=== PATIENT | female | born 1935 | race Caucasian/White ===

== ENCOUNTER 2016-08-15 09:14 | Emergency (ER) | payer MEDICARE ==
[2016-08-15 09:54] VITALS: BP 135/70
--- NOTE | 2016-08-15 11:34 | UC ---
Neck Pain HPI - HPI Summary HPI Summary: compalint of neck toby n that started last night went to turn of her TV and turned her head and pain started pain is constant aching pain that radites into left shoulder her shoulder turning her head to the left is painful couldn't sleep last night d/t pain chronic neck pain- stiffness on a regular basis - see chiropractor denies trauma no recent trauma took some tramadol with some relief denies fever ,headache, - History of Current Complaint Chief Complaint: UCGeneralIllness Stated Complaint: NECK/SHOULDER PAIN Hx Obtained From: Patient Character: Aching Aggravating Factors: Movement Alleviating Factors: Heat Associated Signs & Symptoms: Positive: Negative - Allergies/Home Medications Allergies/Adverse Reactions: Allergies Allergy/AdvReac Type Severity Reaction Status Date / Time Morphine Allergy Intermediate See Comment Verified 07/10/14 15:18 Amoxicillin [From Augmentin] Allergy Unknown Unknown Verified 07/10/14 15:18 Reaction Details Captopril Allergy Unknown Unknown Verified 07/10/14 15:18 Reaction Details Clavulanic Acid Allergy Unknown Unknown Verified 07/10/14 15:18 [From Augmentin] Reaction Details Digoxin and Related Allergy Unknown Hives Verified 11/23/15 13:48 Diltiazem [Cardizem] Allergy Unknown Unknown Verified 07/10/14 15:18 Reaction Details Hydrochlorothiazide Allergy Unknown Unknown Verified 07/10/14 15:18 [From Benicar HCT] Reaction Details Lisinopril Allergy Unknown Unknown Verified 07/10/14 15:18 Reaction Details Nifedipine [From Procardia] Allergy Unknown Unknown Verified 07/10/14 15:18 Reaction Details Olmesartan [From Benicar HCT] Allergy Unknown Unknown Verified 07/10/14 15:18 Reaction Details Paroxetine [From Paxil] Allergy Unknown Unknown Verified 07/10/14 15:18 Reaction Details Adhesive Tape [Plastic Tape] Allergy Rash Verified 07/10/14 15:18 Codeine AdvReac Intermediate GI Upset Verified 07/10/14 15:18 Amlodipine [From Norvasc] AdvReac Unknown Unknown Verified 07/10/14 15:18 Reaction Details Digoxin AdvReac Unknown Headache Verified 07/10/14 15:18 Sertraline [From Zoloft] AdvReac Unknown Unknown Verified 07/10/14 15:18 Reaction Details PMH/Surg Hx/FS Hx/Imm Hx Previously Healthy: Yes Endocrine History Of: Denies: Diabetes, Thyroid Disease Cardiovascular History Of: Reports: Cardiac Disorders - AFIB, Hypertension, Congestive Heart Failure, Atrial Fibrillation Denies: Pacemaker/ICD Respiratory History Of: Denies: COPD, Asthma GI/ History Of: Denies: Ulcer, Renal Disease - Surgical History Surgical History: Yes Surgery Procedure, Year, and Place: Partial hysterectomy 1972, left kneecap repair, right shoulder rotator cuff, left thumb, right hip replacement 2010, window put in heart 2008 ( NOTHING METAL IN CHEST).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 - Family History Known Family History: Positive: Cardiac Disease, Hypertension Negative: Diabetes - Social History Occupation: Retired Lives: With Family Alcohol Use: None Substance Use Type: None Smoking Status (MU): Never Smoked Tobacco - Immunization History Most Recent Influenza Vaccination: 05/2015 Most Recent Tetanus Shot: 9 yrs ago Most Recent Pneumonia Vaccination: 2011 Review Of Systems Constitutional: Positive: Negative Skin: Positive: Negative Eyes: Positive: Negative ENT: Positive: Negative Respiratory: Positive: Negative Cardiovascular: Positive: Negative Gastrointestinal: Positive: Negative Genitourinary: Positive: Negative Musculoskeletal: Positive: Other: - neck pain Neurological: Positive: Negative Psychological: Positive: Negative All Other Systems Reviewed And Are Negative: Yes Physical Exam Triage Information Reviewed: Yes Appearance: No Pain Distress, Well-Nourished Vital Signs: Initial Vital Signs Temp 97.8 F 08/15/16 09:49 Pulse 67 08/15/16 09:49 Resp 20 08/15/16 09:49 BP 135/70 08/15/16 09:49 Pulse Ox 97 08/15/16 09:49 Vital Signs Reviewed: Yes Eyes: Positive: Conjunctiva Clear ENT: Positive: Pharynx normal, TMs normal. Negative: Nasal congestion Neck: Positive: Other: - no cspine tenderness can move head in all directions- painful to turn head towards the left Respiratory: Positive: Lungs clear, Normal breath sounds, No respiratory distress Cardiovascular: Positive: RRR, No Murmur, Pulses Normal Abdomen Description: Positive: Nontender, Soft Bowel Sounds: Positive: Present Musculoskeletal: Positive: No Edema, Other: - tenderness throughout left trapezuis Neurological: Positive: Alert Psychological Exam: Normal Skin Exam: Normal Neck Pain Course/Dx - Course Course Of Treatment: exam completed. no trauma-. muscular in nature will give tramadol and PT for further treatment - Differential Dx/Diagnosis Differential Dx/HQI/PQRI: Sprain, Strain Provider Diagnoses: neck sprain-trapezius left side Discharge - Discharge Plan Condition: Stable Disposition: HOME Prescriptions: traMADol TAB* [Ultram*] 50 mg PO Q6HR PRN #20 tab MDD 4 PRN Reason: Pain - Mild To Moderate Patient Education Materials: Cervical Strain (ED) Referrals: Glory Vigil MD [Primary Care Provider] - Additional Instructions: . Take tramadol for pain. Please call physical therapist for further evaluation and treatment of your neck pain. Increase fluids and rest. Please review your discharge instructions. If your symptoms do not improve please call your primary care provider or return to urgent care.
== END 2016-08-15 12:10 | disposition home or self-care (01) ==
LOC: UCEAST 09:14
DX: S13.9XXA Sprain of joints and ligaments of unspecified parts of neck, initial encounter (principal); X50.0XXA Overexertion from strenuous movement or load, initial encounter; Y93.89 Activity, other specified; Y92.009 Unspecified place in unspecified non-institutional (private) residence as the place of occurrence of the external cause; Z88.6 Allergy status to analgesic agent; Z88.1 Allergy status to other antibiotic agents; Z88.0 Allergy status to penicillin; Z88.8 Allergy status to other drugs, medicaments and biological substances
CPT/HCPCS: 99212; G0463

== ENCOUNTER 2016-08-25 09:32 | Emergency (ER) | payer MEDICARE ==
[2016-08-25 10:06] VITALS: BP 146/53
[2016-08-25] MEDS ORDERED: Acetaminophen TAB* 325 MG PO ONE (11:01)
--- NOTE | 2016-08-25 11:08 | UC ---
Upper Extremity HPI - HPI Summary HPI Summary: 80 year old female s/p fall 08/23/16, patient slipped on ice, when she fell she attempted to grab the stair banister behind her with her left arm and fell onto her lateral right hand. Has pain in R hand and L shoulder. 6/10 constant ache pain at rest, aggravated with movement and palpation, 8/10 pain. - History of Current Complaint Chief Complaint: UCUpperExtremity Stated Complaint: FELL HAND INJURY Time Seen by Provider: 08/25/16 10:36 Hx Obtained From: Patient ?: Yes Onset/Duration: Sudden Onset Severity Initially: Severe Severity Currently: Moderate Pain Intensity: 6 Pain Scale Used: 0-10 Numeric Location Of Pain: Is Diffuse - Right wrist/hand, Is Discrete @ - Left humerus head Character: Dull, Aching Aggravating Factor(s): Movement, Lifting, Flexion, Extension Alleviating Factor(s): Elevation, Ice, Rest Associated Signs And Symptoms: Positive: Swelling, Redness, Bruising - L upper arm, Weakness - R snuff blender Related History: Dominant Hand Right - Risk Factors Non-Orthopedic Risk Factor: Negative Septic Arthritis Risk Factor: Pre-existing Joint Disease Compartment Syndrome Risk Factors: Pain - Allergies/Home Medications Allergies/Adverse Reactions: Allergies Allergy/AdvReac Type Severity Reaction Status Date / Time Morphine Allergy Intermediate See Comment Verified 07/10/14 15:18 Amoxicillin [From Augmentin] Allergy Unknown Unknown Verified 07/10/14 15:18 Reaction Details Captopril Allergy Unknown Unknown Verified 07/10/14 15:18 Reaction Details Clavulanic Acid Allergy Unknown Unknown Verified 07/10/14 15:18 [From Augmentin] Reaction Details Digoxin and Related Allergy Unknown Hives Verified 11/23/15 13:48 Diltiazem [Cardizem] Allergy Unknown Unknown Verified 07/10/14 15:18 Reaction Details Hydrochlorothiazide Allergy Unknown Unknown Verified 07/10/14 15:18 [From Benicar HCT] Reaction Details Lisinopril Allergy Unknown Unknown Verified 07/10/14 15:18 Reaction Details Nifedipine [From Procardia] Allergy Unknown Unknown Verified 07/10/14 15:18 Reaction Details Olmesartan [From Benicar HCT] Allergy Unknown Unknown Verified 07/10/14 15:18 Reaction Details Paroxetine [From Paxil] Allergy Unknown Unknown Verified 07/10/14 15:18 Reaction Details Adhesive Tape [Plastic Tape] Allergy Rash Verified 07/10/14 15:18 Codeine AdvReac Intermediate GI Upset Verified 07/10/14 15:18 Amlodipine [From Norvasc] AdvReac Unknown Unknown Verified 07/10/14 15:18 Reaction Details Digoxin AdvReac Unknown Headache Verified 07/10/14 15:18 Sertraline [From Zoloft] AdvReac Unknown Unknown Verified 07/10/14 15:18 Reaction Details PMH/Surg Hx/FS Hx/Imm Hx Previously Healthy: Yes Endocrine History Of: Denies: Diabetes, Thyroid Disease Cardiovascular History Of: Reports: Cardiac Disorders - AFIB, Hypertension, Congestive Heart Failure, Atrial Fibrillation Denies: Pacemaker/ICD Respiratory History Of: Denies: COPD, Asthma GI/ History Of: Denies: Ulcer, Renal Disease Neurological History Of: Denies: TIA, CVA, Dementia, Seizures, Migraine Psychological History Of: Denies: Anxiety, Depression, Bipolar Disorder, Schizophrenia, Post Traumatic Stress Disorder - Surgical History Surgical History: Yes Surgery Procedure, Year, and Place: Partial hysterectomy 1972, left kneecap repair, right shoulder rotator cuff, left thumb, right hip replacement 2010, window put in heart 2008 ( NOTHING METAL IN CHEST).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 - Family History Known Family History: Positive: Cardiac Disease - Mother and father, Hypertension - Mother and father Negative: Diabetes - Social History Occupation: Retired Alcohol Use: None Substance Use Type: None Smoking Status (MU): Never Smoked Tobacco Have You Smoked in the Last Year: No - Immunization History Most Recent Influenza Vaccination: 05/2015 Most Recent Tetanus Shot: 9 yrs ago Most Recent Pneumonia Vaccination: 2011 Review of Systems Constitutional: Negative Skin: Negative Eyes: Negative - Pt denies blurred vision, change in vision or increased discharge from the eye. ENT: Negative Respiratory: Negative Cardiovascular: Negative Gastrointestinal: Negative Genitourinary: Negative Motor: Decreased ROM - Right wrist, Weakness - Left bicep/shoulder Musculoskeletal: Decreased ROM - Right hand/wrist; left shoudler Neurological: Negative Psychological: Negative All Other Systems Reviewed And Are Negative: Yes Physical Exam Triage Information Reviewed: Yes Appearance: Well-Appearing, No Pain Distress, Well-Nourished Vital Signs: Initial Vital Signs Temp 97.5 F 08/25/16 09:59 Pulse 77 08/25/16 09:59 Resp 18 08/25/16 09:59 BP 146/53 08/25/16 09:59 Pulse Ox 97 08/25/16 09:59 Vital Signs Reviewed: Yes Eye Exam: Normal Eyes: Positive: Conjunctiva Clear ENT: Positive: Hearing grossly normal, Other: - Hematoma right orbital area. Negative: Nasal congestion, Nasal drainage Dental Exam: Normal Dental: Positive: Percussion Tenderness @ Neck exam: Normal Neck: Positive: Supple, Nontender, No Lymphadenopathy Respiratory Exam: Normal Respiratory: Positive: Chest non-tender, Lungs clear, Normal breath sounds Cardiovascular Exam: Normal Cardiovascular: Positive: RRR, No Murmur, Pulses Normal Abdominal Exam: Normal Abdomen Description: Positive: Nontender Bowel Sounds: Positive: Present Musculoskeletal: Positive: Strength Limited @ - Left bicep, R snuff blender, ROM Limited @ - Right hand Neurological Exam: Normal Psychological Exam: Normal Psychological: Positive: Normal Response To Family Skin: Positive: Other - bruising around R eye and L upper arm Procedures - Splinting Location: R 5th metacarpal fx Hand-Made Type: orthoglass Splint: ulnar Pre-Proc Neuro Vasc Exam: normal Post-Proc Neuro Vasc Exam: normal Upper Extremity Course/Dx - Differential Dx/Diagnosis Provider Diagnoses: Facial contusion. R 5th metacarpal fracture closed, angulated. L proximal biceps tendon injury Discharge - Discharge Plan Condition: Stable Disposition: HOME Patient Education Materials: Hematoma (ED), Boxer Fracture (ED) Referrals: Glory Vigil MD [Primary Care Provider] - If Needed ( Call your doctor or return for examination if pain becomes severe, or if numbness or severe discoloration occurs.) Lynn Villasenor MD [Medical Doctor] - 7 Days Additional Instructions: Call your doctor or return for examination if pain becomes severe, or if numbness or severe discoloration occurs. Keep splint on all the time until you are seen by an orthopedist next week.
--- NOTE | 2016-08-25 11:41 | RAD ---
HISTORY: Pain and bruising of right hand after fall COMPARISONS: None VIEWS: 4, Frontal, lateral, and oblique views of the right hand FINDINGS: BONE DENSITY: There is diffuse osteopenia. BONES: There is an angulated fracture of the distal fifth metacarpal. 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 There is osteoarthritis of interphalangeal joints ALIGNMENT: There is no dislocation. SOFT TISSUES: Unremarkable. OTHER FINDINGS: None. IMPRESSION: 1. ANGULATED FRACTURE OF THE DISTAL FIFTH METACARPAL. 2. OSTEOPENIA. 3. OSTEOARTHRITIS.
--- NOTE | 2016-08-25 11:45 | RAD ---
INDICATION: Pain and bruising after fall COMPARISON: None TECHNIQUE: Routine frontal and Y views were obtained. FINDINGS: There is osteopenia. There is moderate osteophytosis about the glenohumeral and AC joints. There are mild irregularities about the greater tuberosity which are likely degenerative. There is no convincing evidence of acute fracture.. IMPRESSION: MODERATE OSTEOARTHRITIC CHANGES. NO DEFINITIVE FRACTURE. SUGGEST FOLLOW-UP INDICATED
== END 2016-08-25 12:51 | disposition home or self-care (01) ==
LOC: UCEAST 09:32
DX: S62.316A Displaced fracture of base of fifth metacarpal bone, right hand, initial encounter for closed fracture (principal); S46.202A Unspecified injury of muscle, fascia and tendon of other parts of biceps, left arm, initial encounter; S05.11XA Contusion of eyeball and orbital tissues, right eye, initial encounter; W00.0XXA Fall on same level due to ice and snow, initial encounter; Y93.9 Activity, unspecified; Y92.9 Unspecified place or not applicable; M85.841 Other specified disorders of bone density and structure, right hand; M19.041 Primary osteoarthritis, right hand; Z88.6 Allergy status to analgesic agent; Z88.1 Allergy status to other antibiotic agents; Z88.0 Allergy status to penicillin; Z88.8 Allergy status to other drugs, medicaments and biological substances
CPT/HCPCS: 99213; A9270-GY; G0463

== ENCOUNTER → 2016-12-17 13:47 | Emergency (ER) | payer MEDICARE ==
[~2016-12-17 13:47] MED LIST: Meclizine TAB* 12.5 MG PO ONE; NS 0.9% 1000 ML* 1,000 ML IV SCH
[2016-12-17 14:35] LABS: Hematocrit 38 % (35-47); Hemoglobin 12.4 g/dl (12.0-16.0); Mean Corpuscular HGB Conc 33 g/dl (31-36); Mean Corpuscular Hemoglobin 27 pg (27-31); Mean Corpuscular Volume 83 fL (80-97); Mean Platelet Volume 8 um3 (7.4-10.4); Red Blood Count 4.56 10^6/ul (4.0-5.4); Red Cell Distribution Width 16 % (10.5-15); White Blood Count 7.5 10^3/ul (3.5-10.8)
[2016-12-17 14:51] LABS: Albumin 4.2 g/dL (3.2-5.2); BUN/Creatinine Ratio 21.6 (8-20); C Reactive Protein 4.16 mg/L (< 5.00); Calcium 9.3 mg/dL (8.6-10.3); EGFR African American 79.3 (>60); EGFR Non-African American 61.7 (>60); Globulin 3.4 g/dL (2-4); Magnesium 2.3 mg/dL (1.9-2.7); Potassium 3.8 mmol/L (3.5-5.0); Total Bilirubin 0.6 mg/dL (0.2-1.0); Total Protein 7.6 g/dL (6.4-8.9)
[2016-12-17 14:54] LABS: Troponin I 0.01 ng/mL (<0.04)
[2016-12-17 15:22] LABS: TSH (Thyroid Stimulating Horm) 4.21 mcIU/mL (0.34-5.60)
--- NOTE | 2016-12-17 16:24 | RAD ---
INDICATION: Syncope COMPARISON: Chest x-ray dated June 29, 2014 TECHNIQUE: Single AP portable view of the chest was obtained. FINDINGS: Image quality is compromised due to the relative inferiority of a portable chest x-ray. Similar to the previous chest x-ray there is mild cardiomegaly and calcification overlying the arch of the aorta. The lungs are grossly clear. There is no evidence of a large pleural effusion. Visualized bones are normal for the patient's age. Surgical tacks are seen overlying the right humeral head. IMPRESSION: No radiographic evidence for acute cardiopulmonary abnormality on this portable chest x-ray.
--- NOTE | 2016-12-17 16:32 | RAD ---
INDICATION: Headache and dizziness in a woman taking Coumadin. COMPARISON: Comparison CT of the brain dated July 09, 2015 TECHNIQUE: Contiguous axial sections of the brain were obtained from the skull base to the vertex without contrast. FINDINGS: The ventricles, cisterns and sulci are within normal limits. There is mild periventricular and subcortical white matter hypoattenuation consistent with chronic microvascular disease. There is a more focal area of hypoattenuation at the white matter tracts of the right frontal lobe adjacent to the caudate head nucleus (image 11 of 28) that is similar to the July 09, 2015 CT of the brain. Otherwise the oliver-white matter differentiation is adequately maintained and there is no sulcal effacement. No significant focal abnormality or mass effect is present. There is no evidence for intracranial hemorrhage. No significant focal osseous abnormality is present. 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 The visualized portion of the paranasal sinuses and mastoid air cells appear clear. IMPRESSION: Again seen is evidence of chronic microvascular disease similar in appearance to the July 09, 2015 CT of the brain without evidence of acute intracranial abnormality.
--- NOTE | 2016-12-17 16:34 | RAD ---
INDICATION: Right hip pain after a fall COMPARISON: Multiple previous hip radiographs, most recently dated November 23, 2015 TECHNIQUE: 3 views of the right hip were obtained. FINDINGS: The right hip prosthesis is anatomically aligned in the AP and lateral projections. There is no evidence of periprosthetic loosening or fracture. Degenerative changes of the left hip include joint space narrowing, sclerotic change of the acetabular roof and marginal osteophyte formation. IMPRESSION: Anatomic alignment of the right hip prosthesis without radiographic evidence of periprostatic fracture or loosening. If the patient's symptoms persist follow-up imaging is recommended.
--- NOTE | 2016-12-17 17:09 | ED ---
Nando Caputo Billy, scribed for Polo Allan MD on 12/17/16 at 1408 . Complex/Multi-Sys Presentation - HPI Summary HPI Summary: Patient is an 81 year-old female coming to [facility] for evaluation of numerous complaints this morning. She went to sleep at approximately 2200 yesterday but woke up at 0230 with a throbbing headache in the occipital and frontal regions of her head, severity 7/10, as well as her chronic tinnitus. She walked over to the bathroom at approximately 0245 and had some dizziness on the way there. She states that she felt unsteady on her feet. She sat down on the toilet, felt very dizzy, then woke up on the floor. She is unsure if she had a period of LOC , but she has about a minute-long period of memory lapse and does not remember how she got onto the floor. Patient complains of palpitations since. She was able to get up and walk back to her bedroom. She woke up again at approximately 0700 with continued dizziness and headache, although her headache has improved by this time in the ED. Patient also complains of weakness in the left arm lasting 10 minutes at about 0730. She also states that there is weakness in the right leg that has been ongoing for the last 4 weeks, worse this morning. Denies any speech difficulties or changes in vision. She has had numerous falls recently, including one 3 months ago, when she fell onto her right-side. She visited her PCP last week, who states that her INR had been abnormal. She has been diaphoretic all morning but denies any chest pain or shortness of breath. She has IBS with chronic diarrhea but denies any blood in the stool. Denies any urinary symptoms. Patient has been recording her blood pressure this morning and noticed that she has been hypertensive. List of patient's self-measured blood pressure and time taken this mornin: 177/108 1145: 178/104 1210: 183/104 - History Of Current Complaint Chief Complaint: EDSyncope Time Seen by Provider: 12/17/16 13:51 Hx Obtained From: Patient Onset/Duration: Gradual Onset, Lasting Hours Timing: Constant Severity Currently: Moderate Severity Initially: Moderate Location: Pain At: - occipital headache Character: Typical Headache Aggravating Factor(s): dizziness worse with positional change Alleviating Factor(s): rest Associated Signs And Symptoms: Positive: Weakness, Headache, Palpitations, Diarrhea, Diaphoresis, Other - hypertension, headache, syncope. Negative: Nausea, Vomiting, Abdominal Pain, Dysuria - Allergies/Home Medications Allergies/Adverse Reactions: Allergies Allergy/AdvReac Type Severity Reaction Status Date / Time Morphine Allergy Intermediate See Comment Verified 12/17/16 13:53 Amoxicillin [From Augmentin] Allergy Unknown Unknown Verified 12/17/16 13:53 Reaction Details Captopril Allergy Unknown Unknown Verified 12/17/16 13:53 Reaction Details Clavulanic Acid Allergy Unknown Unknown Verified 12/17/16 13:53 [From Augmentin] Reaction Details Digoxin and Related Allergy Unknown Hives Verified 12/17/16 13:53 Diltiazem [Cardizem] Allergy Unknown Unknown Verified 12/17/16 13:53 Reaction Details Hydrochlorothiazide Allergy Unknown Unknown Verified 12/17/16 13:53 [From Benicar HCT] Reaction Details Lisinopril Allergy Unknown Unknown Verified 12/17/16 13:53 Reaction Details Nifedipine [From Procardia] Allergy Unknown Unknown Verified 12/17/16 13:53 Reaction Details Olmesartan [From Benicar HCT] Allergy Unknown Unknown Verified 12/17/16 13:53 Reaction Details Paroxetine [From Paxil] Allergy Unknown Unknown Verified 12/17/16 13:53 Reaction Details Adhesive Tape [Plastic Tape] Allergy Rash Verified 12/17/16 13:53 Codeine AdvReac Intermediate GI Upset Verified 12/17/16 13:53 Amlodipine [From Norvasc] AdvReac Unknown Unknown Verified 12/17/16 13:53 Reaction Details Digoxin AdvReac Unknown Headache Verified 12/17/16 13:53 Sertraline [From Zoloft] AdvReac Unknown Unknown Verified 12/17/16 13:53 Reaction Details PMH/Surg Hx/FS Hx/Imm Hx Endocrine/Hematology History: Denies: Hx Diabetes, Hx Thyroid Disease Cardiovascular History: Reports: Hx Congestive Heart Failure, Hx Hypertension Denies: Hx Pacemaker/ICD Respiratory History: Denies: Hx Asthma, Hx Chronic Obstructive Pulmonary Disease (COPD) GI History: Reports: Hx Irritable Bowel Denies: Hx Ulcer History: Denies: Hx Renal Disease Musculoskeletal History: Reports: Hx Orthopedic Injury - right hip fx 03/05/14 Sensory History: Reports: Hx Contacts or Glasses Denies: Hx Hearing Aid Opthamlomology History: Reports: Hx Contacts or Glasses Neurological History: Denies: Hx Dementia, Hx Migraine, Hx Seizures, Hx Transient Ischemic Attacks (TIA) Psychiatric History: Denies: Hx Anxiety, Hx Depression, Hx Panic Disorder, Hx Schizophrenia, Hx Bipolar Disorder - Surgical History Surgery Procedure, Year, and Place: Partial hysterectomy 1972, left kneecap repair, right shoulder rotator cuff, left thumb, right hip replacement 2010, window put in heart 2008 ( NOTHING METAL IN CHEST).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 - Immunization History Date of Tetanus Vaccine: unknown Date of Influenza Vaccine: 2014 Infectious Disease History: No Infectious Disease History: Denies: Hx Hepatitis, Hx Human Immunodeficiency Virus (HIV), History Other Infectious Disease, Traveled Outside the [place] in Last 30 Days - Family History Known Family History: Positive: Cardiac Disease - Mother and father, Hypertension - Mother and father Negative: Diabetes - Social History Alcohol Use: None Substance Use Type: Reports: None Smoking Status (MU): Never Smoked Tobacco Have You Smoked in the Last Year: No Review of Systems Positive: Skin Diaphoresis Negative: Blurred Vision, Diplopia Cardiovascular: Other - hypertension Positive: Palpitations. Negative: Chest Pain Negative: Shortness Of Breath Positive: Diarrhea. Negative: Abdominal Pain, Vomiting, Nausea Negative: dysuria, hematuria Positive: Headache, Weakness, Syncope. Negative: Slurred Speech All Other Systems Reviewed And Are Negative: Yes Physical Exam Triage Information Reviewed: Yes Vital Signs On Initial Exam: Initial Vitals Temp Pulse Resp BP Pulse Ox 97.8 F 70 18 180/102 93 12/17/16 13:53 12/17/16 13:53 12/17/16 13:53 12/17/16 13:53 12/17/16 13:53 Vital Signs Reviewed: Yes Appearance: Positive: Well-Appearing, No Pain Distress Skin: Positive: Warm, Skin Color Reflects Adequate Perfusion, Dry Head/Face: Positive: Normal Head/Face Inspection Eyes: Positive: EOMI, LELE ENT: Positive: Normal ENT inspection Neck: Positive: Supple, Nontender Respiratory/Lung Sounds: Positive: Clear to Auscultation, Breath Sounds Present Cardiovascular: Positive: IRR Abdomen Description: Positive: Nontender, Soft Bowel Sounds: Positive: Present Musculoskeletal: Positive: Normal, Strength/ROM Intact Neurological: Positive: Normal, Sensory/Motor Intact, Alert, Oriented to Person Place, Time, Other - See NIHSS for further details (score = 0). Psychiatric: Positive: Affect/Mood Appropriate Diagnostics - Vital Signs Vital Signs Temp Pulse Resp BP Pulse Ox 12/17/16 13:57 97.8 F 86 18 180/102 94 12/17/16 13:53 97.8 F 70 18 180/102 93 - Laboratory Lab Results: Lab Results 12/17/16 12/17/16 12/17/16 Range/Units 14:25 14:25 14:25 WBC 7.5 (3.5-10.8) 10^3/ul RBC 4.56 (4.0-5.4) 10^6/ul Hgb 12.4 (12.0-16.0) g/dl Hct 38 (35-47) % MCV 83 (80-97) fL MCH 27 (27-31) pg MCHC 33 (31-36) g/dl RDW 16 H (10.5-15) % Plt Count 147 L (150-450) 10^3/ul MPV 8 (7.4-10.4) um3 Neut % (Auto) 50.1 (38-83) % Lymph % (Auto) 37.8 (25-47) % [place] % (Auto) 8.8 (1-9) % Eos % (Auto) 2.6 (0-6) % Baso % (Auto) 0.7 (0-2) % Absolute Neuts (auto) 3.8 (1.5-7.7) 10^3/ul Absolute Lymphs (auto) 2.8 (1.0-4.8) 10^3/ul Absolute Monos (auto) 0.7 (0-0.8) 10^3/ul Absolute Eos (auto) 0.2 (0-0.6) 10^3/ul Absolute Basos (auto) 0.1 (0-0.2) 10^3/ul Absolute Nucleated RBC 0 10^3/ul Nucleated RBC % 0 INR (Anticoag Therapy) 2.12 H (0.89-1.11) APTT 41.2 H (26.0-36.3) seconds Sodium 138 (133-145) mmol/L Potassium 3.8 (3.5-5.0) mmol/L Chloride 106 (101-111) mmol/L Carbon Dioxide 27 (22-32) mmol/L Anion Gap 5 (2-11) mmol/L BUN 19 (6-24) mg/dL Creatinine 0.88 (0.51-0.95) mg/dL Est GFR ( Amer) 79.3 (>60) Est GFR (Non-Af Amer) 61.7 (>60) BUN/Creatinine Ratio 21.6 H (8-20) Glucose 93 (70-100) mg/dL Lactic Acid (0.5-2.0) mmol/L Calcium 9.3 (8.6-10.3) mg/dL Magnesium 2.3 (1.9-2.7) mg/dL Total Bilirubin 0.60 (0.2-1.0) mg/dL AST 21 (13-39) U/L ALT 13 (7-52) U/L Alkaline Phosphatase 110 H (34-104) U/L Total Creatine Kinase 44 (10-223) U/L CK-MB (CK-2) 3.1 (0.6-6.3) ng/mL Troponin I 0.01 (<0.04) ng/mL C-Reactive Protein 4.16 (< 5.00) mg/L Total Protein 7.6 (6.4-8.9) g/dL Albumin 4.2 (3.2-5.2) g/dL Globulin 3.4 (2-4) g/dL Albumin/Globulin Ratio 1.2 (1-3) Lipase 46 (11.0-82.0) U/L TSH 4.21 (0.34-5.60) mcIU/mL 12/17/16 Range/Units 14:25 WBC (3.5-10.8) 10^3/ul RBC (4.0-5.4) 10^6/ul Hgb (12.0-16.0) g/dl Hct (35-47) % MCV (80-97) fL MCH (27-31) pg MCHC (31-36) g/dl RDW (10.5-15) % Plt Count (150-450) 10^3/ul MPV (7.4-10.4) um3 Neut % (Auto) (38-83) % Lymph % (Auto) (25-47) % [place] % (Auto) (1-9) % Eos % (Auto) (0-6) % Baso % (Auto) (0-2) % Absolute Neuts (auto) (1.5-7.7) 10^3/ul Absolute Lymphs (auto) (1.0-4.8) 10^3/ul Absolute Monos (auto) (0-0.8) 10^3/ul Absolute Eos (auto) (0-0.6) 10^3/ul Absolute Basos (auto) (0-0.2) 10^3/ul Absolute Nucleated RBC 10^3/ul Nucleated RBC % INR (Anticoag Therapy) (0.89-1.11) APTT (26.0-36.3) seconds Sodium (133-145) mmol/L Potassium (3.5-5.0) mmol/L Chloride (101-111) mmol/L Carbon Dioxide (22-32) mmol/L Anion Gap (2-11) mmol/L BUN (6-24) mg/dL Creatinine (0.51-0.95) mg/dL Est GFR ( Amer) (>60) Est GFR (Non-Af Amer) (>60) BUN/Creatinine Ratio (8-20) Glucose (70-100) mg/dL Lactic Acid 0.8 (0.5-2.0) mmol/L Calcium (8.6-10.3) mg/dL Magnesium (1.9-2.7) mg/dL Total Bilirubin (0.2-1.0) mg/dL AST (13-39) U/L ALT (7-52) U/L Alkaline Phosphatase (34-104) U/L Total Creatine Kinase (10-223) U/L CK-MB (CK-2) (0.6-6.3) ng/mL Troponin I (<0.04) ng/mL C-Reactive Protein (< 5.00) mg/L Total Protein (6.4-8.9) g/dL Albumin (3.2-5.2) g/dL Globulin (2-4) g/dL Albumin/Globulin Ratio (1-3) Lipase (11.0-82.0) U/L TSH (0.34-5.60) mcIU/mL Result Diagrams: 12/17/16 14:25 12/17/16 14:25 Lab Statement: Any lab studies that have been ordered have been reviewed, and results considered in the medical decision making process. - Radiology Hip/pelvis XR Xray Interpretation: No Acute Changes Radiology Interpretation Completed By: Radiologist CXR Xray Interpretation: No Acute Changes Radiology Interpretation Completed By: Radiologist - CT Brain CT Interpretation: No Acute Changes CT Interpretation Completed By: Radiologist - EKG 1414 EKG Interpretation: afib 68 bpm, LVH EKG Comparison: No Significant Change - Compared to 06/29/14 National Institutes Of Health - NIH Scale Level of Consciousness: Alert/Keenly Responsive Ask Patient the Month and His/Her Age: Both Correct Ask Pt to Open/Close Eyes and Cardiac Rehabilitation Specialist/Release Non-Paretic Hand: Both Correctly Best Gaze (Only Horizontal Eye Movement): Normal Visual Field Testing: No Visual Loss Facial Paresis-Pt to Smile & Close Eyes or Grimace Symmetry: Normal/Symmetrical Motor Function - Right Arm: No Drift-Holds 10 Seconds Motor Function - Left Arm: No Drift-Holds 10 Seconds Motor Function - Right Leg: No Drift-Holds 10 Seconds Motor Function - Left Leg: No Drift-Holds 10 Seconds Limb Ataxia-Must be out of Proportion to Weakness Present: Absent Sensory (Use Pinprick to Test Arms/Legs/Trunk/Face): Normal Best Language (Describe Picture, Name Items): No Aphasia Dysarthria (Read Several Words): Normal Extinction and Inattention: No Abnormality Total Score: 0 Re-Evaluation - Re-Evaluation First Eval Re-Evaluation Time: 16:43 Comment: Labs and imaging reviewed. Complex Multi-Symp Course/Dx Course Of Treatment: NO CRITICAL CARE TIME Assessment/Plan: DIZZINESS IMPROVED IN ED. PATIENT HAD MECLIZINE 25MG PO IN ED. RT LEG NUMBNESS APPEARS TO BE A CHRONIC INTERMITTENT CONDITION. SHE HAS AN APPOINTMENT WITH VASCULAR FOR THE RT LEG ON12/21/16. THE LEFT ARM HAS A CHRONIC LEFT SHOULDER INJURY WITH INTERMITTENT WEAKNESS. I DISCUSSED ADMISSION WITH PATIENT/DAUGHTER FOR SYNCOPE AND POSSIBLE TIA. SHE DECLINED ADMISSION, WISHES TO GO HOME. DISCHARGE HOME STABLE WITH RX FOR MECLIZINE. - Diagnoses Provider Diagnoses: Vertigo, Syncope, Arm weakness Discharge - Discharge Plan Condition: Stable Disposition: HOME Prescriptions: Meclizine HCl [Meclizine 25] 25 mg PO Q6HR PRN #15 tab PRN Reason: Dizziness Patient Education Materials: Vertigo (ED), Syncope (ED), Weakness (ED) Referrals: Glory Vigil MD [Primary Care Provider] - Additional Instructions: FOLLOW UP WITH YOUR DOCTOR. CALL DR VIGIL TOMORROW. RETURN TO THE EMERGENCY DEPARTMENT FOR ANY WORSENING OF YOUR CONDITION; WEAKNESS , NUMBNESS, YOU FEEL LIKE PASSING OUT, YOU FEEL ILL, DIFFICULTY WITH SPEECH OR VISION, CHEST PAIN, SHORTNESS OF BREATH OR QUESTIONS OR CONCERNS. The documentation as recorded by the Nando arora Billy accurately reflects the service I personally performed and the decisions made by me, Polo Allan MD.
[2016-12-17 17:26] VITALS: BP 183/66
== END | disposition home or self-care (01) ==
LOC: ED 13:47
DX: R42 Dizziness and giddiness (principal); R55 Syncope and collapse; R53.1 Weakness; R51 Headache; R00.2 Palpitations; R19.7 Diarrhea, unspecified
CPT/HCPCS: 36415; 70450; 71010; 80053; 82550; 82553; 83605; 83690; 83735; 84443; 84484; 85025; 85610; 85730; 86140; 93005; 99283; A9270-GY

== ENCOUNTER 2016-12-19 10:57 | Observation (INO) | payer MEDICARE ==
[2016-12-19] MEDS: NS 0.9% 1000 ML* 1,000 ML IV SCH ×2 (15:14→18:02)
[2016-12-19 15:25] LABS: Hematocrit 40 % (35-47); Hemoglobin 12.9 g/dl (12.0-16.0); Mean Corpuscular HGB Conc 33 g/dl (31-36); Mean Corpuscular Hemoglobin 27 pg (27-31); Mean Corpuscular Volume 83 fL (80-97); Mean Platelet Volume 9 um3 (7.4-10.4); Red Blood Count 4.76 10^6/ul (4.0-5.4); Red Cell Distribution Width 17 % (10.5-15); White Blood Count 8.9 10^3/ul (3.5-10.8)
--- NOTE | 2016-12-19 15:27 | RAD ---
HISTORY: Dizziness, fall COMPARISONS: December 17, 2016 VIEWS:1: Single frontal portable view of the chest at 3:15 PM FINDINGS: LINES AND TUBES: None. CARDIOMEDIASTINAL SILHOUETTE: The cardiac silhouette is enlarged. The cardiomediastinal silhouette is otherwise normal for portable technique. PLEURA: The costophrenic angles are sharp. No pleural abnormalities are noted. LUNG PARENCHYMA: The lungs are clear. ABDOMEN: The upper abdomen is clear. There is no subphrenic gas. BONES AND SOFT TISSUES: There is postsurgical change to the right shoulder IMPRESSION: CARDIOMEGALY
[2016-12-19 15:38] LABS: Albumin 4.2 g/dL (3.2-5.2); BUN/Creatinine Ratio 22.4 (8-20); C Reactive Protein 5.12 mg/L (< 5.00); Calcium 9.7 mg/dL (8.6-10.3); EGFR African American 82.6 (>60); EGFR Non-African American 64.2 (>60); Globulin 3.6 g/dL (2-4); Magnesium 2.2 mg/dL (1.9-2.7); Potassium 3.9 mmol/L (3.5-5.0); Total Bilirubin 0.9 mg/dL (0.2-1.0); Total Protein 7.8 g/dL (6.4-8.9)
[2016-12-19 15:39] LABS: Troponin I 0.02 ng/mL (<0.04)
[2016-12-19 16:04] LABS: TSH (Thyroid Stimulating Horm) 1.98 mcIU/mL (0.34-5.60)
--- NOTE | 2016-12-19 17:00 | RAD ---
Indication: Dizziness. Fall. Comparison: December 17, 2016 CT. Technique: [employer] [place] 1.5 Evangelina [id number] with GEM suite. MRI brain without contrast. Report: Diffusion series is negative for acute or subacute ischemia. Susceptibility series is negative for stigmata of hemosiderin deposition to indicate previous hemorrhage. Unremarkable cerebral sulci, ventricles, and basal cisterns. Extensive increased T2 signal in the bilateral periventricular and subcortical white matter regions of the cerebral hemispheres without mass effect most consistent with chronic small vessel ischemic disease. 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 Negative for intra or extra-axial fluid collection. Unremarkable internal auditory canals. Preserved major intracranial flow-voids. No suspicious lesion of the calvarium or skull base. Clear paranasal sinuses and mastoid air spaces. Negative for scalp hematoma. IMPRESSION: 1. No acute intracranial process evident. 2. Stigmata of probable chronic small vessel ischemic disease and chronic approximate 0.4 x 0.9 cm lacunar infarct at the RIGHT caudate head.
[2016-12-19 17:03] LABS: Urine Bacteria Absent (Absent); Urine Bilirubin Negative (Negative); Urine Glucose Negative (Negative); Urine Nitrite Negative (Negative)
[2016-12-19] MEDS ORDERED: Acetaminophen TAB* 325 MG PO PRN (17:03)
[2016-12-19] MEDS ORDERED: Ondansetron INJ* 2 MG/ML VIAL IV PRN (17:03)
[2016-12-19] MEDS ORDERED: traMADol TAB* 50 MG PO PRN (17:07)
[2016-12-19] MEDS ORDERED: Warfarin TAB(*) 2.5 MG PO SCH (18:00)
--- NOTE | 2016-12-19 18:55 | ED ---
Michael Caputo Auryana, scribed for Polo Allan MD on 12/19/16 at 1546 . Dizziness - HPI Summary HPI Summary: 81 year old presents with dizziness starting this morning after eating breakfast. The patient states that she was washing her face in the bathroom when she became dizzy and fell. She states that she doesn't not think that she had any LOC but "couldn't swear by it"- patient does remember getting up after the fall. She reports that she also has a dull ache in her upper neck/lower head just before her dizziness episodes- spontaneous resolution of pain after. She states that she hit her left arm on the toilet handle but denies any head trauma. She denies any vomiting. Her symptoms are aggravated by head movement and improved by rest. Reports Meclezine improved symptoms with first dose but has not helped since -last dose 04:00/05:00 today. She has had similar episodes in the past with dizziness and falls - last seen here at [facility] on Sunday (12/17/16) - Rx Meclezine and advised to follow up- called office and no availability until January. She has had 2 episodes of dizziness since her visit today - both managed with rest. PMHx is significant for R hip replacement (titanium), HTN, and hyperlipidemia. Patient is on Coumadin. She lives with family however - her and children - however all were at work at the time of the fall. - History Of Current Complaint Chief Complaint: EDDizziness Stated Complaint: FALL/SYNCOPE Time Seen by Provider: 12/19/16 14:42 Hx Obtained From: Patient Onset/Duration: Still Present, Resolved - with rest Timing: Intermittent Episode Lasting Severity Initially: Mild Severity Currently: None Character: Dizzy Aggravating Factor(s): Other - movement Alleviating Factor(s): Rest Associated Signs And Symptoms: Positive: Other: - FALL Related History: Similar Episode/Dx as - see HPI - Risk Factors Cardiac Risk Factors: Hypertension, Elevated Lipids CVA Risk Factor: Hypertension, Atrial Fibrillation, Hyperlipidemia - Allergies/Home Medications Allergies/Adverse Reactions: Allergies Allergy/AdvReac Type Severity Reaction Status Date / Time Morphine Allergy Intermediate See Comment Verified 12/17/16 13:53 Amoxicillin [From Augmentin] Allergy Unknown Unknown Verified 12/17/16 13:53 Reaction Details Captopril Allergy Unknown Unknown Verified 12/17/16 13:53 Reaction Details Clavulanic Acid Allergy Unknown Unknown Verified 12/17/16 13:53 [From Augmentin] Reaction Details Digoxin and Related Allergy Unknown Hives Verified 12/17/16 13:53 Diltiazem [Cardizem] Allergy Unknown Unknown Verified 12/17/16 13:53 Reaction Details Hydrochlorothiazide Allergy Unknown Unknown Verified 12/17/16 13:53 [From Benicar HCT] Reaction Details Lisinopril Allergy Unknown Unknown Verified 12/17/16 13:53 Reaction Details Nifedipine [From Procardia] Allergy Unknown Unknown Verified 12/17/16 13:53 Reaction Details Olmesartan [From Benicar HCT] Allergy Unknown Unknown Verified 12/17/16 13:53 Reaction Details Paroxetine [From Paxil] Allergy Unknown Unknown Verified 12/17/16 13:53 Reaction Details Adhesive Tape [Plastic Tape] Allergy Rash Verified 12/17/16 13:53 Codeine AdvReac Intermediate GI Upset Verified 12/17/16 13:53 Amlodipine [From Norvasc] AdvReac Unknown Unknown Verified 12/17/16 13:53 Reaction Details Digoxin AdvReac Unknown Headache Verified 12/17/16 13:53 Sertraline [From Zoloft] AdvReac Unknown Unknown Verified 12/17/16 13:53 Reaction Details Home Medications: Home Medications Acetaminophen [Acetaminophen Extra Stren] 500 mg PO Q6HR PRN 12/19/16 [History Confirmed 12/19/16] Cyclobenzaprine TAB* [Flexeril 10 MG TAB*] 10 mg PO BEDTIME PRN 12/19/16 [ History Confirmed 12/19/16] Warfarin TAB(*) [Coumadin TAB(*)] 2.5 mg PO SUMOTUTHSA 12/19/16 [History Confirmed 12/19/16] Warfarin TAB(*) [Coumadin TAB(*)] 5 mg PO WEFR 12/19/16 [History Confirmed 12/19] traMADol TAB* [Ultram*] 50 mg PO Q6HR PRN MDD 4 12/19/16 [History Confirmed 04/29] PMH/Surg Hx/FS Hx/Imm Hx Endocrine/Hematology History: Denies: Hx Diabetes, Hx Thyroid Disease Cardiovascular History: Reports: Hx Congestive Heart Failure, Hx Hypertension Denies: Hx Pacemaker/ICD Respiratory History: Denies: Hx Asthma, Hx Chronic Obstructive Pulmonary Disease (COPD) GI History: Reports: Hx Irritable Bowel Denies: Hx Ulcer History: Denies: Hx Renal Disease Musculoskeletal History: Reports: Hx Orthopedic Injury - right hip fx 03/05/14 Sensory History: Reports: Hx Contacts or Glasses Denies: Hx Hearing Aid Opthamlomology History: Reports: Hx Contacts or Glasses Neurological History: Denies: Hx Dementia, Hx Migraine, Hx Seizures, Hx Transient Ischemic Attacks (TIA) Psychiatric History: Denies: Hx Anxiety, Hx Depression, Hx Panic Disorder, Hx Schizophrenia, Hx Bipolar Disorder - Surgical History Surgery Procedure, Year, and Place: Partial hysterectomy 1972, left kneecap repair, right shoulder rotator cuff, left thumb, right hip replacement 2010, window put in heart 2008 ( NOTHING METAL IN CHEST).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 - Immunization History Date of Tetanus Vaccine: unknown Date of Influenza Vaccine: 2014 Infectious Disease History: No Infectious Disease History: Denies: Hx Hepatitis, Hx Human Immunodeficiency Virus (HIV), History Other Infectious Disease, Traveled Outside the [place] in Last 30 Days - Family History Known Family History: Positive: Cardiac Disease - Mother and father, Hypertension - Mother and father Negative: Diabetes - Social History Occupation: Retired Lives: With Family Alcohol Use: None Substance Use Type: Reports: None Smoking Status (MU): Never Smoked Tobacco Have You Smoked in the Last Year: No Review of Systems Positive: Other - dizziness Eyes: Negative ENT: Negative Cardiovascular: Negative Respiratory: Negative Gastrointestinal: Negative Genitourinary: Negative Musculoskeletal: Negative Skin: Negative Positive: Headache - dull ache in the lower head/upper neck Psychological: Normal All Other Systems Reviewed And Are Negative: Yes Physical Exam Triage Information Reviewed: Yes Vital Signs On Initial Exam: Initial Vitals Temp Pulse Resp BP Pulse Ox 98.1 F 87 18 187/87 96 12/19/16 10:59 12/19/16 10:59 12/19/16 10:59 12/19/16 10:59 12/19/16 10:59 Vital Signs Reviewed: Yes Appearance: Positive: Well-Appearing, No Pain Distress Skin: Positive: Warm, Skin Color Reflects Adequate Perfusion, Dry Head/Face: Positive: Normal Head/Face Inspection Eyes: Positive: EOMI, LELE ENT: Positive: Normal ENT inspection Neck: Positive: Supple, Nontender Respiratory/Lung Sounds: Positive: Clear to Auscultation, Breath Sounds Present Cardiovascular: Positive: RRR Abdomen Description: Positive: Nontender, Soft Bowel Sounds: Positive: Present Musculoskeletal: Positive: Normal, Strength/ROM Intact Neurological: Positive: Normal, Sensory/Motor Intact, Alert, Oriented to Person Place, Time Psychiatric: Positive: Affect/Mood Appropriate - Ras Coma Scale Coma Scale Total: 15 Diagnostics - Vital Signs Vital Signs Temp Pulse Resp BP Pulse Ox 12/19/16 13:32 97.2 F 72 16 160/70 98 12/19/16 12:30 97.6 F 75 18 172/80 98 12/19/16 10:59 98.1 F 87 18 187/87 96 - Laboratory Lab Results: Lab Results 12/19/16 12/19/16 12/19/16 Range/Units 13:29 15:10 15:10 WBC 8.9 (3.5-10.8) 10^3/ul RBC 4.76 (4.0-5.4) 10^6/ul Hgb 12.9 (12.0-16.0) g/dl Hct 40 (35-47) % MCV 83 (80-97) fL MCH 27 (27-31) pg MCHC 33 (31-36) g/dl RDW 17 H (10.5-15) % Plt Count 151 (150-450) 10^3/ul MPV 9 (7.4-10.4) um3 Neut % (Auto) 59.3 (38-83) % Lymph % (Auto) 29.2 (25-47) % [place] % (Auto) 8.1 (1-9) % Eos % (Auto) 2.6 (0-6) % Baso % (Auto) 0.8 (0-2) % Absolute Neuts (auto) 5.3 (1.5-7.7) 10^3/ul Absolute Lymphs (auto) 2.6 (1.0-4.8) 10^3/ul Absolute Monos (auto) 0.7 (0-0.8) 10^3/ul Absolute Eos (auto) 0.2 (0-0.6) 10^3/ul Absolute Basos (auto) 0.1 (0-0.2) 10^3/ul Absolute Nucleated RBC 0.01 10^3/ul Nucleated RBC % 0.1 INR (Anticoag Therapy) 1.79 H (0.89-1.11) APTT 36.2 (26.0-36.3) seconds Sodium (133-145) mmol/L Potassium (3.5-5.0) mmol/L Chloride (101-111) mmol/L Carbon Dioxide (22-32) mmol/L Anion Gap (2-11) mmol/L BUN (6-24) mg/dL Creatinine (0.51-0.95) mg/dL Est GFR ( Amer) (>60) Est GFR (Non-Af Amer) (>60) BUN/Creatinine Ratio (8-20) Glucose (70-100) mg/dL Lactic Acid (0.5-2.0) mmol/L Calcium (8.6-10.3) mg/dL Magnesium (1.9-2.7) mg/dL Total Bilirubin (0.2-1.0) mg/dL AST (13-39) U/L ALT (7-52) U/L Alkaline Phosphatase (34-104) U/L Troponin I (<0.04) ng/mL C-Reactive Protein (< 5.00) mg/L Total Protein (6.4-8.9) g/dL Albumin (3.2-5.2) g/dL Globulin (2-4) g/dL Albumin/Globulin Ratio (1-3) Lipase (11.0-82.0) U/L TSH (0.34-5.60) mcIU/mL Urine Color Yellow Urine Appearance Clear Urine pH 6.0 (5-9) Ur Specific [place] 1.015 (1.010-1.030) Urine Protein Negative (Negative) Urine Ketones Negative (Negative) Urine Blood Negative (Negative) Urine Nitrate Negative (Negative) Urine Bilirubin Negative (Negative) Urine Urobilinogen Negative (Negative) Ur Leukocyte Esterase Trace H (Negative) Urine WBC (Auto) 1+(6-10/hpf) H (Absent) Urine RBC (Auto) Absent (Absent) Urine Bacteria Absent (Absent) Urine Glucose Negative (Negative) 12/19/16 12/19/16 Range/Units 15:10 15:10 WBC (3.5-10.8) 10^3/ul RBC (4.0-5.4) 10^6/ul Hgb (12.0-16.0) g/dl Hct (35-47) % MCV (80-97) fL MCH (27-31) pg MCHC (31-36) g/dl RDW (10.5-15) % Plt Count (150-450) 10^3/ul MPV (7.4-10.4) um3 Neut % (Auto) (38-83) % Lymph % (Auto) (25-47) % [place] % (Auto) (1-9) % Eos % (Auto) (0-6) % Baso % (Auto) (0-2) % Absolute Neuts (auto) (1.5-7.7) 10^3/ul Absolute Lymphs (auto) (1.0-4.8) 10^3/ul Absolute Monos (auto) (0-0.8) 10^3/ul Absolute Eos (auto) (0-0.6) 10^3/ul Absolute Basos (auto) (0-0.2) 10^3/ul Absolute Nucleated RBC 10^3/ul Nucleated RBC % INR (Anticoag Therapy) (0.89-1.11) APTT (26.0-36.3) seconds Sodium 139 (133-145) mmol/L Potassium 3.9 (3.5-5.0) mmol/L Chloride 106 (101-111) mmol/L Carbon Dioxide 29 (22-32) mmol/L Anion Gap 4 (2-11) mmol/L BUN 19 (6-24) mg/dL Creatinine 0.85 (0.51-0.95) mg/dL Est GFR ( Amer) 82.6 (>60) Est GFR (Non-Af Amer) 64.2 (>60) BUN/Creatinine Ratio 22.4 H (8-20) Glucose 94 (70-100) mg/dL Lactic Acid 0.7 (0.5-2.0) mmol/L Calcium 9.7 (8.6-10.3) mg/dL Magnesium 2.2 (1.9-2.7) mg/dL Total Bilirubin 0.90 (0.2-1.0) mg/dL AST 20 (13-39) U/L ALT 14 (7-52) U/L Alkaline Phosphatase 107 H (34-104) U/L Troponin I 0.02 (<0.04) ng/mL C-Reactive Protein 5.12 H (< 5.00) mg/L Total Protein 7.8 (6.4-8.9) g/dL Albumin 4.2 (3.2-5.2) g/dL Globulin 3.6 (2-4) g/dL Albumin/Globulin Ratio 1.2 (1-3) Lipase 41 (11.0-82.0) U/L TSH 1.98 (0.34-5.60) mcIU/mL Urine Color Urine Appearance Urine pH (5-9) Ur Specific [place] (1.010-1.030) Urine Protein (Negative) Urine Ketones (Negative) Urine Blood (Negative) Urine Nitrate (Negative) Urine Bilirubin (Negative) Urine Urobilinogen (Negative) Ur Leukocyte Esterase (Negative) Urine WBC (Auto) (Absent) Urine RBC (Auto) (Absent) Urine Bacteria (Absent) Urine Glucose (Negative) Result Diagrams: 12/19/16 15:10 12/19/16 15:10 Lab Statement: Any lab studies that have been ordered have been reviewed, and results considered in the medical decision making process. - Radiology CXR Xray Interpretation: Positive (See Comments) - CARDIOMEGALY Radiology Interpretation Completed By: Radiologist - EKG 13:05 EKG Interpretation: A-FIB @ 75 bpm, LVH, similar to old EKG EKG Comparison: No Significant Change Dizzy Course/Dx - Course Course Of Treatment: NO CRITICAL CARE TIME Assessment/Plan: DISCUSSED WITH DR KAMARA. ADMIT HOSPITALIST STABLE. - Diagnoses Provider Diagnoses: Dizziness - Provider Notifications Discussed Care Of Patient with: DR. Kamara at 15:40 - recommends admission to R /O CVA. Dr. Evangelista at 15:46 - agrees to admit Time Discussed With Above Provider: 15:46 - agrees to admit Instructed by Provider To: Admit As Observation Discharge - Discharge Plan Condition: Stable Disposition: ADMITTED TO [facility] documentation as recorded by the Michael arora Auryana accurately reflects the service I personally performed and the decisions made by me, Polo Allan MD.
[2016-12-19] MEDS: hydrALAZINE IV* 20 MG/ML VIAL IV SLOW PU PRN (20:22)
[2016-12-19] MEDS: cloNIDine TAB* 0.1 MG PO SCH (21:50)
[2016-12-19] MEDS: Meclizine TAB* 12.5 MG PO SCH (21:50)
[2016-12-19] MEDS ORDERED: Heparin VIAL(*) 5000 UNITS/ML VIAL (FIVE THOUSAND) SUBCUT SCH (22:00)
--- NOTE | 2016-12-19 23:36 | HP ---
HISTORY AND PHYSICAL: DATE OF ADMISSION: 12/19/16 PRIMARY CARE PROVIDER: Dr. Vigil. ATTENDING PHYSICIAN WHILE IN THE HOSPITAL: Dr. Elizabet Evangelista *(report dictated by Luis Alberto Mcclendon NP). CHIEF COMPLAINT: Dizziness. HISTORY OF PRESENT ILLNESS: Ms. Fuentes is an 81-year-old female patient who has a history of AFib; diverticulitis; hypertension; CAD; BERNABE, not on BiPAP or CPAP for this; IBS; pericarditis; cholelithiasis; and hyperlipidemia. She comes in today stating that since Sunday, she has had 2 to 3 episodes where she has had dizziness described as a lightheadedness starting out with a pain in the back of her head, becoming lightheaded. It does get worse when she changes position. She had no associated symptoms such as feeling nauseous with this and denied feeling any sensation of the room spinning. She said the episodes last maybe a minute to 2 minutes and she has had 3 of them. She had one on Sunday though that was quite severe. She started feeling dizzy having the similar symptoms of having a pain in the back of her head and becoming dizzy and the next thing she knew she was on the ground. She got up, went to the ER, and was discharged home. She denies having any changes in her medications. She does say that her blood pressure at home has been running in the 180s. She says that she has not had any chest pressure. She did state that with today's episode of dizziness, she did have palpitations, but no chest pain, no chest pressure, no ringing in the ears. She denied having any recent fevers or chills. No cough or sore throat. She had one episode of diarrhea on Sunday, but none since. She denies any abdominal pain and denies having any alleviating factors. She does state that meclizine helps sometimes. She was evaluated in the ER today and there was concern because of the recurrent symptoms of dizziness. We were asked to evaluate for admission. PAST MEDICAL HISTORY: Significant for: 1. AFib. 2. Diverticulitis. 3. Hypertension. 4. Coronary artery disease. 5. BERNABE. 6. IBS. 7. Pericarditis. 8. Cholelithiasis. 9. Hyperlipidemia. PAST SURGICAL HISTORY: 1. She has had a right hip hemiarthroplasty with revision. 2. She has a pericardial window. 3. Cardiac catheterization. 4. Hysterectomy. 5. Tendon repair. 6. Knee arthroscopy. HOME MEDICATIONS: Include: 1. Tylenol 650 mg every 4 hours as needed. 2. Atenolol 125 mg p.o. daily. 3. Catapres 0.1 mg p.o. b.i.d. 4. Lasix 20 mg daily. 5. Lisinopril 20 mg daily. 6. Meclizine 25 mg every 6 hours as needed. 7. Multivitamin half a tablet daily. 8. Potassium chloride 10 mEq p.o. daily. 9. Coumadin 5 mg on Sunday and Sunday, 2.5 mg Sunday, Sunday, Sunday, , and Sunday. 10. Tylenol Extra Strength 500 mg every 6 hours as needed. 11. Tramadol 50 mg every 6 hours as needed. 12. Flexeril 10 mg at bedtime as needed. ALLERGIES TO MEDICATIONS: Include MORPHINE, AUGMENTIN, CAPTOPRIL, DIGOXIN, CARDIZEM, BENICAR, LISINOPRIL, HYDROCHLOROTHIAZIDE, NIFEDIPINE, PAXIL, ADHESIVE TAPE, CODEINE, NORVASC, DIGOXIN, and ZOLOFT. FAMILY HISTORY: Both her parents had heart disease and heart attack. SOCIAL HISTORY: She does not smoke, does not drink. Surrogate decision maker is her daughter. REVIEW OF SYSTEMS: There is no documented fever. She denied having any significant weight change. There was no double vision. There is no ear discharge. She denies having any rhinorrhea. There is no sore throat. No thyroid enlargement. She denies having any chest pain. There is no orthopnea. No nocturnal dyspnea. There is no abdominal pain. No nausea. No vomiting. No dysuria. No frequency. There was one episode of loss of consciousness. There was dizziness. No seizure. Review of 14 systems completed, all others negative. PHYSICAL EXAMINATION GENERAL: At this time, Ms. Fuentes is an 81-year-old female patient. She is sitting in the hospital bed. She does not appear to be in any acute distress. VITAL SIGNS: Blood pressure 168/87, pulse 73, respirations 18, O2 sat 99%, and temperature 97.2. HEENT: Head is atraumatic and normocephalic. Eyes: EOMs are intact. Sclerae anicteric and not pale. Throat: Oral mucosa appears to be moist. No oropharyngeal erythema. NECK: Supple. LUNGS: Clear to auscultation bilaterally. No wheezes, rales, or rhonchi. HEART: Sounds S1, S2. Irregularly irregular rate and rhythm. No murmurs, rubs , or gallops. ABDOMEN: Soft, it was flat, it was nontender. EXTREMITIES: Pulses were 2+ throughout. She is able to move all 4 extremities with 5/5 strength. NEUROLOGIC: The patient is awake, she is alert. [id number] intact bilaterally. [id number] intact bilaterally. Digital Content Manager were equal. Tongue was midline. No facial drooping. Speech was clear. She had no gross focal deficits. SKIN: Intact. LABORATORY DATA AND DIAGNOSTIC STUDIES: Today revealed WBC 8.9, RBC of 4.76, hemoglobin 12.9, hematocrit of 40, platelet count of 151. His INR was 1.79. PTT of 36.2. Sodium 139, potassium 3.9, chloride 106, bicarb 26, BUN 19, creatinine of 0.85, glucose 94, lactic 0.7, calcium 9.7, magnesium 2.3. Total bili 0.9, AST 20, ALT 14, alk phos 107. Troponin 0.02. Albumin of 4.2. TSH was normal. Urine showed trace leukocyte esterase, 1+ wbc. She had a chest x-ray obtained today, which revealed cardiomegaly. She had a brain MRI obtained today, which revealed no acute intracranial process evident, stigmata of probable chronic small vessel ischemic disease, and chronic approximately 0.4 x 0.9 cm lacunar infarct to the right caudate head. She did have an EKG obtained today as well, which revealed atrial fibrillation with a rate of 75. She did have ST depressions in V4, 5, and 6 along with II and aVF. She has had this similar appearance with her EKG previously. No acute changes were noted. Old medical records were reviewed. ASSESSMENT AND PLAN: Ms. Fuentes is an 81-year-old female patient coming in to the ER today with complaints of dizziness. In addition to this, also having an episode where she had syncope on Sunday. She will be admitted under observation status for: 1. Dizziness with syncope: At this point, I do not think this was a posterior circulation stroke. Her MRI is negative. It could be certainly vertigo or possibly orthostasis. So, my plan is to go ahead and check an echo, check orthostatic blood pressures, place her on telemetry, cycle her troponins, and in addition to this, we will get the echocardiogram and we will continue to follow and monitor her and I have also started standing meclizine. 2. Atrial fibrillation: She is rate controlled. Continue meds as prescribed. INR is slightly low. We will repeat it tomorrow. She is going to get some Coumadin tonight and we will follow the INR for now. 3. Hypertension: Continue meds as prescribed. 4. Coronary artery disease: She is on a beta-bakari. We will continue that. She currently is not on a statin. She is going to discuss this with her primary. 5. Obstructive sleep apnea: Follow with her primary. Continue with her current medical regimen. 6. Irritable bowel syndrome: Continue with her meds as prescribed. 7. History of pericarditis: Not an active issue. 8. Cholelithiasis: Not an active issue. 9. Hyperlipidemia: Follow with her primary. Continue lifestyle modifications. 10. DVT prophylaxis. INR is 1.79. I am going to put her on SCDs. We will repeat the INR tomorrow. I do not think she needs subcu heparin at this point because she is taking Coumadin. 11. Code status: Full code. 12. Fluids, electrolytes, and nutrition: She can have a regular diet. TIME SPENT: Time spent on the admission was 60 minutes; greater than half the time was spent [id number] with the patient obtaining my history and physical, other half the time spent going over the plan of care with the patient and implementing plan of care. I did discuss the plan of care with my attending, Dr. Evangelista; she is in agreement. LUIS ALBERTO MCCLENDON NP CC: Dr. Vigil* [id number]/[facility] #: [id number] KAREN
[2016-12-20] MEDS: NS 0.9% 1000 ML* 1,000 ML IV SCH (01:14)
[2016-12-20] MEDS: Meclizine TAB* 12.5 MG PO SCH ×2 (05:15→14:26)
[2016-12-20 06:28] LABS: Hematocrit 38 % (35-47); Hemoglobin 12.4 g/dl (12.0-16.0); Mean Corpuscular HGB Conc 33 g/dl (31-36); Mean Corpuscular Hemoglobin 27 pg (27-31); Mean Corpuscular Volume 84 fL (80-97); Mean Platelet Volume 9 um3 (7.4-10.4); Red Blood Count 4.54 10^6/ul (4.0-5.4); Red Cell Distribution Width 17 % (10.5-15); White Blood Count 7.7 10^3/ul (3.5-10.8)
[2016-12-20 06:45] LABS: BUN/Creatinine Ratio 20.5 (8-20); Calcium 9.2 mg/dL (8.6-10.3); EGFR African American 91.2 (>60); EGFR Non-African American 70.9 (>60); Potassium 3.4 mmol/L (3.5-5.0)
[2016-12-20] MEDS: cloNIDine TAB* 0.1 MG PO SCH (07:38)
[2016-12-20] MEDS: hydrALAZINE IV* 20 MG/ML VIAL IV SLOW PU PRN (07:38)
[2016-12-20] MEDS ORDERED: Atenolol TAB* 50 MG PO SCH (09:00)
[2016-12-20] MEDS ORDERED: Furosemide TAB* 20 MG PO SCH (09:00)
[2016-12-20] MEDS ORDERED: Lisinopril TAB* 10 MG PO SCH (09:00)
--- NOTE | 2016-12-20 10:38 | ECHO ---
Patient: DIXON ROBLES [facility] Rec#: [id number] : 1935 Date: 12/20/2016 Age: 81y Height: 154.94 cm / 61.0 in Weight: 65.32 kg / 144.0 lbs Sex: F BSA: 1.64 Room#: 452 Admit Date#: 12/19/2016 Type: Inpatient Referring: Luis Alberto Santo NP Reading: Hien Pratt MD Therapeutic Recreation Leader: Tiffany Mao RDCS,RDMS Therapeutic Recreation Leader: Sara Church CC: Glory Vigil MD Transthoracic Echocardiogram Indication: A-fib BP: 152/63 HR: 74 Rhythm: A-Fib Indications Atrial Fibrillation Findings History: A-fib, HTN, CAD, BERNABE, pericarditis with pericardial window, HLD. Technical Comments: The study quality is good. Completed at 0930. Left Ventricle: The left ventricular chamber size is normal. There is no left ventricular hypertrophy. Global left ventricular wall motion and contractility are within normal limits. Left ventricular systolic function is at the lower limits of normal. The estimated ejection fraction is 50-55%. The assessment of diastolic function is non-diagnostic. Left Atrium: The left atrium is moderately dilated. Right Ventricle: Moderator Band present. The right ventricular cavity size is normal. The right ventricular global systolic function is mildly to moderately reduced. Right Atrium: The right atrium is moderately dilated. Aortic Valve: The aortic valve is trileaflet. The aortic valve leaflets are mildly thickened. There is mild aortic regurgitation. There is no evidence of aortic stenosis. Mitral Valve: The mitral valve leaflets are mildly thickened. There is moderate mitral regurgitation. The mitral regurgitant jet is posteriorly directed. There is no evidence of mitral stenosis. Tricuspid Valve: The tricuspid valve leaflets are normal. There is moderate tricuspid regurgitation. There is evidence of moderate to severe pulmonary hypertension. There is no tricuspid stenosis. Pulmonic Valve: The pulmonic valve appears normal. There is mild pulmonic regurgitation. There is no pulmonic stenosis. Pericardium: There is no significant pericardial effusion. Aorta: There is no dilatation of the ascending aorta. There is no dilatation of the aortic arch. There is no dilation of the aortic root. Pulmonary Artery: The main pulmonary artery is not well visualized. Venous: The inferior vena cava appears normal in size. There is an approximate 50% respiratory change in the inferior vena cava dimension. Conclusions Global left ventricular wall motion and contractility are within normal limits. The estimated ejection fraction is 50-55%. The right ventricular global systolic function is mildly to moderately reduced. Aortic valve sclerosis with mild aortic regurgitation. There is moderate mitral regurgitation, posteriorly directed jet. There is moderate tricuspid regurgitation. There is evidence of moderate to severe pulmonary hypertension: 63 mmHg. Compared with prior echo of 03/11/14, RV hypokinesis is new, PA pressure not significantly changed, valvular function is stable. Measurements Name Value Normal Range RVIDd (AP) 2D 2.4 cm (0.9 - 2.6) RVDdMajor (2D) 3 cm (2.2 - 4.4) RAd ISD 4CH 5.5 cm (3.4 - 4.9) RA (A4C)W 4.8 cm (2.9 - 4.6) IVSd (2D) 1 cm (0.6 - 1) LVPWd (2D) 0.93 cm (0.6 - 1) LVIDd (2D) 5.2 cm (3.6 - 5.4) LVIDs (2D) 3.6 cm - LV FS (2D) 31 % (25 - 45) Aortic Annulus 2 cm (1.4 - 2.6) Ao root diameter (2D) 3.5 cm (2.1 - 3.5) Ascending Ao 3.1 cm (2.1 - 3.4) Aortic arch 2.8 cm (1.8 - 3.4) LA dimension (AP) 2D 4 cm (2.3 - 3.8) LAd ISD 4CH 6.4 cm (2.9 - 5.3) LA ISD 4CH W 5 cm (2.5 - 4.5) Name Value Normal Range LA ESV SP 4CH (A/L) 78 ml - LA ESV SP 2CH (A/L) 56 ml - LA ESV BP (A/L) 69 ml - LA ESV BP (A/L) index 42 ml/m2 - LA ESV SP 4CH (MOD) 73 ml - LA ESV SP 2CH (MOD) 53 ml - Name Value Normal Range MV E-wave Vmax 1.1 m/sec - MV deceleration time 120.3 msec - LV septal e' Vmax 0.05 m/sec - LV lateral e' Vmax 0.06 m/sec - LV E:e' septal ratio 22 ratio - LV E:e' lateral ratio 18.33 ratio - Name Value Normal Range AV Vmax 0.89 m/sec - AV VTI 21.9 cm - AV peak gradient 3.15 mmHg - AV mean gradient 2.16 mmHg - LVOT Vmax 0.72 m/sec - LVOT VTI 16.71 cm - LVOT peak gradient 2.1 mmHg - LVOT mean gradient 1.2 mmHg - AR PHT 519.8 msec - AR peak gradient 65.46 mmHg - CAROL Vmax 0.31 m/sec - Name Value Normal Range MR Vmax 5.7 m/sec - MR VTI 185.1 cm - Name Value Normal Range TR Vmax 3.7 m/sec - TR peak gradient 55 mmHg - RAP 8 mmHg - RVSP 63 mmHg - IVC diameter 2 cm - Name Value Normal Range PV Vmax 0.61 m/sec - PV peak gradient 1.51 mmHg - MO end-diastolic Vmax 1.33 m/sec -
[2016-12-20] MEDS ORDERED: Potassium Chlor TAB* 20 MEQ TAB.ER PO ONE (13:05)
--- NOTE | 2016-12-20 15:27 | PN ---
Subjective Date of Service: 12/20/16 Interval History: Patient seen and examined at bedside. Denies fever, chills, shortness of breath , chest discomfort, N/V/D. Pt states that she continues to have intermittent dizziness when she is up. She has not been up and ambulating further than the bathroom. Tele: Afib, rate 70-80's. Pt noted to have multiple pauses around 1.8 seconds and 3 pauses around 2.1 seconds. Family History: Unchanged from Admission Social History: Unchanged from Admission Past Medical History: Unchanged from Admission Objective Active Medications: Acetaminophen (Tylenol Tab*) 650 mg PO Q4H PRN Reason: FEVER/PAIN Atenolol (Tenormin Tab*) 125 mg PO DAILY NETO Clonidine HCl (Catapres Tab*) 0.1 mg PO BID NETO Furosemide (Lasix Tab*) 20 mg PO DAILY NETO Hydralazine HCl (Apresoline Iv*) 5 mg IV SLOW PU Q6H PRN Reason: BLOOD PRESSURE Sodium Chloride (Ns 0.9% 1000 Ml*) 1,000 mls @ 150 mls/hr IV PER RATE NETO Lisinopril (Prinivil Tab*) 20 mg PO DAILY NETO Meclizine HCl (Antivert Tab*) 12.5 mg PO Q8HR NETO Ondansetron HCl (Zofran Inj*) 4 mg IV Q6H PRN Reason: NAUSEA Potassium Chloride (Klor Con Er Tab*) 10 meq PO 1700 NETO Tramadol HCl (Ultram*) 50 mg PO Q6HR PRN Reason: PAIN Warfarin Sodium (Coumadin Tab(*)) 5 mg PO WEFR [facility] Reason: Protocol Warfarin Sodium (Coumadin Tab(*)) 2.5 mg PO SUMOTUTHSA [facility] Reason: Protocol Vital Signs 12/19/16 12/19/16 12/19/16 16:00 17:27 17:31 Temperature 97.9 F 97.9 F Pulse Rate 68 89 74 Respiratory 18 16 16 Rate Blood Pressure 186/86 183/67 183/67 (mmHg) O2 Sat by Pulse 96 96 95 Oximetry 12/19/16 12/19/16 12/19/16 19:45 23:32 23:35 Temperature 98.1 F 98.3 F Pulse Rate 72 61 75 Respiratory 18 20 20 Rate Blood Pressure 181/75 146/63 160/71 (mmHg) O2 Sat by Pulse 96 96 96 Oximetry 12/19/16 12/20/16 12/20/16 23:37 03:48 05:08 Temperature 97.6 F Pulse Rate 73 72 Respiratory 20 20 16 Rate Blood Pressure 172/58 152/63 (mmHg) O2 Sat by Pulse 96 Oximetry 12/20/16 12/20/16 12/20/16 07:08 07:30 08:00 Temperature 98.4 F Pulse Rate 64 Respiratory 18 20 18 Rate Blood Pressure 182/72 (mmHg) O2 Sat by Pulse 94 94 Oximetry 12/20/16 12/20/16 11:11 11:51 Temperature 98.4 F 97.5 F Pulse Rate 70 Respiratory 16 Rate Blood Pressure 136/58 (mmHg) O2 Sat by Pulse 95 Oximetry Oxygen Devices in Use Now: None Appearance: NAD, laying in bed Eyes: No Scleral Icterus, PERRLA Ears/Nose/Mouth/Throat: Mucous Membranes Moist Respiratory: Symmetrical Chest Expansion and Respiratory Effort, Clear to Auscultation Cardiovascular: NL Sounds; No Murmurs; No JVD, - - Heart Rate irregular Extremities: No Edema Skin: No Rash or Ulcers Neurological: Alert and Oriented x 3, NL Muscle Strength and Tone Lines/Tubes/Other Access: Clean, Dry and Intact Peripheral IV - site benign Nutrition: Taking PO's Result Diagrams: 12/20/16 05:46 12/20/16 05:46 Additional Lab and Data: Assess/Plan/Problems-Billing Assessment: Ms. Fuentes is an 81 yo with PMH significant for afib, HTN, CAD, and BERNABE who presented tot he emergency room with complaints of dizziness. She was also seen in the emergency room for syncope on Sunday12/17/16. - Patient Problems (1) Dizziness Code(s): R42 - DIZZINESS AND GIDDINESS SNOMED Code(s): 021673224 Comment: - Intermittent - Reports some improvement in dizziness since starting meclizine - Continue meclizine - Will recheck orthostatic vital signs - Suspect Vertigo (2) Afib Code(s): I48.91 - UNSPECIFIED ATRIAL FIBRILLATION SNOMED Code(s): 56836563 Comment: - Rate controlled - Continue warfarin and Atenolol (3) Coronary artery disease Code(s): I25.10 - ATHSCL HEART DISEASE OF [place] CORONARY ARTERY W/O ANG PCTRS SNOMED Code(s): 24212931 Comment: - Continue beta-bakari (4) HLD (hyperlipidemia) Code(s): E78.5 - HYPERLIPIDEMIA, UNSPECIFIED SNOMED Code(s): 47669721 Comment: - Continue life style modifications (5) Hypertension Code(s): I10 - ESSENTIAL (PRIMARY) HYPERTENSION SNOMED Code(s): 09872037 Comment: - Continue Atenolol and Lisinopril (6) BERNABE (obstructive sleep apnea) Code(s): G47.33 - OBSTRUCTIVE SLEEP APNEA (ADULT) (PEDIATRIC) SNOMED Code(s): 46466236 Comment: (7) DVT prophylaxis Code(s): COK5150 - SNOMED Code(s): 986509810 Comment: - Warfarin (8) DNR (do not resuscitate) Status and Disposition: OBV. Possible discharge to home later today or in the morning.
[2016-12-20] MEDS ORDERED: Potassium Chlor TAB* 20 MEQ TAB.ER PO SCH (17:00)
[2016-12-20] MEDS ORDERED: Warfarin TAB(*) 5 MG PO SCH (17:07)
[2016-12-20 18:12] VITALS: BP 133/58
--- NOTE | 2016-12-21 02:00 | DS ---
DISCHARGE SUMMARY: DATE OF ADMISSION: 12/19/16 DATE OF DISCHARGE: 12/20/16 ATTENDING PHYSICIAN: Jaun Monet MD* (dictated by Elise Leonard NP) PRIMARY CARE PROVIDER: Glory Vigil MD PRIMARY DIAGNOSIS: Vertigo. SECONDARY DIAGNOSES: 1. Atrial fibrillation. 2. Hypertension. 3. Coronary artery disease. 4. Obstructive sleep apnea. 5. Irritable bowel syndrome. 6. History of pericarditis. 7. History of cholelithiasis. 8. Hyperlipidemia. STUDIES WHILE IN THE HOSPITAL: 1. Chest x-ray on 12/19/16. Radiologist's impression: Cardiomegaly. 2. Brain MRI on 12/19/16. Radiologist's impression: No acute intracranial process evident, stigmata of probable chronic small vessel ischemia disease and chronic approximately 0.4 x 0.9 cm lacunar infarct at the right caudate head. 3. Transthoracic echocardiogram from 12/20/16. Wireworker Supervisor's conclusion: Global left ventricular wall motion and contractility are within normal limits. The estimated ejection fraction is 50% to 55%. The right ventricular global systolic function is mildly to moderately reduced. Aortic valve sclerosis with mild aortic regurgitation. There is moderate mitral regurgitation, posteriorly directed jet. There is moderate tricuspid regurgitation. There is evidence of moderate to severe pulmonary hypertension. Compared with prior echo of 03/11/14 , RV hypokinesis is new, PA pressure is not significantly changed, valvular function is stable. DISCHARGE MEDICATIONS: New home medication: Meclizine 25 mg oral every 8 hours. Continued home medications: 1. Multivitamin 1 tablet oral daily. 2. Potassium chloride 10 mEq oral daily. 3. Atenolol 125 mg oral daily. 4. Lisinopril 20 mg oral daily. 5. Furosemide 20 mg oral daily. 6. Clonidine 0.1 mg oral twice daily. 7. Acetaminophen 500 mg oral every 6 hours as needed for fever, pain. 8. Flexeril 10 mg oral daily at bedtime as needed for muscle spasms. 9. Tramadol 50 mg oral every 6 hours as needed for pain. 10. Warfarin 5 mg oral daily on Sunday, Sunday, and Sunday. 11. Warfarin 2.5 mg oral daily on Sunday, Sunday, , and Sunday. HISTORY OF PRESENT ILLNESS/HOSPITAL COURSE: Ms. Fuentes is an 81-year-old female with past medical history significant for atrial fibrillation, diverticulitis, hypertension, CAD, obstructive sleep apnea, not on BiPAP or CPAP , IBS, pericarditis, cholelithiasis, and hyperlipidemia who presents to the emergency room with complaints of dizziness. The patient reports having dizziness starting on Sunday and having 2 to 3 episodes, which she describes as lightheadedness with pain in the back of her head. The patient reported this became worse with position changes. She had no other associated symptoms such as nausea. The patient did present to the emergency room on Sunday at which time she was diagnosed with vertigo, encouraged to have an admission to rule out a TIA and declined going home. The patient reports that her blood pressures have been running in the 180 systolic at home. She denied any chest pressure. The patient denied any recent cold symptoms. The patient continued to have some dizziness and decided to present to emergency room again for further evaluation. While in the emergency room, the patient had an MRI showing no acute findings. Hospitalists were asked to evaluate her for admission for dizziness with a syncopal episode a few days prior. While in the hospital, the patient monitored on telemetry. She was seen to be in controlled AFib. It is to note she had multiple pauses of approximately 1.8 and 3 pauses up to 2.1 to 2.4 seconds. This was discussed with her real estate investment analyst who felt the patient should remain on her home dose of atenolol at this time and that she could be seen in followup as an outpatient. The patient was able to ambulate in the hallways without dizziness. She had orthostatic vital signs and was not found to be orthostatic. The patient's blood pressure was improved during her stay down to the 130s systolic. The patient was continued on meclizine q.8 hours standing. Ms. Fuentes is stable for discharge to home today. Vital signs are as follows: Temperature 98.6, heart rate 66, respiratory rate 16, O2 sat 95% on room air, blood pressure 133/58. It is to note that the patient has been having trouble with her right leg pain, but has no focal weakness in that left leg. DISCHARGE PLAN: Ms. Fuentes will be discharged to home. Activity as tolerated. She should be on a heart healthy diet. For the patient's atrial fibrillation, she should be continued on her home dose of atenolol and warfarin. Her INR was subtherapeutic at 1.65. She has been adjusted to 5 mg oral on Sunday, Sunday , and Sunday and 2.5 mg on Sunday, Sunday, , and Sunday. The patient should continue to have her INRs monitored as an outpatient. The patient should be seen in followup by her primary care provider. She has an appointment with Chasity Bernal tomorrow, 12/21/16 at 2:20 p.m. The patient should also call Dr. Hien Pratt for a followup in the next 1 to 2 weeks. Again, for the patient's vertigo, she should be continued on meclizine 25 mg oral every 8 hours. The patient has been instructed to return to the emergency room for any shortness of breath, chest discomfort, or signs of a stroke. This is a summarized report of a complex medical history and hospital stay. For further details, please see the entire medical record. TIME SPENT: Time for this discharge was 50 minutes, 25 minutes were spent face- to- face with the patient discussing discharge plans and instructions. CONDITION ON DISCHARGE: Stable. ELISE UGARTE NP CC: Hien Pratt MD; Glory Vigil MD* [id number]/[facility] #: [id number] MTDD
== END 2016-12-20 18:20 | disposition home or self-care (01) ==
LOC: ED 10:57 → MEDTELE 15:50
PROVIDERS: ADMIT Internal Medicine; ATTEND Internal Medicine
DX: R42 Dizziness and giddiness (principal); R55 Syncope and collapse; I48.91 Unspecified atrial fibrillation; Z79.01 Long term (current) use of anticoagulants; I51.7 Cardiomegaly; I25.10 Atherosclerotic heart disease of native coronary artery without angina pectoris; I10 Essential (primary) hypertension; G47.33 Obstructive sleep apnea (adult) (pediatric); K58.9 Irritable bowel syndrome, unspecified; E78.5 Hyperlipidemia, unspecified; Z88.8 Allergy status to other drugs, medicaments and biological substances; Z88.1 Allergy status to other antibiotic agents; Z88.5 Allergy status to narcotic agent; Z79.899 Other long term (current) drug therapy
CPT/HCPCS: 36415; 70551; 71010; 80048; 80053; 81003; 81015; 83605; 83690; 83735; 84443; 84484; 85025; 85610; 85730; 86140; 87086; 93005; 93306; 94760; 96361; 96374; 96376; 99284; A9270-GY; G0378; J0360

== ENCOUNTER 2017-03-22 10:14 | Emergency (ER) | payer MEDICARE ==
[2017-03-22 10:25] VITALS: BP 173/74
[2017-03-22] MEDS ORDERED: Fluorescein Sodium TOPICAL* 1 MG TEST OPHTHALMIC ONE (10:38)
[2017-03-22] MEDS ORDERED: Tetracaine 0.5% OPTH.SOL 4 ML* 1 DROP BTL RIGHT EYE ONE (10:39)
--- NOTE | 2017-03-22 11:49 | UC ---
Laura Caputo Alfonso, scribed for Samantha Tyson MD on 03/22/17 at 1033 . Eye Complaint HPI - HPI Summary HPI Summary: This patient is an 81 year old female presenting to [facility] with a chief complaint of right eye irritation since yesterday afternoon. She reports "a little bit of mascara and make up might have got in my eye." The CC is described as a foreign body sensation. The patient rates the burning pain 4/10 in severity. Symptoms aggravated and alleviated by nothing. Patient reports right eye redness and right eye watering. Patient denies visual disturbance. She is s/p a fall approximately 10 days ago with right sided shoulder and knee fractures. PMHx includes CAD and HTN. Patients medications reviewed this visit. High blood pressure noted. Allergies noted. Of note, pt fell 2 weeks ago and is wearing a sling on her right arm and states she has fractures in her shoulder, also states a fracture in her right knee but is able to weight bear with a cane. Has seen her PCP and orthopedist, Dr. Trujillo. Denies a recent fall. - History of Current Complaint Chief Complaint: UCEye Stated Complaint: EYE COMPLAINT Hx Obtained From: Patient Onset/Duration: Sudden Onset, Lasting Days - Yesterday afternoon, Still Present Timing: Constant Severity Initially: Moderate Severity Currently: Moderate Pain Intensity: 4 Pain Scale Used: 0-10 Numeric Location of Injury: Conjunctiva Character: Foreign Body Sensation Aggravating Factor(s): Nothing Alleviating Factor(s): Nothing Associated Signs And Symptoms: Negative: Drainage (Clear), Drainage (Purulent), Vision Impairment Right - Allergies/Home Medications Allergies/Adverse Reactions: Allergies Allergy/AdvReac Type Severity Reaction Status Date / Time Morphine Allergy Intermediate See Comment Verified 03/22/17 10:18 Amoxicillin [From Augmentin] Allergy Unknown Unknown Verified 03/22/17 10:18 Reaction Details Captopril Allergy Unknown Unknown Verified 03/22/17 10:18 Reaction Details Clavulanic Acid Allergy Unknown Unknown Verified 03/22/17 10:18 [From Augmentin] Reaction Details Digoxin and Related Allergy Unknown Hives Verified 03/22/17 10:18 Diltiazem [Cardizem] Allergy Unknown Unknown Verified 03/22/17 10:18 Reaction Details Hydrochlorothiazide Allergy Unknown Unknown Verified 03/22/17 10:18 [From Benicar HCT] Reaction Details Lisinopril Allergy Unknown Unknown Verified 03/22/17 10:18 Reaction Details Nifedipine [From Procardia] Allergy Unknown Unknown Verified 03/22/17 10:18 Reaction Details Olmesartan [From Benicar HCT] Allergy Unknown Unknown Verified 03/22/17 10:18 Reaction Details Paroxetine [From Paxil] Allergy Unknown Unknown Verified 03/22/17 10:18 Reaction Details Adhesive Tape [Plastic Tape] Allergy Rash Verified 03/22/17 10:18 Codeine AdvReac Intermediate GI Upset Verified 03/22/17 10:18 Amlodipine [From Norvasc] AdvReac Unknown Unknown Verified 03/22/17 10:18 Reaction Details Digoxin AdvReac Unknown Headache Verified 03/22/17 10:18 Sertraline [From Zoloft] AdvReac Unknown Unknown Verified 03/22/17 10:18 Reaction Details PMH/Surg Hx/FS Hx/Imm Hx Previously Healthy: No Cardiovascular History: Cardiac Disease, Hypertension, Atrial Fibrillation - Surgical History Surgical History: Yes Surgery Procedure, Year, and Place: Partial hysterectomy 1972, left kneecap repair, right shoulder rotator cuff, left thumb, right hip replacement 2010, window put in heart 2008 ( NOTHING METAL IN CHEST).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 - Family History Known Family History: Positive: Cardiac Disease - Mother and father, Hypertension - Mother and father Negative: Diabetes - Social History Occupation: Retired Lives: Alone - states he children will visit today at 5pm, and pt got a ride here today, cannot drive for several weeks Alcohol Use: None Substance Use Type: None Smoking Status (MU): Never Smoked Tobacco Have You Smoked in the Last Year: No - Immunization History Most Recent Influenza Vaccination: 05/2016 Most Recent Tetanus Shot: 9 yrs ago Most Recent Pneumonia Vaccination: 2011 Review of Systems Constitutional: Negative Eyes: Eye Redness, Other - Positive right eye irritation, right eye redness and right eye watering; negative visual disturbance. ENT: Negative Respiratory: Negative Cardiovascular: Negative Musculoskeletal: Other: - Positive s/p fall a fall approximately 10 days ago with right sided shoulder and knee fractures. Neurological: Negative Psychological: Negative All Other Systems Reviewed And Are Negative: Yes Physical Exam Triage Information Reviewed: Yes Appearance: Well-Appearing, Well-Nourished, Pain Distress Vital Signs: Initial Vital Signs Temp 97.8 F 08/10/17 10:20 Pulse 66 03/22/17 10:20 Resp 16 03/22/17 10:20 BP 173/74 03/22/17 10:20 Pulse Ox 99 03/22/17 10:20 Vital Signs Reviewed: Yes Eyes: Positive: Conjunctiva Inflamed, Other: - Conjunctiva erythema. No foreign body appreciated with naked eye. After Fluorescein stain: Superficial abrasion at 3 Oclock position. No foreign body noted. ENT: Positive: Normal ENT inspection. Negative: Muffled/hoarse voice Neck: Positive: Supple Respiratory: Positive: Normal breath sounds, No respiratory distress, No accessory muscle use, Respiratory distress Cardiovascular: Positive: RRR, No Murmur, Pulses Normal, Brisk Capillary Refill Musculoskeletal: Positive: Strength Limited @ - right arm, ROM Limited @ - right arm, Other: - In a right arm sling. Pt ambulates and is able to get on the exam table with assistance Neurological: Positive: Alert, Muscle Tone Normal Psychological Exam: Normal Skin Exam: Normal Skin: Positive: Other - old yellow ecchymosis right lateral canthus. Eye Complaint Course/Dx - Course Course Of Treatment: This patient is an 81 year old female presenting to [facility] with a chief complaint of right eye irritation since yesterday afternoon. She reports "a little bit of mascara and make up might have got in my eye." The CC is described as a foreign body sensation. The patient rates the burning pain 4/ 10 in severity. Symptoms aggravated and alleviated by nothing. Patient reports right eye redness and right eye watering. Patient denies visual disturbance. She is s/p a fall approximately 10 days ago with right sided shoulder and knee fractures. PMHx includes CAD and HTN. Patients medications reviewed this visit. High blood pressure noted. Allergies noted. Conjunctiva erythema. No foreign body appreciated with naked eye. PROCEDURE: After Fluorescein stain with tetracaine 2 drops: Superficial abrasion at 3 Oclock position. No foreign body noted. Patient will be discharged with Erythromycin 0.5% opth ointment prescription and follow up from Dr. Vigil (PCP) and Dr. Landis (sales and service technician) . Pt is agreeable with this plan. - Differential Dx/Diagnosis Differential Diagnosis/HQI/PQRI: Corneal Abrasion, Foreign Body, Periorbital Cellulitis, Orbital Cellulitis Provider Diagnoses: ACUTE RIGHT CORNEAL ABRASION Discharge - Discharge Plan Condition: Stable Disposition: HOME Prescriptions: Erythromycin OPTH OINT* [Erythromycin 0.5% OPTH OINT*] 1 applic RIGHT EYE QID # 1 ophth.oint Patient Education Materials: Corneal Abrasion (ED) Referrals: Gerry Castro MD [Medical Doctor] - 1 Day Glory Vigil MD [Primary Care Provider] - 3 Days Additional Instructions: FOLLOW UP WITH DR. VIGIL FOR YOUR HIGH BLOOD PRESSURE NOTED TODAY AT 173/74. FOLLOW UP WITH DR. CASTRO (SMOKE JUMPER) FOR WORSENING PAIN, REDNESS, OR DISCHARGE FROM THE EYE. The documentation as recorded by the Laura arora Alfonso accurately reflects the service I personally performed and the decisions made by , Samantha Tyson MD.
== END 2017-03-22 11:12 | disposition home or self-care (01) ==
LOC: UCEAST 10:14
DX: S05.01XA Injury of conjunctiva and corneal abrasion without foreign body, right eye, initial encounter (principal); X58.XXXA Exposure to other specified factors, initial encounter; I25.10 Atherosclerotic heart disease of native coronary artery without angina pectoris; I10 Essential (primary) hypertension; Z91.81 History of falling; Z88.5 Allergy status to narcotic agent; Z88.3 Allergy status to other anti-infective agents; I48.91 Unspecified atrial fibrillation; Z96.641 Presence of right artificial hip joint
CPT/HCPCS: 99212; A9270-GY; G0463

== ENCOUNTER 2017-05-30 12:14 | Emergency (ER) | payer MEDICARE ==
[2017-05-30 12:58] VITALS: BP 137/62
--- NOTE | 2017-05-30 14:05 | RAD ---
Indication: Fall, right knee pain. 4 views of the right knee demonstrates no fracture. Osteopenia is noted. Calcification along the quadriceps tendon is noted. No joint effusion is noted. IMPRESSION: Osteopenia without definite evidence of fracture or joint effusion.
--- NOTE | 2017-05-30 14:05 | RAD ---
Indication: Right rib pain. 3 views of the right ribs are reviewed. There is no fracture. Diffuse osteopenia is noted. No pneumothorax is noted. IMPRESSION: No fracture of the right ribs is noted.
--- NOTE | 2017-05-30 15:37 | UC ---
Knee Pain HPI - HPI Summary HPI Summary: Patient presents to the s/p fall 2 days ago with increasing pain in the right ribs and right knee. She denies hitting her head, but states she " scraped the temporal area of the right side" from her glasses during the fall. Thorough physical exam was performed, focusing on knee special tests. Pain on palpation over lateral aspect and superior aspect of knee with mild amount of effusion. Bruising noted. Due to patient pain around injury, physical exam was limited. Valgus and varus force without pain. No posterior sag sign, - posterior drawer test, - anterior drawer test. Quadriceps active test negative. Mcmurrys test not performed d/t patients instability. No laxity in the joint noted. No temperature change or pallor noted bilaterally. No lesion or disruption of skin is seen. Pulses intact bilaterally. Previous injury to the knee - Dr. Trujillo is ortho. Rib pain discretely located to the inferior portion of the ribs without ecchymosis. - History of Current Complaint Chief Complaint: UCLowerExtremity Stated Complaint: FELL RIB AND KNEE INJURY Time Seen by Provider: 05/30/17 13:07 Hx Obtained From: Patient ?: No Onset/Duration: Sudden Onset Severity Initially: Moderate Severity Currently: Moderate Pain Intensity: 2 Pain Scale Used: 0-10 Numeric Character: Aching Alleviating Factor(s): Rest Associated Signs And Symptoms: Positive: Bruising Able to Bear Weight: No - Risk Factors Septic Arthritis Risk Factor: Extremes of Age Gout Risk Factor: Negative - Allergies/Home Medications Allergies/Adverse Reactions: Allergies Allergy/AdvReac Type Severity Reaction Status Date / Time Morphine Allergy Intermediate See Comment Verified 03/22/17 10:18 Amoxicillin [From Augmentin] Allergy Unknown Unknown Verified 03/22/17 10:18 Reaction Details Captopril Allergy Unknown Unknown Verified 03/22/17 10:18 Reaction Details Clavulanic Acid Allergy Unknown Unknown Verified 03/22/17 10:18 [From Augmentin] Reaction Details Digoxin and Related Allergy Unknown Hives Verified 03/22/17 10:18 Diltiazem [Cardizem] Allergy Unknown Unknown Verified 03/22/17 10:18 Reaction Details Hydrochlorothiazide Allergy Unknown Unknown Verified 03/22/17 10:18 [From Benicar HCT] Reaction Details Lisinopril Allergy Unknown Unknown Verified 03/22/17 10:18 Reaction Details Nifedipine [From Procardia] Allergy Unknown Unknown Verified 03/22/17 10:18 Reaction Details Olmesartan [From Benicar HCT] Allergy Unknown Unknown Verified 03/22/17 10:18 Reaction Details Paroxetine [From Paxil] Allergy Unknown Unknown Verified 03/22/17 10:18 Reaction Details Adhesive Tape [Plastic Tape] Allergy Rash Verified 03/22/17 10:18 Codeine AdvReac Intermediate GI Upset Verified 03/22/17 10:18 Amlodipine [From Norvasc] AdvReac Unknown Unknown Verified 03/22/17 10:18 Reaction Details Digoxin AdvReac Unknown Headache Verified 03/22/17 10:18 Sertraline [From Zoloft] AdvReac Unknown Unknown Verified 03/22/17 10:18 Reaction Details PMH/Surg Hx/FS Hx/Imm Hx Previously Healthy: Yes - Surgical History Surgical History: Yes Surgery Procedure, Year, and Place: Partial hysterectomy 1972, left kneecap repair, right shoulder rotator cuff, left thumb, right hip replacement 2010, window put in heart 2008 ( NOTHING METAL IN CHEST).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 - Family History Known Family History: Positive: Cardiac Disease - Mother and father, Hypertension - Mother and father Negative: Diabetes - Social History Occupation: Retired Lives: Alone Alcohol Use: None Substance Use Type: None Smoking Status (MU): Never Smoked Tobacco Have You Smoked in the Last Year: No - Immunization History Most Recent Influenza Vaccination: 05/2016 Most Recent Tetanus Shot: 9 yrs ago Most Recent Pneumonia Vaccination: 2011 Review of Systems Constitutional: Negative Skin: Negative Respiratory: Negative Cardiovascular: Negative Motor: Decreased ROM Neurovascular: Negative Musculoskeletal: Arthralgia - right knee pain, right inferior rib pain Neurological: Negative Psychological: Negative Is Patient Immunocompromised?: No All Other Systems Reviewed And Are Negative: Yes Physical Exam Triage Information Reviewed: Yes Appearance: Well-Appearing, Well-Nourished Vital Signs: Initial Vital Signs Temp 97.8 F 05/30/17 12:53 Pulse 58 05/30/17 12:53 Resp 18 05/30/17 12:53 BP 137/62 05/30/17 12:53 Pulse Ox 96 05/30/17 12:53 Vital Signs Reviewed: Yes Eye Exam: Normal Neck exam: Normal Neck: Positive: Supple, No Lymphadenopathy Respiratory Exam: Normal Respiratory: Positive: Chest non-tender, Lungs clear Cardiovascular Exam: Normal Cardiovascular: Positive: RRR Musculoskeletal: Positive: ROM Limited @ - flexion and extension of the right knee. no prepatellar bursitis is likely/noted d/t no pain over the bursa sac. Neurological: Positive: Alert Psychological: Positive: Normal Response To Family, Age Appropriate Behavior Skin Exam: Normal Knee Pain Course/Dx - Course Course Of Treatment: Patient is evaluated for knee pain and rib pain s/p fall. Patient sent to imaging. Xray negative for fracture or other acute findings. Soft tissue swelling noted over the medial side of the knee. Patient given orthopedic follow up in 5-7 days. Encouraged Tylenol 325mg three times daily with meals for pain. She also has tramadol at home. Return precautions given. Educated patient regarding knee injuries and healing time and the possibility of further evaluation and imaging as orthopedist sees fit. - Differential Dx/Diagnosis Provider Diagnoses: Rib contusion; Knee contusion Discharge - Discharge Plan Condition: Stable Disposition: HOME Patient Education Materials: Knee Pain (ED), Rib Contusion (ED) Referrals: Hima Trujillo MD [Medical Doctor] - Glory Vigil MD [Primary Care Provider] - Additional Instructions: Please follow up with Dr. Trujillo as discussed Rest the knee Elevate Ice Continue with your tramadol as needed for pain Tylenol on opposite schedule of the tramadol Please use your walker as you may be more weak right now - to prevent falls
== END 2017-05-30 14:42 | disposition home or self-care (01) ==
LOC: UCEAST 12:14
DX: S20.219A Contusion of unspecified front wall of thorax, initial encounter (principal); S80.01XA Contusion of right knee, initial encounter; W19.XXXA Unspecified fall, initial encounter; Z88.1 Allergy status to other antibiotic agents; Z88.5 Allergy status to narcotic agent; Z88.8 Allergy status to other drugs, medicaments and biological substances
CPT/HCPCS: 99212; G0463

== ENCOUNTER 2018-10-04 14:08 | Emergency (ER) | payer MEDICARE ==
--- OUTSIDE RECORDS SUMMARY | 2018-10-04 14:14 | XMS REPORT | Continuity of Care Document ---
:1935 External Reference #:[id number] Author Name Lashawn Quintero Care Team Providers Name Role Phone Amilcar Mendoza D.O. Primary Care Physician Unavailable Payers Date Identification Numbers Payment Provider Subscriber Policy Number: [id number] Medicare Samantha J Gina PayID: [id number] [address] [place] [address] Effective: 2012 Policy Number: [facility] Samantha Goodmanley [id number] PayID: [id number] [address] [place] [address] Effective: 2008 Policy Number: [id number] [facility] Samantha Fuentes Expires: 2012 PayID: [id number] [address] [place] [address] Advance Directives Description No Information Available Problems Date Description Provider Status Onset: 09/09/2013 Atrial fibrillation Hien Pratt M.D. Active Onset: 09/09/2013 Coronary arteriosclerosis Hien Pratt M.D. Active Onset: 12/08/2013 Benign essential hypertension Hien Pratt M.D. Active Onset: 12/08/2013 Mitral and aortic incompetence Hien Pratt M.D. Active Onset: 12/08/2013 Difficulty breathing Hien Pratt M.D. Active Onset: 09/04/2014 Tricuspid valve disorder, Hien Pratt M.D. Active non-rheumatic Onset: 05/14/2015 Chronic atrial fibrillation Hien Pratt M.D. Active Onset: 05/14/2015 Hyperlipidemia Hien Pratt M.D. Active Onset: 01/09/2017 Carotid artery occlusion Hien Pratt M.D. Active Onset: 02/09/2017 Drug-induced bradycardia Hien Pratt M.D. Active Onset: 02/09/2017 Mitral valve disorder Hien Pratt M.D. Active Onset: 11/22/2017 Obstructive sleep apnea syndrome Cecile Beaulieu DNP, RN, Active [employer] Onset: 11/22/2017 Hypoxemia Cecile Beaulieu DNP, RN, Active [employer] Onset: 02/27/2018 Polyneuropathy Wisam Ryan M.D. Active Onset: 02/27/2018 Abnormal gait Wisam Ryan M.D. Active Onset: 02/27/2018 Chronic fatigue syndrome Wisam Ryan M.D. 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 Active Onset: 09/27/2018 Atherosclerotic heart disease of Hien Pratt M.D. Active [place] coronary artery with unspecified angina pectoris Family History Date Family Member(s) Observation Comments General Heart Disease General Hypertension General Cancer Father Heart Disease Mother Hypertension Siblings 3 2 sisters and 1 brother. Brother from cancer, 1 sister passed from heart failure and the other from ruptured aorta. First Brother Cancer First Sister Heart Disease Second Sister Heart Disease Social History Type Date Description Comments Sex Unknown Marital Status Lives With Assisted living Occupation Retired Tobacco Use Start: Unknown Never Smoked Pt denies smoking Cigarettes pipe, cigar, e-cigarettes, or using chewing tobacco. ETOH Use Denies alcohol use Tobacco Use Start: Unknown Patient has never smoked Recreational Drug Use Never Used Drugs Tobacco Use Start: Unknown Secondhand smoke Indoors, at her home, exposure neighbors smoke illegally. Has contacted the housing department Smoking Status Reviewed: 09/27/18 Secondhand smoke Indoors, at her home, exposure neighbors smoke illegally. Has contacted the housing department Exercise Type/Frequency Exercises regularly walking Allergies, Adverse Reactions, Alerts Date Description Reaction Status Severity Comments 09/08/2013 Toprol XL headache, GI, Active diarrhea 09/08/2013 Plastic On Cpap Machine contact dermatist Active 09/08/2013 Inderal headache Active 09/08/2013 Shellfish-derived Products Active 09/08/2013 Atenolol increase doses she Active experiences the following sx, headache, nightmares, indigestion 09/08/2013 Captopril headaches Active 09/08/2013 Benicar bad dreams, upset Active stomach 09/08/2013 Cardizem CD nausea Active 09/08/2013 Augmentin vomiting Active 09/08/2013 Lopid nausea, diarrhea Active 09/08/2013 Norvasc LE edema Active 09/08/2013 Ambien Headache, nightmares Active 09/09/2013 Sertraline Active 09/09/2013 Digoxin headache Active 09/09/2013 Amitriptyline headaches Active 09/09/2013 Hydrochlorothiazide GI Active 09/09/2013 Procardia headaches Active 09/09/2013 Pacerone GI Active 09/09/2013 Paxil GI Active 09/09/2013 Percocet STANDARDS ANALYST reaction Active 09/09/2013 Tekturna GI Active 09/09/2013 Adhesive Tape Active 05/15/2014 Morphine Active Confusion 04/11/2018 Doxycycline Hyclate nasuia , dirriha , Active Moderate black stool Medications Medication Date Status Form Strength Qnty SIG Indications Ordering Provider Irbesartan 09/27/ Active Tablets 150mg 90tab si tab I10 Hien 2019 s by mouth Santa, every day Cris Rosuvastatin 07/26/ Active Tablets 5mg 30tab 1 tab by I65.23 Hien Calcium 2016 s mouth qhs Cris Pratt Clonidine HCL 07/16/ Active Tablets 0.1mg 1 by mouth Crepet, 2017 Twice MD Glory daily Tylenol / Active Tablets 500mg 1-2 Unknown 0000 tablets every 4-6 hours as needed pain( on hold till after surgery) Lorazepam / Active Tablets 0.5mg 1 tablet Unknown 0000 po daily as needed ( taking 1 tablet as needed to help sleep ) Furosemide / Active Tablets 20mg 90tab 1 by mouth Hien 0000 s every day Cris Pratt Citalopram / Active Tablets 10mg 1 tablet Kelly Hydrobromide 0000 po daily Amilcar Pierce D.O. Warfarin Sodium / Active Tablets 2.5mg 30tab take 2.5 Unknown 0000 s mg po d or as directed Aspirin Adult Low 07/22/ Hx Tablets DR 81mg 100ta 1 by mouth Bre Dose 2017 - bs every day Andria, ONCOLOGY ACCOUNT SPECIALIST 2017 Spironolactone 12/27/ Hx Tablets 25mg 90tab 1/2 by Bre 2018 - s mouth Thuman, 07/10/ every day ONCOLOGY ACCOUNT SPECIALIST 2017 Azithromycin 12/05/ Hx Tablets 250mg take two Armond 2018 - tablets po Konrad, 02/18/ once on 2018 the first day then 1 daily therafter Eliquis 09/27/ Hx Tablets 5mg 180ta 1 by mouth I48.2 Hien 2017 - bs twice a [place], 05/17/ day (on M.D. 2017 hold for epistaxis 04/06/18) Potassium 08/22/ Hx Tablets ER 10Meq 90tab 1 tab bid Hien Chloride Keeley ER 2017 - s Santa, 09/28/ M.D. 2017 Potassium 08/22/ Hx Tablets ER 1/2 tablet Hernandez, Chloride ER 2018 - po daily SABA Velarde 2017 Furosemide 04/05/ Hx Tablets 40mg 30tab 1/2 tab po Crepet, 2016 - s qd MD Glory 2017 Flexeril 08/01/ Hx Tablets 5mg 60tab 1 tablet Nicho 2011 - s three Young, 12/02/ times a M.D. 2013 day as needed for muscle pain Atenolol / Hx Tablets 50mg 235ta 2 tabs Hien - bs every [place], 05/17/ morning, M.D. 08/14 every evening Clonidine HCL / Hx Tablets 0.1mg 30tab 1 po qam Unknown 0000 - s (reduced 09/13/ 08/30/172017 addition of chlorthali done) Lisinopril / Hx Tablets 20mg 90tab take 08/14 I10 Unknown 0000 - s tablet 09/27/ oral daily 2019 Potassium // Hx Tablet 10Meq 1/2 tab Crepet, Chloride 0000 - po qd MD Glory 2017 Tramadol / Hx Tablets 50mg 100ta prn Unknown 0000 - bs 2013 Warfarin Sodium / Hx Tablets 5mg 60tab 1 tablet I48.2 Crepet, 0000 - s Mon,Wed,Fr MD Glory and then 2017 Tumaira,Yazan ,Paul,Sun as directed Multivitamins 00/00/ Hx Capsules 30cap 1 capsule Unknown 0000 - s gino;y 2017 Tramadol HCL 00/00/ Hx 1 tab Unknown 0000 - every 4-6 03/ hour as 2013 needed for pain. Tramadol HCL 00/00/ Hx Tablets 50mg 50tab four times Unknown 0000 - s a day as needed 2014 Tramadol HCL 00/00/ Hx Tablets 50mg 1-2 Unknown 0000 - tablets 01/08/ every 6 2016 hours as needed Meclizine HCL 00/00/ Hx Tablets 25mg Take One Unknown 0000 - Tablet By Mouth 2016 Every 6 Hours as Needed For Dizziness Tramadol HCL 00/00/ Hx Tablets 50mg Take One Unknown 0000 - Tablet By 04/26/ Mouth 2016 Every 4 To 6 Hours Maximum Daily Dose 3 Tab Tramadol HCL 00/00/ Hx Tablets 50mg 1-2 Unknown 0000 - tablets 07/25/ every 6 2016 hours as needed Melatonin 00/00/ Hx Capsules 3mg 1/2 tablet Unknown 0000 - at night 2017 Chlorthalidone 00/00/ Hx Tablets 25mg 1/2 tab Unknown 0000 - daily-pt 12/06/ not taking 2017 Meclizine HCL 00/00/ Hx Tablets 25mg 1 tablet Unknown 0000 - every 8 02/26/ hours as 2018 needed for vertigo Cyclobenzaprine 00/00/ Hx Tablets 10mg one by Unknown HCL 0000 - mouth at 05/19/ bedtime 2018 as needed spasm Potassium OTC 00/00/ Hx Tablets 99mg 1 tablet Unknown 0000 - po twice 09/28/ gino Am/PM 2018 ( started taking for 1 week Potassium 00/00/ Hx Tablets ER 20Meq 1 by mouth Unknown Chloride 0000 - twice a 12/12/ day 2018 Potassium OTC 00/00/ Hx Tablets 99mg 1 tablet Unknown 0000 - po twice 09/25/ gino Am/PM 2018 ( started taking for 1 week Potassium 00/00/ Hx Tablets ER 10Meq 1/2 tablet Unknown Chloride Keeley ER 0000 - by mouth 12/27/ twice a 2018 day Eliquis 00/00/ Hx Tablets 2.5mg 1 tablet I48.2 Unknown 0000 - by mouth 06/10/ twice a 2017 day. blood thinner. Amiodarone HCL / Hx Tablets 200mg 1 by mouth Unknown 0000 - Every Day 2017 Atenolol / Hx Tablets 50mg 1 by mouth Unknown 0000 - every day 2017 Medications Administered in Office Medication Date Status Form Strength Qnty SIG Indications Ordering Provider Inj, Administered Injection Trung Rajan Regadenoson, 018 Calix, 0.1 MG M.D., FACC, FASNC Technetium TC Administered Injection Trung Rajan 99M 018 Calix, Tetrofosmin, M.D., FACC, Per Unit Dose FASNC Up To 40 Millicuries Inj, Administered Injection Trung Rajan Regadenoson, 015 Calix, 0.1 MG M.D., FACC, FASNC Inj, Administered Injection Hien Regadenoson, 015 Santa, 0.1 MG M.D. Technetium TC Administered Injection Trung Rajan 99M 015 Calix, Tetrofosmin, M.D., FACC, Per Unit Dose FASNC Up To 40 Millicuries Technetium TC Administered Injection Hien 99M 015 Santa, Tetrofosmin, M.D. Per Unit Dose Up To 40 Millicuries Technetium TC Administered Injection Hien 99M 014 [place], Tetrofosmin, M.D. Per Unit Dose Up To 40 Millicuries Inj, Administered Injection Prachi Hernandez, Regadenoson, 014 PA 0.1 MG Technetium TC Administered Injection Prachi Hernandez, 99M 014 PA Tetrofosmin, Per Unit Dose Up To 40 Millicuries Depomedrol Administered Injection Nicho 80MG Ann-Marie Soler M.D. Immunizations Description No Information Available Vital Signs Date Vital Result Comment 09/27/2018 1:59pm Height 61 inches 5'1" Weight 149.00 lb w/o shoes Heart Rate 60 /min BP Systolic 198 mmHg Rue reg cuff BP Diastolic 76 mmHg Rue reg cuff BP Systolic Sitting 210 mmHg Lue reg cuff BP Diastolic Sitting 78 mmHg Lue reg cuff BP Systolic Standing 200 mmHg Rue reg cuff BP Diastolic Standing 82 mmHg Rue reg cuff Respiratory Rate 16 /min BMI (Body Mass Index) 28.2 kg/m2 Ejection Fraction 60% 05/09/18 echo 07/29/2018 1:32pm Height 61 inches 5'1" Heart Rate 60 /min BP Systolic Sitting 144 mmHg BP Diastolic Sitting 56 mmHg BP Systolic Standing 142 mmHg BP Diastolic Standing 66 mmHg 06/10/2018 3:10pm Height 61 inches 5'1" Weight 147.50 lb Heart Rate 80 /min BP Systolic 108 mmHg Lue Reg Cuff Sitting BP Diastolic 58 mmHg Lue Reg Cuff Sitting BP Systolic Standing 110 mmHg Lue Reg Cuff BP Diastolic Standing 60 mmHg Lue Reg Cuff Respiratory Rate 16 /min BMI (Body Mass Index) 27.9 kg/m2 Ejection Fraction 60% ECHO. 05/09/18 05/20/2018 2:30pm Height 61 inches 5'1" Weight 149.00 lb Heart Rate 76 /min BP Systolic Sitting 110 mmHg right arm lg cuff BP Diastolic Sitting 60 mmHg right arm lg cuff BP Systolic Standing 108 mmHg right arm lg cuff BP Diastolic Standing 50 mmHg right arm lg cuff BMI (Body Mass Index) 28.2 kg/m2 04/11/2018 7:51am Height 61 inches 5'1" Weight 150.00 lb with shoes Heart Rate 80 /min irregular BP Systolic Sitting 132 mmHg lue lg cuff BP Diastolic Sitting 62 mmHg lue lg cuff BP Systolic Standing 142 mmHg BP Diastolic Standing 64 mmHg Respiratory Rate 16 /min BMI (Body Mass Index) 28.3 kg/m2 Ejection Fraction 55-60% 12/25/2017 echo 02/28/2018 10:23am Height 61 inches 5'1" Weight 146.00 lb w/ shoes Heart Rate 74 /min BP Systolic Sitting 132 mmHg lue lg cuff BP Diastolic Sitting 50 mmHg lue lg cuff BP Systolic Standing 132 mmHg lue lg cuff BP Diastolic Standing 58 mmHg lue lg cuff Respiratory Rate 18 /min BMI (Body Mass Index) 27.6 kg/m2 Ejection Fraction 55-60% echo 12/25/17 02/27/2018 8:24am Height 61 inches 5'1" Weight 148.12 lb Heart Rate 70 /min BP Systolic Sitting 124 mmHg BP Diastolic Sitting 64 mmHg Respiratory Rate 20 /min O2 % BldC Oximetry 98 % BMI (Body Mass Index) 28.0 kg/m2 02/22/2018 11:01am Height 61 inches 5'1" Weight 144.25 lb Heart Rate 68 /min BP Systolic Sitting 118 mmHg Lue reg cuff BP Diastolic Sitting 56 mmHg Lue reg cuff Respiratory Rate 16 /min O2 % BldC Oximetry 98 % On Ra BMI (Body Mass Index) 27.3 kg/m2 12/06/2017 10:39am Height 61 inches 5'1" Weight 145.00 lb Heart Rate 76 /min irreg BP Systolic Sitting 120 mmHg Lue reg cuff BP Diastolic Sitting 60 mmHg Lue reg cuff BP Systolic Standing 124 mmHg Lue reg cuff BP Diastolic Standing 68 mmHg Lue reg cuff Respiratory Rate 16 /min BMI (Body Mass Index) 27.4 kg/m2 Ejection Fraction 50-55% 12/20/2016 11/22/2017 12:56pm Height 61 inches 5'1" Weight 141.38 lb Heart Rate 76 /min BP Systolic Sitting 134 mmHg Lue reg cuff BP Diastolic Sitting 70 mmHg Lue reg cuff Respiratory Rate 14 /min O2 % BldC Oximetry 97 % On Ra BMI (Body Mass Index) 26.7 kg/m2 09/27/2017 1:52pm Height 61 inches 5'1" Weight 161.00 lb Heart Rate 72 /min irreg BP Systolic Sitting 136 mmHg Rue reg cuff BP Diastolic Sitting 76 mmHg Rue reg cuff BP Systolic Standing 136 mmHg Rue reg cuff BP Diastolic Standing 78 mmHg Rue reg cuff Respiratory Rate 17 /min BMI (Body Mass Index) 30.4 kg/m2 Ejection Fraction 50-55% date 12/20/16 ECHO 09/14/2017 10:47am Height 61 inches 5'1" Weight 136.00 lb Heart Rate 64 /min BP Systolic Sitting 130 mmHg BP Diastolic Sitting 72 mmHg Respiratory Rate 14 /min O2 % BldC Oximetry 96 % BMI (Body Mass Index) 25.7 kg/m2 Neck Circumference in inches 14.5 08/22/2017 11:10am Height 61 inches 5'1" Weight 142.00 lb with out shoes Heart Rate 76 /min reg with ectopy BP Systolic Sitting 148 mmHg Lue reg cuff BP Diastolic Sitting 72 mmHg Lue reg cuff BP Systolic Standing 150 mmHg Lue reg cuff BP Diastolic Standing 60 mmHg Lue reg cuff Respiratory Rate 16 /min BMI (Body Mass Index) 26.8 kg/m2 Ejection Fraction 50-55% date 12/20/16 ECHO 07/26/2017 10:04am Height 61 inches 5'1" Weight 142.00 lb without shoes Heart Rate 74 /min BP Systolic Sitting 110 mmHg Lue reg cuff BP Diastolic Sitting 80 mmHg Lue reg cuff BP Systolic Standing 128 mmHg Lue reg cuff BP Diastolic Standing 70 mmHg Lue reg cuff Respiratory Rate 16 /min BMI (Body Mass Index) 26.8 kg/m2 Ejection Fraction 50-55% date 12/20/16 ECHO 07/12/2017 1:12pm Height 61 inches 5'1" Weight 142.00 lb Heart Rate 76 /min BP Systolic Sitting 124 mmHg Lue reg cuff BP Diastolic Sitting 74 mmHg Lue reg cuff BP Systolic Standing 118 mmHg Lue BP Diastolic Standing 70 mmHg Lue Respiratory Rate 16 /min BMI (Body Mass Index) 26.8 kg/m2 Ejection Fraction 50-55% 12/20/16 06/26/2017 11:33am Height 61 inches 5'1" Weight 148.00 lb per pt Heart Rate 86 /min irreg BP Systolic Sitting 126 mmHg Lue, reg cuff BP Diastolic Sitting 72 mmHg Lue, reg cuff Respiratory Rate 16 /min BMI (Body Mass Index) 28.0 kg/m2 06/11/2017 1:03pm Height 61 inches 5'1" Weight 148.00 lb BP Systolic 124 mmHg BP Diastolic 68 mmHg Respiratory Rate 18 /min Pain Level 0 BMI (Body Mass Index) 28.0 kg/m2 05/01/2017 9:05am Height 61 inches 5'1" Weight 148.00 lb Heart Rate 74 /min BP Systolic 122 mmHg BP Diastolic 68 mmHg Respiratory Rate 16 /min Pain Level 1 BMI (Body Mass Index) 28.0 kg/m2 04/03/2017 10:33am Height 61 inches 5'1" Weight 144.00 lb Heart Rate 72 /min Respiratory Rate 14 /min Pain Level 7 BMI (Body Mass Index) 27.2 kg/m2 03/13/2017 9:58am Height 61 inches 5'1" Weight 144.00 lb BP Systolic 142 mmHg BP Diastolic 82 mmHg Respiratory Rate 15 /min Pain Level 9 BMI (Body Mass Index) 27.2 kg/m2 02/09/2017 8:28am Height 61 inches 5'1" Weight 144.00 lb w/ shoes Heart Rate 76 /min irreg BP Systolic Sitting 110 mmHg Rue, reg cuff BP Diastolic Sitting 80 mmHg Rue, reg cuff BP Systolic Standing 114 mmHg Rue BP Diastolic Standing 76 mmHg Rue Respiratory Rate 16 /min BMI (Body Mass Index) 27.2 kg/m2 Ejection Fraction 50-55% as of 12/20/16 echo 01/09/2017 2:59pm Height 61 inches 5'1" Weight 145.00 lb with shoes Heart Rate 73 /min BP Systolic Sitting 120 mmHg Lue reg cuff BP Diastolic Sitting 56 mmHg Lue reg cuff BP Systolic Standing 146 mmHg Lue reg cuff BP Diastolic Standing 70 mmHg Lue reg cuff Respiratory Rate 17 /min BMI (Body Mass Index) 27.4 kg/m2 10/09/2016 11:54am Height 61 inches 5'1" Weight 144.00 lb BP Systolic 142 mmHg BP Diastolic 78 mmHg Respiratory Rate 17 /min Pain Level 0 BMI (Body Mass Index) 27.2 kg/m2 09/18/2016 2:54pm Height 61 inches 5'1" Weight 144.00 lb Heart Rate 75 /min BP Systolic 176 mmHg BP Diastolic 86 mmHg Respiratory Rate 18 /min Pain Level 0 BMI (Body Mass Index) 27.2 kg/m2 08/29/2016 2:50pm Height 61 inches 5'1" Weight 144.00 lb Pain Level 3 BMI (Body Mass Index) 27.2 kg/m2 05/14/2015 9:13am Height 61 inches 5'1" Weight 142.50 lb w/ sneakers Heart Rate 70 /min irreg BP Systolic Sitting 150 mmHg Rue, reg cuff BP Diastolic Sitting 88 mmHg Rue, reg cuff BP Systolic Standing 146 mmHg Rue BP Diastolic Standing 80 mmHg Rue Respiratory Rate 18 /min BMI (Body Mass Index) 26.9 kg/m2 Ejection Fraction 60-65% as of 07/24/14 echo 12/22/2014 12:57pm Height 61 inches 5'1" Weight 148.00 lb Pain Level 4 BMI (Body Mass Index) 28.0 kg/m2 12/04/2014 10:59am Height 61 inches 5'1" Weight 141.00 lb with shoes Heart Rate 64 /min irregular BP Systolic Sitting 126 mmHg left arm reg cuff BP Diastolic Sitting 64 mmHg left arm reg cuff BP Systolic Standing 128 mmHg left arm reg cuff BP Diastolic Standing 68 mmHg left arm reg cuff Respiratory Rate 18 /min BMI (Body Mass Index) 26.6 kg/m2 Ejection Fraction 60-65% 07/24/14 11/30/2014 12:02pm Height 61 inches 5'1" Weight 149.00 lb Body Temperature 97.5 F Pain Level 5 BMI (Body Mass Index) 28.2 kg/m2 10/29/2014 1:58pm Height 61 inches 5'1" Heart Rate 80 /min BP Systolic 162 mmHg BP Diastolic 86 mmHg 2014 8:54am Height 61 inches 5'1" Weight 149.00 lb Heart Rate 68 /min BP Systolic 170 mmHg BP Diastolic 100 mmHg BMI (Body Mass Index) 28.2 kg/m2 09/04/2014 3:06pm Height 61 inches 5'1" Weight 148.00 lb with shoes Heart Rate 74 /min BP Systolic Sitting 122 mmHg Ra reg cuff BP Diastolic Sitting 80 mmHg Ra reg cuff BP Systolic Standing 124 mmHg Ra reg cuff BP Diastolic Standing 80 mmHg Ra reg cuff Respiratory Rate 17 /min BMI (Body Mass Index) 28.0 kg/m2 05/15/2014 11:03am Height 61 inches 5'1" Weight 144.50 lb Heart Rate 76 /min BP Systolic Sitting 148 mmHg L arm with reg cuff BP Diastolic Sitting 70 mmHg L arm with reg cuff BP Systolic Standing 130 mmHg BP Diastolic Standing 70 mmHg Respiratory Rate 18 /min BMI (Body Mass Index) 27.3 kg/m2 03/30/2014 1:16pm Height 61 inches 5'1" Weight 149.00 lb without shoes Heart Rate 84 /min BP Systolic Sitting 132 mmHg L arm without , reg cu BP Diastolic Sitting 70 mmHg L arm without , reg cu BP Systolic Standing 128 mmHg BP Diastolic Standing 70 mmHg Respiratory Rate 18 /min BMI (Body Mass Index) 28.2 kg/m2 12/08/2013 11:49am Height 61 inches 5'1" Weight 151.00 lb with shoes Heart Rate 70 /min BP Systolic Sitting 130 mmHg LA reg cuff BP Diastolic Sitting 80 mmHg LA reg cuff BP Systolic Standing 130 mmHg LA reg cuff BP Diastolic Standing 76 mmHg LA reg cuff Respiratory Rate 17 /min BMI (Body Mass Index) 28.5 kg/m2 09/09/2013 9:55am Height 62 inches 5'2" Weight 145.00 lb Heart Rate 76 /min BP Systolic Sitting 168 mmHg Ra reg cuff BP Diastolic Sitting 94 mmHg Ra reg cuff BP Systolic Standing 164 mmHg Ra BP Diastolic Standing 90 mmHg Ra Respiratory Rate 18 /min BMI (Body Mass Index) 26.5 kg/m2 01/10/2011 9:26am Height 61 inches 5'1" Weight 149.00 lb Heart Rate 84 /min BP Systolic 150 mmHg BP Diastolic 86 mmHg BMI (Body Mass Index) 28.2 kg/m2 Results Test Date Facility Test Result H/L Range Note Basic Metabolic 07/08/2018 [facility] Sodium 140 mmol/L N 135- 145 Panel [address] [place] [address] [phone] Potassium 4.6 mmol/L N 3.5-5.0 Chloride 109 mmol/L N 101-111 Co2 Carbon Dioxide 24 mmol/L N 22-32 Anion Gap 7 mmol/L N 2-11 Glucose 95 mg/dL N 70-100 Blood Urea Nitrogen 31 mg/dL High 6-24 Creatinine 1.66 mg/dL High 0.51-0.95 BUN/Creatinine Ratio 18.7 N 8-20 Calcium 9.6 mg/dL N 8.6-10.3 Egfr Non- 29.6 >60 Egfr 35.8 >60 1 Basic Metabolic Panel 05/22/2018 [facility] Sodium 139 mmol/L N 135-145 [address] [place] [address] [phone] Chloride 109 mmol/L N 101-111 Co2 Carbon Dioxide 24 mmol/L N 22-32 Glucose 109 mg/dL High 70-100 Blood Urea Nitrogen 36 mg/dL High 6-24 Creatinine 1.57 mg/dL High 0.51-0.95 BUN/Creatinine Ratio 22.9 High 8-20 Calcium 9.5 mg/dL N 8.6-10.3 Egfr Non- 31.5 >60 Egfr 38.2 >60 2 Potassium 5.1 mmol/L High 3.5-5.0 Anion Gap 6 mmol/L N 2-11 Laboratory test 05/22/2018 [facility] Magnesium 2.1 mg/dL N 1.9-2.7 [place] [address] [phone] TSH (Thyroid Stim Horm) 4.46 mcIU/mL N 0.34-5.60 Free T4 (Free Thyroxine) 0.99 ng/dL N 0.61-1.12 T3 Free 2.80 pg/mL N 2.5-3.9 Basic Metabolic Panel 04/19/2018 [facility] Sodium 141 mmol/L N 135-145 [place] [address] [phone] Potassium 4.0 mmol/L N 3.5-5.0 Chloride 109 mmol/L N 101-111 Co2 Carbon Dioxide 25 mmol/L N 22-32 Anion Gap 7 mmol/L N 2-11 Glucose 93 mg/dL N 70-100 Blood Urea Nitrogen 28 mg/dL High 6-24 Creatinine 1.33 mg/dL High 0.51-0.95 BUN/Creatinine Ratio 21.1 High 8-20 Calcium 9.8 mg/dL N 8.6-10.3 Egfr Non- 38.2 >60 Egfr 46.2 >60 3 Neutrophil Cytoplasmic 02/27/2018 [facility] C-Anca [place] [address] [phone] P-Anca Negative Negative 4 Laboratory test 02/27/2018 [facility] Nuclear AB <1:80 (Negative ) 5 finding [facility] ([facility]j[place]) [place] [address] Igg [phone] Complement C3 131 mg/dL 75 - 175 6 Complement C4 23 mg/dL 14 - 40 7 Erythrocyte Sed Rate 28 mm/Hr N 0-40 Protein 02/27/2018 [facility] Total 7.6 g/dL 6.3 - Electrophoresis [facility] Protein(Pep) 7.[address] [place] [address] [phone] Albumin 3.8 g/dL 3.4-4.7 Alpha-1 Globulin 0.3 g/dL 0.1-0.3 Alpha-2 Globulin 0.8 g/dL 0.6-1.0 Beta Globulin 0.9 g/dL 0.7-1.2 Gamma Globulin 1.9 g/dL Abnormal 0.6-1.6 Albumin/Globulin Ratio 0.98 Impression See Comment 8 Immunofixation See Comment 9 Vitamin B12 And 02/27/2018 [facility] Vitamin B12 300 pg/mL N 180-914 10 Folate Serum [facility] [place] [address] [phone] Folic Acid (Folate) > 20.00 ng/mL >3.99 Laboratory test 02/27/2018 [facility] Free T4 (Free 0.79 ng/dL N 0.61-1.[address] Thyroxine) [place] [address] [phone] TSH (Thyroid Stim Horm) 3.84 mcIU/mL N 0.34-5.60 Comp Metabolic 08/08/2017 [facility] Blood Urea 17 mg/dL N 6- [address] [place] [address] [phone] Total Protein 7.2 g/dL N 6.4-8.9 Albumin 4.2 g/dL N 3.2-5.2 Globulin 3.0 g/dL N 2-4 Albumin/Globulin Ratio 1.4 N 1-3 Total Bilirubin 0.90 mg/dL N 0.2-1.0 Sodium 138 mmol/L N 133-145 Potassium 3.4 mmol/L Low 3.5-5.0 Chloride 104 mmol/L N 101-111 Co2 Carbon Dioxide 27 mmol/L N 22-32 Anion Gap 7 mmol/L N 2-11 Glucose 83 mg/dL N 70-100 Creatinine 0.86 mg/dL N 0.51-0.95 BUN/Creatinine Ratio 19.8 N 8-20 Calcium 8.9 mg/dL N 8.6-10.3 Alkaline Phosphatase 111 U/L High 34-104 Alt 15 U/L N 7-52 Ast 22 U/L N 13-39 Egfr Non- 63.3 >60 Egfr 81.4 >60 11 Lipid Panel - 08/08/2017 [facility] Creatine Kinase(CK) 35 U/L N 10-223 [address] [place] [address] [phone] Lipid Profile 08/08/2017 [facility] Triglycerides 158 mg/dL 13 (Trig/Chol/HDL [address] ) [place] [address] [phone] Cholesterol 140 mg/dL 14 HDL Cholesterol 28.2 mg/dL 15 LDL Cholesterol 80 mg/dL 16 Istat BUN/Crea/Egfr/V 07/27/2017 [facility] Poc Bun 18 mg/dL N 9-[address] [place] [address] [phone] Poc Crea [facility] 1.0 mg/dL High 0.6-0.9 GFR Non- Ect 53.2 >60 GFR [facility] 68.4 >60 17 1 Because ethnic data is not always readily available, this report includes an eGFR for both -Americans and non- Americans. The National Kidney Disease Education Program (NKDEP) does not endorse the use of the MDRD equation for patients that are not between the ages of 18 and 70, are , have extremes of body size, muscle mass, or nutritional status, or are non- or non-. According to the National Kidney Foundation, irrespective of diagnosis, the stage of the disease is based on the level of kidney function: Stage Description GFR(mL/min/1.73 m(2)) 1 Kidney damage with normal or decreased GFR 90 2 Kidney damage with mild decrease in GFR 60-89 3 Moderate decrease in GFR 30-59 4 Severe decrease in GFR 15-29 5 Kidney failure <15 (or dialysis) 2 Because ethnic data is not always readily available, this report includes an eGFR for both -Americans and non- Americans. The National Kidney Disease Education Program (NKDEP) does not endorse the use of the MDRD equation for patients that are not between the ages of 18 and 70, are , have extremes of body size, muscle mass, or nutritional status, or are non- or non-. According to the National Kidney Foundation, irrespective of diagnosis, the stage of the disease is based on the level of kidney function: Stage Description GFR(mL/min/1.73 m(2)) 1 Kidney damage with normal or decreased GFR 90 2 Kidney damage with mild decrease in GFR 60-89 3 Moderate decrease in GFR 30-59 4 Severe decrease in GFR 15-29 5 Kidney failure <15 (or dialysis) 3 Because ethnic data is not always readily available, this report includes an eGFR for both -Americans and non- Americans. The National Kidney Disease Education Program (NKDEP) does not endorse the use of the MDRD equation for patients that are not between the ages of 18 and 70, are , have extremes of body size, muscle mass, or nutritional status, or are non- or non-. According to the National Kidney Foundation, irrespective of diagnosis, the stage of the disease is based on the level of kidney function: Stage Description GFR(mL/min/1.73 m(2)) 1 Kidney damage with normal or decreased GFR 90 2 Kidney damage with mild decrease in GFR 60-89 3 Moderate decrease in GFR 30-59 4 Severe decrease in GFR 15-29 5 Kidney failure <15 (or dialysis) 4 Negative for cANCA and pANCA patterns by immunofluorescence. ADDITIONAL INFORMATION This test was developed and its performance characteristics determined by [facility] in a manner consistent with CLIA requirements. This test has not been cleared or approved by the U.S. Food and Drug Administration. Test Performed by: [place] [address] 5 <1:80 (Negative) REFERENCE VALUE <1:80 (Negative) Test Performed by: [place] [address] 6 Test Performed by: [place] [address] 7 Test Performed by: [place] [address] 8 Small abnormality in gamma fraction. Polyclonal hypergammaglobulinemia See Immunofixation. Test Performed by: [place] [address] 9 Small monoclonal IgG lambda within the gamma fraction. Suggest repeat testing in 6-12 months if clinically indicated. Test Performed by: [place] [address] 10 Normal Range 180 to 914 Indeterminate Range 145 to 180 Deficient Range <145 11 Because ethnic data is not always readily available, this report includes an eGFR for both -Americans and non- Americans. The National Kidney Disease Education Program (NKDEP) does not endorse the use of the MDRD equation for patients that are not between the ages of 18 and 70, are , have extremes of body size, muscle mass, or nutritional status, or are non- or non-. According to the National Kidney Foundation, irrespective of diagnosis, the stage of the disease is based on the level of kidney function: Stage Description GFR(mL/min/1.73 m(2)) 1 Kidney damage with normal or decreased GFR 90 2 Kidney damage with mild decrease in GFR 60-89 3 Moderate decrease in GFR 30-59 4 Severe decrease in GFR 15-29 5 Kidney failure <15 (or dialysis) 12 FASTING Fasting in 1 month with starting Crestor 13 Desirable: <150 Borderline High: 150-199 High: 200-499 Very High: >500 14 Desirable: <200 Borderline High: 200-239 High: >239 15 Low: <40 Desirable: 40-60 High: >60 16 Desirable: <100 Near Optimal: 100-129 Borderline High: 130-159 High: 160-189 Very High: >189 17 Because ethnic data is not always readily available, this report includes an eGFR for both -Americans and non- Americans. The National Kidney Disease Education Program (NKDEP) does not endorse the use of the MDRD equation for patients that are not between the ages of 18 and 70, are , have extremes of body size, muscle mass, or nutritional status, or are non- or non-. According to the National Kidney Foundation, irrespective of diagnosis, the stage of the disease is based on the level of kidney function: Stage Description GFR(mL/min/1.73 m(2)) 1 Kidney damage with normal or decreased GFR 90 2 Kidney damage with mild decrease in GFR 60-89 3 Moderate decrease in GFR 30-59 4 Severe decrease in GFR 15-29 5 Kidney failure <15 (or dialysis) Procedures Date Code Description Status 09/27/2018 79810 Pace Maker Eval W/Iterative Adjment Dual Lead Completed 09/27/2018 70350 EKG Tracing & Interpretation Completed 07/16/2018 38274 Stress Test Completed 07/16/2018 65376 Myocardial Perfusion Imaging Tomographic (Spect) Multiple Completed Studies 06/10/2018 56878 EKG Tracing & Interpretation Completed 06/10/2018 37439 Pace Maker Eval W/Iterative Adjment Dual Lead Completed 06/10/2018 72781 Pace Maker Eval W/Iterative Adjment Dual Lead Completed 05/20/2018 22294 EKG Tracing & Interpretation Completed 04/16/2018 83190 Echocardiogram, Limited Study Completed 04/16/2018 07897 Echocardiogram, Limited Study Completed 04/11/2018 40810 EKG Tracing & Interpretation Completed 03/01/2018 83512 Sleep Study Unattended,HRT Rate,Oxygen Sat,Resp Completed Effort/Airflow 12/25/2017 58127 ECHO Transthoracic, Real-Time 2D With Doppler And Color Completed Flow 12/25/2017 26722 ECHO Transthoracic, Real-Time 2D With Doppler And Color Completed Flow 12/16/2017 00084 Holter Monitor Review (24 hr)dr review & interp only Completed 12/13/2017 39718 ECG Monitor/Recording W/Visual Superimposition Scanning Completed 09/27/2017 03951 EKG Tracing & Interpretation Completed 09/15/2017 99503 Sleep Study Unattended,HRT Rate,Oxygen Sat,Resp Completed Effort/Airflow 07/22/2017 20165 Holter Monitor Review (24 hr)dr review & interp only Completed 07/17/2017 75436 Carotid Doppler,Bilateral Completed 07/17/2017 15268 Carotid Doppler,Bilateral Completed 07/17/2017 93399 ECG Monitor/Recording W/Visual Superimposition Scanning Completed 07/17/2017 84994 ECG Monitor/Recording W/Visual Superimposition Scanning Completed 03/13/2017 94019 Closed trtmt prox humeral fx Completed 01/09/2017 74272 EKG Tracing & Interpretation Completed 12/20/2016 24164 ECHO Transthorasic Realtime 2D W Doppler & Color Flow Hosp Completed 09/18/2016 36173 Short Arm Splint Application Completed 08/29/2016 05384 Closed TX Metacarpal FX Single W/O Manipulation, Ea Bone Completed 05/18/2015 03260 Carotid Doppler,Bilateral Completed 05/14/2015 17998 EKG Tracing & Interpretation Completed 09/01/2014 58851 Stress Test Completed 09/01/2014 12089 Myocardial Perfusion Imaging Tomographic (Spect) Multiple Completed Studies 09/01/2014 87808 Myocardial Perfusion Imaging Tomographic (Spect) Multiple Completed Studies 07/24/2014 68064 ECHO Transthoracic, Real-Time 2D With Doppler And Color Completed Flow 06/30/2014 69720 EKG, Interpretation Only Completed 03/30/2014 77310 EKG Tracing & Interpretation Completed 03/11/2014 33468 ECHO Transthorasic Realtime 2D W Doppler & Color Flow Hosp Completed 03/11/2014 57532 EKG, Interpretation Only Completed 12/03/2013 78706 Stress Test Completed 12/03/2013 64527 Myocardial Perfusion Imaging Tomographic (Spect) Multiple Completed Studies 11/26/2013 52809 ECHO Transthoracic, Real-Time 2D With Doppler And Color Completed Flow 09/09/2013 23323 EKG Tracing & Interpretation Completed 07/03/2013 46913 Inject/Drain Joint/Bursa Major W/O US Completed 05/02/2013 14554 Xray Knee 3 Views Completed 08/01/2012 48808 Rad Exam; Hip Unilat Completed 08/01/2012 20989 Rad Exam; Pelvis Completed 09/25/2011 09797 Rad Exam; Hip Unilat Completed 09/25/2011 77553 Rad Exam; Elbow, Limited Completed 09/25/2011 12947 Rad Shoulder Comp, Min. 2 Views Completed 09/25/2011 47799 Rad Exam; Pelvis Completed 12/21/2010 56091 Open TX Of Femoral FX,Promimal End,Neck Internal Fixation Completed 12/21/2010 40822 Open TX Of Femoral FX,Promimal End,Neck Internal Fixation Completed 04/06/2006 74584 EKG, Interpretation Only Completed 04/06/2006 51066 EKG, Interpretation Only Completed 05/20/2003 78181 EKG, Interpretation Only Completed Encounters Type Date Location Provider Dx Diagnosis Office Visit 07/29/2018 [facility] Nurse Visit IC I15.9 Secondary 1:30p Of Director Of Distance Learning hypertension, unspecified Office Visit 05/20/2018 [facility] Bre Ayers, I48.0 Paroxysmal atrial 2:30p Of [facility] ONCOLOGY ACCOUNT SPECIALIST fibrillation Z95.0 Presence of cardiac pacemaker 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, stage 2 (mild) I87.2 Venous insufficiency (chronic) (peripheral) I49.5 Sick sinus syndrome I25.10 Athscl heart disease of [place] coronary artery w/o ang pctrs Office Visit 04/11/2018 [place] Hien Pratt, Z01.810 Encounter for 8:00a Cardiology Of Cris preprocedural 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 [place]. fibrillation Z91.81 History of falling I34.0 Nonrheumatic mitral (valve) insufficiency I36.1 Nonrheumatic tricuspid (valve) insufficiency I15.9 Secondary hypertension, unspecified R06.02 Shortness of breath Office 02/27/2018 Jose Cruz/Katia Joel G62.9 Polyneuropathy, Visit 8:30a Neurologic Serv Of Cris Ryan unspecified [facility] R26.81 Unsteadiness on feet R53.82 Chronic fatigue, unspecified I73.9 Peripheral vascular disease, unspecified Office Visit 02/22/2018 [facility] And Cecile G47.33 Obstructive sleep 10:45a Sleep Services Of MALIKA Beaulieu RN, apnea (adult) [facility] WELDING FOREMAN-BC (pediatric) R09.02 Hypoxemia Office Visit 12/06/2017 11:00a [facility] Yee Mason I48.2 Chronic atrial Of [facility] Hero, N.P. 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 M.D. 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 G47.33 Obstructive sleep apnea (adult) (pediatric) Office Visit 07/26/2017 10:30a [facility] Prachi Hernandez, I65.23 Occlusion and Of [facility] [place] stenosis of bilateral carotid arteries I48.2 Chronic atrial fibrillation Z91.81 History of falling R09.02 Hypoxemia Office Visit 07/12/2017 1:30p [facility] Hien Pratt, I48.2 Chronic atrial Of [facility] M.D. fibrillation I25.10 Athscl heart disease of [place] coronary artery w/o ang pctrs I34.0 Nonrheumatic mitral (valve) insufficiency I36.1 Nonrheumatic tricuspid (valve) insufficiency G47.9 Sleep disorder, unspecified I10 Essential (primary) hypertension Z91.81 History of falling I65.23 Occlusion and stenosis of bilateral carotid arteries Office Visit 06/26/2017 11:15a [facility] S80.01xD Contusion of Services Of MD Cassandra right knee, C.M.A. subsequent encounter S70.11xD Contusion of right thigh, subsequent encounter S80.11xD Contusion of right lower leg, subsequent encounter Office Visit 06/11/2017 1:00p [facility] S80.01xA Contusion of Services Of MD Cassandra right knee, C.M.A. initial encounter S70.11xA Contusion of right thigh, initial encounter Office Visit 03/13/2017 9:30a [facility] S42.201A Unsp fracture Services Of MD Cassandra of upper end C.M.A. of right humerus, init S42.214A Unsp nondisp fx of surgical neck of right humerus, init S80.01xA Contusion of right knee, initial encounter Office Visit 02/09/2017 8:40a [facility] Hien Pratt, Z91.81 History of Of Director Of Distance Learning [place] [facility] [place]. falling I48.2 Chronic atrial fibrillation I10 Essential (primary) hypertension I25.10 Athscl heart disease of [place] coronary artery w/o ang pctrs R00.1 Bradycardia, unspecified I34.0 Nonrheumatic mitral (valve) insufficiency I36.1 Nonrheumatic tricuspid (valve) insufficiency R06.02 Shortness of breath I27.2 Other secondary pulmonary hypertension Office Visit 01/09/2017 3:15p [facility] Hien Pratt, R42 Dizziness and Of [facility] M.D. giddiness Z91.81 History of falling R55 Syncope and collapse I48.2 Chronic atrial fibrillation I25.10 Athscl heart disease of [place] coronary artery w/o ang pctrs I10 Essential (primary) hypertension I65.23 Occlusion and stenosis of bilateral carotid arteries Office Visit 12/20/2016 12:26p [facility] Sara Shayy R42 Dizziness and Assoc,pc JORDI [facility] Hospitalists I10 Essential (primary) hypertension I48.91 Unspecified atrial fibrillation I25.10 Athscl heart disease of [place] coronary artery w/o ang pctrs Office Visit 12/19/2016 12:23p [facility] Tomi Santo, R42 Dizziness and Assoc,[facility] I10 Essential (primary) hypertension I48.91 Unspecified atrial fibrillation I25.10 Athscl heart disease of [place] coronary artery w/o ang pctrs Office Visit 05/14/2015 9:30a [facility] Hien Pratt, I48.2 Chronic atrial Of [employer] M.D. fibrillation I25.10 Athscl heart disease of [place] coronary artery w/o ang pctrs E78.5 Hyperlipidemia, unspecified R01.1 Cardiac murmur, unspecified Office Visit 12/22/2014 1:10p Larry Soler, 924.11 Contusion Knee Services Of Cris Heard Office Visit 12/04/2014 11:00a [facility] Prachi Hernandez, 427.31 Atrial Of [employer] [place] Fibrillation 401.1 Hypertension Benign 396.3 Mitral & Aortic Valve Insufficiency 424.2 Tricuspid Valve Disorder Spec as Nonrheumatic 414.01 Coronary Atherosclerosis [place] Office Visit 11/30/2014 11:30a Larry Soler, 924.11 Contusion Knee Services Of Félix Lynch Office Visit 10/29/2014 1:45p Larry Soler, 924.11 Contusion Knee Services Of Félix Lynch 719.46 Pain Joint Lower Leg Office Visit 2014 9:00a Larry Solre, 840.8 Sprains & Services Of Félix Lynch Strains Shoulder & Upper Arm Other Spec Sites 840.8 Sprains & Strains Shoulder & Upper Arm Other Spec Sites 924.11 Contusion Knee 924.11 Contusion Knee E888.8 Other Fall E888.8 Other Fall Office Visit 09/04/2014 2:45p [place] Hien Pratt, 427.31 Atrial Cardiology Of M.D. Fibrillation [employer] 401.1 Hypertension Benign 396.3 Mitral & Aortic Valve Insufficiency 424.2 Tricuspid Valve Disorder Spec as Nonrheumatic 414.01 Coronary Atherosclerosis [place] Office Visit 06/30/2014 3:33p [facility] Jordon Amaya, 428.31 Diastolic Heart Assoc,leah Lynch Failure Acute Hospitalists 427.31 Atrial Fibrillation 401.9 Hypertension Unspec 414.9 Ischemic Heart Disease Chronic Unspec Office Visit 06/29/2014 [facility] Jhon Premcj 428.31 Diastolic Heart 3:33p Assoc,pc Cris LU Failure Acute Hospitalists 427.31 Atrial Fibrillation 401.9 Hypertension Unspec 414.9 Ischemic Heart Disease Chronic Unspec Office Visit 05/15/2014 11:00a [facility] Prachi Hernandez 427.31 Atrial Of [employer] [place] Fibrillation 401.1 Hypertension Benign 396.3 Mitral & Aortic Valve Insufficiency Office Visit 03/30/2014 1:30p [facility] Prachi Hernandez 427.31 Atrial Of Director Of Distance Learning [place] Fibrillation 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 Fibrillation Director Of [employer] Learning 414.9 Ischemic Heart Disease Chronic Unspec Office Visit 03/12/2014 [facility] 427.31 Atrial 2:43p Assocleah M.D. 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 Fibrillation Director Of Distance Learning 401.1 Hypertension Benign 396.3 Mitral & Aortic Valve Insufficiency 786.09 Dyspnea & Respiratory Abnormalities Other Office Visit 09/09/2013 9:45a Issac Pratt 427.31 Atrial Cardiology Of M.D. Fibrillation Director Of [employer] Learning 789.01 Pain Abdominal Right Upper Quadrant 414.01 Coronary Atherosclerosis [place] 786.50 Pain Chest Unspec 401.1 Hypertension Benign 786.09 Dyspnea & Respiratory Abnormalities Other Office Visit 07/03/2013 9:00a Orthopedic Nicho Soler, 715.96 Osteoarthrosis Services Of M.D. Unspec Genlzd Or C.M.A. Localized Lower Leg 719.46 Pain Joint Lower Leg Office Visit 05/02/2013 Larry Soler, 715.96 Osteoarthrosis 8:15a Services Of Félix Lynch Unspec Genlzd Or Localized Lower Leg Office Visit 11/27/2012 Neurosurgery Zane Alicia 724.02 Spinal Stenosis, 11:00a Services Of Glenna Mai, Lumbar Region, W/O M.D. Neurogenic Claudication Office Visit 09/03/2012 Larry Soler 726.5 Enthesopathy Of Hip 11:15a Services Of C.Dionne Lynch Region 820.8 FX Unspec Part Of Neck Of Femur Closed Office Visit 08/01/2012 11:45a Larry Soler 722.73 Intervertebral Disc Services Of M.D. Disorder Lumbar W/ C.M.A. Myelopathy 728.85 Spasm Muscle 726.5 Enthesopathy Of Hip Region Office Visit 02/20/2012 9:45a Larry Soler, 820.8 FX Unspec Part Services Of Félix Lynch Of Neck Of Femur Closed Office Visit 11/21/2011 9:45a Larry Soler 726.10 Bursae & Tendon Services Of CHedy Lynch Disorders Shoulder Region Unspec 820.8 FX Unspec Part Of Neck Of Femur Closed Office Visit 10/05/2011 9:15a Larry Soler 722.73 Intervertebral Disc Services Of M.D. Disorder Lumbar W/ C.M.A. Myelopathy 840.4 Sprains & Strains Rotator Cuff (Capsule) Office Visit 09/25/2011 9:45a Orthopedic Services Nicho Soler, 820.8 FX Unspec Part Of Félix Lynch Of Neck Of Femur Closed 726.19 Shoulder Disorders Other Spec 719.42 Pain Joint Upper Arm Office Visit 07/03/2011 Larry Soler, 820.8 FX Unspec Part Of 1:00p Services Of Félix Lynch Neck Of Femur Closed Office Visit 05/02/2011 Larry Soler 820.8 FX Unspec Part Of 10:00a Services Of Félix Lynch Neck Of Femur Closed Office Visit 12/21/2010 Orthopedic Nicho Soler, 820.03 FX Transcervical 11:45a Services Of Félix Lynch Base Of Neck Closed Office Visit 08/16/2007 Neurosurgery Zane Alicia 722.0 Intervertebral Disc 1:30p Services Of [facility] Kalyan Mai M.D. Cervical W/O Myelopathy 310.2 Postconcussion Syndrome Plan of Treatment Future Appointment(s):10/08/2018 2:00 pm - Ica ECHO Schedule at [facility] Of [facility]10/16/2018 8:45 am - Wisam Ryan M.D. at [facility] Neurologic Serv Of [facility]09/27/2018 - Hien Pratt M.D.I48.2 Chronic atrial raaclfgveedcD01.0 EpistaxisComments:Continue coumodin instead of NOACZ95.0 Presence of cardiac pacemakerFollow up:Schedule PO next available OV MD after pacer interrogation and echo with ECG.I10 Essential (primary) hypertensionNew Medication:Irbesartan 150 mg - si tab by mouth every dayComments:Your BP is too high .I don't know what the stuffiness and sensation in the throat are from.In case it is a side effect of Lisinopril, I am going to replace it with a relative.Recommendations:STOP Lisinpril REPLACE with Irbasartan. Check your BP's at home or in a grocery store or a pharmacy. Get 5 -10 values, note date and time and phone, mail or bring into cantilever crane operator ( or us).I65.23 Occlusion and stenosis of bilateral carotid arteriesNew Orders: Doppler Study, Carotid Artery, Ordered: 09/27/18Comments:I still hear blockages on exam, expected.We will update this study.R13.10 Dysphagia, unspecifiedComments:If this persists, see Dr Barajas again.R63.0 AnorexiaComments:Inform Dr Mendoza on your appt. next week.I34.0 Nonrheumatic mitral (valve) insufficiencyNew Orders:Echocardiogram, Ordered: 09/27/18I48.0 Paroxysmal atrial fibrillationComments:You are not in afib today, pacer appears to be working well.I25.119 Atherosclerotic heart disease of [place] coronary artery withComments:I am not sure what your chest pain was, but your ECG does not show new changes. Your story would beatypical for the chest pain being related to blockages in the heart, more likely related to your ribs or muscles.Call if it recurs.
[2018-10-04 14:17] VITALS: BP 158/64
--- NOTE | 2018-10-04 14:49 | UC ---
Upper Extremity HPI - HPI Summary HPI Summary: fell at home on carpet, fell backward injuring left wrist and hand - History of Current Complaint Chief Complaint: UCUpperExtremity Stated Complaint: L WRIST INJURY Time Seen by Provider: 10/04/18 14:37 Hx Obtained From: Patient ?: No Onset/Duration: Sudden Onset, Lasting Hours Severity Initially: Severe Severity Currently: Severe Pain Intensity: 8 Location Of Pain: Is Discrete @ Character: Sharp Aggravating Factor(s): Movement Alleviating Factor(s): Nothing Associated Signs And Symptoms: Positive: Negative - Risk Factors Non-Orthopedic Risk Factor: Negative DVT Risk Factors: Negative Septic Arthritis Risk Factor: Negative - Allergies/Home Medications Allergies/Adverse Reactions: Allergies Allergy/AdvReac Type Severity Reaction Status Date / Time codeine Allergy Intermediate GI Upset Verified 10/04/18 14:17 morphine Allergy Intermediate See Comment Verified 10/04/18 14:17 amlodipine [From Norvasc] Allergy Unknown Unknown Verified 10/04/18 14:17 Reaction Details amoxicillin [From Augmentin] Allergy Unknown Unknown Verified 10/04/18 14:17 Reaction Details captopril Allergy Unknown Unknown Verified 10/04/18 14:17 Reaction Details clavulanic acid Allergy Unknown Unknown Verified 10/04/18 14:17 [From Augmentin] Reaction Details digoxin Allergy Unknown See Comment Verified 10/04/18 14:17 diltiazem [From Cardizem] Allergy Unknown Unknown Verified 10/04/18 14:17 Reaction Details hydrochlorothiazide Allergy Unknown Unknown Verified 10/04/18 14:17 [From Benicar HCT] Reaction Details lisinopril Allergy Unknown Unknown Verified 10/04/18 14:17 Reaction Details nifedipine [From Procardia] Allergy Unknown Unknown Verified 10/04/18 14:17 Reaction Details olmesartan [From Benicar HCT] Allergy Unknown Unknown Verified 10/04/18 14:17 Reaction Details paroxetine [From Paxil] Allergy Unknown Unknown Verified 10/04/18 14:17 Reaction Details sertraline [From Zoloft] Allergy Unknown Unknown Verified 10/04/18 14:17 Reaction Details Adhesive Tape [Plastic Tape] Allergy Rash Verified 10/04/18 14:17 apixaban [From Eliquis] Allergy See Comment Verified 10/04/18 14:17 Home Medications: Home Medications Citalopram TAB* [Celexa TAB*] 10 mg PO DAILY 10/04/18 [History Confirmed ] Irbesartan (NF) [Avapro (NF)] 150 mg PO DAILY 10/04/18 [History Confirmed ] PMH/Surg Hx/FS Hx/Imm Hx Previously Healthy: No - atrial fib, congestive heart failure Cardiovascular History: Congestive Heart Failure, Atrial Fibrillation - Surgical History Surgical History: Yes Surgery Procedure, Year, and Place: Partial hysterectomy 1972, left kneecap repair, right shoulder rotator cuff, left thumb, right hip replacement 2010, window put in heart 2008 ( NOTHING METAL IN CHEST).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 - Family History Known Family History: Positive: Cardiac Disease - Mother and father, Hypertension - Mother and father Negative: Diabetes - Social History Alcohol Use: None Substance Use Type: None Smoking Status (MU): Never Smoked Tobacco Have You Smoked in the Last Year: No - Immunization History Most Recent Influenza Vaccination: 05/2016 Most Recent Tetanus Shot: 9 yrs ago Most Recent Pneumonia Vaccination: 2011 Review of Systems All Other Systems Reviewed And Are Negative: Yes Constitutional: Positive: Negative Skin: Positive: Negative Eyes: Positive: Negative ENT: Positive: Negative Respiratory: Positive: Negative Cardiovascular: Positive: Negative Gastrointestinal: Positive: Negative Genitourinary: Positive: Negative Motor: Positive: Other - pain , weakness , left wrist with decreased range of motion Musculoskeletal: Positive: Decreased ROM Is Patient Immunocompromised?: No Physical Exam Triage Information Reviewed: Yes Appearance: Well-Appearing Vital Signs: Initial Vital Signs Temp 36.6 C 10/04/18 14:12 Pulse 59 10/04/18 14:12 Resp 18 10/04/18 14:12 BP 158/64 10/04/18 14:12 Pulse Ox 100 10/04/18 14:12 Vital Signs Reviewed: Yes Eye Exam: Normal ENT Exam: Normal Neck exam: Normal Neck: Positive: Supple Respiratory: Positive: Chest non-tender Abdominal Exam: Normal Bowel Sounds: Positive: Present Upper Extremity Course/Dx - Differential Dx/Diagnosis Provider Diagnosis: Left wrist sprain Discharge - Sign-Out/Discharge Documenting (check all that apply): Patient Departure All imaging exams completed and their final reports reviewed: Yes - Discharge Plan Condition: Fair Disposition: HOME Patient Education Materials: Wrist Sprain (ED), Osteoporosis (ED) Referrals: Amilcar Mendoza DO [Primary Care Provider] - Additional Instructions: follow up xray in one week if symptoms persist - Billing Disposition and Condition Condition: FAIR Disposition: Home
== END 2018-10-04 15:45 | disposition home or self-care (01) ==
LOC: UCEAST 14:08
DX: S63.502A Unspecified sprain of left wrist, initial encounter (principal); W18.30XA Fall on same level, unspecified, initial encounter; Y92.9 Unspecified place or not applicable; Z88.6 Allergy status to analgesic agent; Z88.5 Allergy status to narcotic agent; Z88.0 Allergy status to penicillin; Z88.8 Allergy status to other drugs, medicaments and biological substances
CPT/HCPCS: 99212; G0463

== ENCOUNTER 2018-10-20 18:11 | Emergency (ER) | payer MEDICARE ==
[2018-10-20 18:23] VITALS: BP 183/71
--- NOTE | 2018-10-20 18:33 | UC ---
Head Injury HPI - HPI Summary HPI Summary: Patient is a 83 year old female , who present today to the urgent care after she tripped on the curb and fell in the parking lot her. She landed and hit left side of her head on the pavement. She protected herself by landing on the both wrists and sustained some abrasions on the bilateral knees. She does have knee pain bilaterally but that is nothing of that usual. She does have some pain in her hands but she feels it's not as bad. She reports that she has some headache but is very well aware of where she is. Denies any dizziness, nausea or vomiting Last tetanus shot was 9 years ago - History Of Current Complaint Chief Complaint: UCHeadInjury Stated Complaint: FACIAL INJURY S/P FALL Time Seen by Provider: 10/20/18 18:22 Hx Obtained From: Patient ?: No Pain Intensity: 5 - Allergies/Home Medications Allergies/Adverse Reactions: Allergies Allergy/AdvReac Type Severity Reaction Status Date / Time codeine Allergy Intermediate GI Upset Verified 10/20/18 18:23 morphine Allergy Intermediate See Comment Verified 10/20/18 18:23 amlodipine [From Norvasc] Allergy Unknown Unknown Verified 10/20/18 18:23 Reaction Details amoxicillin [From Augmentin] Allergy Unknown Unknown Verified 10/20/18 18:23 Reaction Details captopril Allergy Unknown Unknown Verified 10/20/18 18:23 Reaction Details clavulanic acid Allergy Unknown Unknown Verified 10/20/18 18:23 [From Augmentin] Reaction Details digoxin Allergy Unknown See Comment Verified 10/20/18 18:23 diltiazem [From Cardizem] Allergy Unknown Unknown Verified 10/20/18 18:23 Reaction Details hydrochlorothiazide Allergy Unknown Unknown Verified 10/20/18 18:23 [From Benicar HCT] Reaction Details lisinopril Allergy Unknown Unknown Verified 10/20/18 18:23 Reaction Details nifedipine [From Procardia] Allergy Unknown Unknown Verified 10/20/18 18:23 Reaction Details olmesartan [From Benicar HCT] Allergy Unknown Unknown Verified 10/20/18 18:23 Reaction Details paroxetine [From Paxil] Allergy Unknown Unknown Verified 10/20/18 18:23 Reaction Details sertraline [From Zoloft] Allergy Unknown Unknown Verified 10/20/18 18:23 Reaction Details Adhesive Tape [Plastic Tape] Allergy Rash Verified 10/20/18 18:23 apixaban [From Eliquis] Allergy See Comment Verified 10/20/18 18:23 PMH/Surg Hx/FS Hx/Imm Hx - Additional Past Medical History Additional PMH: Atrial fibrillation Coronary heart disease Hypertension Hyperlipidemia CHF Obstructive sleep apnea Previously Healthy: Yes - Surgical History Surgical History: Yes Surgery Procedure, Year, and Place: Partial hysterectomy 1972, left kneecap repair, right shoulder rotator cuff, left thumb, right hip replacement 2010, window put in heart 2008 ( NOTHING METAL IN CHEST).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 - Family History Known Family History: Positive: Cardiac Disease - Mother and father, Hypertension - Mother and father Negative: Diabetes - Social History Alcohol Use: None Substance Use Type: None Smoking Status (MU): Never Smoked Tobacco Have You Smoked in the Last Year: No - Immunization History Most Recent Influenza Vaccination: 05/2016 Most Recent Tetanus Shot: 9 yrs ago Most Recent Pneumonia Vaccination: 2011 Review of Systems All Other Systems Reviewed And Are Negative: Yes Constitutional: Positive: Negative Skin: Positive: Negative, Bruising, Other - Hematoma- left forehead Eyes: Positive: Negative ENT: Positive: Negative Respiratory: Positive: Negative Cardiovascular: Positive: Negative Gastrointestinal: Positive: Negative Genitourinary: Positive: Negative Motor: Positive: Negative Neurovascular: Positive: Negative Musculoskeletal: Positive: Negative Neurological: Positive: Headache Psychological: Positive: Negative Is Patient Immunocompromised?: No Physical Exam - Summary Physical Exam Summary: Physical Exam: Const: Appears well. No signs of apparent distress present. Alert and oriented x 3. Musculo: Walks with a normal gait. Head/Face: Hematoma noted on the left forehead along with swelling of the eyelids and periorbital area on the left side Eyes: EOMI and PERRLA in both eyes. Conjunctivae clear. No discharge noted ENT: Hearing normal Respiratory: Respirations are unlabored. Lungs clear to auscultation bilaterally, no wheezing , rhonchi or rales noted . CVS: Regular rate and Rhythm, S1S2 normal , no murmurs identified. Extremities: Peripheral circulation is grossly normal. Pulses 2+ Abdomen : Soft non tender , nondistended , Bowel sounds present . No guarding , rebound tenderness or rigidity noted. Skin: No lesions or rash located on the upper extremities or on the lower extremities. Neuro: Cranial nerves II to XII intact, motor and sensory intact. DTR Intact bilaterally. Mood is normal. Affect is normal. GCS: 15 Bilateral knees: Small abrasions noted anteriorly. Scar kathie. Able to move her both knees without much pain. Bilateral hips: Pain-free range of motion Bilateral hands: Slight contusion/abrasion but full range of motion and strength at wrist and hands Triage Information Reviewed: Yes Vital Signs: Initial Vital Signs Temp 96.6 F 10/20/18 18:19 Pulse 60 10/20/18 18:19 Resp 18 10/20/18 18:19 BP 183/71 10/20/18 18:19 Pulse Ox 100 10/20/18 18:19 Vital Signs Reviewed: Yes Diagnostics - Radiology No standard instances Radiology Interpretation Completed By: Radiologist - CT head without contrast: 1. Left supraorbital/frontal contusion/hematoma with no acute intracranial normality. 2. 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 3. Mild chronic small vessel ischemic disease. CT orbits without contrast:Left supraorbital/frontal subcutaneous edema/hematoma with no left orbital or facial fractures. Head Injury Course/Dx - Course Course Of Treatment: During the visit today, we obtained CT of the head and the orbit without contrast which was negative for any fracture or intracranial bleed . We discussed the findings and further plan and expectations with the hematoma. Her tetanus shot was updated today. She'll follow up with her primary care doctor in 1-2 days. Patient expressed understanding . - Differential Dx/Diagnosis Provider Diagnosis: Head contusion, Hematoma Discharge - Sign-Out/Discharge Documenting (check all that apply): Patient Departure All imaging exams completed and their final reports reviewed: Yes - Discharge Plan Condition: Stable Disposition: HOME Patient Education Materials: Scalp Contusion in Adults (ED), Hematoma (ED) Referrals: Amilcar Mendoza DO [Primary Care Provider] - 2 Days Additional Instructions: Follow up with your primary care doctor in 2 days. Patients blood pressure slightly high in Urgent care today , plan follow up with PCP for better control within 4 weeks. Return to Urgent care / ER if symptoms get worse. - Billing Disposition and Condition Condition: STABLE Disposition: Home
[2018-10-20] MEDS ORDERED: Tetan/Diph/Pertus SYR(Tdap)* 0.5 ML SYR(BOOSTRIX) use SYR IM ONE (20:46)
== END 2018-10-20 20:55 | disposition home or self-care (01) ==
LOC: UCCORT 18:11
DX: S00.93XA Contusion of unspecified part of head, initial encounter (principal); I11.0 Hypertensive heart disease with heart failure; I50.9 Heart failure, unspecified; Z91.09 Other allergy status, other than to drugs and biological substances; Z88.8 Allergy status to other drugs, medicaments and biological substances; Z88.1 Allergy status to other antibiotic agents; Z88.0 Allergy status to penicillin; Z88.5 Allergy status to narcotic agent; W01.198A Fall on same level from slipping, tripping and stumbling with subsequent striking against other object, initial encounter; Y92.481 Parking lot as the place of occurrence of the external cause
CPT/HCPCS: 70450; 70480; 99212; G0463

== ENCOUNTER 2018-12-16 11:48 | Inpatient (IN) | payer MEDICARE ==
--- NOTE | 2018-12-16 12:10 | ED ---
HPI Cardiac - HPI Summary HPI Summary: Patient is a 83 y/o F presenting to ED with complaints of high BP and SOB. Abnormally high BP has been present for the past month. Patient was evaluated by PCP Dr. Jansen recently who had changed the patient's BP medications. She denies experiencing chest pain, N/V, headaches, dizziness. However, patient has been having SOB since yesterday morning. She states that SOB resolved later in the day but onset again yesterday evening and has been present today as well. She is on warfarin, patient notes that this medication has been changed several times. She endorses recent onset of swelling in ankles but denies ankle pain. Patient sleeps on one pillow a night, denies orthopnea. PMHx of pacemaker, CHF, CAD, sleep apnea, irritable bowel syndrome, arthritis. PSHx of partial hysterectomy, left kneecap repair, right shoulder rotator cuffe repair, right hip replacement. FMHx of HTN, cardiac disease. Patient denies alcohol usage, substance usage, and has never smoked tobacco. On triage, pain is denied, nothing is noted to aggravate/alleviate Sx. Home medications and allergies are reviewed. - History of Current Complaint Chief Complaint: EDHypertension Stated Complaint: SOB/BP 220/90 PER PT DAUGHTER Time Seen by Provider: 12/16/18 12:04 Hx Obtained From: Patient Onset/Duration: Started Days Ago - SOB onset yesterday, Started Weeks Ago - high BP for past month, Still Present Timing: Lasting Days - SOB onset yesterday, Lasting Weeks - high BP for past month Current Severity: None - pain denied Pain Intensity: 0 Pain Scale Used: 0-10 Numeric Aggravating Factor(s): Nothing Alleviating Factor(s): Nothing Associated Signs and Symptoms: Positive: Shortness of Breath, Swelling - ankles , Other: - high BP, no ankle pain. Negative: Chest Pain, Headaches, Dizziness, Nausea, Vomiting - Additional Pertinent History Primary Care Physician: [id number] - Allergy/Home Medications Allergies/Adverse Reactions: Allergies Allergy/AdvReac Type Severity Reaction Status Date / Time codeine Allergy Intermediate GI Upset Verified 10/20/18 18:23 morphine Allergy Intermediate See Comment Verified 10/20/18 18:23 amlodipine [From Norvasc] Allergy Unknown Unknown Verified 10/20/18 18:23 Reaction Details amoxicillin [From Augmentin] Allergy Unknown Unknown Verified 10/20/18 18:23 Reaction Details captopril Allergy Unknown Unknown Verified 10/20/18 18:23 Reaction Details clavulanic acid Allergy Unknown Unknown Verified 10/20/18 18:23 [From Augmentin] Reaction Details digoxin Allergy Unknown See Comment Verified 10/20/18 18:23 diltiazem [From Cardizem] Allergy Unknown Unknown Verified 10/20/18 18:23 Reaction Details hydrochlorothiazide Allergy Unknown Unknown Verified 10/20/18 18:23 [From Benicar HCT] Reaction Details lisinopril Allergy Unknown Unknown Verified 10/20/18 18:23 Reaction Details nifedipine [From Procardia] Allergy Unknown Unknown Verified 10/20/18 18:23 Reaction Details olmesartan [From Benicar HCT] Allergy Unknown Unknown Verified 10/20/18 18:23 Reaction Details paroxetine [From Paxil] Allergy Unknown Unknown Verified 10/20/18 18:23 Reaction Details sertraline [From Zoloft] Allergy Unknown Unknown Verified 10/20/18 18:23 Reaction Details Adhesive Tape [Plastic Tape] Allergy Rash Verified 10/20/18 18:23 apixaban [From Eliquis] Allergy See Comment Verified 10/20/18 18:23 Home Medications: Home Medications Acetaminophen [Acetaminophen Extra Strength] 500 mg PO Q6HR PRN 12/16/18 [ History Confirmed 12/16/18] Rosuvastatin (NF) [Crestor (NF)] 5 mg PO QAM 12/16/18 [History Confirmed ] Warfarin TAB(*) [Coumadin TAB(*)] 2.5 mg PO SUTUTH 12/16/18 [History Confirmed 12/16/18] Warfarin TAB(*) [Coumadin TAB(*)] 3.75 mg PO MOWEFRSA 12/16/18 [History Confirmed 12/16/18] PMH/Surg Hx/FS Hx/Imm Hx Endocrine/Hematology History: Denies: Hx Diabetes, Hx Thyroid Disease Cardiovascular History: Reports: Hx Congestive Heart Failure, Hx 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, Hx Valvular Heart Disease Denies: Hx Hypertension, Hx Pacemaker/ICD Respiratory History: Reports: Hx Sleep Apnea - DOESN'T TOLERATE MASK/CPAP/ BIPAP TRIES NOT TO LAY ON BACK, Other Respiratory Problems/Disorders - NOSE BLEEDS FOR PAST YEAR, Denies: Hx Asthma, Hx Chronic Obstructive Pulmonary Disease (COPD) GI History: Reports: Hx Irritable Bowel, Hx Jaundice - YOUNG CHILD Denies: Hx Ulcer History: Denies: Hx Renal Disease Musculoskeletal History: Reports: Hx Arthritis - KNEES, LOW BACK, Hx Orthopedic Injury - right hip fx 03/05/14 Sensory History: Reports: Hx Contacts or Glasses Denies: Hx Hearing Aid Opthamlomology History: Reports: Hx Contacts or Glasses Neurological History: Reports: Hx Headaches - Hx OF NONE RECENTLY Denies: Hx Dementia, Hx Migraine, Hx Seizures, Hx Transient Ischemic Attacks (TIA) Psychiatric History: Denies: Hx Anxiety, Hx Depression, Hx Panic Disorder, Hx Schizophrenia, Hx Bipolar Disorder - Surgical History Surgery Procedure, Year, and Place: Partial hysterectomy 1972, left kneecap repair, right shoulder rotator cuff, left thumb, right hip replacement 2010, window put in heart 2008 ( NOTHING METAL IN CHEST).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 Hx Anesthesia Reactions: No - Immunization History Date of Tetanus Vaccine: unknown Date of Influenza Vaccine: 2014 Infectious Disease History: No Infectious Disease History: Denies: Hx Hepatitis, Hx Human Immunodeficiency Virus (HIV), History Other Infectious Disease, Traveled Outside the [place] in Last 30 Days - Family History Known Family History: Positive: Cardiac Disease - Mother and father, Hypertension - Mother and father Negative: Diabetes - Social History Alcohol Use: None Substance Use Type: Reports: None Smoking Status (MU): Never Smoked Tobacco Have You Smoked in the Last Year: No Review of Systems Cardiovascular: Other - POSITIVE - HIGH BP Negative: Chest Pain Positive: Shortness Of Breath Negative: Vomiting, Nausea Musculoskeletal: Other - NEGATIVE - ANKLE PAIN Positive: Edema - ANKLES Neurological: Other - NEGATIVE - DIZZINESS Negative: Headache All Other Systems Reviewed And Are Negative: Yes Physical Exam - Summary Physical Exam Summary: VITAL SIGNS: Reviewed. GENERAL: Patient is a well-developed and nourished female who is lying comfortable in the stretcher. Patient is not in any acute respiratory distress. HEAD AND FACE: No signs of trauma. No ecchymosis, hematomas or skull depressions. No sinus tenderness. EYES: PERRLA, EOMI x 2, No injected conjunctiva, no nystagmus. EARS: Hearing grossly intact. Ear canals and tympanic membranes are within normal limits. MOUTH: Oropharynx within normal limits. NECK: Supple, trachea is midline, no adenopathy, no JVD, no carotid bruit, no c- spine tenderness, neck with full ROM. CHEST: Symmetric, no tenderness at palpation LUNGS: Clear to auscultation bilaterally. No wheezing or crackles. CVS: Regular rate and rhythm, S1 and S2 present, no murmurs or gallops appreciated. ABDOMEN: Soft, non-tender. No signs of distention. No rebound no guarding, and no masses palpated. Bowel sounds are normal. EXTREMITIES: FROM in all major joints, no cyanosis or clubbing. BLE edema. NEURO: Alert and oriented x 3. No acute neurological deficits. Speech is normal and follows commands. SKIN: Dry and warm Triage Information Reviewed: Yes Vital Signs On Initial Exam: Initial Vitals Temp Pulse Resp BP Pulse Ox 97.8 F 60 18 213/92 94 12/16/18 11:52 12/16/18 11:52 12/16/18 11:52 12/16/18 11:52 12/16/18 11:52 Vital Signs Reviewed: Yes Diagnostics - Vital Signs Vital Signs Temp Pulse Resp BP Pulse Ox 12/16/18 11:52 97.8 F 60 18 213/92 94 - Laboratory Result Diagrams: 12/17/18 05:45 12/17/18 05:45 Lab Statement: Any lab studies that have been ordered have been reviewed, and results considered in the medical decision making process. - Radiology CXR Radiology Interpretation Completed By: Radiologist Summary of Radiographic Findings: IMPRESSION: #. Pulmonary edema with associated moderate RIGHT and probable small LEFT pleural. effusions with proportional atelectasis. THIS REPORT WAS REVIEWED BY DR. BUCIO. - EKG 1204 Cardiac Rate: Other Rate - atrial paced rhythm with rate of 60 BPM Summary of EKG Findings: EKG showed atrial paced rhythm with rate of 60 BPM, inverted T waves in 3, aVF, V4, V5. 1539 Cardiac Rate: Other Rate - atrial paced with rate of 61 BPM EKG Comparison: Other - increased T wave inverion in leads 2, 3, and aVF, increased ST depression V3-V6. Summary of EKG Findings: EKG showed atrial paced rhythm with rate of 61 BPM, increased T wave inversion in 2,3,aVF and increased ST depression v4-v6. Re-Evaluation - Re-Evaluation First Eval Re-Evaluation Time: 15:25 Comment: Patient had a vasovagal episode, BP 84/61. She notes that when she got up from commode she felt dizzy. Disposition - Course Assessment/Plan: This patient is an 83-year-old female who presents to the emergency department with chief complaint of having increased blood pressure. 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 The patient also reports that shes been having bilateral extremity edema. Patient denies any chest pain or palpitations. Initially the patient was found to have a blood pressure of 213/92. The patient was placed in a veterinary toxicologist, IV access was obtained and she was given hydralazine. The blood pressure did not improve and it is 209/77. Therefore the patient was given a second dose of hydralazine and Lasix since the BNP is also elevated. Results without any significant abnormality except for slight anemia, INR is 2.34, PTT. Chest x-ray impression: Pulmonary edema with associated moderate right and probably small left pleural effusions with proportional atelectasis. While the patient is in the ER the patient become slightly hypoxic. Therefore the patient was placed in 2 L of oxygen. However the patient is taking Coumadin therefore I do not believe that the patient has a PE. The INR is therapeutic. The patient got up to the toilet and urinated and she had a vasovagal episode. The blood pressure was 80/60. I put her back into bed and when he took the blood pressure and is still elevated to 168/80. The patient reports that she is more short of breath. Therefore I decided to the second EKG. EKG shows more performed ST depressions in V4 to V6. Therefore discussed the case with Dr. Cardenas from oncology who came and assessed this patient. He doesnt think that the patient has an acute MS however he recommended for the patient to be admitted to the hospital services further workup and management. I discuss my physical exam, findings and test results with Dr. Tinsley from the hospitalist services and she agrees to admit patient to her services. Patient is hemodynamically stable alert and oriented x 3. - Diagnoses Provider Diagnoses: Hypertensive urgency, Cardiac ischemia - Physician Notifications Discussed Care Of Patient With: Devendra Cardenas Time Discussed With Above Provider: 15:50 Instructed by Provider To: Other - Patient's case was discussed with Dr. Cardenas, Dr. Cardenas will come to evaluate patient. 1632 - Dr. Cardenas did cardioechogram, states it was negative. He does recommend that the patient be admitted. 1640 - Patient's case was discussed with Dr. Tinsley, Dr. Tinsley accepts for admission. - Critical Care Time Critical Care Time: 75-104 min Discharge - Sign-Out/Discharge Documenting (check all that apply): Patient Departure - admit Patient Received Moderate/Deep Sedation with Procedure: No - Discharge Plan Condition: Stable Disposition: ADMITTED TO [facility] - Billing Disposition and Condition Condition: STABLE Disposition: Admitted to [facility] - Attestation Statements Document Initiated by Scribe: Yes Documenting Scribe: PEREZ DAVILA Provider For Whom Scribe is Documenting (Include Credential): NIRAJ BUCIO MD Scribe Attestation: PEREZ Caputo, scribed for NIRAJ BUCIO MD on 12/17/18 at 1051. Scribe Documentation Reviewed: Yes Provider Attestation: The documentation as recorded by the PEREZ arora accurately reflects the service I personally performed and the decisions made by , NIRAJ BUCIO MD Status of Scribe Document: Viewed
[2018-12-16] MEDS ORDERED: Labetalol IV* 5 MG/ML 20 ML VIAL IV PUSH ONE (12:15)
[2018-12-16] MEDS ORDERED: hydrALAZINE IV* 20 MG/ML VIAL IV SLOW PU ONE ×2 (12:17→14:00)
--- OUTSIDE RECORDS SUMMARY | 2018-12-16 12:21 | XMS REPORT | Continuity of Care Document ---
:1935 External Reference #:[id number] Author Name Gerry Barajas M.D. Address [address] [place] [address] Care Team Providers Name Role Phone Usha Goodman N.P. Care Team Information Kai Whakaruruhau Unavailable Kelly Maharaj, Amilcar Primary Care Physician Unavailable Payers Date Identification Numbers Payment Provider Subscriber Policy Number: [id number] [place] [employer] [employer] Samantha Fuentes PayID: [id number] [address] [place] [address] Policy Number: [id number] [facility] Samantha Fuentes PayID: [id number] [address] [place] [address] Expires: 2017 Policy Number: [id number] [facility] Samantha Fuentes [facility] PayID: [id number] [address] [place] [address] Advance Directives Description No Information Available Problems Active Problems Provider Date Essential hypertension Gerry Barajas M.D. Onset: 12/06/2009 Bleeding from nose Tian Steen MD Onset: 12/13/2017 Family History Date Family Member(s) Observation Comments General Cancer General Diabetes General Hearing Loss General Heart Disease General Migraine General Thyroid Disease Social History Type Date Description Comments Sex Unknown Occupation Retired Tobacco Use Start: Unknown Never Smoked Cigarettes Tobacco Use Start: Unknown Never Smoked Cigars Tobacco Use Start: Unknown Never Smoked A Pipe Smoking Status Reviewed: 11/26/18 Never Smoked A Pipe Smokeless Tobacco Never Used Smokeless Tobacco ETOH Use Denies alcohol use Tobacco Use Start: Unknown Patient has never smoked Allergies, Adverse Reactions, Alerts Active Allergies Reaction Severity Comments Date Tramadol HCL headache, sleepy, nausea 12/06/2009 Augmentin headache, dizziness, nausea 12/06/2009 Captopril headache, dizziness, nausea 12/06/2009 Cardizem headache, dizziness, nausea 12/06/2009 Doxycycline stomach upset 04/09/2018 Medications Active Medications SIG Qnty Indications Ordering Provider Date Iron 1 tab daily Unknown 28mg Tablets Irbesartan Take One Tablet Unknown 150mg Tablets By Mouth Every Day Citalopram Kelly D.O., Amilcar Hydrobromide 10mg Tablets Warfarin Sodium Take 2 Tablets By Unknown 2.5mg Mouth Am and PM Tablets daily Carvedilol Take One Tablet Unknown 12.5mg Tablets By Mouth Twice A Day Ranitidine HCL 1 tab daily Kelly D.O., Amilcar 150mg Tablets Tylenol 8 Hour Kelly D.Kiki, Amilcar Arthritis Pain 650mg Tablets ER Multi-Day Kelly D.O., Amilcar Plus Minerals Tablets Rosuvastatin Calcium Kelly D.O., Amilcar 5mg Tablets Furosemide 1 tab daily Glory Vigil M.D. 20mg Tablets Clonidine HCL Glory Vigil M.D. 0.1mg Tablets Atenolol prn Unknown 50mg Tablets Lorazepam Take One Tablet Unknown 1mg Tablets By Mouth AT Bedtime Maximum Daily Dose One Tablet History Medications Cephalexin 1 by mouth thee 30tabs R04.0 Gerry Hdez 01/01/2018 - 250mg Tablets times per day Cris Barajas 01/09/2018 (Listed Augmentin allergy is stomach upset) Afrin Nasal [place] if pressure 1units R04.0 Gerry Hdez 01/12/2012 - 0.05% doesn't stop Cris Barajas 12/07/2017 Solution the bleeding 2 sprays into the right nose,soak cotton ball and place in nose apply pressure Keflex 1 po 4x day by 28caps 784.7 Gerry Hdez 12/20/2011 - 500mg Capsules mouth Cris Barajas 12/20/2011 Bacitracin Ointment apply to rim of 1Tube R04.0 Gerry Hdez 12/14/2011 - nose both sides Cris Barajas 12/07/2017 in the am and the pm. Keflex 1 po 4x day by 7days Gerry Hdez 12/31/2009 - 500mg Capsules mouth Cris Barajas 08/15/2010 Amlodipine Besylate 1 po daily Gerry Hdez 12/14/2009 - 2.5mg Cris Barajas 12/20/2011 Tablets Doxycycline Hyclate 1 tab twice Unknown - 100mg daily 11/27/2018 Capsules Potassium Chloride Keeley Unknown - ER 11/27/2018 10Meq Tablets ER Lisinopril Glory Vigil, - 20mg Tablets FaraDDavid 11/27/2018 Eliquis Take One Tablet Unknown - 5mg Tablets By Mouth Twice 04/09/2018 A Day Azithromycin Unknown - 250mg Tablets 01/09/2018 Lasix Unknown - 40mg Tablets 12/07/2017 Lisinopril Unknown - 20mg Tablets 12/07/2017 Potassium Chloride SA Unknown - 10Meq 12/07/2017 Tablets ER Hydrocodone 1 tab every 4-6 R04.0 Unknown - 5/500 12/07/2017 Levaquin 1 po qd 14tabs 784.7 Unknown - 500mg Tablets 04/11/2012 Atenolol 21/2 daily 2 R04.0 Unknown - 25mg Tablets 1/2 daily 12/07/2017 Hydrochlorothiazide Patch Unknown - 12/20/2011 Mupirocin Unknown - 12/14/2009 One Daily Unknown - 12/07/2017 Clonidine 0.1MG Patch Unknown - 12/07/2017 Warfarin Sodium Unknown - 12/07/2017 Atenolol 2 1/2 Tabs Unknown - 50mg Daily 12/07/2017 Immunizations Description No Information Available Vital Signs Date Vital Result Comment 11/27/2018 1:33pm Weight 147.00 lb Weight 66.679 kg Height 61 inches 5'1" Height in cm's 154.9 cm BMI (Body Mass Index) 27.8 kg/m2 06/10/2018 1:27pm BP Systolic 123 mmHg BP Diastolic 59 mmHg Heart Rate 81 /min Weight 147.00 lb Weight 66.679 kg Height 61 inches 5'1" Height in cm's 154.9 cm BMI (Body Mass Index) 27.8 kg/m2 05/28/2018 10:39am Weight 146.00 lb Weight 66.226 kg Height 61 inches 5'1" Height in cm's 154.9 cm BMI (Body Mass Index) 27.6 kg/m2 05/06/2018 4:18pm Weight 146.00 lb Weight 66.226 kg Height 61 inches 5'1" Height in cm's 154.9 cm BMI (Body Mass Index) 27.6 kg/m2 04/09/2018 1:37pm Weight 146.00 lb Weight 66.226 kg Height 61 inches 5'1" Height in cm's 154.9 cm BMI (Body Mass Index) 27.6 kg/m2 01/04/2018 8:48am Weight 146.00 lb Weight 66.226 kg Height 61 inches 5'1" Height in cm's 154.9 cm BMI (Body Mass Index) 27.6 kg/m2 12/17/2017 10:22am Weight 146.00 lb Weight 66.226 kg Height 61 inches 5'1" Height in cm's 154.9 cm BMI (Body Mass Index) 27.6 kg/m2 12/13/2017 10:59am Weight 146.00 lb Weight 66.226 kg Height 61 inches 5'1" Height in cm's 154.9 cm BMI (Body Mass Index) 27.6 kg/m2 12/07/2017 9:45am Weight 146.00 lb Weight 66.226 kg Height 61 inches 5'1" Height in cm's 154.9 cm BMI (Body Mass Index) 27.6 kg/m2 04/16/2012 9:44am BP Systolic 178 mmHg BP Diastolic 88 mmHg Heart Rate 78 /min Respiratory Rate 16 /min 04/11/2012 1:36pm BP Systolic 150 mmHg BP Diastolic 101 mmHg Heart Rate 80 /min Respiratory Rate 16 /min 04/09/2012 2:52pm BP Systolic 174 mmHg BP Diastolic 86 mmHg Heart Rate 74 /min 04/05/2012 11:02am BP Systolic 150 mmHg BP Diastolic 55 mmHg Heart Rate 78 /min Respiratory Rate 16 /min 02/12/2012 11:49am BP Systolic 132 mmHg BP Diastolic 82 mmHg Heart Rate 76 /min Respiratory Rate 16 /min 12/25/2011 1:46pm BP Systolic 157 mmHg BP Diastolic 88 mmHg Heart Rate 84 /min Respiratory Rate 16 /min 12/20/2011 1:34pm BP Systolic 152 mmHg BP Diastolic 106 mmHg Heart Rate 109 /min 12/14/2011 9:18am BP Systolic 168 mmHg BP Diastolic 73 mmHg Heart Rate 86 /min 08/15/2010 10:06am BP Systolic 171 mmHg BP Diastolic 123 mmHg Heart Rate 81 /min 02/23/2010 9:34am BP Systolic 121 mmHg BP Diastolic 67 mmHg Heart Rate 59 /min Respiratory Rate 16 /min 01/04/2010 10:56am BP Systolic 161 mmHg BP Diastolic 90 mmHg Heart Rate 83 /min Respiratory Rate 16 /min 12/23/2009 2:20pm BP Systolic 143 mmHg BP Diastolic 96 mmHg Heart Rate 84 /min Respiratory Rate 16 /min 12/14/2009 10:55am BP Systolic 142 mmHg BP Diastolic 78 mmHg 12/13/2009 10:54am BP Systolic 173 mmHg BP Diastolic 113 mmHg Respiratory Rate 16 /min 12/08/2009 9:55am BP Systolic 168 mmHg BP Diastolic 99 mmHg Heart Rate 81 /min Respiratory Rate 17 /min 12/06/2009 10:02am BP Systolic 130 mmHg BP Diastolic 85 mmHg Heart Rate 79 /min Respiratory Rate 16 /min Results Test Date Facility Test Result H/L Range Note Basic Metabolic 04/19/2018 [facility] Sodium 141 mmol/ L N 135-145 Panel c/o Department [place] [address] [phone] Potassium 4.0 mmol/L N 3.5-5.0 Chloride 109 mmol/L N 101-111 Co2 Carbon Dioxide 25 mmol/L N 22-32 Anion Gap 7 mmol/L N 2-11 Glucose 93 mg/dL N 70-100 Blood Urea Nitrogen 28 mg/dL High 6-24 Creatinine 1.33 mg/dL High 0.51-0.95 BUN/Creatinine Ratio 21.1 High 8-20 Calcium 9.8 mg/dL N 8.6-10.3 Egfr Non- 38.2 >60 Egfr 46.2 >60 1 Comp Metabolic Panel 12/15/2011 [facility] Sodium 139 mmol/L 135-145 c/o [facility] [place] [address] [phone] Potassium 4.0 mmol/L 3.5-5.0 Chloride 109 mmol/L 101-111 Co2 (Carbon Dioxide) 25.0 mmol/L 22-32 Anion Gap 5.0 mmol/L 2-11 2 Glucose 110 mg/dL High 70-100 BUN 22 mg/dL 6-24 Creatinine 0.8 mg/dL 0.50-1.40 One Over Creatinine 1.25 BUN/Creatinine Ratio 27.5 High 8-20 Calcium 8.4 mg/dL 8.1-9.9 Total Protein 6.8 GM/DL 6.2-8.1 Albumin 3.7 GM/DL 3.2-5.2 Globulin 3.1 GM/DL 2-4 Albumin/Globulin Ratio 1.2 1-3 Bilirubin Total 1.0 mg/dL 0.4-1.5 3 Alkaline Phosphatase 120 U/L High 30-110 Alt (SGPT) 20 U/L 14-54 Ast (Sgot) 32 U/L 12-42 eGFR Non- 69.7 > 60 eGFR 89.7 > 60 4 Protime 12/15/2011 [facility] Inr 2.20 High 0.88- 1.13 5 c/o [facility] [place] [address] [phone] Protime 27.1 SEC High 10.3-13.5 6 Laboratory test 12/15/2011 [facility] PTT (Aptt) 35.4 SEC 25.1-38.5 finding c/o [facility] [place] [address] [phone] Type & Screen 12/15/2011 [facility] Patient O POSITIVE c/o Department [place] [address] [phone] Antibody Screen NEGATIVE CBC No Diff 12/15/2011 [facility] White Blood 8.7 CUMM 4.8-10.8 c/o Department [place] [address] [phone] Red Cell Count 3.67 CUMM Low 4.2-5.4 Hemoglobin 10.8 g/dL Low 12.0-16.0 Hematocrit 31 % Low 35-47 Mean Corpuscular Volume 85 um3 79-97 Mean Corpuscular Hemoglob 30 pg 27-31 Mean Corpuscular HGB Cone 35 g/dL 32-36 Redcell Distribution WDTH 16 % High 10.5-15 Platelet Count 146 CUMM Low 150-450 Mean Platelet Volume 9.5 um3 7.4-10.4 CBC With 12/31/2009 [facility] White Blood 8.7 CUMM 4.8-10.8 Electronic Diff c/o Department [place] [address] [phone] Red Cell Count 3.95 CUMM Low 4.2-5.4 Hemoglobin 11.2 g/dL Low 12.0-16.0 Hematocrit 33 % Low 35-47 Mean Corpuscular Volume 83 um3 79-97 Mean Corpuscular Hemoglob 28 pg 27-31 Mean Corpuscular HGB Cone 34 g/dL 32-36 Redcell Distribution WDTH 15 % 10.5-15 Platelet Count 166 CUMM 150-450 Mean Platelet Volume 7.0 um3 Low 7.4-10.4 Gran % 50.4 % 38-83 Lymph % 36.2 % 25-47 Mononuclear % 9.7 % High 1-9 Eosinophil % 2.8 % 0-6 Basophil % 0.9 % 0-2 Abs Lymphs 3.1 1.0-4.8 Abs Mononuclear 0.8 0-0.8 Absolute Neutrophil Count 4.5 1.5-7.7 Abs Eosinophils 0.2 0-0.6 Abs Basophils 0.1 0-0.2 Protime 12/31/2009 [facility] Inr 2.50 High 0.97- 1.03 7 c/o [place] [address] [phone] Protime 29.8 SEC High 11.5-12.2 8 1 Because ethnic data is not always [...] 5 Kidney failure <15 (or dialysis) 2 Anion gap measurement may be of limited value in the presence of any alkalosis, especially in a combined acid base disorder. . 3 A metabolite of Naproxen, O-desmethylnaproxen, has been shown to interfere with the Jendrassik-Madisyn method for measuring total bilirubin. Samples from patients who have taken Naproxen have shown spurious elevation in total bilirubin levels. 4 Because ethnic data is not always readily [...] 15-29 5 Kidney failure <15 (or dialysis) 5 Recommended INR for Patients on Oral Anticoagulants Prophylaxis 2.0 - 3.0 Treatment of thrombosis 2.0 - 3.0 Prevention of embolism 2.0 - 3.0 Prevention of embolism from prosthetic heart valves 2.5 - 3.5 6 DIAGNOSIS,TREATMENT,AND THERAPY MUST BE BASED ON THE INR VALUE ALONE. 7 Recommended INR for Patients on Oral Anticoagulants Prophylaxis 2.0 - 3.0 Treatment of thrombosis 2.0 - 3.0 Prevention of embolism 2.0 - 3.0 Prevention of embolism from prosthetic heart valves 2.5 - 3.5 8 DIAGNOSIS,TREATMENT,AND THERAPY MUST BE BASED ON THE INR VALUE ALONE. Procedures Date Code Description Status 11/27/2018 25094 Fiberoptic Laryngoscopy Completed 06/10/2018 90048 Control Nasal Hemorrhage (Extensive Cautery/Packing) Any Completed Method 06/03/2018 33158 Endoscopic Nasal Cautery Completed 04/27/2018 37256 Endoscopic Nasal Cautery Completed 04/19/2018 19858 Nasal/Sinus Endoscopy W/Ligation Sphenopalatine Artery Completed 04/01/2018 90197 Contol Nasal Hemorrhage, Anterior, Simple Completed 03/14/2018 76908 Control Nasal Hemorrhage (Extensive Cautery/Packing) Any Completed Method 01/01/2018 43557 Control Nasal Hemorrhage (Extensive Cautery/Packing) Any Completed Method 12/24/2017 63986 Control Nasal Hemorrhage (Extensive Cautery/Packing) Any Completed Method 12/14/2017 71414 Anterior/Posterior Packing Completed 12/13/2017 25638 Control Nasal Hemorrhage (Extensive Cautery/Packing) Any Completed Method 12/12/2017 61576 Control Nasal Hemorrhage (Extensive Cautery/Packing) Any Completed Method 04/11/2012 09897 Contol Nasal Hemorrhage, Anterior, Simple Completed 04/09/2012 03139 Contol Nasal Hemorrhage, Anterior, Simple Completed 04/05/2012 86674 Contol Nasal Hemorrhage, Anterior, Simple Completed 12/18/2011 32134 Contol Nasal Hemorrhage, Anterior, Simple Completed 12/14/2011 94899 Contol Nasal Hemorrhage, Anterior, Simple Completed 08/15/2010 07218 Control Nasal Hemorrhage (Extensive Cautery/Packing) Any Completed Method 02/23/2010 44684 Nasal Endoscopy, Diagnostic Completed 12/20/2009 21197 Control Nasal Hemorrhage (Extensive Cautery/Packing) Any Completed Method 12/08/2009 71027 Contol Nasal Hemorrhage, Anterior, Simple Completed 12/06/2009 58406 Control Nasal Hemorrhage (Extensive Cautery/Packing) Any Completed Method Encounters Type Date Location Provider Dx Diagnosis Office Visit 05/28/2018 [place],After 08/13/07 Gerry Hdez R04.0 Epistaxis 10:45a Cris Barajas T45.515D Adverse effect of anticoagulants, subsequent encounter Office Visit 05/06/2018 4:00p [place],After 08/13/07 Gerry Ruggiero4.0 Epistaxis Cris Barajas I48.2 Chronic atrial fibrillation Office Visit 04/09/2018 [place],After Gerry Hdez R04.0 Epistaxis 1:30p 08/13/07 Cris Barajas Office Visit 01/09/2018 [place],After Gerry Hdez R04.0 Epistaxis 11:04a 08/13/07 Cris Barajas Office Visit 01/04/2018 [place],After Celsa, Tian R04.0 Epistaxis 8:30a 08/13/07 Office Visit 12/17/2017 [place],After Antwanparelia, Tian R04.0 Epistaxis 10:30a 08/13/07 MD Office Visit 12/13/2017 [place],After Celsa, Tian R04.0 Epistaxis 11:30a 08/13/07 MD Office Visit 12/07/2017 [place],After Gerry Hdez R04.0 Epistaxis 10:00a 08/13/07 Cris Barajas Office Visit 04/16/2012 [place],After Marbella Cameron 784.7 Epistaxis 9:45a 08/13/07 [employer] Office Visit 04/11/2012 [place],After Marbella Cameron 784.7 Epistaxis 1:30p 08/13/07 [employer] Office Visit 02/12/2012 [place],After Marbella Cameron 784.7 Epistaxis 11:30a 08/13/07 [employer] Office Visit 01/12/2012 [place],After Marbella Cameron 784.7 Epistaxis 9:30a 08/13/07 [employer] Office Visit 12/25/2011 [place],After Marbella Cameron 784.7 Epistaxis 1:30p 08/13/07 [employer] Office Visit 12/20/2011 [place],After Marbella Cameron 784.7 Epistaxis 1:30p 08/13/07 [employer] Office Visit 07/28/2010 [place],After Marbella Cameron 478.11 Nasal Mucositis 2:00p 08/13/07 [employer] (Ulcerative) 784.7 Epistaxis 401.9 High Blood Pressure Or Hypertension/Unspecified Office Visit 02/23/2010 10:00a [place],After 08/13/07 Uldrich, Marbella 784.7 Epistaxis [employer] 401.9 High Blood Pressure Or Hypertension/Unspecified Office Visit 01/04/2010 11:00a Dagmar,After 08/13/07 Uldrich, Marbella 784.7 Epistaxis [employer] 401.9 High Blood Pressure Or Hypertension/Unspecified Office Visit 12/23/2009 2:00p Dagmar,After 08/13/07 Uldrich, Marbella 784.7 Epistaxis [employer] 401.9 High Blood Pressure Or Hypertension/Unspecified Office Visit 12/14/2009 10:30a Dagmar,After 08/13/07 Uldrich, Marbella 784.7 Epistaxis [employer] 427.31 Atrial Fibrillation 401.9 High Blood Pressure Or Hypertension/Unspecified Office Visit 12/13/2009 9:00a Dagmar,After 08/13/07 Uldrich, Marbella 784.7 Epistaxis [employer] 427.31 Atrial Fibrillation 401.9 High Blood Pressure Or Hypertension/Unspecified Office Visit 12/06/2009 10:00a Dagmar,After 08/13/07 Gerry Hdez 784.7 Epistaxis Cris Barajas 401.9 High Blood Pressure Or Hypertension/Unspecified Office Visit 08/03/2003 [place],After Gerry Hdez 780.57 Apnea, Sleep Not 4:00p 08/13/07 Cris Barajas Elsewhere Classified /Unspecified 470 Deviated Nasal Septum 427.31 Atrial Fibrillation Plan of Treatment 11/27/2018 - Gerry Barajas M.D.R13.14 Dysphagia, pharyngoesophageal phaseComments:The patient has had some dysphagia. She felt as if she could not swallow her saliva but has not had any problems swallowing food. She says she is better now but it was unusual. Her ENT examination related to this and her nasolaryngoscopy are normal. I have no concerns at this time.
--- OUTSIDE RECORDS SUMMARY | 2018-12-16 12:21 | XMS REPORT | Continuity of Care Document ---
:1935 External Reference #:[id number] Author Name Maris Nesbitt Care Team Providers Name Role Phone Amilcar Mendoza D.O. Primary Care Physician Unavailable Payers Date Identification Numbers Payment Provider Subscriber Policy Number: [id number] Medicare Samantha J Gina PayID: [id number] [address] [place] [address] Effective: 2012 Policy Number: [facility] Samantha Goodmanley [id number] PayID: [id number] [address] [place] [address] Effective: 2008 Policy Number: [id number] [facility] Samantha Fuentes Expires: 2012 PayID: [id number] [address] [place] [address] Advance Directives Description No Information Available Problems Active Problems Provider Date Atrial fibrillation Hien Pratt M.D. Onset: 09/09/2013 Coronary arteriosclerosis Hien Pratt M.D. Onset: 09/09/2013 Benign essential hypertension Hien Pratt M.D. Onset: 12/08/2013 Mitral and aortic incompetence Hien Pratt M.D. Onset: 12/08/2013 Difficulty breathing Hien Pratt M.D. 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 Onset: 05/14/2015 Hyperlipidemia Hien Pratt M.D. Onset: 05/14/2015 Carotid artery occlusion Hien Pratt M.D. Onset: 01/09/2017 Drug-induced bradycardia Hien Pratt M.D. Onset: 02/09/2017 Mitral valve disorder Hien Pratt M.D. Onset: 02/09/2017 Obstructive sleep apnea syndrome Cecile Beaulieu DNP, RN, Onset: 11/22/2017 IT TRAINEE-BC Hypoxemia Cecile Beaulieu DNP, RN, Onset: 11/22/2017 IT TRAINEE-BC Polyneuropathy Wisam Ryan M.D. Onset: 02/27/2018 Abnormal gait Wisam Ryan M.D. Onset: 02/27/2018 Chronic fatigue syndrome Wisam Ryan M.D. 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 Onset: 04/11/2018 heart disease Cardiac pacemaker in situ Hien Pratt M.D. Onset: 09/27/2018 Atherosclerotic heart disease of Hien Pratt M.D. Onset: 09/27/2018 [place] coronary artery with unspecified angina pectoris Paroxysmal atrial fibrillation Hien Pratt M.D. Onset: 12/12/2018 Sinus node dysfunction Hien Pratt M.D. Onset: 12/12/2018 Family History Date Family Member(s) Observation Comments [...] contacted the housing department Smoking Status Reviewed: 12/12/18 Secondhand smoke Indoors, at her home, exposure neighbors smoke illegally. Has contacted the housing department Exercise Type/Frequency Exercises regularly walking Allergies, Adverse Reactions, Alerts Active Allergies Reaction Severity Comments Date Toprol XL headache, GI, diarrhea 09/08/2013 Plastic On Cpap Machine contact dermatist 09/08/2013 Inderal headache 09/08/2013 Shellfish-derived Products 09/08/2013 Atenolol increase doses she 09/08/2013 experiences the following sx, headache, nightmares, indigestion Captopril headaches 09/08/2013 Benicar bad dreams, upset stomach 09/08/2013 Cardizem CD nausea 09/08/2013 Augmentin vomiting 09/08/2013 Lopid nausea, diarrhea 09/08/2013 Norvasc LE edema 09/08/2013 Ambien Headache, nightmares 09/08/2013 Sertraline 09/09/2013 Digoxin headache 09/09/2013 Amitriptyline headaches 09/09/2013 Hydrochlorothiazide GI 09/09/2013 Procardia headaches 09/09/2013 Pacerone GI 09/09/2013 Paxil GI 09/09/2013 Percocet SALES ACTIVITY MANAGER reaction 09/09/2013 Tekturna GI 09/09/2013 Adhesive Tape 09/09/2013 Morphine Confusion 05/15/2014 Doxycycline Hyclate ayanna maldonado , jorge luis Moderate 04/11/2018 stool Medications Active Medications SIG Qnty Indications Ordering Date Provider Rosuvastatin Calcium 1 tab by mouth 30tabs I65.23 Hien Pratt, 07/26/2017 every night at M.D. 5mg Tablets bedtime Mupirocin use twice daily Unknown 2% Ointment to affected area left forehead Daily Multiple i t po d 90tabs Unknown Vitamins/Minerals Tablets Irbesartan 2 tablet by mouth I10 Unknown 150mg every day Tablets Ferrous Gluconate 1 t po d Unknown 240(27Fe) mg Tablets Carvedilol 1 tab by mouth 180tabs Amilcar Mendoza, 25mg Tablets twice a day with D.O. meals ( Not taken yet as of 12/12/18) Tylenol 2 tablets every 4 Unknown 325mg Capsules hours as needed for pain Warfarin Sodium 1 tablet on 30tabs Unknown 2.5mg sun,thur, sat and Tablets 1 1/2 tablet on mon,tues,wed,fri, sat as directed (Med change as of 12/10/18 Michael Davenport) Citalopram 1 tablet po daily Amilcar Mendoza, Hydrobromide D.O. 10mg Tablets Furosemide 1 by mouth every 90tabs Hien Pratt, 20mg Tablets day M.D. Lorazepam 1 tablet po daily Unknown 0.5mg Tablets as needed ( taking 1 tablet as needed to help sleep ) History Medications Irbesartan si tab by 90tabs I10 Hien Pratt, 09/27/2018 - 150mg Tablets mouth every day M.D. 12/11/2018 Aspirin Adult Low Dose 1 by mouth every 100tabs Bre Ayers, 2017 - 81mg day STAFF DEVELOPMENT MANAGER 07/23/2018 Tablets Spironolactone 1/2 by mouth 90tabs Bre Ayers, 12/27/2017 - 25mg Tablets every day STAFF DEVELOPMENT MANAGER 07/10/2018 Azithromycin take two tablets Armond 12/05/2017 - 250mg Tablets po once on the MD Konrad 02/18/2018 first day then 1 daily therafter Eliquis 1 by mouth twice 180tabs I48.2 Hien Pratt, 09/27/2017 - 5mg Tablets a day (on hold M.D. 05/17/2018 for epistaxis 04/06/18) Potassium Chloride ER 1/2 tablet po Prachi Hernandez PA 08/22/2017 - daily 12/13/2017 Tablets ER Potassium Chloride Keeley 1 tab bid 90tabs Hien Pratt, 08/22/2017 - ER M.D. 09/28/2017 10Meq Tablets ER Clonidine HCL 1 by mouth Twice Glory Vigil 07/16/2017 - 0.1mg Tablets daily 12/11/2018 Furosemide 1/2 tab po qd 30tabs Glory Vigil 04/05/2017 - 40mg Tablets 05/19/2018 Flexeril 1 tablet three 60tabs Nicho Soler 08/01/2012 - 5mg Tablets times a day as M.D. 12/02/2013 needed for muscle pain Atenolol 1 by mouth every Unknown - 50mg Tablets day 06/10/2018 Amiodarone HCL 1 by mouth Every Unknown - 200mg Day 06/10/2018 Tablets Eliquis 1 tablet by I48.2 Unknown - 2.5mg Tablets mouth twice a 06/10/2018 day. blood thinner. Potassium Chloride Keeley 1/2 tablet by Unknown - ER mouth twice a 12/27/2017 10Meq Tablets ER day Potassium OTC 1 tablet po Unknown - 99mg Tablets twice gino Am/PM 09/25/2017 ( started taking for 1 week Potassium Chloride 1 by mouth twice Unknown - 20Meq a day 12/12/2017 Tablets ER Potassium OTC 1 tablet po Unknown - 99mg Tablets twice gino Am/PM 09/28/2017 ( started taking for 1 week Cyclobenzaprine HCL one by mouth at Unknown - 10mg bedtime as 05/19/2018 Tablets needed spasm Meclizine HCL 1 tablet every 8 Unknown - 25mg Tablets hours as needed 02/26/2018 for vertigo Chlorthalidone 1/2 tab daily-pt Unknown - 25mg Tablets not taking 12/06/2017 Melatonin 1/2 tablet at Unknown - 3mg Capsules night 08/20/2017 Tramadol HCL 1-2 tablets Unknown - 50mg Tablets every 6 hours as 07/25/2017 needed Tylenol 1-2 tablets Unknown - 500mg Tablets every 4-6 hours 12/11/2018 as needed pain( on hold till after surgery) Tramadol HCL Take One Tablet Unknown - 50mg Tablets By Mouth Every 4 04/26/2017 To 6 Hours Maximum Daily Dose 3 Tab Meclizine HCL Take One Tablet Unknown - 25mg Tablets By Mouth Every 6 06/13/2017 Hours as Needed For Dizziness Tramadol HCL 1-2 tablets Unknown - 50mg Tablets every 6 hours as 01/08/2017 needed Tramadol HCL four times a day 50tabs Unknown - 50mg Tablets as needed 09/03/2014 Tramadol HCL 1 tab every 4-6 Unknown - hour as needed 04/15/2014 for pain. Multivitamins 1 capsule gino;y 30caps Unknown - Capsules 08/21/2017 Warfarin Sodium 1 tablet 60tabs I48.2 MusaCherelleh, - 5mg Tablets Mon,Wed,Fri and 09/27/2017 then Tues,Thvanna,Sat,S un as directed Tramadol prn 100tabs Unknown - 50mg Tablets 05/12/2014 Potassium Chloride 1/2 tab po qd Musa Glory, - 10Meq MD 08/22/2017 Tablet Lisinopril take 1/2 tablet 90tabs I10 Unknown - 20mg Tablets oral daily 09/27/2018 Clonidine HCL 1 po qam 30tabs Unknown - 0.1mg Tablets (reduced 08/30/17 09/13/2017 w/ addition of chlorthalidone) Atenolol 2 tabs every 235tabs Hien Pratt, - 50mg Tablets morning, 1/2 M.D. 05/17/2018 every evening Medications Administered in Office Medication SIG Qnty Indications Ordering Provider Date Inj, Regadenoson, 0.1 MG Trung Calix M.D., 07/16/2018 Injection MARIAN, NEHAL Technetium TC 99M Trung Calix M.D., 07/16/2018 Tetrofosmin, Per Unit Dose NEHAL FONSECA Up To 40 Millicuries Injection Inj, Regadenoson, 0.1 MG Trung Calix M.D., 09/01/2014 Injection NEHAL FONSECA Inj, Regadenoson, 0.1 MG Hien Pratt M.D. 09/01/2014 Injection Technetium TC 99M Trung Calix M.D., 09/01/2014 Tetrofosmin, Per Unit Dose NEHAL FONSECA Up To 40 Millicuries Injection Technetium TC 99M Hien Pratt M.D. 09/01/2014 Tetrofosmin, Per Unit Dose Up To 40 Millicuries Injection Technetium TC 99M Hien Pratt M.D. 07/21/2014 Tetrofosmin, Per Unit Dose Up To 40 Millicuries Injection Inj, Regadenoson, 0.1 MG SABA Trammell 12/03/2013 Injection Technetium TC 99M SABA Trammell 12/03/2013 Tetrofosmin, Per Unit Dose Up To 40 Millicuries Injection Depomedrol 80MG Nicho Soler M.D. 07/03/2013 Injection Immunizations Description No Information Available Vital Signs Date Vital Result Comment 12/12/2018 12:44pm Height 61 inches 5'1" Weight 148.00 lb with shoes Heart Rate 64 /min BP Systolic Sitting 160 mmHg Lue lg cuff BP Diastolic Sitting 84 mmHg Lue lg cuff BP Systolic Standing 150 mmHg Lue lg cuff BP Diastolic Standing 82 mmHg Lue lg cuff Respiratory Rate 16 /min BMI (Body Mass Index) 28.0 kg/m2 Ejection Fraction 55-60% date 10/08/18 echo 09/27/2018 1:59pm Height 61 inches 5'1" Weight [...] Result H/L Range Note Basic Metabolic 07/08/2018 [facility] Sodium 140 mmol/L N 135- [address] [place] [address] [phone] Potassium 4.6 mmol/L N 3.5-5.0 Chloride 109 mmol/L N 101-111 Co2 Carbon Dioxide 24 mmol/L N 22-32 Anion Gap 7 mmol/L N 2-11 Glucose 95 mg/dL N 70-100 Blood Urea Nitrogen 31 mg/dL High 6-24 Creatinine 1.66 mg/dL High 0.51-0.95 BUN/Creatinine Ratio 18.7 N 8-20 Calcium 9.6 mg/dL N 8.6-10.3 Egfr Non- 29.6 >60 Egfr 35.8 >60 1 Basic Metabolic Panel 05/22/2018 [facility] Sodium 139 mmol/L N 135-145 [address] [place] [address] [phone] Chloride 109 mmol/L N 101-111 Co2 Carbon Dioxide 24 mmol/L N 22-32 Glucose 109 mg/dL High 70-100 Blood Urea Nitrogen 36 mg/dL High 6-24 Creatinine 1.57 mg/dL High 0.51-0.95 BUN/Creatinine Ratio 22.9 High 8-20 Calcium 9.5 mg/dL N 8.6-10.3 Egfr Non- 31.5 >60 Egfr 38.2 >60 2 Potassium 5.1 mmol/L High 3.5-5.0 Anion Gap 6 mmol/L N 2-11 Laboratory test 05/22/2018 [facility] Magnesium 2.1 mg/dL N 1.9-2.7 finding [address] [place] [address] [phone] TSH (Thyroid Stim Horm) 4.46 mcIU/mL N 0.34-5.60 Free T4 (Free Thyroxine) 0.99 ng/dL N 0.61-1.12 T3 Free 2.80 pg/mL N 2.5-3.9 Basic Metabolic Panel 04/19/2018 [facility] Sodium 141 mmol/L N 135-145 [address] [place] [address] [phone] Potassium 4.0 mmol/L N 3.5-5.0 Chloride 109 mmol/L N 101-111 Co2 Carbon Dioxide 25 mmol/L N 22-32 Anion Gap 7 mmol/L N 2-11 Glucose 93 mg/dL N 70-100 Blood Urea Nitrogen 28 mg/dL High 6-24 Creatinine 1.33 mg/dL High 0.51-0.95 BUN/Creatinine Ratio 21.1 High 8-20 Calcium 9.8 mg/dL N 8.6-10.3 Egfr Non- 38.2 >60 Egfr 46.2 >60 3 Vitamin B12 And 02/27/2018 [facility] Vitamin B12 300 pg/mL N 180-914 4 Folate Serum [address] [place] [address] [phone] Folic Acid (Folate) > 20.00 ng/mL >3.99 Protein 02/27/2018 [facility] Total 7.6 g/dL 6.3 - Electrophoresis [address] [facility] Protein(Pep) 7.9 [place] [address] [phone] Albumin 3.8 g/dL 3.4-4.7 Alpha-1 Globulin 0.3 g/dL 0.1-0.3 Alpha-2 Globulin 0.8 g/dL 0.6-1.0 Beta Globulin 0.9 g/dL 0.7-1.2 Gamma Globulin 1.9 g/dL Abnormal 0.6-1.6 Albumin/Globulin Ratio 0.98 Impression See Comment 5 Immunofixation See Comment 6 Laboratory test 02/27/2018 [facility] Nuclear AB <1:80 (Negative ) [address] (Sanjana) [place] [address] Igg [phone] Complement C3 131 mg/dL 75 - 175 8 Complement C4 23 mg/dL 14 - 40 9 Erythrocyte Sed Rate 28 mm/Hr N 0-40 Neutrophil Cytoplasmic 02/27/2018 [facility] C-Anca Negative Negative AB [address] [place] [address] [phone] P-Anca Negative Negative 10 Laboratory test 02/27/2018 [facility] Free T4 (Free 0.79 ng/dL N 0.61-1.[address] Thyroxine) [place] [address] [phone] TSH (Thyroid Stim Horm) 3.84 mcIU/mL N 0.34-5.60 Lipid Panel - 08/08/2017 [facility] Creatine 35 U/L N 10-223 11 [address]CK) [place] [address] [phone] Comp Metabolic 08/08/2017 [facility] Blood Urea 17 mg/dL N 6- 24 [place] [address] [phone] Total Protein 7.2 g/dL N 6.4-8.9 Albumin [...] Egfr Non- 63.3 >60 Egfr 81.4 >60 12 Lipid Profile 08/08/2017 [facility] Triglycerides 158 mg/dL 13 (Trig/Chol/HDL) [address] [place] [address] [phone] Cholesterol 140 mg/dL 14 HDL Cholesterol 28.2 mg/dL 15 LDL Cholesterol 80 mg/dL 16 Istat BUN/Crea/Egfr/V 07/27/2017 [facility] Poc Bun 18 mg/dL N 9-[address] [facility] [address] [place] [address] [phone] Poc Crea [facility] 1.0 mg/dL High 0.6-0.9 [...] 5 Kidney failure <15 (or dialysis) 4 Normal Range 180 to 914 Indeterminate Range 145 to 180 Deficient Range <145 5 Small abnormality in gamma fraction. Polyclonal hypergammaglobulinemia See Immunofixation. Test Performed by: [place] [address] 6 Small monoclonal IgG lambda within the gamma fraction. Suggest repeat testing in 6-12 months if clinically indicated. Test Performed by: [place] [address] 7 <1:80 (Negative) REFERENCE VALUE <1:80 (Negative) Test Performed by: [place] [address] 8 Test Performed by: [address], [place] [address] 9 Test Performed by: [facility] [address] [place] [address] 10 Negative for cANCA and pANCA patterns by immunofluorescence. ADDITIONAL INFORMATION This test was developed and its performance characteristics determined by [facility] in a manner consistent with CLIA requirements. This test has not been cleared or approved by the U.S. Food and Drug Administration. Test Performed by: [facility] - [address] [address] 11 FASTING Fasting in 1 month with starting Crestor 12 Because ethnic data is not always readily [...] 15-29 5 Kidney failure <15 (or dialysis) 13 Desirable: <150 Borderline High: 150-199 High: [...] (or dialysis) Procedures Date Code Description Status 12/12/2018 51978 EKG Tracing & Interpretation Completed 10/08/2018 01748 ECHO Transthoracic, Real-Time 2D With Doppler And Color Completed Flow 10/08/2018 56438 ECHO Transthoracic, Real-Time 2D With Doppler And Color Completed Flow 09/27/2018 38627 Pace Maker Eval W/Iterative Adjment Dual Lead Completed 09/27/2018 67613 Pace Maker Eval W/Iterative Adjment Dual Lead Completed 07/16/2018 77012 Stress Test Completed 07/16/2018 47609 Myocardial Perfusion Imaging Tomographic (Spect) Multiple Completed Studies 06/10/2018 38494 Pace Maker Eval W/Iterative Adjment Dual Lead Completed 06/10/2018 79668 Pace Maker Eval W/Iterative Adjment Dual Lead Completed 06/10/2018 32180 EKG Tracing & Interpretation Completed 05/20/2018 44716 EKG Tracing & Interpretation Completed 04/16/2018 18695 Echocardiogram, Limited Study Completed 04/16/2018 92262 Echocardiogram, Limited Study Completed 04/11/2018 98090 EKG Tracing & Interpretation Completed 03/01/2018 73122 Sleep Study Unattended,HRT Rate,Oxygen Sat,Resp Completed Effort/Airflow 12/25/2017 87149 ECHO Transthoracic, Real-Time 2D With Doppler And Color Completed Flow 12/25/2017 79521 ECHO Transthoracic, Real-Time 2D With Doppler And Color Completed Flow 12/16/2017 36910 Holter Monitor Review (24 hr)dr review & interp only Completed 12/13/2017 35214 ECG Monitor/Recording W/Visual Superimposition Scanning Completed 09/27/2017 78112 EKG Tracing & Interpretation Completed 09/15/2017 04915 Sleep Study Unattended,HRT Rate,Oxygen Sat,Resp Completed Effort/Airflow 07/22/2017 75329 Holter Monitor Review (24 hr)dr review & interp only Completed 07/17/2017 76111 Carotid Doppler,Bilateral Completed 07/17/2017 33971 Carotid Doppler,Bilateral Completed 07/17/2017 09693 ECG Monitor/Recording W/Visual Superimposition Scanning Completed 07/17/2017 47314 ECG Monitor/Recording W/Visual Superimposition Scanning Completed 03/13/2017 99965 Closed trtmt prox humeral fx Completed 01/09/2017 72299 EKG Tracing & Interpretation Completed 12/20/2016 94848 ECHO Transthorasic Realtime 2D W Doppler & Color Flow Hosp Completed 09/18/2016 82225 Short Arm Splint Application Completed 08/29/2016 23207 Closed TX Metacarpal FX Single W/O Manipulation, Ea Bone Completed 05/18/2015 58626 Carotid Doppler,Bilateral Completed 05/14/2015 49866 EKG Tracing & Interpretation Completed 09/01/2014 30040 Stress Test Completed 09/01/2014 83258 Myocardial Perfusion Imaging Tomographic (Spect) Multiple Completed Studies 09/01/2014 86821 Myocardial Perfusion Imaging Tomographic (Spect) Multiple Completed Studies 07/24/2014 36397 ECHO Transthoracic, Real-Time 2D With Doppler And Color Completed Flow 06/30/2014 39531 EKG, Interpretation Only Completed 03/30/2014 67520 EKG Tracing & Interpretation Completed 03/11/2014 00037 ECHO Transthorasic Realtime 2D W Doppler & Color Flow Hosp Completed 03/11/2014 54069 EKG, Interpretation Only Completed 12/03/2013 39418 Stress Test Completed 12/03/2013 50860 Myocardial Perfusion Imaging Tomographic (Spect) Multiple Completed Studies 11/26/2013 49854 ECHO Transthoracic, Real-Time 2D With Doppler And Color Completed Flow 09/09/2013 66863 EKG Tracing & Interpretation Completed 07/03/2013 75675 Inject/Drain Joint/Bursa Major W/O US Completed 05/02/2013 66278 Xray Knee 3 Views Completed 08/01/2012 00624 Rad Exam; Hip Unilat Completed 08/01/2012 15949 Rad Exam; Pelvis Completed 09/25/2011 22196 Rad Exam; Hip Unilat Completed 09/25/2011 55938 Rad Exam; Elbow, Limited Completed 09/25/2011 28128 Rad Shoulder Comp, Min. 2 Views Completed 09/25/2011 66266 Rad Exam; Pelvis Completed 12/21/2010 11265 Open TX Of Femoral FX,Promimal End,Neck Internal Fixation Completed 12/21/2010 43574 Open TX Of Femoral FX,Promimal End,Neck Internal Fixation Completed 04/06/2006 50035 EKG, Interpretation Only Completed 04/06/2006 91682 EKG, Interpretation Only Completed 05/20/2003 03141 EKG, Interpretation Only Completed Encounters Type Date Location Provider Dx Diagnosis Office Visit 09/27/2018 [facility] Hien Pratt, I48.2 Chronic atrial 2:20p Of [facility] M.D. fibrillation R04.0 Epistaxis Z95.0 Presence of cardiac pacemaker I10 Essential (primary) hypertension I65.23 Occlusion and stenosis of bilateral carotid arteries R13.10 Dysphagia, unspecified R63.0 Anorexia I34.0 Nonrheumatic mitral (valve) insufficiency I48.0 Paroxysmal atrial fibrillation I25.119 [place] heart disease of [place] cor art w unsp ang pctrs Office Visit 07/29/2018 1:30p [facility] Nurse Visit I15.9 Secondary Of [facility] IC hypertension, unspecified Office Visit 05/20/2018 2:30p [facility] Bre I48.0 Paroxysmal atrial Of [facility] Thuman, STAFF DEVELOPMENT MANAGER fibrillation Z95.0 Presence of cardiac pacemaker 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, stage 2 (mild) I87.2 Venous insufficiency (chronic) (peripheral) I49.5 Sick sinus syndrome I25.10 Athscl heart disease of [place] coronary artery w/o ang pctrs Office Visit 04/11/2018 [facility] Hien Pratt, Z01.810 Encounter for 8:00a Cardiology Of Cris preprocedural [facility] cardiovascular examination R04.0 Epistaxis I48.2 Chronic atrial fibrillation 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 G47.30 Sleep apnea, unspecified Office Visit 02/28/2018 10:20a [facility] Hien Pratt I48.2 Chronic atrial Of [facility] M.DDavid fibrillation Z91.81 History of falling I34.0 Nonrheumatic mitral (valve) insufficiency I36.1 Nonrheumatic tricuspid (valve) insufficiency I15.9 Secondary hypertension, unspecified R06.02 Shortness of breath Office 02/27/2018 Jose Cruz/Katia Joel G62.9 Polyneuropathy, Visit 8:30a Neurologic Serv Of Cris Ryan unspecified Traffic Control Technician R26.81 Unsteadiness on feet R53.82 Chronic fatigue, unspecified I73.9 Peripheral vascular disease, unspecified Office Visit 02/22/2018 [facility] And Cecile G47.33 Obstructive sleep 10:45a Sleep Services Of MALIKA Beaulieu, RN, apnea (adult) [facility]- (pediatric) R09.02 Hypoxemia Office Visit 12/06/2017 11:00a [facility] Yee Mason I48.2 Chronic atrial Of [facility] Foster, N.P. 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 R11.0 Nausea I25.10 Athscl heart disease of [place] coronary artery w/o ang pctrs R68.84 Jaw pain Office Visit 09/14/2017 11:00a [facility] Ashleigh Cowan, R06.83 Snoring Services Of [facility] G47.33 Obstructive sleep apnea (adult) (pediatric) Office Visit 07/26/2017 10:30a [facility] Prachi Hernandez, I65.23 Occlusion and Of [facility] [place] stenosis of bilateral carotid arteries I48.2 Chronic atrial fibrillation Z91.81 History of falling R09.02 Hypoxemia Office Visit 07/12/2017 1:30p [facility] Hien Pratt I48.2 Chronic atrial Of Traffic Control Technician M.D. fibrillation I25.10 Athscl heart disease of [place] coronary artery w/o ang pctrs I34.0 Nonrheumatic [...] knee, initial encounter Office Visit 02/09/2017 8:40a [facility] Hien Pratt, Z91.81 History of Of Traffic Control Technician [facility] M.D. falling I48.2 Chronic atrial fibrillation I10 Essential (primary) hypertension I25.10 Athscl heart disease of [place] coronary artery w/o ang pctrs R00.1 Bradycardia, unspecified I34.0 Nonrheumatic mitral (valve) insufficiency I36.1 Nonrheumatic tricuspid (valve) insufficiency R06.02 Shortness of breath I27.2 Other secondary pulmonary hypertension Office Visit 01/09/2017 3:15p [facility] Hien Pratt, R42 Dizziness and Of [facility] M.D. giddiness Z91.81 History of falling R55 Syncope and collapse I48.2 Chronic atrial fibrillation I25.10 Athscl heart disease of [place] coronary artery w/o ang pctrs I10 Essential (primary) hypertension I65.23 Occlusion and stenosis of bilateral carotid arteries Office Visit 12/20/2016 12:26p [facility] Sara Lucas R42 Dizziness and Assoc,pc Aisha, STAFF DEVELOPMENT MANAGER giddiness Hospitalists I10 Essential (primary) hypertension I48.91 Unspecified atrial fibrillation I25.10 Athscl heart disease of [place] coronary artery w/o ang pctrs Office Visit 12/19/2016 12:23p [facility] Tomi Santo, R42 Dizziness and Assoc,pc [facility] Hospitalists I10 Essential (primary) hypertension I48.91 Unspecified atrial fibrillation I25.10 Athscl heart disease of [place] coronary artery w/o [facility] pctrs Office Visit 05/14/2015 9:30a [facility] Hien Pratt, I48.2 Chronic atrial Of Traffic Control Technician M.D. fibrillation I25.10 Athscl heart disease of [place] coronary artery w/o ang pctrs E78.5 Hyperlipidemia, unspecified R01.1 Cardiac murmur, unspecified Office Visit 12/22/2014 1:10p Larry Soler, 924.11 Contusion Knee Services Of Cris Heard Office Visit 12/04/2014 11:00a [facility] Prachi Hernandez, 427.31 Atrial Of Traffic Control Technician [place] Fibrillation 401.1 Hypertension Benign 396.3 Mitral & Aortic Valve Insufficiency 424.2 Tricuspid Valve Disorder Spec as Nonrheumatic 414.01 Coronary Atherosclerosis [place] Office Visit 11/30/2014 11:30a Larry Soler, 924.11 Contusion Knee Services Of [facility] Office Visit 10/29/2014 1:45p Larry Soler, 924.11 Contusion Knee Services Of [facility] 719.46 Pain Joint Lower Leg Office Visit 2014 9:00a Larry Soler, 840.8 Sprains & Services Of [facility] Strains Shoulder & Upper Arm Other Spec Sites 840.8 Sprains & Strains Shoulder & Upper Arm Other Spec Sites 924.11 Contusion Knee 924.11 Contusion Knee E888.8 Other Fall E888.8 Other Fall Office Visit 09/04/2014 2:45p [facility] Hien Pratt, 427.31 Atrial Cardiology Of M.D. Fibrillation Traffic Control Technician 401.1 Hypertension Benign 396.3 Mitral & Aortic Valve Insufficiency 424.2 Tricuspid Valve Disorder Spec as Nonrheumatic 414.01 Coronary Atherosclerosis [place] Office Visit 06/30/2014 3:33p [facility] Jordon Amaya, 428.31 Diastolic Heart Assoc,pc M.D. Failure Acute Hospitalists 427.31 Atrial Fibrillation 401.9 Hypertension Unspec 414.9 Ischemic Heart Disease Chronic Unspec Office Visit 06/29/2014 [facility] John Premcj 428.31 Diastolic Heart 3:33p Assoc,leah LU M.D. 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 Acute Subendocardial Initial Episode Care 428.33 Diastolic Heart Failure Acute On Chronic 427.31 Atrial Fibrillation 401.1 Hypertension Benign Office Visit 03/13/2014 [facility] Leticia 427.31 Atrial 2:44p Assocleah M.D. 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 Acute Subendocardial Initial Episode Care 428.33 Diastolic Heart Failure Acute On Chronic 427.31 Atrial Fibrillation Office Visit 03/12/2014 8:59a Issac Pratt 427.31 Atrial Cardiology Of M.D. Fibrillation [facility] 414.9 Ischemic Heart Disease Chronic Unspec Office Visit 03/12/2014 [facility] 427.31 Atrial 2:43p Assoc,leah Pollard M.D. 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 Fibrillation [facility] 401.1 Hypertension Benign 396.3 Mitral & Aortic Valve Insufficiency 786.09 Dyspnea & Respiratory Abnormalities Other Office Visit 09/09/2013 9:45a [facility] Hien Pratt 427.31 Atrial Cardiology Of M.D. Fibrillation [facility] 789.01 Pain Abdominal Right Upper Quadrant 414.01 Coronary Atherosclerosis [place] 786.50 Pain Chest Unspec 401.1 Hypertension Benign 786.09 Dyspnea & Respiratory Abnormalities Other Office Visit 07/03/2013 9:00a Orthopedic Nicho Soler, 715.96 Osteoarthrosis Services Of Cris Unspec Genlzd Or C.M.ADavid Localized Lower Leg 719.46 Pain Joint Lower Leg Office Visit 05/02/2013 Orthopedic Nicho Soler 715.96 Osteoarthrosis 8:15a Services Of [facility] Unspec Genlzd Or Localized Lower Leg Office Visit 11/27/2012 Neurosurgery Zane Alicia 724.02 Spinal Stenosis, 11:00a Services Of [facility] [place], Lumbar Region, W/O M.DaDvid Neurogenic Claudication Office Visit 09/03/2012 Orthopedic Nicho Soler 726.5 Enthesopathy Of Hip 11:15a Services Of [facility] Region 820.8 FX Unspec Part Of [...] Soler 726.10 Bursae & Tendon Services Of [facility] Disorders Shoulder Region Unspec 820.8 FX Unspec Part Of Neck Of Femur Closed Office Visit 10/05/2011 9:15a Larry Soler 722.73 Intervertebral Disc Services Of M.DDavid Disorder Lumbar W/ C.M.A. Myelopathy 840.4 Sprains [...] Of Femur Closed Office Visit 05/02/2011 Larry Soler, 820.8 FX Unspec Part Of 10:00a Services Of [facility]él[facility] Neck Of Femur Closed Office Visit 12/21/2010 Larry Soler 820.03 FX Transcervical 11:45a Services Of [facility] Base Of Neck Closed Office Visit 08/16/2007 Neurosurgery Zane Alicia 722.0 Intervertebral Disc 1:30p Services Of Kalyan Nunn M.D. Cervical W/O Myelopathy 310.2 Postconcussion Syndrome Plan of Treatment Future Appointment(s):03/17/2019 1:30 pm - Hien Pratt M.D. at [facility]03/17/2019 1:00 pm - [facility] Pacer Schedule at [facility]03/12/2019 9:15 am - Wisam Ryan M.D. at [facility]12/12/2018 - Hien Pratt M.D.I48.0 Paroxysmal atrial fibrillationComments:You are in the normal rhythm today, good rate control. Your palpitations could be afib, we can update your pacer.Follow up:Release: labs November 2018, [place]rieRecommendations:you were not having afib, but "PMT" pacemaker mediated tachycardia. This has been "fixed" by reprogramming the pacer. I agree with the plans for starting Carvedilol. Continue coumadin. 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 R Release: [facility] ED records for the fall.R60.0 Localized edemaComments:Avoid foods with salt, avoid NSAID's (Motrin, Aleve, ibuprophen, naproxen, Advil)Eating out is typically high salt.
[2018-12-16 12:45] LABS: Activated Partial Thrombo Time 38.9 seconds (26.0-36.3); INR 2.34 (0.82-1.09)
[2018-12-16 12:50] LABS: ABS Eosinophils 0.2 10^3/ul (0-0.6); ABS Lymphocytes 1.5 10^3/ul (1.0-4.8); ABS Monocytes 0.6 10^3/ul (0-0.8); Eosinophil % 2.3 %; Hematocrit 33 % (35-47); Hemoglobin 10.6 g/dL (12.0-16.0); Lymphocyte % 20.7 %; Mean Corpuscular HGB Conc 32 g/dL (31-36); Mean Corpuscular Hemoglobin 26 pg (27-31); Mean Corpuscular Volume 81 fL (80-97); Mean Platelet Volume 8.5 fL (7.4-10.4); Platelet Count 157 10^3/uL (150-450); Red Blood Count 4.12 10^6 /uL (3.70-4.87); Red Cell Distribution Width 19 % (10.5-15); White Blood Count 7.3 10^3/uL (3.5-10.8)
[2018-12-16 13:00] LABS: Albumin 4.4 g/dL (3.2-5.2); Albumin/Globulin Ratio 1.3 (1-3); BUN/Creatinine Ratio 20.6 (8-20); Calcium 9.3 mg/dL (8.6-10.3); EGFR African American 59.3 (>60); Globulin 3.4 g/dL (2-4); Magnesium 2.4 mg/dL (1.9-2.7); Total Protein 7.8 g/dL (6.4-8.9)
[2018-12-16 13:03] LABS: Troponin I 0.01 ng/mL (<0.04)
[2018-12-16 13:05] LABS: CKMB ng/mL 2.4 ng/mL (0.6-6.3)
[2018-12-16 13:39] LABS: TSH (Thyroid Stimulating Horm) 4.22 mcIU/mL (0.34-5.60)
[2018-12-16] MEDS ORDERED: Furosemide IV* 10 MG/ML 2 ML VIAL (20 MG) IV ONE (14:00)
[2018-12-16] MEDS ORDERED: Ondansetron INJ* 2 MG/ML VIAL IV ONE (14:52)
--- NOTE | 2018-12-16 17:51 | ECHO ---
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 History: PHTN. Atrial fibrillation. Mitral regurgitation. Aortic regurgitation. Labs, prior tests, procedures, and surgery: Permanent pacemaker system implantation. Conclusions Summary: 1. Left ventricle: The cavity size is normal. Wall thickness is mildly increased. Systolic function is normal. The estimated ejection fraction is 55-60%. 2. Right ventricle: Pacer wire noted in the right ventricle. Systolic function is normal. 3. Mitral valve: The annulus is mildly calcified. The leaflets are mildly thickened. There is moderate to severe regurgitation. 4. Aortic valve: The valve is trileaflet. The leaflets are mildly thickened. There is mild to moderate regurgitation. 5. Tricuspid valve: There is moderate regurgitation. 6. Pulmonary arteries: Systolic pressure is estimated to be 75 mm Hg. 7. Impressions: Unchanged from the study of September 2018. Study data: Transthoracic echocardiogram. Procedure: Transthoracic echocardiography was performed. Image quality was good. Complete 2D, spectral Doppler, and color flow Doppler. Location: Emergency department. Patient status: Inpatient. Patient room number: 5. Comparison is made to the study of September 2018. Rhythm: Paced rhythm. Findings Left ventricle: The cavity size is normal. Wall thickness is mildly increased. Systolic function is normal. The estimated ejection fraction is 55-60%. Left ventricular diastolic function parameters are indeterminate. Right ventricle: The cavity size is normal. Wall thickness is normal. Pacer wire noted in the right ventricle. Systolic function is normal. Systolic pressure is severely increased. Left atrium: The atrium is severely dilated. Right atrium: The atrium is mildly to moderately dilated. Pacer wire noted in right atrium. Mitral valve: The annulus is mildly calcified. The leaflets are mildly thickened. There is no evidence of stenosis. There is moderate to severe regurgitation. The peak diastolic gradient is 4.7 mm Hg. Aortic valve: The valve is trileaflet. The leaflets are mildly thickened. There is no evidence of stenosis. There is mild to moderate regurgitation. The ratio of LVOT to aortic valve peak velocity is 0.83. The ratio of LVOT to aortic valve mean velocity is 0.75. The mean systolic gradient is 3.0 mm Hg. The peak systolic gradient is 7.0 mm Hg. Tricuspid valve: The leaflets are mildly thickened. There is no evidence of stenosis. There is moderate regurgitation. Pulmonic valve: The leaflets are normal thickness. There is no evidence of stenosis. There is mild to moderate regurgitation. The peak systolic gradient is 2.0 mm Hg. Aorta: Aortic arch: The aortic arch is poorly visualized. The aortic root is not dilated. Pericardium: There is no significant pericardial effusion. Pulmonary arteries: Not well visualized. Systolic pressure is estimated to be 75 mm Hg. Systemic veins: Inferior vena cava: The vessel is dilated. Respirophasic changes in dimension are absent. Measurements Left ventricle Value Ref Aortic valve continued Value Ref EVETTE, LAX 4.4 cm 3.8 - 5.2 Peak v, S 1.32 m/sec ----- ESD, LAX 2.9 cm 2.2 - 3.5 VTI, S 29.6 cm ----- FS, LAX 35 % 27 - 45 Mean grad, S 3.0 mm Hg ----- PW, ED, LAX (H) 1.1 cm 0.6 - 0.9 Peak grad, S 7.0 mm Hg ----- EF 64 % 54 - 74 LVOT/AV, Vpeak ratio 0.83 ----- E', lat guera, TDI 10.0 cm/sec >=10.0 AR PHT 488 ms ----- E/e', lat guera, 11 AR peak grad 52 mm Hg -- --- TDI E', med guera, TDI (L) 6.1 cm/sec >=7.0 Mitral valve Value Ref E/e', med guera, 18 Peak E 1.08 m/sec -- --- TDI Peak A 0.39 m/sec ----- E', avg, TDI 8.1 cm/sec Decel time 169 ms -- --- E/e', avg, TDI 13 <=14 Peak grad, D 4.7 mm Hg ----- Peak E/A ratio 2.8 ----- LVOT Value Ref MR PISA radius 0.8 cm ----- Peak italia, S 1.09 m/sec ERO, PISA 0.23 cm^2 ----- Mean grad, S 2 mm Hg MR vol, PISA 42 ml ----- Ventricular septum Value Ref Pulmonic valve Value Ref IVS, ED, LAX (H) 1.1 cm 0.6 - 0.9 Peak v, S 0.74 m/sec ----- Peak grad, S 2.0 mm Hg ----- Right ventricle Value Ref EVETTE, LAX 3.5 cm Tricuspid valve Value Ref EVETTE minor ax, A4C 3.0 cm 1.9 - 3.5 TR peak v (H) 4 m/sec <=2. 8 mid Peak RV-RA grad, S 64 mm Hg ----- Pressure, S 79 mm Hg Aortic root Value Ref Left atrium Value Ref Root diam 2.9 cm <3.9 AP dim, ES (H) 4.00 cm 2.70 - 3.80 Ascending aorta Value Ref ML dim, A4C 4.9 cm AAo AP diam, S 2.9 cm ----- SI dim, A4C 6.5 cm Vol/bsa, ES, A/L (H) 74 ml/m^2 16 - 34 Pulmonary artery Value Ref Pressure, S 77.0 mm Hg ----- Right atrium Value Ref SI dim, ES (H) 5.7 cm 3.4 - 5.3 Inferior vena cava Value Ref ML dim, ES, A4C (H) 4.7 cm 2.6 - 4.4 Diam 2.7 cm ----- Estimated RAP 15 mm Hg Aortic valve Value Ref Guera diam, ED 2.0 cm Legend: (L) and (H) kathie values outside specified reference range. Prepared and electronically signed by Devendra Cardenas MD 12/16/2018 17:50
[2018-12-16] MEDS ORDERED: Nitroglycerin TAB 0.4 MG* 0.4 MG TAB SL PRN (18:51)
[2018-12-16] MEDS ORDERED: Ondansetron INJ* 2 MG/ML VIAL IV PRN (18:51)
[2018-12-16] MEDS ORDERED: Cyclobenzaprine TAB* 10 MG PO PRN (18:55)
[2018-12-16] MEDS ORDERED: traMADol TAB* 50 MG PO PRN (18:55)
[2018-12-16 19:01] LABS: Troponin I 0.04 ng/mL (<0.04)
[2018-12-16] MEDS ORDERED: Carvedilol TAB* 25 MG PO ONE (19:11)
[2018-12-16] MEDS ORDERED: Iodixanol* (CONTRAST) 320 MG/ML 100 ML SDV IV ONE (19:28)
[2018-12-16] MEDS: Acetaminophen TAB* 325 MG PO PRN (21:10)
[2018-12-16] MEDS: Furosemide IV* 10 MG/ML VIAL (40 MG) IV SLOW PU SCH (21:12)
--- NOTE | 2018-12-17 00:45 | CONS ---
CC: Dr. Mendoza; Dr. Hien Pratt.* CARDIOLOGY CONSULTATION REPORT: DATE OF CONSULT: 12/16/18 PRIMARY CARE PHYSICIAN: Dr. Mendoza. INDICATION FOR CONSULTATION: Hypertension, shortness of breath, abnormal EKG. HISTORY OF PRESENT ILLNESS: The patient is an 83-year-old female with a history of paroxysmal atrial fibrillation, history of pacemaker implantation secondary to sick sinus syndrome who came to the emergency room because of blood pressure issues and shortness of breath. The patient states that she had not felt well since yesterday. She had noticed that her blood pressures were elevated. The patient states that she was recently started on irbesartan for her blood pressure. She said since starting that medication, she has been feeling a little bit more short of breath. She denies any chest pain. She denies any palpitations. No lightheadedness, dizziness, or syncope. The patient came to the emergency room because of her high blood pressures. When she arrived in the emergency room, her blood pressure was 213/92. She was given IV Lasix, IV hydralazine, and IV labetalol for her blood pressure. Around 3 o'clock in the afternoon, she got up to go to the bathroom and suddenly became very short of breath. She denied any chest pain. She did not have any syncopal episodes. When she got back to bed, a repeat EKG showed profound ST segment depressions in the lateral leads. There were [address] segment depression, which was new from her EKG at admission. She also had a blood pressure of 84/50. The patient was also lightheaded at that time. I came down to see the patient. Again, when I spoke to her, she had no chest pain. She had no palpitations. She was feeling just a little short of breath. An echocardiogram in the emergency room showed normal LV size and systolic function. She does have moderate mitral regurgitation and [id number] tricuspid regurgitation. These are known from previous echocardiograms. I did not see any focal wall motion abnormalities to account for her EKG changes. PAST MEDICAL HISTORY: Hypertension, sick sinus syndrome, paroxysmal atrial fibrillation, pulmonary hypertension, sleep apnea, mitral regurgitation, coronary artery disease. She does have a history of pericardial effusion, which required a pericardial window. This was many years ago. PAST SURGICAL HISTORY: Elbow replacement, knee surgery, rotator cuff surgery, tonsillectomy, pacemaker implantation. ALLERGIES: Allergies to multiple medications including but not limited to CAPTOPRIL, ATENOLOL, CARDIZEM CD, LOPID, NORVASC, DIGOXIN, HYDROCHLOROTHIAZIDE, PROCARDIA, PACERONE, PAXIL, TEKTURNA, unclear what these allergies are. FAMILY HISTORY: Father had coronary artery disease and hypertension. She had 1 brother of cancer, another sister of heart failure. She is . She lives in an assisting living. She is retired. She denies tobacco use, rare alcohol use. She does not get any regular exercise. She consumes 1 cup of coffee a day. REVIEW OF SYSTEMS: Positive for shortness of breath, negative for fevers and chills, negative for changes in bowel or bladder habits. Other 12-point review is unremarkable. PHYSICAL EXAM: Currently blood pressure is 177/58, heart rate is 61, respiratory rate is 17, oxygen saturation 95% on 2 L, Temperature 97.8. Sclerae anicteric. Oropharynx is pink without erythema. Carotids are 2+ without bruits. JVD is normal. Thyroid is normal. Cardiac Exam: S1 and S2 without any murmurs, rubs, or gallops. PMI is normal. Lungs are clear to auscultation bilaterally. There is no dullness to percussion. Extremities show no edema. She has 2+ pulses throughout. The patient is awake, alert and oriented. She moves all 4 extremities equally. DIAGNOSTIC STUDIES/LAB DATA: CBC within normal limits. Chemistries within normal limits. BUN and creatinine are normal. AST and ALT are normal. Troponins are negative x3. BNP is elevated at 515. Her initial EKG showed normal sinus rhythm with T wave inversions in the lateral lead. Her second EKG showed profound ST segment depressions in the lateral leads. Her echocardiogram showed normal LV size and systolic function. She had moderate mitral regurgitation and [id number] tricuspid regurgitation. IMPRESSION: She is an 83-year-old female with a history of sick sinus syndrome , history of paroxysmal atrial fibrillation. She came to the hospital because of her hypertension. Again, the patient was significantly hypotensive in the initial phase of her emergency room. She was given 3 antihypertensive medications fairly close to each other and then had an episode of profound shortness of breath when she got up to use the bathroom. Again, her blood pressure plummeted to 80/50. The patient had profound EKG changes at that time, whether they were due to her profound hypotension or whether she had some degree of significant decreased perfusion in her myocardium because of the low blood pressure, this is unclear. For now, my recommendation is the patient to be admitted to the hospital. She will be observed. Her outpatient medications will be continued. Her troponins will be followed. If her troponins are negative, we will schedule her for a chemical nuclear stress test. Her last stress test was in July 2018. This was done at our office on [address], which showed normal perfusion. No evidence of ischemia or infarction. Ejection fraction was 61%, her TID was slightly elevated at 1.2. [id number]/[facility] #: [id number] [facility]OSPITALAnton
--- NOTE | 2018-12-17 01:17 | HP ---
CC: Dr. Mendoza; Dr. Hien Pratt; Dr. Devendra Cardenas * ADMISSION HISTORY AND PHYSICAL: DATE OF ADMISSION: 12/16/18 PRIMARY CARE PROVIDER: Dr. Mendoza. MY ATTENDING WHILE IN THE HOSPITAL: Dr. Oliva Pang.* (DICTATED BY SABA PRINCE) OUTPATIENT EMAIL MARKETER: Dr. Hien Pratt. CONSULTING EMAIL MARKETER: Dr. Devendra Cardenas. CHIEF COMPLAINT: Shortness of breath, high blood pressure. HISTORY OF PRESENT ILLNESS: Ms. Fuentes is an 83-year-old female with past medical history significant for atrial fibrillation, known coronary artery disease, 50% stenosis in her LAD from 2004, hypertension untreated, obstructive sleep apnea, pericarditis status post window and carotid artery stenosis who presented to the emergency department with shortness of breath x2 days and significant blood pressure. His blood pressure control management for the last several months with persistent disgustingly high blood pressures. The patient has recently followed up with her primary family intervention specialist, Dr. Hien Pratt, her clonidine was stopped and she was prescribed Coreg, which she has been taking. The patient states that her shortness of breath started relatively suddenly on Sunday, is worse with exertion worse with lying flat. She has not had significant shortness of breath with exertion previously and has been having significant falls recently, none of these have had loss of consciousness, but two of them had head trauma, one of them had significant bruising to her right leg and limited her mobility. This was approximately 4 weeks ago and she is still recovering from it. 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 The patient recently had an echocardiogram that showed preserved ejection fraction with diastolic dysfunction. The patient had a stress test in July 2018 which was read as low risk. The patient has not had any treatment for shortness of breath. The patient is on chronic diuretic therapy with spironolactone and Lasix 40 mg daily. The patient has not had any palpitations. The patient has not had any presyncope prior to coming into the hospital. Today, the patient initially had a negative troponin, non-ischemic EKG, and had a chest x-ray which was consistent with fluid overload; however, the patient was going to bathroom and when she was walking back, felt presyncopal. An EKG at that time showed diffuse large ST segment depressions with T-wave inversions. Cardiology consult was requested and a spot echocardiogram shows no wall motion abnormalities consistent with posterior wall IN. Repeat EKG is pending at this time. The patient's troponin's have remained negative. The patient is still feeling short of breath. The patient denies having chest pain, but has had some nausea and vomiting associated with her shortness of breath and did feel nauseated when she was presyncopal. The patient was given furosemide, labetalol and hydralazine while in the emergency department with persistent elevation in her blood pressure. The patient has not been on treatment for sleep apnea due to allergic reactions from mask. The patient does not feel dehydrated. The patient has noticed an increase in her urine output, but has also been trying to drink more. The patient did have one episode of diarrhea this morning but does not have any other abdominal pain, pain with urination, other recent illness, no change in medicines except for the above-mentioned up titration in her blood pressure medications. The patient has been subtherapeutic on her Coumadin stating that her most recent blood draw before today revealed an INR of 1.2. The patient has been needing oxygen while in the emergency department due to new shortness of breath, hypoxia and concerning EKG changes and in the setting of the patient with known CAD, we were asked to evaluate the patient for admission to the hospital. PAST MEDICAL HISTORY: Afib, hypertension, coronary artery disease, obstructive sleep apnea, IBS, pericarditis status post window, hypertension, hyperlipidemia , pulmonary hypertension, carotid artery disease. PAST SURGICAL HISTORY: Pericardial window, cath, hysterectomy, tendon repair, pacer placement in May 2018, knee arthroscopy, right hip replacement. MEDICATIONS: Per most recent cardiology note, 1. Rosuvastatin 5 mg p.o. daily. 2. Lorazepam 0.5 mg p.o. daily as needed for sleep. 3. Furosemide 20 mg p.o. daily. 4. Citalopram 10 mg p.o. daily. 5. Warfarin 2.5 mg Sunday, and Sunday; 3.75 mg Sunday, Sunday, Sunday, Sunday and Sunday. 6. Tylenol 650 mg p.o. q.4 hours as needed. 7. Carvedilol 25 mg p.o. twice daily. 8. Ferrous gluconate 240 mg p.o. daily. 10. Irbesartan 150 mg p.o. twice daily. 11. Multivitamin 1 tablet p.o. daily. 12. Mupirocin 2% 1 application topical daily. ALLERGIES: TOPROL, CPAP, INDERAL, SHELLFISH, ATENOLOL, CAPTOPRIL, BENICAR, CARDIZEM, AUGMENTIN, LOPID, NORVASC, AMBIEN, SERTRALINE, DIGOXIN, AMITRIPTYLINE , HYDROCHLOROTHIAZIDE, PROCARDIA, PACERONE, PAXIL, PERCOCET, TEKTURNA, ADHESIVE TAPE, MORPHINE, DOXYCYCLINE. FAMILY HISTORY: The patient's both parents of heart disease. The patient' s father also had prostate cancer. The patient has 2 children with cancer, one of whom is terminal. SOCIAL HISTORY: The patient never smoked, drank or used illicit drugs. The patient used to work in a [employer]. The patient is and has 6 children. The patient's surrogate decision maker will be her daughter, Prachi Fuentes. REVIEW OF SYSTEMS: A 14-point review of systems was reviewed and is negative except as stated above in the HPI. PHYSICAL EXAMINATION GENERAL: The patient is an 83-year-old female, who appears stated age, sitting comfortably in bed, in no acute distress. VITAL SIGNS: At the time of evaluation, temperature 97.8, pulse rate 60, respiratory rate 22, oxygen saturation 93% on 2L, blood pressure 190/89. HEENT: Head: Normocephalic, atraumatic. Sclerae anicteric. No conjunctival injection. Nasal mucosa moist. Oral mucosa moist. No pharyngeal erythema, discharge or exudate. NECK: Supple, nontender. No lymphadenopathy, no carotid bruits auscultated. No JVD. RESPIRATORY: Rales heard in the bilateral lower lobes. No wheezes or adventitious lung sounds. Good air exchange bilaterally. CARDIAC: Regular rate and rhythm. No clicks, murmurs, gallops or rubs. Pulses are 2+ dorsalis pedis, posterior tibial and radial areas. Bilateral calf tenderness noted, right greater than left. No lower extremity swelling. ABDOMEN: Soft, nontender and nondistended. Bowel sounds present in the all 4 quadrants. No hepatosplenomegaly. No abdominal bruits auscultated. No hepatojugular reflux. GENITOURINARY: No suprapubic or CVA tenderness. SKIN: Bruising particularly over the right leg. Also on the patient's face and arms. No other rash or ulcer. NEURO: Cranial nerves II through XII intact. No focal deficits. Alert and oriented x3. PSYCHIATRIC: Pleasant and cooperative. DIAGNOSTIC STUDIES/LAB DATA: White blood cell count 7.3, hemoglobin 10.6, platelet count 157,000. INR of 2.34, aPTT is 38.9. Blood gas ABG shows pH 4.72, pCO2 of 33, PO2 of 76, HCO3 of 23.1. Sodium 141, potassium 4.0, chloride 109, carbon dioxide 26, anion gap 7, BUN 23, creatinine 1.07, glucose 97, lactic acid 1.0. Calcium 9.3, magnesium 2.4. Bilirubin 1.0, AST 20, ALT 16, alkaline phosphatase 88, CK 44, CK-MB 2.4. Troponin I 0.01 x2. BNP 515. Protein 7.8, albumin 4.4, globulin 3.4, TSH 4.22. Studies: EKG initially shows normal sinus rhythm. ST segment depressions with T- wave inversions in the lateral leads, worsened from previous exam. Repeat EKG shows worsening of T-wave inversions and and ST segment depression in lateral leads. Rate 61, QTc of 419. Atrial paced complexes, normal axis. Left ventricular hypertrophy. Chest x-ray read as pulmonary edema associated with palpable left small pleural perfusions with proportional atelectasis. ASSESSMENT AND PLAN: Ms. Fuentes is an 83-year-old female with past medical history significant for atrial fibrillation, hypertension, coronary artery disease, obstructive sleep apnea, hyperlipidemia, and diastolic dysfunction on previous echocardiogram who presented to the emergency department with shortness of breath, and difficult to control blood pressure. The patient while in the emergency department had an episode of presyncope with worsening baseline EKG changes. The patient appears to have fluid overload and will be admitted to the hospital for treatment of her blood pressure, her congestive heart failure exacerbation and evaluation for ischemia. Shortness of breath. The patient's shortness breath may very likely be due to multiple mechanisms. The patient has risk factors for a pulmonary embolism with recent immobilization and trauma and subtherapeutic INR on her Coumadin. The patient will have a CTA of her chest at this time. The patient is already on Coumadin. This should not be treated as a treatment failure if the patient does have a pulmonary embolism as she has been felt therapeutic. The patient also likely has [id number] exacerbation of diastolic heart failure; however, given the patient's recent pacemaker placement, worsening shortness of breath and fluid overload, we will assess the patient for decreased ejection fraction. The patient already had a preliminary bedside echocardiogram. The patient will be diuresed. This should help with her blood pressure and her fluid overload. The patient will have her spironolactone increased as well to enhance diuresis and to offset potassium losses. The patient will continue to have her troponins trended. This could be atypical with patient of unstable angina. The patient will have her stress as well. Coronary artery disease, EKG changes. The patient has again EKG changes which are present at all times on her EKG due to a certain degree, but are significantly worse particularly when she was presyncopal. A repeat EKG is currently pending. There are no wall motion abnormalities on her bedside echocardiogram. The patient will have repeat nuclear stress test in the morning. The patient will just receive 1 dose of beta-bakari now and will have that held overnight. The patient will have furosemide, Avapro, spironolactone for blood pressure control as above. The patient's presentation could be due to hypertensive urgency. Hypertension. The patient's blood pressure has been out of control. The patient will be diuresed. The patient will have her home medications continued and have her furosemide increased as well as her spironolactone. The patient has already been seen in consultation with Dr. Devendra Cardenas who recommended a stress test. This will be performed tomorrow morning. Obstructive sleep apnea. The patient has been unable to tolerate an obstructive sleep apnea mask at this time. The patient is currently on oxygen which we will continue at night. The patient may need to be discharged with oximetry if the patient is off oxygen at night during her hospitalization; pulse oximetry could be considered. Hyperlipidemia. Continue the patient's rosuvastatin. Update lipid profile. DVT prophylaxis: The patient is therapeutic on Coumadin at this time. FEN: The patient will have a heart healthy diet without caffeine. The patient will not receive any fluids as she is fluid overloaded. TIME SPENT: Approximately 75 minutes were spent on the admission of this patient, 30 of which were spent [id number] with the patient obtaining history and physical and discussing treatment plan. The plan has been discussed with my attending, Dr. Oliva Pang, and she is in agreement. SABA PRINCE [id number]/CPS #: [id number] KAREN
[2018-12-17] MEDS: Acetaminophen TAB* 325 MG PO PRN (05:57)
[2018-12-17 06:13] LABS: ABS Lymphocytes 1.5 10^3/ul (1.0-4.8); ABS Monocytes 0.7 10^3/ul (0-0.8); ABS Neutrophils 4.9 10^3/ul (1.5-7.7); Eosinophil % 0.5 %; Hematocrit 30 % (35-47); Hemoglobin 9.8 g/dL (12.0-16.0); Lymphocyte % 20.6 %; Mean Corpuscular HGB Conc 33 g/dL (31-36); Mean Corpuscular Hemoglobin 27 pg (27-31); Mean Corpuscular Volume 80 fL (80-97); Mean Platelet Volume 8.1 fL (7.4-10.4); Nucleated Red Blood Cells % 0.1; Platelet Count 144 10^3/uL (150-450); Red Cell Distribution Width 19 % (10.5-15); White Blood Count 7.2 10^3/uL (3.5-10.8)
[2018-12-17 06:29] LABS: BUN/Creatinine Ratio 19.4 (8-20); Calcium 8.6 mg/dL (8.6-10.3); EGFR Non-African American 41.3 (>60); HDL Cholesterol 23.9 mg/dL; Magnesium 2.4 mg/dL (1.9-2.7); Potassium 3.4 mmol/L (3.5-5.0)
[2018-12-17 06:47] LABS: Troponin I 1.58 ng/mL (<0.04)
[2018-12-17] MEDS ORDERED: diPHENhydraMINE PO* 25 MG PO PRN (06:56)
[2018-12-17] MEDS ORDERED: Diazepam TAB(*) 5 MG PO PRN (06:56)
[2018-12-17] MEDS ORDERED: NS 0.9% 1000 ML** 1,000 ML IV SCH ×2 (07:00→10:30)
[2018-12-17] MEDS ORDERED: Potassium Chlor TAB* 20 MEQ TAB.ER PO ONE (07:50)
[2018-12-17] MEDS ORDERED: Aspirin TAB* 325 MG ONE (08:01)
[2018-12-17] MEDS: KCL 20 MEQ/100 ML IVPREMIX* 20 MEQ/100 ML BAG IV ONE ×2 (08:08→08:35)
[2018-12-17] MEDS ORDERED: Heparin(*) 1000 UNIT/ML 10 ML VIAL CATH LAB IV ONE (08:32)
[2018-12-17] MEDS ORDERED: fentaNYL* 50 MCG/ML 2 ML VIAL (100 MCG VIAL) ONE (08:32)
[2018-12-17] MEDS ORDERED: Midazolam* 1 MG/ML 5 ML VIAL (5 MG) ONE (08:32)
[2018-12-17] MEDS ORDERED: Heparin 2 UNITS/ML IVPREMIX* 3,000 UNIT/1,500 ML BAG IV ONE (08:33)
[2018-12-17] MEDS ORDERED: VERAPAMIL 2.5 MG/ML 2 ML VIAL ** 5 mg/2 ml ONE (08:33)
[2018-12-17] MEDS ORDERED: Iodixanol 320 (CONTRAST) 100 ML SDV ONE (08:33)
[2018-12-17] MEDS ORDERED: Lidocaine 1% INJ* 10 MG/ML 30 ML SDV ONE (08:33)
[2018-12-17] MEDS ORDERED: nitroGLYCERIN DRIP* 25,000 MCG/250 ML BTL ONE (08:33)
[2018-12-17] MEDS ORDERED: Spironolactone TAB* 25 MG PO SCH (09:00)
[2018-12-17] MEDS ORDERED: Atorvastatin* 10 MG TAB PO SCH (09:00)
[2018-12-17 09:06] LABS: INR 1.89 (0.82-1.09)
[2018-12-17] MEDS ORDERED: Ticagrelor* 90 MG TAB PO ONE (09:34)
[2018-12-17] MEDS ORDERED: Bivalirudin(*) 250 MG VIAL ONE ×2 (09:43→09:48)
[2018-12-17] MEDS ORDERED: Nitroglycerin TAB 0.4 MG* 0.4 MG TAB SL PRN (10:24)
[2018-12-17] MEDS: Losartan TAB* 25 MG PO SCH (11:18)
[2018-12-17] MEDS: Carvedilol TAB* 6.25 MG PO SCH ×2 (11:19→21:23)
[2018-12-17] MEDS: Citalopram TAB* 10 MG PO SCH (11:19)
[2018-12-17] MEDS: Furosemide IV* 10 MG/ML VIAL (40 MG) IV SLOW PU SCH ×2 (11:19→17:20)
[2018-12-17] MEDS: Spironolactone TAB* 25 MG PO SCH (11:19)
--- NOTE | 2018-12-17 13:05 | PN ---
Subjective Date of Service: 12/17/18 Interval History: Ms. Fuentes is feeling well. She is in good spirits and offers no complaints on exam. She had an uneventful night and slept well. No complications during cath. She denies CP, SOB, N/V, dizziness. Has some pain at her wrist access site. No concerns from nursing. Family History: Unchanged from Admission Social History: Unchanged from Admission Past Medical History: Unchanged from Admission Objective Active Medications: Acetaminophen (Tylenol Tab*) 650 mg PO Q6H PRN FEVER/PAIN Aspirin (Aspirin 81 Mg Chew Tab*) 81 mg PO DAILY NETO Atorvastatin Calcium (Lipitor*) 80 mg PO 1700 NETO Carvedilol (Coreg Tab*) 12.5 mg PO BID NETO Citalopram Hydrobromide (Celexa Tab*) 10 mg PO DAILY NETO Cyclobenzaprine HCl (Flexeril Tab*) 10 mg PO BEDTIME PRN SPASMS - MUSCLE Furosemide (Lasix Iv*) 40 mg IV SLOW PU 0800,1700 NETO Sodium Chloride (Ns 0.9% 1000 Ml) 1,000 mls @ 100 mls/hr IV PER RATE NETO Losartan Potassium (Cozaar Tab*) 100 mg PO DAILY NETO Nitroglycerin (Nitroglycerin Tab 0.4 Mg*) 0.4 mg SL Q5M PRN ANGINA Ondansetron HCl (Zofran Inj*) 4 mg IV Q6H PRN NAUSEA Spironolactone (Aldactone Tab*) 50 mg PO QAM NETO Ticagrelor (Brilinta*) 90 mg PO BID NETO Tramadol HCl (Ultram*) 50 mg PO Q6HR PRN PAIN Vital Signs - 8 hr 12/17/18 12/17/18 12/17/18 08:06 08:07 08:09 Temperature 97.5 F Pulse Rate 59 Respiratory 20 20 16 Rate Blood Pressure 151/56 (mmHg) O2 Sat by Pulse 99 Oximetry 12/17/18 12/17/18 12/17/18 10:39 10:41 10:46 Temperature Pulse Rate 60 60 60 Respiratory 19 27 Rate Blood Pressure 163/98 152/77 (mmHg) O2 Sat by Pulse 92 90 94 Oximetry 12/17/18 12/17/18 12/17/18 10:58 11:00 11:01 Temperature 96.8 F Pulse Rate 60 60 60 Respiratory 17 19 19 Rate Blood Pressure 157/67 163/74 (mmHg) O2 Sat by Pulse 96 97 97 Oximetry 12/17/18 12/17/18 11:15 11:31 Temperature Pulse Rate 60 60 Respiratory 18 20 Rate Blood Pressure 157/67 180/81 (mmHg) O2 Sat by Pulse 97 97 Oximetry Oxygen Devices in Use Now: None Appearance: Elderly female sitting in bed in NAD Eyes: No Scleral Icterus Ears/Nose/Mouth/Throat: Mucous Membranes Moist Neck: NL Appearance and Movements; NL JVP, Trachea Midline Respiratory: Symmetrical Chest Expansion and Respiratory Effort, Clear to Auscultation Cardiovascular: NL Sounds; No Murmurs; No JVD, RRR Abdominal: NL Sounds; No Tenderness; No Distention Extremities: No Edema Neurological: Alert and Oriented x 3, NL Sensation Lines/Tubes/Other Access: Clean, Dry and Intact Peripheral IV Nutrition: Taking PO's Result Diagrams: 12/18/18 04:25 12/18/18 04:25 Assess/Plan/Problems-Billing Assessment: Ms. Fuentes is an 83 yo F with PMH of CAD, HTN, afib, BERNABE, HLD, carotid stenosis , and pHTN; who presented to the ED with c/o SOB and elevated BP and was admitted for concern for CHF exacerbation and EKG changes. - Patient Problems (1) NSTEMI (non-ST elevated myocardial infarction) Code(s): I21.4 - NON-ST ELEVATION (NSTEMI) MYOCARDIAL INFARCTION Comment: - ST depression and T wave inversions in lateral leads noted on admission (more severe than baseline) - Trop initially flat but bumped to 1.58 - Appreciate Cardiology consult; taken to laborer mine today and had stents placed in proximal RCA and mid RCA - Continue Coreg, aspirin, Brilinta, nitro (2) Acute on chronic diastolic congestive heart failure Code(s): I50.33 - ACUTE ON CHRONIC DIASTOLIC (CONGESTIVE) HEART FAILURE Comment: - Presented with 2 days SOB - BNP 500, increased from baseline - CXR on admission shows pulmonary edema - Daily weights, strict I&O - Continue furosemide, spironolactone, Coreg, losartan (3) Hypertensive urgency Code(s): I16.0 - HYPERTENSIVE URGENCY Comment: - Asymptomatic - Up to 220s/110s on admission, now improved but still elevated - Continue furosemide, spironolactone, Coreg, hydralazine (4) Afib Code(s): I48.91 - UNSPECIFIED ATRIAL FIBRILLATION Comment: - Paced, rate controlled - Continue warfarin, Coreg (5) HLD (hyperlipidemia) Code(s): E78.5 - HYPERLIPIDEMIA, UNSPECIFIED Comment: - Continue atorvastatin (6) BERNABE (obstructive sleep apnea) Code(s): G47.33 - OBSTRUCTIVE SLEEP APNEA (ADULT) (PEDIATRIC) Comment: - Oxygen at HS (7) DVT prophylaxis Comment: - Warfarin (8) DNR (do not resuscitate) Comment: Status and Disposition: Observation. Anticipate d/c home when medically stable. Attending: Laura Perez
[2018-12-17] MEDS: Atorvastatin* 80 MG TAB PO SCH (17:20)
[2018-12-17] MEDS: Ticagrelor* 90 MG TAB PO SCH (21:23)
--- NOTE | 2018-12-17 22:11 | CATH ---
CC: Dr. Devendra Cardenas; Dr. Hien Pratt; Amilcar Mendoza DO * INTERVENTIONAL CARDIOLOGY REPORT: DATE OF PROCEDURE: 12/17/18 - ROOM #[id number] REASON FOR THE PROCEDURE: Asked by Dr. Devendra Cardenas to perform intervention into the patient's critically stenosed right coronary artery with a proximal 95 % lesion and a mid 80 with diffusely diseased 80% lesion. PROCEDURE: Primary stenting of the mid right coronary artery utilizing a 2.75 x 24 mm long Synergy drug-eluting stent postdilated 2.85 mm in the distal portion and 3 mm in the proximal portion and placement of a 3.0 x 15 mm Xience drug-eluting stent in the proximal right coronary artery post dilated to 3.2 mm with high-pressure balloon inflation. EQUIPMENT UTILIZED: 1. The patient had an existing 6-[place] sheath already placed by Dr. Cardenas who performed a diagnostic procedure via the right radial artery. 2. The guiding catheter was a 6[place] FR4 curved right coronary guide catheter. 3. The diagnostic wire utilized to advance the guide catheter was a Nexi wire with a Dickson exchange length used to remove the catheter. 4. The interventional guidewire with a 190 cm length BMW guidewire. 5. The stents utilized: Proximal right coronary artery a 3.0 x 15 mm Xience drug- eluting stent, mid right coronary artery 2.75 x 24 mm long Synergy drug- eluting stent. 6. Post-stent deployment balloon inflation catheters: A 3.0 x 12 mm long NC Emerge balloon in the proximal stent and proximal portion of the mid stent and a 2.75 x 12 mm long NC Emerge in the mid to distal portion of the mid stent. 7. Closure device utilized was a Vasc Band by [employer]. MEDICATIONS GIVEN: ACT was checked and found to be subtherapeutic, and as such , an Angiomax bolus and an Angiomax drip was instituted prior to the interventional procedure. The patient received 180 mg of Brilinta orally. Intracoronary nitroglycerin was administered as well. DESCRIPTION OF PROCEDURE: The guide catheter was advanced to the right coronary artery and the guidewire was placed down the right coronary artery. The mid area was stented first followed by stenting the proximal area of the right coronary artery. Post dilatations were made with the NC Emerge balloons as described above. Following this, final images were obtained to assess the result. At the end of the case, the Vasc Band was placed and a reverse Barbeau was assessed and found to be a B. The total contrast used for the interventional procedure was 120 cc of Omnipaque dye. The radiation exposure for the whole procedure included 10.7 minutes of fluoro time, the air kerma radiation was 2708 milligray, the Doppler radiation was 32275 microgray per meter square. INTERVENTION INTO THE RIGHT CORONARY ARTERY: A: Proximal right coronary artery: Successful reduction of critical 95% lesion with residual stenosis of 10%, GABI-3 flow, no dissection seen. B. Mid right coronary artery. Successful reduction of diffusely diseased segment with maximal area of luminal reduction noted to be 75% to 80% with residual stenosis of 5% ,GABI-3 flow and no dissection seen. RESULTS: Successful intervention into proximal and mid right coronary artery with drug-eluting stents placed as described above. Aggressive risk factor management with high-dose statin therapy should be maintained as well as ongoing risk factor control under guidance of Mrs. Fuentes's primary animal shelter clerk and applicator sprayer. Dual antiplatelet therapy is recommended for at least 1-year time period as long as the patient has no other significant contraindications. [id number]/CPS #: [id number] [facility] CENTERAnton
--- NOTE | 2018-12-17 23:01 | CATH ---
CC: Dr. Hien Pratt; Dr. Juan Jose Mancera * CARDIAC CATHETERIZATION REPORT: DATE OF PROCEDURE: 12/17/18 PROCEDURE: Cardiac catheterization. INDICATION FOR STUDY: Acute coronary syndrome, NSTEMI, coronary artery disease. The patient is an 83-year-old female with a history of hypertension, history of paroxysmal atrial fibrillation, who came to the emergency room because of hypertension and shortness of breath. In the emergency room, the patient had an episode of profound shortness of breath and dyspnea. She had profound hypotension, at that time her blood pressure went down to 84 systolic. She had profound EKG changes at that time with significant ST-segment depressions. The patient ultimately had an elevated troponin level of 1.5 and cardiac catheterization was recommended. Of note, the patient is on chronic anticoagulation with Coumadin. Her INR yesterday was 2.5, her INR today was 1.89. DESCRIPTION OF PROCEDURE: The patient was brought to the cardiac catheterization lab in a fasting state. Informed consent had been obtained prior to the procedure. The patient was placed supine on the procedure table. Her right radial area was prepped and draped in the usual fashion. 1% lidocaine was used for local anesthesia. The right radial artery was entered by a Seldinger technique and a 6-Welsh sheath introducer was placed. A cocktail of verapamil and nitroglycerin was infused through the sheath. The patient underwent coronary angiography using a 6-Welsh TIG catheter. A total of 120 cc of Visipaque dye was used. A total of 10 minutes of fluoro time was used. FINDINGS: 1. Left main artery: The left main was normal in size that bifurcated into the LAD and circumflex. There was no evidence of stenosis. 2. Left anterior descending artery: The LAD itself had mild calcification in the proximal vessel. The proximal vessel had a 30% stenosis. The remainder of the LAD was without disease. The first diagonal vessel had a smooth 70% stenosis in the proximal vessel. 3. Left circumflex artery: The circumflex artery was normal in size. It gave off 3 obtuse marginal branches. There was no evidence of stenosis. 4. Right coronary artery: The RCA was a large dominant vessel, gave off the PDA and 3 posterolateral branches. The proximal right coronary artery had an eccentric 95% stenosis. The mid right coronary artery had an eccentric 80% stenosis. The remainder of the vessel had mild disease. IMPRESSION: 1. A 60% to 70% stenosis to the D1 vessel of the left anterior descending. 2. Critical stenosis to the proximal right coronary artery and mid right coronary artery. RECOMMENDATION: The patient will undergo angioplasty and stenting of her RCA. [id number]/CPS #: [id number] MTDD
[2018-12-18 04:57] LABS: ABS Eosinophils 0.3 10^3/ul (0-0.6); ABS Lymphocytes 1.1 10^3/ul (1.0-4.8); ABS Monocytes 0.8 10^3/ul (0-0.8); ABS Neutrophils 5.5 10^3/ul (1.5-7.7); Eosinophil % 3.6 %; Hematocrit 31 % (35-47); Lymphocyte % 14.3 %; Mean Corpuscular HGB Conc 33 g/dL (31-36); Mean Corpuscular Hemoglobin 26 pg (27-31); Mean Corpuscular Volume 80 fL (80-97); Mean Platelet Volume 8.2 fL (7.4-10.4); Platelet Count 134 10^3/uL (150-450); Red Blood Count 3.83 10^6 /uL (3.70-4.87); Red Cell Distribution Width 19 % (10.5-15); White Blood Count 7.7 10^3/uL (3.5-10.8)
[2018-12-18 05:29] LABS: Albumin 3.9 g/dL (3.2-5.2); Albumin/Globulin Ratio 1.3 (1-3); BUN/Creatinine Ratio 20.7 (8-20); Calcium 8.8 mg/dL (8.6-10.3); EGFR African American 51.4 (>60); EGFR Non-African American 42.5 (>60); Globulin 2.9 g/dL (2-4); HDL Cholesterol 26.7 mg/dL; Potassium 3.8 mmol/L (3.5-5.0); Total Bilirubin 0.9 mg/dL (0.2-1.0); Total Protein 6.8 g/dL (6.4-8.9)
[2018-12-18] MEDS: Furosemide IV* 10 MG/ML VIAL (40 MG) IV SLOW PU SCH ×2 (08:32→16:04)
[2018-12-18] MEDS: Citalopram TAB* 10 MG PO SCH (08:33)
[2018-12-18] MEDS: Aspirin 81 mg CHEW TAB* 81 MG TAB.CHEW PO SCH (08:33)
[2018-12-18] MEDS: Losartan TAB* 25 MG PO SCH (08:33)
[2018-12-18] MEDS: Spironolactone TAB* 25 MG PO SCH (08:33)
[2018-12-18] MEDS: Ticagrelor* 90 MG TAB PO SCH ×2 (08:33→20:29)
[2018-12-18] MEDS: Carvedilol TAB* 6.25 MG PO SCH ×2 (08:33→20:29)
--- NOTE | 2018-12-18 13:46 | PN ---
Subjective Date of Service: 12/18/18 Interval History: Ms. Fuentes is feeling well this morning. She had an uneventful night and recovered well from her cath yesterday. She has not had any chest pain. Denies SOB, N/V, diaphoresis. Feels as though the edema in her left foot has resolved. Right wrist access site has had some oozing, now resolved. No concerns from nursing and nursing staff requesting transfer out of ICU. Family History: Unchanged from Admission Social History: Unchanged from Admission Past Medical History: Unchanged from Admission Objective Active Medications: Acetaminophen (Tylenol Tab*) 650 mg PO Q6H PRN FEVER/PAIN Aspirin (Aspirin 81 Mg Chew Tab*) 81 mg PO DAILY NETO Atorvastatin Calcium (Lipitor*) 80 mg PO 1700 NETO Carvedilol (Coreg Tab*) 12.5 mg PO BID NETO Citalopram Hydrobromide (Celexa Tab*) 10 mg PO DAILY NETO Cyclobenzaprine HCl (Flexeril Tab*) 10 mg PO BEDTIME PRN SPASMS - MUSCLE Furosemide (Lasix Iv*) 40 mg IV SLOW PU 0800,1700 NETO Losartan Potassium (Cozaar Tab*) 100 mg PO DAILY NETO Nitroglycerin (Nitroglycerin Tab 0.4 Mg*) 0.4 mg SL Q5M PRN ANGINA Ondansetron HCl (Zofran Inj*) 4 mg IV Q6H PRN NAUSEA Spironolactone (Aldactone Tab*) 50 mg PO QAM NETO Ticagrelor (Brilinta*) 90 mg PO BID NETO Tramadol HCl (Ultram*) 50 mg PO Q6HR PRN PAIN Vital Signs - 8 hr 12/18/18 12/18/18 12/18/18 06:01 07:01 07:36 Temperature Pulse Rate 60 60 Respiratory 18 19 11 Rate Blood Pressure 190/66 154/68 (mmHg) O2 Sat by Pulse 98 97 Oximetry 12/18/18 12/18/18 12/18/18 07:58 08:00 09:00 Temperature 97.1 F Pulse Rate 60 Respiratory 18 14 Rate Blood Pressure 168/74 (mmHg) O2 Sat by Pulse 96 Oximetry 12/18/18 12/18/18 12/18/18 09:01 11:40 12:31 Temperature 97.5 F 97.0 F Pulse Rate 60 Respiratory 17 16 Rate Blood Pressure 152/60 (mmHg) O2 Sat by Pulse 97 Oximetry Oxygen Devices in Use Now: None Appearance: Elderly female sitting in chair in NAD Eyes: No Scleral Icterus Ears/Nose/Mouth/Throat: Mucous Membranes Moist Neck: NL Appearance and Movements; NL JVP, Trachea Midline Respiratory: Symmetrical Chest Expansion and Respiratory Effort, Clear to Auscultation Cardiovascular: NL Sounds; No Murmurs; No JVD, RRR Abdominal: NL Sounds; No Tenderness; No Distention Extremities: No Edema Skin: - - Right wrist dressing intact Neurological: Alert and Oriented x 3 Lines/Tubes/Other Access: Clean, Dry and Intact Peripheral IV Nutrition: Taking PO's Result Diagrams: 12/18/18 04:25 12/18/18 04:25 Assess/Plan/Problems-Billing Assessment: Ms. Fuentes is an 83 yo F with PMH of CAD, HTN, afib, BERNABE, HLD, carotid stenosis , and pHTN; who presented to the ED with c/o SOB and elevated BP and was admitted for concern for CHF exacerbation and EKG changes. - Patient Problems (1) NSTEMI (non-ST elevated myocardial infarction) Code(s): I21.4 - NON-ST ELEVATION (NSTEMI) MYOCARDIAL INFARCTION Comment: - ST depression and T wave inversions in lateral leads noted on admission (more severe than baseline) - Trop initially flat but bumped to 1.58 - Appreciate Cardiology consult; taken to micro lab analyst yesterday and had stents placed in proximal RCA and mid RCA - Continue Coreg, aspirin, Brilinta, nitro (2) Acute on chronic diastolic congestive heart failure Code(s): I50.33 - ACUTE ON CHRONIC DIASTOLIC (CONGESTIVE) HEART FAILURE Comment: - Presented with 2 days SOB - BNP 500, increased from baseline - CXR on admission shows pulmonary edema - Daily weights, strict I&O - Continue furosemide, spironolactone, Coreg, losartan (3) Hypertensive urgency Code(s): I16.0 - HYPERTENSIVE URGENCY Comment: - Asymptomatic - Up to 220s/110s on admission, now improved but still elevated - Continue furosemide, spironolactone, Coreg, hydralazine (4) Afib Code(s): I48.91 - UNSPECIFIED ATRIAL FIBRILLATION Comment: - Paced, rate controlled - Continue warfarin, Coreg (5) HLD (hyperlipidemia) Code(s): E78.5 - HYPERLIPIDEMIA, UNSPECIFIED Comment: - Continue atorvastatin (6) BERNABE (obstructive sleep apnea) Code(s): G47.33 - OBSTRUCTIVE SLEEP APNEA (ADULT) (PEDIATRIC) Comment: - Oxygen at HS (7) DVT prophylaxis Comment: - Warfarin (8) DNR (do not resuscitate) Comment: Status and Disposition: Observation. Anticipate d/c home when medically stable, likely 1-2 more days. Attending: Laura Perez
[2018-12-18] MEDS ORDERED: Warfarin TAB(*) 2.5 MG PO SCH (14:00)
[2018-12-18] MEDS: Atorvastatin* 80 MG TAB PO SCH (16:04)
[2018-12-19 06:55] LABS: INR 1.68 (0.82-1.09)
[2018-12-19 07:18] LABS: BUN/Creatinine Ratio 20.5 (8-20); Calcium 9.2 mg/dL (8.6-10.3); EGFR African American 48.6 (>60); EGFR Non-African American 40.2 (>60); Potassium 3.6 mmol/L (3.5-5.0)
--- NOTE | 2018-12-19 08:46 | PN ---
Subjective Date of Service: 12/19/18 - Mi s/p PCI/RCA Interval History: No events last night, patient offers no complaints. Sitting on edge of bed eating breakfast upon entering room. Denies chest pain, palpitations, sob, dizziness. Medications Active Medications: Acetaminophen (Tylenol Tab*) 650 mg PO Q6H PRN PRN Reason: FEVER/PAIN Last Admin: 12/17/18 05:57 Dose: 650 mg Aspirin (Aspirin 81 Mg Chew Tab*) 81 mg PO DAILY [facility] Last Admin: 12/18/18 08:33 Dose: 81 mg Atorvastatin Calcium (Lipitor*) 80 mg PO 1700 [facility] Last Admin: 12/18/18 16:04 Dose: 80 mg Carvedilol (Coreg Tab*) 12.5 mg PO BID [facility] Last Admin: 12/18/18 20:29 Dose: 12.5 mg Citalopram Hydrobromide (Celexa Tab*) 10 mg PO DAILY [facility] Last Admin: 12/18/18 08:33 Dose: 10 mg Cyclobenzaprine HCl (Flexeril Tab*) 10 mg PO BEDTIME PRN PRN Reason: SPASMS - MUSCLE Furosemide (Lasix Iv*) 40 mg IV SLOW PU 0800,1700 [facility] Last Admin: 12/18/18 16:04 Dose: 40 mg Losartan Potassium (Cozaar Tab*) 100 mg PO DAILY [facility] Last Admin: 12/18/18 08:33 Dose: 100 mg Nitroglycerin (Nitroglycerin Tab 0.4 Mg*) 0.4 mg SL Q5M PRN PRN Reason: ANGINA Ondansetron HCl (Zofran Inj*) 4 mg IV Q6H PRN PRN Reason: NAUSEA Spironolactone (Aldactone Tab*) 50 mg PO QAM [facility] Last Admin: 12/18/18 08:33 Dose: 50 mg Ticagrelor (Brilinta*) 90 mg PO BID [facility] Last Admin: 12/18/18 20:29 Dose: 90 mg Tramadol HCl (Ultram*) 50 mg PO Q6HR PRN PRN Reason: PAIN Last Admin: 12/19/18 00:11 Dose: 50 mg Objective Vital Signs: Temp Pulse Resp BP Pulse Ox 98.3 F 59 18 159/57 94 12/19/18 03:59 12/19/18 03:59 12/19/18 03:59 12/19/18 03:59 12/19/18 03:59 Oxygen Devices in Use Now: None Appearance: well nourished, well kept, A+O x3 cooperative with exam Eyes: No Scleral Icterus, PERRLA Ears/Nose/Mouth/Throat: NL Teeth, Lips, Gums Neck: NL Appearance and Movements; NL JVP, Trachea Midline Respiratory: Symmetrical Chest Expansion and Respiratory Effort Cardiovascular: NL Sounds; No Murmurs; No JVD, No Edema, - - right radial access site examined. Non tender to palpation. strong pulse, no hematoma. Abdominal: NL Sounds; No Tenderness; No Distention Extremities: No Edema Skin: No Rash or Ulcers Neurological: Alert and Oriented x 3 Lines/Tubes/Other Access: Clean, Dry and Intact Peripheral IV Laboratory Results: 12/18/18 04:25 12/19/18 06:27 INR (Anticoag Therapy) 1.68 (0.82-1.09) H 12/19/18 06:27 APTT 38.9 seconds (26.0-36.3) H 12/16/18 12:29 Total Bilirubin 0.90 mg/dL (0.2-1.0) 12/18/18 04:25 AST 23 U/L (13-39) 12/18/18 04:25 ALT 15 U/L (7-52) 12/18/18 04:25 Alkaline Phosphatase 70 U/L (34-104) 12/18/18 04:25 CK-MB (CK-2) 11.7 ng/mL (0.6-6.3) H 12/17/18 20:33 B-Natriuretic Peptide 515 pg/mL (<=100) H 12/16/18 12:29 Total Protein 6.8 g/dL (6.4-8.9) 12/18/18 04:25 Albumin 3.9 g/dL (3.2-5.2) 12/18/18 04:25 Globulin 2.9 g/dL (2-4) 12/18/18 04:25 Albumin/Globulin Ratio 1.3 (1-3) 12/18/18 04:25 Triglycerides 116 mg/dL 12/18/18 04:25 Cholesterol 89 mg/dL 12/18/18 04:25 LDL Cholesterol 39 mg/dL 12/18/18 04:25 HDL Cholesterol 26.7 mg/dL 12/18/18 04:25 TSH 4.22 mcIU/mL (0.34-5.60) 12/16/18 12:29 12/16/18 12/16/18 12/16/18 12:29 15:29 18:29 Troponin I 0.01 0.01 0.04 H* 12/17/18 05:45 Troponin I 1.58 H* Laboratory Results - last 24 hr 12/19/18 12/19/18 06:27 06:27 INR (Anticoag Therapy) 1.68 H Sodium 139 Potassium 3.6 Chloride 104 Carbon Dioxide 28 Anion Gap 7 BUN 26 H Creatinine 1.27 H Est GFR ( Amer) 48.6 Est GFR (Non-Af Amer) 40.2 BUN/Creatinine Ratio 20.5 H Glucose 91 Calcium 9.2 Diagnostic Imaging: [facility] 12/17/2018; please refer to report in EHR. EKG Data: 12/19/2018; Paced rate 67 Assessment/Plan #1 NSTEMI s/p ZABRINA/Mid RCA 12/17/2018. Troponin peaked 12/17/2018 at 1.58. she presented with SOB and near syncope. States she is feeling "great". On ASA 81mg/ day, Brilinta 90mg PO BID, Coreg and Lipitor therapy. Plan is tentatively to switch Brilinta to Plavix after 4 weeks of therapy given patient's history of recurrent Epistaxsis. She is to f/u with Dr. Mancera on 12/24/2018 at 2: 40pm at our medical office building and with Dr. Pratt on 12/26/2018 at 3:40pm at our [facility] location. She will need DAPT x12 months given presentation was [place]. Patient should go home with free 30 day supply of Brilinta prior to leaving the fourth floor. #2 h/o PAF; Device check 12/12/2018 per our device clinic revealed < 1% AF burden since 09/2018. Patient had PPM mediated tachycardia that resolved with reprograming. Historically had profound recurrent epistaxsis on Eliquis 2.5mg PO BID to the point that Dr. Barajas offered ethmoid artery ligation through orbit. At this time recommend stopping Coumdain. Patient is to f/u with Dr. Pratt next week due to discontinuation of OAC. In the past we have considered watchman device. #3 SSS with h/o DC PPM; Device check on 12/12/2018 was reviewed with Samantha from our practice < 1% AF burden. #4 h/o HLD; on statin therapy. Goal LDL < 70 given h/oi CAD #5 Disposition pending course. D/w Dr. Mancera who agrees with plan of care. Will sign off. Attending: Juan Jose Mancera
[2018-12-19 08:56] VITALS: BP 157/61
[2018-12-19] MEDS: Furosemide IV* 10 MG/ML VIAL (40 MG) IV SLOW PU SCH (08:59)
[2018-12-19] MEDS: Losartan TAB* 25 MG PO SCH (08:59)
[2018-12-19] MEDS: Spironolactone TAB* 25 MG PO SCH (09:00)
[2018-12-19] MEDS: Aspirin 81 mg CHEW TAB* 81 MG TAB.CHEW PO SCH (09:00)
[2018-12-19] MEDS: Ticagrelor* 90 MG TAB PO SCH (09:01)
[2018-12-19] MEDS: Citalopram TAB* 10 MG PO SCH (09:01)
[2018-12-19] MEDS: Carvedilol TAB* 6.25 MG PO SCH (09:01)
[2018-12-19] MEDS ORDERED: Warfarin TAB(*) 2.5 MG PO SCH (13:47)
--- NOTE | 2018-12-19 20:29 | DS ---
CC: Dr. Amilcar Mendoza; Dr. Hien Pratt; Dr. Juan Jose Mancera* DISCHARGE SUMMARY: DATE OF ADMISSION: 12/16/18 DATE OF DISCHARGE: 12/19/18 PRIMARY CARE PROVIDER: Dr. Amilcar Mendoza. MH TEACHER: Dr. Hien Pratt. SACK DEPARTMENT SUPERVISOR: Dr. Juan Jose Mancera. ATTENDING PHYSICIAN: Dr. Elizabet Evangelista* (dictated by Kathe Koenig NP). PRIMARY DIAGNOSES: 1. Xkt-GI-fpiqhoca myocardial infarction. 2. Zfheh-ae-fvcnkod diastolic congestive heart failure. 3. Hypertensive urgency. SECONDARY DIAGNOSES: 1. Atrial fibrillation. 2. Hyperlipidemia. 3. Obstructive sleep apnea. STUDIES WHILE IN THE HOSPITAL: 1. EKG on 12/16/18 shows normal sinus rhythm with a rate of 60, 100% atrial pacing, inverted T waves in III and aVF. 2. Chest x-ray on 12/16/18 reads as pulmonary edema with associated moderate right and probable small left pleural effusions with proportional atelectasis. 3. EKG on 12/16/18 shows 100% atrial pacing with a rate of 61, QTc 479. 4. Transthoracic echocardiogram on 12/16/18 reads as left ventricle: The cavity size is normal. Wall thickness is mildly increased. Systolic function is normal. The estimated ejection fraction is 55% to 60%. Right ventricle: Pacer wire noted in the right ventricle. Systolic function is normal. Mitral valve: The annulus is mildly calcified. The leaflets are mildly thickened. There is moderate-to- severe regurgitation. Aortic valve: The valve is trileaflet. The leaflets are mildly thickened. There is xnyr-cl-[id number] regurgitation. Tricuspid valve: There is moderate regurgitation. Pulmonary arteries: Systolic pressure is estimated to be 75 mmHg. Impression: Unchanged from the study of September 2018. 5. Chest/thorax CTA on 12/16/18 reads as no pulmonary embolus. Large right pleural effusion, increased since prior. Small left pleural effusion. Moderate relaxation atelectasis in the right lower lobe. Probable left basilar subsegmental atelectasis. Upper lung septal thickening suggesting interstitial edema. Dual- lead pacemaker now in place. A 6 mm right upper lobe nodular density, likely benign as it is unchanged from prior study from 06/29/14. Cholelithiasis. 6. EKG on 12/16/18 shows normal sinus rhythm with a rate of 63, QTc 483, mild diffuse ST depression. 7. EKG on 12/17/18 shows 100% dual AV pacing with a rate of 60, QTc 530. 8. EKG on 12/17/18 shows 100% AV dual pacing with a rate of 61, QTc of 479, minimal diffuse ST depression. 9. EKG on 12/18/18 shows again dual pacing with a rate of 60. 10. EKG on 12/19/18 again shows dual pacing with a rate of 60. CONSULTATIONS WHILE IN THE HOSPITAL: Dr. Cardenas from cardiology on 12/16/18. PROCEDURES WHILE IN THE HOSPITAL: Cardiac catheterization on 12/17/18 with stenting in the RCA. HISTORY OF PRESENT ILLNESS AND HOSPITAL COURSE: Ms. Fuentes is an 83-year-old female with past medical history of atrial fibrillation, hypertension, coronary artery disease, obstructive sleep apnea, hyperlipidemia, pulmonary hypertension , and carotid artery disease who presented to the emergency room on 12/16/18 with complaints of shortness of breath and high blood pressure. Please see the history and physical by SABA Mari, for a complete summary of the events leading up to this hospitalization. In short, the patient recently had some medication changes by her automotive glass mechanic and thereafter noted shortness of breath, worse with exertion and lying flat. She had been taking her diuretics as prescribed. In the emergency room, the patient had a normal-appearing EKG, though then ambulated to the bathroom and felt presyncopal and at that point, another EKG was done, which showed diffuse ST depressions and T-wave inversions. Cardiology was consulted. The patient did have a negative troponin initially. At that point, Cardiology recommended admission and observation and indicated that as long as the patient had negative trops, the patient should have a nuclear stress test. The patient was admitted by the hospitalist service. The next morning, the patient's troponin bumped to 1.58. Cardiology was notified and the patient was taken to the cardiac cath technologist that morning on 12/17/18. At that point, she was noted to have 95% stenosis in her proximal RCA and 80% stenosis in the mid RCA. Two drug-eluting stents were placed at that time. The patient was then transferred to the intensive care unit for monitoring post stenting. She recovered quite well and denied any chest pain. She was placed on Coreg, aspirin, and Brilinta. The patient was diuresed with IV Lasix. I will note that on admission the patient was quite hypertensive up to the 220s over the 110s. This resolved after receiving IV Lasix. The patient was transferred out of the ICU on 12/18/18 as she was doing quite well. She had an uneventful night and feels well this morning. She offers no complaints and is in good spirits. She denies any chest pain, shortness of breath, nausea, vomiting, or diaphoresis. She has been up ambulating without difficulty. On exam, her heart has a regular rate and rhythm without murmurs, rubs, or gallops. Her lung sounds are clear to auscultation without rhonchi, wheezes, or rales. She has no neurological deficits. There is no edema. Her right wrist access site is clean, dry, and intact. The patient was seen this morning by Bre Ayers NP, from cardiology, who advised that the patient was stable for discharge with appropriate followup. Ms. Fuentes is stable for discharge today. Vital signs are as follows: Temp 97.4, heart rate 60, respiratory rate 16, oxygen saturation 96% on room air, blood pressure 157/61. DISCHARGE MEDICATIONS: New Medications: 1. Aspirin 81 mg p.o. daily. 2. Atorvastatin 80 mg p.o. daily. 3. Carvedilol 12.5 mg p.o. b.i.d. 4. Brilinta 90 mg p.o. b.i.d. x30 days. Continued Medications: 1. Acetaminophen 500 mg p.o. q.6 hours p.r.n. for fever or pain. 2. Citalopram 10 mg p.o. daily. 3. Cyclobenzaprine 10 mg p.o. at bedtime p.r.n. for muscle spasms. 4. Furosemide 20 mg p.o. daily. 5. Irbesartan 300 mg p.o. daily. 6. Meclizine 25 mg p.o. q.8 hours p.r.n. for dizziness. 7. Multivitamin 1 tab p.o. daily. 8. Spironolactone 25 mg p.o. daily. 9. Tramadol 50 mg p.o. q.6 hours p.r.n. for pain. Discontinued Medications: 1. Atenolol. 2. Rosuvastatin. 3. Warfarin. DISCHARGE PLAN: Ms. Fuentes will be discharged home. Activity will be as tolerated. Diet will be heart-healthy. The patient has been given specific care instructions for her right radial access site by cardiology. Medications are noted above. The patient will need to take 30 days of Brilinta. She has been provided with a free 30-day supply here prior to leaving the hospital. She should additionally be taking aspirin, Coreg, and Lipitor daily. She can continue her other usual medications, except for her atenolol which was replaced with carvedilol, her rosuvastatin which was replaced with atorvastatin , and her warfarin which she should no longer take due to severe recurrent epistaxis. At this point, cardiology would not like the patient on any anticoagulants because of the addition of Brilinta. The patient will need to follow up with Dr. Mancera on 12/24/18 at 2:[address] Pratt on 12/26/18 at 3:40 p.m. She additionally should follow up with her primary care provider in 4 to 7 days. She has been advised to return to the hospital or nearest emergency room for any worsening of symptoms, shortness of breath, lightheadedness, dizziness, chest discomfort, high fever, chills, night sweats, loss of consciousness, or any other worrisome signs or symptoms. DISCHARGE CONDITION: Stable. DISCHARGE DISPOSITION: Home. This is a summarized report of a complex medical history and hospital stay. For further details, please see the entire medical record. TIME SPENT: Approximately 50 minutes were spent on this discharge. KATHE KOENIG, HYDRATE CONTROL TENDER [id number]/CPS #: [id number] KAREN
== END 2018-12-19 11:14 | disposition home or self-care (01) | DRG 246 ==
LOC: ED 11:48 → MEDTELE 18:51 → ICU 12-17 10:24 → OBSVTOIN 12-17 10:24 → ICU 12-17 14:56 → MEDTELE 12-18 12:14
PROVIDERS: ADMIT Internal Medicine; ATTEND Internal Medicine
PROC: 4A023N7 Measurement of Cardiac Sampling and Pressure, Left Heart, Percutaneous Approach (ICD-10-PCS; 2018-12-17)
PROC: B2111ZZ Fluoroscopy of Multiple Coronary Arteries using Low Osmolar Contrast (ICD-10-PCS; 2018-12-17)
PROC: 027035Z Dilation of Coronary Artery, One Artery with Two Drug-eluting Intraluminal Devices, Percutaneous Approach (ICD-10-PCS; principal; 2018-12-17 08:00)
DX: I21.4 Non-ST elevation (NSTEMI) myocardial infarction (principal); I50.33 Acute on chronic diastolic (congestive) heart failure; K58.9 Irritable bowel syndrome, unspecified; Z96.641 Presence of right artificial hip joint; I25.10 Atherosclerotic heart disease of native coronary artery without angina pectoris; M17.0 Bilateral primary osteoarthritis of knee; R09.02 Hypoxemia; I16.0 Hypertensive urgency; E78.5 Hyperlipidemia, unspecified; G47.33 Obstructive sleep apnea (adult) (pediatric); I08.3 Combined rheumatic disorders of mitral, aortic and tricuspid valves; I11.0 Hypertensive heart disease with heart failure; I27.20 Pulmonary hypertension, unspecified; I48.0 Paroxysmal atrial fibrillation; Z96.629 Presence of unspecified artificial elbow joint; Z79.82 Long term (current) use of aspirin; Z82.49 Family history of ischemic heart disease and other diseases of the circulatory system; Z95.0 Presence of cardiac pacemaker; Z88.5 Allergy status to narcotic agent; Z88.8 Allergy status to other drugs, medicaments and biological substances; Z88.0 Allergy status to penicillin; Z80.42 Family history of malignant neoplasm of prostate; Z66 Do not resuscitate
CPT/HCPCS: 36415; 71045; 71275; 80048; 80053; 80061; 82550; 82553; 82803; 83036; 83605; 83735; 83880; 84443; 84484; 85025; 85347; 85610; 85730; 87641; 93005; 93306; 93454; 99156; 99157; 99285; A9270-GY; C1725; C1769; C1876; C1887; C9600-RC; J0360; J0583; J1644; J1940; J2250; J2405; J3010; J3480; Q9967

== ENCOUNTER 2019-02-26 09:24 | Inpatient (IN) | payer MEDICARE ==
--- NOTE | 2019-02-26 09:54 | ED ---
Adult Trauma - HPI Summary HPI Summary: This patient is a 83 year old F presenting to [facility] by EMS with a chief complaint of fall this morning. Pt was walking over a carpet when her toe got caught in the carpet and she fell on to her side. Pt was not able to get up. She reports pain is mostly in her right hip, and is there even while laying in stretcher. Pt has an artificial hip. Per triage, the patient rates the pain 4/ 10 in severity. - History of Current Complaint Chief Complaint: EDFall Stated Complaint: FALL PER EMS Time Seen by Provider: 02/26/19 09:28 Hx Obtained From: Patient Mechanism of Injury: Fall Ambulatory at the Scene: No Onset/Duration: Still Present Onset of Pain: Post Accident Onset Severity: Moderate Current Severity: Moderate Pain Intensity: 4 Pain Scale Used: 0-10 Numeric Location: Other - right hip Aggravating Factor(s): Movement, Palpation, Weight Bearing Alleviating Factor(s): Nothing Associated Signs & Symptoms: Positive: Other: - right hip pain - Additional Pertinent History Primary Care Physician: BLAKE - Allergy/Home Medications Allergies/Adverse Reactions: Allergies Allergy/AdvReac Type Severity Reaction Status Date / Time amlodipine [From Norvasc] Allergy Unknown Unknown Verified 10/20/18 18:23 Reaction Details amoxicillin [From Augmentin] Allergy Unknown Unknown Verified 10/20/18 18:23 Reaction Details captopril Allergy Unknown Unknown Verified 10/20/18 18:23 Reaction Details clavulanic acid Allergy Unknown Unknown Verified 10/20/18 18:23 [From Augmentin] Reaction Details digoxin Allergy Unknown See Comment Verified 10/20/18 18:23 diltiazem [From Cardizem] Allergy Unknown Unknown Verified 10/20/18 18:23 Reaction Details hydrochlorothiazide Allergy Unknown Unknown Verified 10/20/18 18:23 [From Benicar HCT] Reaction Details lisinopril Allergy Unknown Unknown Verified 10/20/18 18:23 Reaction Details nifedipine [From Procardia] Allergy Unknown Unknown Verified 10/20/18 18:23 Reaction Details olmesartan [From Benicar HCT] Allergy Unknown Unknown Verified 10/20/18 18:23 Reaction Details paroxetine [From Paxil] Allergy Unknown Unknown Verified 10/20/18 18:23 Reaction Details sertraline [From Zoloft] Allergy Unknown Unknown Verified 10/20/18 18:23 Reaction Details Adhesive Tape [Plastic Tape] Allergy Rash Verified 10/20/18 18:23 apixaban [From Eliquis] Allergy See Comment Verified 10/20/18 18:23 codeine AdvReac Intermediate GI Upset Verified 02/26/19 11:34 morphine AdvReac Intermediate See Comment Verified 02/26/19 11:34 PMH/Surg Hx/FS Hx/Imm Hx Endocrine/Hematology History: Denies: Hx Diabetes, Hx Thyroid Disease Cardiovascular History: Reports: Hx Angina, Hx Congestive Heart Failure, Hx 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, Hx Hypercholesterolemia, Hx Valvular Heart Disease Denies: Hx Hypertension, Hx Pacemaker/ICD Respiratory History: Reports: Hx Sleep Apnea - DOESN'T TOLERATE MASK/CPAP/ BIPAP TRIES NOT TO LAY ON BACK, Other Respiratory Problems/Disorders - NOSE BLEEDS FOR PAST YEAR, Denies: Hx Asthma, Hx Chronic Obstructive Pulmonary Disease (COPD) GI History: Reports: Hx Irritable Bowel, Hx Jaundice - YOUNG CHILD Denies: Hx Ulcer History: Reports: Hx Chronic Renal Failure Denies: Hx Renal Disease Musculoskeletal History: Reports: Hx Arthritis - KNEES, LOW BACK, Hx Orthopedic Injury - right hip fx 03/05/14 Sensory History: Reports: Hx Contacts or Glasses Denies: Hx Eye Injury, Hx Macular Degeneration, Hx Vision Problem, Hx Hearing Aid, Hx Hearing Problem Opthamlomology History: Reports: Hx Contacts or Glasses Denies: Hx Eye Injury, Hx Macular Degeneration, Hx Vision Problem Neurological History: Reports: Hx Headaches - Hx OF NONE RECENTLY Denies: Hx Dementia, Hx Migraine, Hx Seizures, Hx Transient Ischemic Attacks (TIA) Psychiatric History: Denies: Hx Anxiety, Hx Depression, Hx Panic Disorder, Hx Schizophrenia, Hx Bipolar Disorder - Surgical History Surgery Procedure, Year, and Place: Partial hysterectomy 1972, left kneecap repair, right shoulder rotator cuff, left thumb, right hip replacement 2010, window put in heart 2008 ( NOTHING METAL IN CHEST).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 Hx Anesthesia Reactions: No - Immunization History Date of Tetanus Vaccine: unknown Date of Influenza Vaccine: 2015 Infectious Disease History: No Infectious Disease History: Denies: Hx Hepatitis, Hx Human Immunodeficiency Virus (HIV), Hx Tuberculosis , History Other Infectious Disease, Traveled Outside the [place] in Last 30 Days - Family History Known Family History: Positive: Cardiac Disease - Mother and father, Hypertension - Mother and father Negative: Diabetes - Social History Alcohol Use: None Substance Use Type: Reports: None Smoking Status (MU): Never Smoked Tobacco Have You Smoked in the Last Year: No Review of Systems Negative: Fever Positive: Other - right hip pain All Other Systems Reviewed And Are Negative: Yes Physical Exam - Summary Physical Exam Summary: Appearance: Well-appearing, Well-nourished, lying in bed comfortable Skin: Warm, dry, no obvious rash Eyes: sclera anicteric, no conjunctival pallor ENT: mucous membranes moist Neck: deferred Respiratory: No signs of respiratory distress Cardiovascular: Appears well perfused, pulses are nml Abdomen: deferred Musculoskeletal: Right hip external rotation, pain with rotation and flexion of hip. Neurological: Awake and alert, mentation is normal, speech is fluent and appropriate Psychiatric: affect is normal, does not appear anxious or depressed Triage Information Reviewed: Yes Vital Signs On Initial Exam: Initial Vitals Temp Pulse Resp BP Pulse Ox 98.2 F 88 16 122/82 95 02/26/19 09:25 02/26/19 09:25 02/26/19 09:25 02/26/19 09:25 02/26/19 09:25 Vital Signs Reviewed: Yes Diagnostics - Vital Signs Vital Signs Temp Pulse Resp BP Pulse Ox 02/26/19 09:25 98.2 F 88 16 122/82 95 - Laboratory Lab Statement: Any lab studies that have been ordered have been reviewed, and results considered in the medical decision making process. - Radiology Hip/Pelvis X-Ray Radiology Interpretation Completed By: Radiologist Summary of Radiographic Findings: Hip/Pelvis X-Ray reveals, per radiologist, IMPRESSION: #. RIGHT os peroneum is and inferior pubic ramus fractures. ED physician has reviewed this radiology report. Re-Evaluation - Re-Evaluation First Eval Comment: Discussed results with pt. Second Eval Re-Evaluation Time: 09:47 Comment: Discussed plan of care with pt. Adult Trauma Course/Dx - Course Course Of Treatment: This patient is a 83 year old F presenting to [facility] by EMS with a chief complaint of fall this morning. Pt was walking over a carpet when her toe got caught in the carpet and she fell on to her side. Pt was not able to get up. She reports pain is mostly in her right hip, and is there even while lying in stretcher. Pt has an artificial hip. Per triage, the patient rates the pain 4/10 in severity. Hip/Pelvis X-Ray reveals, per radiologist, IMPRESSION: #. RIGHT os peroneum is and inferior pubic ramus fractures. We discussed patient care with Dr Perez, and she accept pt for admission. Patient will be admitted. The patient is agreeable with this plan. - Diagnoses Provider Diagnoses: Pelvic fracture - Physician Notifications Discussed Care Of Patient With: Laura Perez Time Discussed With Above Provider: 11:51 Instructed by Provider To: Other - Discussed pt case with Dr. Perez, who accepts pt for admission. Discharge - Sign-Out/Discharge Documenting (check all that apply): Patient Departure - Admit Patient Received Moderate/Deep Sedation with Procedure: No - Discharge Plan Condition: Good Disposition: ADMITTED TO [facility] Referrals: Amilcar Mendoza DO [Primary Care Provider] - - Attestation Statements Document Initiated by Scribe: Yes Documenting Scribe: Rosanna Huang Provider For Whom Scribe is Documenting (Include Credential): Dr. Zacarias Benedict MD Scribe Attestation: Rosanna Caputo scribed for Dr. Zacarias Benedict MD on 02/26/19 at 1156. Status of Scribe Document: Ready
--- OUTSIDE RECORDS SUMMARY | 2019-02-26 10:23 | XMS REPORT | Continuity of Care Document ---
:1935 External Reference #:[id number] Author Name Emre Agarwal MD Address [address] [place] [address] Care Team Providers Name Role Phone Amilcar Mendoza, Care Team Information Sales Promotion Coordinator Unavailable Amilcar Mendoza, DO Primary Care Physician Unavailable Payers Date Identification Numbers Payment Provider Subscriber Policy Number: [id number] Medicare Samantha Goodmanley PayID: [id number] [address] [place] [address] Policy Number: [id number] [facility] Samantha Fuentes PayID: [id number] [address] [place] [address] Problems Active Problems Provider Date Persistent atrial fibrillation Wisam Nunez M.D. Onset: 2017 Syncope and collapse Wisam Nunez M.D. Onset: 05/22/2018 Family History Date Family Member(s) Observation Comments Father due to Heart Disease () Mother due to Heart Disease () Social History Type Date Description Comments Sex Unknown Occupation Retired Hand Dominance Right-handed ETOH Use Denies alcohol use Tobacco Use Start: Unknown Patient denies history of smoking Recreational Drug Use Denies Drug Use Smoking Status Reviewed: 01/30/19 Patient denies history of smoking Allergies, Adverse Reactions, Alerts Active Allergies Reaction Severity Comments Date Augmentin Moderate 05/22/2018 Digoxin Moderate 05/22/2018 Cardizem Moderate 05/22/2018 Benicar 05/22/2018 Paxil 05/22/2018 Morphine 05/22/2018 Lisinopril 05/22/2018 Latex 05/22/2018 Captopril 05/22/2018 Procardia 05/22/2018 Pacerone 05/22/2018 Tape 05/22/2018 Medications Active Medications SIG Qnty Indications Ordering Provider Date Spironolactone 1 by mouth every Unknown 25mg Tablets day Atenolol 1 by mouth every Unknown 25mg Tablets day Lorazepam 1 tab by mouth Unknown 0.25mg Tablets Rosuvastatin Calcium 1 tab by mouth Unknown 5mg every evening Tablets Furosemide 1 by mouth every Unknown 20mg Tablets day Lisinopril 1 by mouth every Unknown 20mg Tablets day Multivitamin Adult 1 by mouth every Unknown Tablets day Carvedilol Amilcar Mendoza, DO 12.5mg Tablets History Medications Clonidine HCL take one tablet by Unknown - 12/02/2018 0.1mg Tablets mouth twice a day Eliquis 1 tab by mouth twice a Unknown - 12/01/2018 5mg Tablets day Vital Signs Date Vital Result Comment 05/22/2018 9:03am BP Systolic Sitting Right Arm 121 mmHg BP Diastolic Sitting Right Arm 66 mmHg Heart Rate 82 /min Respiratory Rate 14 /min Height 62 inches 5'2" Weight 149.00 lb BMI (Body Mass Index) 27.2 kg/m2 BSA (Body Surface Area) 1.69 m2 Latimer body weight in kilograms 50 kg O2 % BldC Oximetry 99 % Results Test Date Facility Test Result H/L Range Note Manual blood N2N/CCD Import Manual blood 27 20-42 lymphocytes/100 018 lymphocytes/100 leukocytes leukocytes Manual blood N2N/CCD Import Manual blood 1 0% metamyelocytes/100 018 metamyelocytes/100 leukocytes leukocytes Manual blood N2N/CCD Import Manual blood 10 0-10 monocytes/100 018 monocytes/100 leukocytes leukocytes Manual blood N2N/CCD Import Manual blood 1 0% myelocytes/100 018 myelocytes/100 leukocytes leukocytes Manual blood N2N/CCD Import Manual blood 58 33-73 segmented 018 segmented neutrophils/100 neutrophils/100 leukocytes leukocytes Monocytes/leuk NFr N2N/CCD Import Monocytes/leuk NFr 12.3 4.3- 13.2 Bld Auto 018 Bld Auto Neutrophils # Bld N2N/CCD Import Neutrophils # Bld 5.10 1.8-7.0 Auto 018 Auto Neutrophils/leuk N2N/CCD Import Neutrophils/leuk 51.4 40.4-72.8 NFr Bld Auto 018 NFr Bld Auto Platelet poor N2N/CCD Import Platelet poor 1.1 0.9-1.1 plasma 018 plasma international international normalized rati normalized ratio (Inr) by coagulation assay (relative time) Potassium N2N/CCD Import Potassium 3.9 3.5-5.1 SerPl-sCnc 018 SerPl-sCnc Prothrombin time N2N/CCD Import Prothrombin time 14.3 12.0-14.4 (PT) in platelet 018 (PT) in platelet poor plasma poor plasma RDW RBC Auto N2N/CCD Import RDW RBC Auto 49.6 High 3-47 018 RDW RBC Auto-Rto N2N/CCD Import RDW RBC Auto-Rto 15.9 High 11.7- 14.4 018 Serum carbon N2N/CCD Import Serum carbon 23 21-32 dioxide measurement 018 dioxide measurement Serum or plasma N2N/CCD Import Serum or plasma 3.4 3.4-5.0 albumin measurement 018 albumin (mass/volume) measurement (mass/volume) Serum or plasma N2N/CCD Import Serum or plasma 79 45-117 alkaline 018 alkaline phosphatase phosphatase measurement ( measurement (enzymatic activity/volume) Serum or plasma N2N/CCD Import Serum or plasma 15 15-37 aspartate 018 aspartate aminotransferase aminotransferase measure measurement (enzymatic activity/volume) Serum or plasma N2N/CCD Import Serum or plasma 9.1 8.5-10.1 calcium measurement 018 calcium (mass/volume) measurement (mass/volume) Serum or plasma N2N/CCD Import Serum or plasma 1.5 High 0.6-1.3 creatinine 018 creatinine measurement measurement (mass/volum (mass/volume) Serum or plasma N2N/CCD Import Serum or plasma 102 74-106 glucose measurement 018 glucose (mass/volume) measurement (mass/volume) Serum or plasma N2N/CCD Import Serum or plasma 2.3 1.8-2.4 magnesium 018 magnesium measurement measurement (mass/volume (mass/volume) Serum or plasma N2N/CCD Import Serum or plasma 8.2 6.4-8.2 protein measurement 018 protein (mass/volume) measurement (mass/volume) Serum or plasma N2N/CCD Import Serum or plasma 0.7 0.2-1.0 total bilirubin 018 total bilirubin measurement (mass/ measurement (mass/volume) Serum or plasma N2N/CCD Import Serum or plasma 31 High 7-18 urea nitrogen 018 urea nitrogen measurement measurement (mass/vo (mass/volume) Serum or plasma N2N/CCD Import Serum or plasma 20.6 urea 018 urea nitrogen/creatinine nitrogen/creatinin mass rati e mass ratio Serum sodium N2N/CCD Import Serum sodium 137 136-145 measurement 018 measurement Unloinc N2N/CCD Import Unloinc Diff 018 Ordered * Miscellaneous N2N/CCD Import * Miscellaneous Test(s) studies (set) 018 studies (set) added Alt SerPl-cCnc N2N/CCD Import Alt SerPl-cCnc 17 12-78 018 Activated partial N2N/CCD Import Activated partial 72.8 High 23.4 -35.0 thromboplastin time 018 thromboplastin (aPTT) in pl time (aPTT) in platelet poor plasma by coagulation assay Albumin/Glob SerPl N2N/CCD Import Albumin/Glob SerPl 0.7 018 Anion Gap N2N/CCD Import Anion Gap 10 8-16 SerPl-sCnc 018 SerPl-sCnc Automated blood N2N/CCD Import Automated blood 0.04 0.0-0.1 basophil count 018 basophil count (count/volume) (count/volume) Automated blood N2N/CCD Import Automated blood 0.52 High 0.0-0.5 eosinophil count 018 eosinophil count Automated blood N2N/CCD Import Automated blood 33.9 Low 36.0- 46.1 hematocrit (volume 018 hematocrit (volume fraction) fraction) Automated blood N2N/CCD Import Automated blood 3.05 1.0-4.0 lymphocyte count 018 lymphocyte count (number/volume) (number/volume) Automated blood N2N/CCD Import Automated blood 287 155-360 platelet count 018 platelet count Automated blood N2N/CCD Import Automated blood 10.4 8.9-12.4 platelet mean 018 platelet mean volume measurement volume measurement Automated N2N/CCD Import Automated 28.8 25.9-32.7 erythrocyte mean 018 erythrocyte mean corpuscular corpuscular hemoglobin hemoglobin (mass per erythrocyte) Automated N2N/CCD Import Automated 32.7 30.8-34.3 erythrocyte mean 018 erythrocyte mean corpuscular corpuscular hemoglobin hemoglobin concentration measurement (mass/volume) Automated N2N/CCD Import Automated 88.1 80.9-99.0 erythrocyte mean 018 erythrocyte mean corpuscular volume corpuscular volume Basophils/leuk NFr N2N/CCD Import Basophils/leuk NFr 0.4 0.0- 1.1 Bld Auto 018 Bld Auto Blood erythrocytes N2N/CCD Import Blood erythrocytes 3.85 Low 3.90-5.40 automated count 018 automated count (number/volume) (number/volume) Blood hemoglobin N2N/CCD Import Blood hemoglobin 11.1 Low 11.6- 15.8 measurement 018 measurement (mass/volume) (mass/volume) Blood leukocytes N2N/CCD Import Blood leukocytes 9.9 3.1-10.7 automated count 018 automated count (number/volume) (number/volume) Blood monocytes N2N/CCD Import Blood monocytes 1.22 High 0.3-0.9 automated count 018 automated count (number/volume) (number/volume) Blood platelet N2N/CCD Import Blood platelet Normal adequacy detection 018 adequacy detection by light microsc by light microscopy Blood total cell N2N/CCD Import Blood total cell 100 count 018 count Chloride SerPl-sCnc N2N/CCD Import Chloride 104 98-107 018 SerPl-sCnc Eosinophil % N2N/CCD Import Eosinophil % 2 0-5 018 Eosinophil/leuk NFr N2N/CCD Import Eosinophil/leuk 5.2 0.0-6.6 Bld Auto 018 NFr Bld Auto GFR/Bsa pred.black N2N/CCD Import GFR/Bsa pred.black 43 >60 SerPl MDRD-ArVRat 018 SerPl MDRD-ArVRat GFR/Bsa pred.non N2N/CCD Import GFR/Bsa pred.non 35 >60 black SerPl 018 black SerPl MDRD-ArVRat MDRD-ArVRat Globulin Ser N2N/CCD Import Globulin Ser 4.8 High 1.9-4.3 Calc-mCnc 018 Calc-mCnc Lymphocytes/leuk N2N/CCD Import Lymphocytes/leuk 30.7 20.0-42.0 NFr Bld Auto 018 NFr Bld Auto Manual blood N2N/CCD Import Manual blood 1 0-2 basophils/100 018 basophils/100 leukocytes leukocytes Serum or plasma N2N/CCD Import Serum or plasma 0.074 troponin i.cardiac 018 troponin i.cardiac measurement (ma measurement (mass/volume) Serum or plasma N2N/CCD Import Serum or plasma 114 26-192 creatine kinase 018 creatine kinase measurement (enzym measurement (enzymatic activity/volume) Blood ovalocytes N2N/CCD Import Blood ovalocytes 2+ detection by light 018 detection by light microscopy microscopy Blood N2N/CCD Import Blood 2+ poikilocytosis 018 poikilocytosis detection by light detection by light microscopy microscopy Unloinc N2N/CCD Import Unloinc . 018 pH Ur Strip.auto N2N/CCD Import pH Ur Strip.auto 5.5 Low 6.5-7.5 018 Urobilinogen Ur N2N/CCD Import Urobilinogen Ur 0.2 0.2-1.0 Strip-aCnc 018 Strip-aCnc Urine total N2N/CCD Import Urine total Negative Negative bilirubin detection 018 bilirubin by automated test detection by automated test strip Urine hemoglobin N2N/CCD Import Urine hemoglobin Negative Negative detection by 018 detection by automated test automated test strip strip Urine glucose N2N/CCD Import Urine glucose Negative Negative measurement by 018 measurement by automated test automated test strip strip (mass/volume) Urine appearance N2N/CCD Import Urine appearance Clear Clear determination 018 determination Specific gravity of N2N/CCD Import Specific gravity 1.020 1.010- 1.03 Urine by Automated 018 of Urine by 0 test strip Automated test strip Prot Ur N2N/CCD Import Prot Ur Negative Negative Strip.auto-mCnc 018 Strip.auto-mCnc Nitrite Ur Ql N2N/CCD Import Nitrite Ur Ql Negative Negative Strip.auto 018 Strip.auto Leukocyte esterase N2N/CCD Import Leukocyte esterase Trace High Negative Ur Ql Strip.auto 018 Ur Ql Strip.auto Ketones Ur N2N/CCD Import Ketones Ur Negative Negative Strip.auto-mCnc 018 Strip.auto-mCnc Epithelial cells N2N/CCD Import Epithelial cells Few None Seen detection in urine 018 detection in urine sediment by li sediment by light microscopy Color Ur N2N/CCD Import Color Ur Yellow Yellow 018 Bacterial urine N2N/CCD Import Bacterial urine No Growth: culture 018 culture Final Report Bacteria detection N2N/CCD Import Bacteria detection Few None Seen in urine sediment 018 in urine sediment by light micr by light microscopy Amorphous sediment N2N/CCD Import Amorphous sediment Very Few Negative detection in urine 018 detection in urine sediment by sediment by light microscopy Stool occult blood N2N/CCD Import Stool occult blood Negative Negative 018 Blood manual N2N/CCD Import Blood manual Large differential 018 differential Platelets comment comment Present. interpretation ( interpretation (narrative result) Procedures Date Code Description Status 01/30/2019 85545 Eye Exam Est Patient Comprehensive Completed 01/03/2019 11209 Visual Field Exam Extended, Unilateral Or Bilateral Completed 01/03/2019 25758 Eye Exam Est Patient Comprehensive Completed 12/02/2018 76612 Fundus Photography W/Interpretation & Report Completed 12/02/2018 57662 Eye Exam New Patient Comprehensive Completed 05/13/2018 75289 EKG Interpretation And Report Only Completed 05/13/2018 28624 Insert or replace pacemaker with electrodes, atrial & Completed ventricle 05/10/2018 77608 EKG Interpretation And Report Only Completed 05/10/2018 70425 EKG Interpretation And Report Only Completed 05/09/2018 93715 Echocardiogram Complete Completed Encounters Type Date Location Provider Dx Diagnosis Office Visit 05/22/2018 Surgical Office [facility] Syncope and 8:45a Wisam Marcus M.D. collapse I48.1 Persistent atrial fibrillation Plan of Treatment Future Appointment(s):07/08/2019 10:15 am - Emre Agarwal MD at [facility]/ 10/2018 - Wisam Nunez M.D.R55 Syncope and collapseComments:Doing well following pacemaker generator placement. Medication adjustment now per the cardiology team. Follow up here as needed; anticipate battery change will be needed between 7-10 years based on initial interrogation.Continue sling use for a total of 2 weeks following device placement.I48.1 Persistent atrial fibrillation
[2019-02-26] MEDS: Morphine 10 MG/ML VIAL (1 ml) IV PRN ×2 (11:43→15:25)
[2019-02-26] MEDS ORDERED: Morphine 4 MG/ML VIAL (1 ml) 4 MG/ML VIAL IV ONE (12:18)
[2019-02-26 12:20] LABS: ABS Eosinophils 0.1 10^3/ul (0-0.6); ABS Lymphocytes 1.1 10^3/ul (1.0-4.8); ABS Monocytes 0.7 10^3/ul (0-0.8); Eosinophil % 0.6 %; Hematocrit 32 % (35-47); Hemoglobin 10.3 g/dL (12.0-16.0); Lymphocyte % 8.7 %; Mean Corpuscular HGB Conc 33 g/dL (31-36); Mean Corpuscular Hemoglobin 28 pg (27-31); Mean Corpuscular Volume 84 fL (80-97); Platelet Count 151 10^3/uL (150-450); Red Blood Count 3.76 10^6 /uL (3.70-4.87); Red Cell Distribution Width 20 % (10-15); White Blood Count 12.9 10^3/uL (3.5-10.8)
[2019-02-26 12:39] LABS: BUN/Creatinine Ratio 24.9 (8-20); Calcium 9.6 mg/dL (8.6-10.3); EGFR African American 29.3 (>60); EGFR Non-African American 24.2 (>60); Potassium 5.1 mmol/L (3.5-5.0)
[2019-02-26] MEDS ORDERED: Ondansetron INJ* 2 MG/ML VIAL IV PRN (14:02)
[2019-02-26] MEDS ORDERED: Acetaminophen TAB* 325 MG PO PRN ×2 (14:02→20:00)
[2019-02-26] MEDS ORDERED: oxyCODONE/Acetamin 5/325 MG* TAB PO PRN (14:02)
[2019-02-26] MEDS ORDERED: Al Hydrox/Mg Hydrox/Simet LIQ* 30 ML UDC PO PRN (14:02)
[2019-02-26] MEDS ORDERED: Morphine INJ* 2 MG/ML 1 ML SYRINGE (TWO MG - NEW SYRINGE VERSION) IV PRN ×2 (14:02→19:59)
[2019-02-26 15:33] LABS: Urine Appearance Cloudy; Urine Bacteria Absent (Absent); Urine Bilirubin Negative (Negative); Urine Blood Negative (Negative); Urine Color Yellow; Urine Glucose Negative (Negative); Urine Ketones Negative (Negative); Urine Nitrite Negative (Negative); Urine Protein Negative (Negative); Urine Red Blood Cell Trace(0-2/hpf) (Absent); Urine Specific Gravity 1.013 (1.010-1.030); Urine Urobilinogen Negative (Negative); Urine White Blood Cell 3+(>20/hpf) (Absent)
[2019-02-26] MEDS ORDERED: Losartan TAB* 25 MG PO SCH (16:00)
[2019-02-26] MEDS: Citalopram TAB* 10 MG PO SCH (16:58)
[2019-02-26] MEDS: NS 0.9% 1000 ML** 1,000 ML IV SCH (16:58)
[2019-02-26] MEDS: Atorvastatin* 80 MG TAB PO SCH (16:58)
[2019-02-26] MEDS: Aspirin 81 mg CHEW TAB* 81 MG TAB.CHEW PO SCH (16:58)
[2019-02-26 21:35] LABS: BUN/Creatinine Ratio 25.5 (8-20); Calcium 8.9 mg/dL (8.6-10.3); EGFR African American 27.5 (>60); EGFR Non-African American 22.7 (>60); Potassium 5.5 mmol/L (3.5-5.0)
--- NOTE | 2019-02-26 21:47 | CONS ---
CONSULTATION REPORT: DATE OF CONSULT: 02/26/19 REASON FOR CONSULTATION: Right-sided pelvis fracture. HISTORY OF PRESENT ILLNESS: The patient is an 83-year-old woman, lives alone, uses a walker more than she uses a cane, and admits to frequent falls with a distant past history of right total hip arthroplasty and revision total hip arthroplasty surgery, who presented to the emergency department at [facility] [place] after a fall at home, and in whom x-rays diagnosed a right pubic ramus fracture. The patient states that she had a right total hip replacement in this hospital and then a revision right total hip replacement at [facility] in [place]. These were in the distant past. The patient states that she falls often. She thought that she sprained her right ankle several weeks ago. She acknowledges that sometimes she will have some numbness on her right foot after a fall. Today, this morning around 8 a.m., the patient tripped on something in her apartment and fell onto her right side. She was taken by EMS to the emergency room where x-ray showed fracture. Emergency room staff contacted me with the x-rays. They showed a right total hip arthroplasty in place with the acetabular cup quite medial, through the inner table of the pelvis. There was also an inferior pubic ramus or ischial ramus fracture. Especially given the position of the cup, I wanted to make sure that there was not an under appreciated fracture adjacent to the cup and so I requested that a CT pelvis be ordered. It was ordered and the patient was admitted to the hospitalist service. I agreed to do a consultation for the hospitalist service. PAST MEDICAL HISTORY: Congestive heart failure, coronary artery disease, hypercholesterolemia, valvular heart disease, sleep apnea, nosebleeds, irritable bowel syndrome, chronic renal failure, osteoarthritis of multiple joints, contact lens or glasses, chronic headaches. PAST SURGICAL HISTORY: Partial hysterectomy in 1972, left patella open reduction internal fixation, right shoulder rotator cuff repair, left thumb surgery, right total hip arthroplasty in 2010, right total hip arthroplasty revision in 2013. Heart surgery in 2008, unclear if this was cardiac surgery or an interventional cardiology procedure such as stenting. MEDICATIONS: Medications using in the hospital: 1. Tylenol p.r.n. 2. Simethicone p.r.n. 3. Aspirin 81 mg p.o. daily. 4. Atorvastatin. 5. Carvedilol. 6. Citalopram. 7. Heparin 5000 units subcutaneous q.8 hours. 8. Lorazepam p.r.n. at bedtime. 9. Morphine p.r.n. 10. Multivitamins. 11. Ondansetron. 12. Percocet p.r.n. 13. Ticagrelor. ALLERGIES: AMLODIPINE, AMOXICILLIN, CAPTOPRIL, DIGOXIN, DILTIAZEM, HYDROCHLOROTHIAZIDE, LISINOPRIL, NIFEDIPINE, OLMESARTAN, PAROXETINE, SERTRALINE , ADHESIVE TAPE, ELIQUIS, CODEINE, MORPHINE. FAMILY HISTORY: Noncontributory. SOCIAL HISTORY: Lives alone. Uses a walker or cane. Has never smoked tobacco. REVIEW OF SYSTEMS: The patient describes right groin pain. She denies right thigh pain. She was uncertain if she had any right foot numbness. The patient falls often. PHYSICAL EXAMINATION: Afebrile. Vital signs stable. No acute distress, nontoxic appearing, alert and oriented, appropriate mood and affect, appropriate dress and hygiene, well coordinated bilateral upper and lower extremities. The patient is lying supine in the hospital bed. The patient has a pill underneath her right knee. Sensation fully intact down the right lower extremity including about the foot. Foot is warm and well perfused. The patient has pain with passive range of motion of the right hip, even just 45 degrees of flexion or rotation. This pain is all about the right groin. No thigh pain. The patient acknowledges she might have some posterior pelvic pain as well with range of motion of hip. DIAGNOSTIC STUDIES/LAB DATA: Imaging: CT scan of the pelvis from earlier today demonstrates a minimally displaced inferior pubic ramus or ischial ramus fracture. Acetabular cup component is fully intact. No fracture adjacent. Femoral stem is well anchored. No clear loosening. No periprosthetic fracture there. I can see on CT scan 2 cm distal to the distal stem of the femoral implant. Right hip x-rays also from today are allowed me to visualize further distal to the distal stem of the femoral prosthesis, 12 cm. No periprosthetic fracture. It seems the patient also had x-ray views of the right ankle obtained , which demonstrate no fracture, 2 views. ASSESSMENT: 1. Right inferior pubic ramus fracture, minimally displaced. 2. Possible right sacrum ala small chip fracture. 3. History of revision right total hip arthroplasty. PLAN: 1. The patient is in significant discomfort. Pain control is needed. 2. Weightbearing as tolerated to right lower extremity. 3. The patient can follow up with me in 4 weeks in clinic. 4. Disposition per hospitalist service. 5. Given the patient's significant level of pain, which is slightly more than I typically see with pubic ramus fractures, although this is within the realm of normal, I will obtain x-rays of the right femur and right knee to rule out fracture distal to the hip replacement. [id number]/[facility]PS #: [id number] MTDD
--- NOTE | 2019-02-26 22:04 | HP ---
CC: Dr. Mendoza.* HISTORY AND PHYSICAL: DATE OF ADMISSION: 02/26/19 PRIMARY CARE PHYSICIAN: Dr. Mendoza. ATTENDING PHYSICIAN WHILE IN THE HOSPITAL: Dr. Laura Perez * (dictated by SABA Ignacio). CHIEF COMPLAINT: Fall and hip pain. HISTORY OF PRESENT ILLNESS: Samantha Fuentes is an 83-year-old white female with a past medical history significant for coronary artery disease, status post stent to the RCA in December 2018; atrial fibrillation, status post pacemaker; BERNABE; hypertension; IBS, who presents to the emergency department via EMS from her home after a mechanical fall. The patient reports she was getting out of bed this morning because she heard her phone ringing and her toe got caught on the carpet next to her bed and she fell out of bed and onto the floor. She hit her head on her dresser next to the bed. She denies loss of consciousness, but does note she has a headache at the time of evaluation. She immediately was in pain after she fell on her right side and was unable to get off the floor. She was able to call EMS who had helped her up from the floor and brought to the emergency department. She reports experiencing 10/10 right-sided hip pain, which was moderately relieved with morphine given in the emergency department and now experiences 7/10 pain. She admits that at baseline she has some right leg weakness. She has been seen in physical therapy for it on outpatient basis and at the time of evaluation she was experiencing tingling in her right toes. The patient additionally mentions she had a fall 3 weeks ago and is unclear why. She reportedly had her leg suddenly give out from under her and felt a twisting sensation in her ankle and reportedly heard a pop of her right ankle. She was evaluated at [facility]. The patient reports she had no imaging at that point and was told to elevate and ice her ankle. She has been feeling improvement of her right ankle pain and the patient denies change in vision, difficulty breathing, chest pain, fever, chills, abdominal pain, nausea, vomiting, unilateral weakness. ED COURSE: The patient arrived to the emergency department. Vital Signs: Temperature 98.2, heart rate 88, respiratory rate 16, oxygen saturation 95% on room air, blood pressure 122/82. The patient had a pelvis CT which demonstrated fracture and hospitalists were then asked to evaluate the patient for admission. PAST MEDICAL HISTORY: 1. Coronary artery disease, status post stent to RCA in December 2018. 2. Atrial fibrillation, status post permanent pacemaker, recent interrogation demonstrating over 50% AFib burden. 3. Hyperlipidemia. 4. Hypertension. 5. BPPV. 6. Pulmonary hypertension. 7. BERNABE, not using CPAP. 8. IBS. 9. History of cholelithiasis. PAST SURGICAL HISTORY: 1. PPM placement in 2018. 2. Tonsillectomy. 3. Right total hip arthroplasty. 4. Arthrodesis of forearm. 5. Knee surgery. 6. Pericardial window due to history of pericarditis. HOME MEDICATIONS: 1. Aspirin 81 mg p.o. daily. 2. Spironolactone 25 mg p.o. daily. 3. Atorvastatin 80 mg p.o. daily. 4. Brilinta 90 mg p.o. b.i.d. 6. Mupirocin 1 application topical b.i.d. 7. Multivitamin tab p.o. daily. 8. Ativan 0.5 mg p.o. at bedtime p.r.n. insomnia. 9. Irbesartan 300 mg p.o. daily. 10. Lasix 20 mg p.o. daily. 11. Citalopram 10 mg p.o. daily. 12. Carvedilol 12.5 mg p.o. b.i.d. 13. Tylenol 650 mg p.o. q.4 hours p.r.n. pain. ALLERGIES: The patient has a long list of allergies on her allergy list, however, all of these appear to be side effects and the patient confirms she has never had true anaphylaxis. This list includes AMLODIPINE, CAPTOPRIL, DIGOXIN, DILTIAZEM, HYDROCHLOROTHIAZIDE, LISINOPRIL, NIFEDIPINE, OLMESARTAN, PAROXETINE, SERTRALINE, ADHESIVE TAPE, APIXABAN, CODEINE, MORPHINE. Of note - the patient had epistaxis from APIXABAN, which was discontinued for this reason. FAMILY HISTORY: Father in his 50s of [place] and he had a history of hypertension. Mother in her 60s of [place]. Her medical history is unknown. Sister at 67 of [place]. SOCIAL HISTORY: The patient is a and lives alone. She has 6 children. She denies tobacco use, drug use, alcohol use and she has never been a smoker. She like her daughter, Prachi Lopez, to be her surrogate medical decision maker should she need one. Her phone number [phone]. REVIEW OF SYSTEMS: An 11-point review of systems was completed and all pertinent positives and negatives are above in the HPI. All other systems are negative. PHYSICAL EXAMINATION GENERAL: Elderly, white overweight female, lying supine in ED stretcher, appearing in no acute distress. HEENT: Head: Fading ecchymosis to left aspect of forehead. Eyes: PERRL. Sclerae anicteric. ENT: Lips appear dry. NECK: Supple. LUNGS: Clear to auscultation throughout. CARDIO: Regular rate and rhythm without murmurs, rubs, or gallops. ABDOMEN: Abdomen is soft, nontender and nondistended. EXTREMITIES: Posterior tibialis 3/4 bilaterally. Extremities are warm. No clubbing, cyanosis, or edema. NEURO: The patient is alert and oriented x4. Speech is clear. Strength is 5/ 5 in all extremities. The patient is unable to flex bilateral hips due to pain. The patient is able to flex and extend all toes bilaterally. Sensation to light touch is intact throughout and symmetrical including in all toes. SKIN: Warm, dry and intact. DIAGNOSTIC STUDIES/LAB DATA: White blood cell count 12.9, hemoglobin 10.3, hematocrit 32, platelet count 151. Sodium 137, potassium 5.1, chloride 107, carbon dioxide 23, anion gap 7, BUN 49, creatinine 1.97, glucose 104. Hip/pelvis x-ray. Impression: Right os perineum and inferior pubic ramus fractures. CT pelvis. Impression: Fracture of the inferior pubic ramus. There is also a nondisplaced fracture of the right lateral sacral ala. ASSESSMENT AND PLAN: Samantha Fuentes is n 83-year-old white female with a past medical history significant for coronary artery disease, status post stent; atrial fibrillation, status post permanent pacemaker; hypertension; hyperlipidemia and obstructive sleep apnea, noncompliant with CPAP, who presents to the emergency department status post mechanical fall. The patient will be admitted for: 1. Pelvis fracture. Dr. Trujillo has been consulted and will be personally reviewing the pelvis CT given that the patient has a history of right total hip arthroplasty. She will remain on bedrest until evaluation by Dr. Trujillo who will further determine her ability to ambulate and recommend surgical intervention versus conservative therapy. The patient will have pain control with p.r.n. Tylenol, p.r.n. Percocet and p.r.n. morphine. Physical Therapy has been consulted. 2. Mechanical fall. The patient experienced trauma, a mechanical fall and I will order CT brain to rule out hemorrhage especially given that the patient is on Brilinta. She is neurologically within normal limits at this point. She is neurovascularly intact despite symptomatic complaints of numbness to the toes, but her sensation is intact and symmetrical. Additionally, given her fall 3 weeks ago, I have ordered imaging of her right ankle especially considering the symptomatic numbness to rule out fracture. 3. Acute kidney injury. The patient's BUN and creatinine pattern consistent with dehydration, most likely prerenal and the patient does appear dry. I will order normal saline at 100 cc continuously and recheck in the morning. Her creatinine today is 1.97 and her baseline within the past 2 years seems to have fluctuated and it is unclear if she develops chronic kidney disease based on the previous labs in the EMR. I will hold her home spironolactone, Lasix and MILA inhibitor in the setting of acute kidney injury and avoid Toradol for pain control for this reason. 4. Hyperkalemia. The patient has a very mild hyperkalemia to 5.1. Given the mild elevation, I will not order at this time and we will monitor tomorrow. Her spironolactone is held as previously mentioned. 5. Leukocytosis. The patient was found to have a leukocytosis of 12.9. She does not appear to be toxic. She is afebrile. This is likely due to the stress of her mechanical fall and severe pain, however, I will rule out other source of infection by checking a urinalysis, a reflux urine culture and chest x -ray to rule out pneumonia. 6. FEN: I will order a heart-healthy diet without caffeine, normal saline continuously as previously mentioned and we will monitor hyperkalemia as previously mentioned. 7. Code status: The patient is DNR/DNI and MOLST has been updated. 8. DVT prophylaxis: The patient has a DVT risk score of 3 and I have ordered subcu heparin t.i.d. TIME SPENT: Approximately 50 minutes was spent on this admission, approximately half this time was spent at bedside. SABA IGNACIO [id number]/[facility] #: [id number] [facility] CENTERAnton
[2019-02-26] MEDS: Carvedilol TAB* 6.25 MG PO SCH (23:00)
[2019-02-26] MEDS: Ticagrelor* 90 MG TAB PO SCH (23:01)
[2019-02-26] MEDS: oxyCODONE/Acetamin 5/325 MG* TAB PO PRN (23:01)
[2019-02-26] MEDS: Heparin VIAL(*) 5000 UNITS/ML VIAL (FIVE THOUSAND) SUBCUT SCH (23:02)
[2019-02-27] MEDS: oxyCODONE/Acetamin 5/325 MG* TAB PO PRN ×4 (02:30→22:17)
[2019-02-27] MEDS: NS 0.9% 1000 ML** 1,000 ML IV SCH ×2 (03:00→13:44)
[2019-02-27] MEDS: Heparin VIAL(*) 5000 UNITS/ML VIAL (FIVE THOUSAND) SUBCUT SCH ×3 (05:52→22:18)
[2019-02-27 08:26] LABS: Anion Gap 5 mmol/L (2-11); BUN/Creatinine Ratio 29.5 (8-20); Blood Urea Nitrogen 54 mg/dL (6-24); CO2 Carbon Dioxide 22 mmol/L (22-32); Calcium 8.7 mg/dL (8.6-10.3); Chloride 108 mmol/L (101-111); EGFR African American 31.9 (>60); EGFR Non-African American 26.4 (>60); Glucose 104 mg/dL (70-100); Potassium 4.9 mmol/L (3.5-5.0); Sodium 135 mmol/L (135-145)
[2019-02-27 09:29] LABS: ABS Eosinophils 0.4 10^3/ul (0-0.6); ABS Monocytes 0.7 10^3/ul (0-0.8); ABS Neutrophils 6.3 10^3/ul (1.5-7.7); Eosinophil % 4.3 %; Hematocrit 28 % (35-47); Mean Corpuscular HGB Conc 32 g/dL (31-36); Mean Corpuscular Hemoglobin 28 pg (27-31); Mean Corpuscular Volume 87 fL (80-97); Mean Platelet Volume 8.4 fL (7.4-10.4); Platelet Count 133 10^3/uL (150-450); Red Blood Count 3.24 10^6 /uL (3.70-4.87); Red Cell Distribution Width 20 % (10-15); White Blood Count 8.4 10^3/uL (3.5-10.8)
[2019-02-27] MEDS: Ticagrelor* 90 MG TAB PO SCH ×2 (10:23→22:17)
[2019-02-27] MEDS: Citalopram TAB* 10 MG PO SCH (10:23)
[2019-02-27] MEDS: Aspirin 81 mg CHEW TAB* 81 MG TAB.CHEW PO SCH (10:23)
[2019-02-27] MEDS: Multivitamins/Minerals TAB PO SCH (10:23)
[2019-02-27] MEDS: Carvedilol TAB* 6.25 MG PO SCH ×2 (10:28→22:16)
--- NOTE | 2019-02-27 10:38 | PN ---
Subjective Date of Service: 02/27/19 Interval History: Pt states she is doing better today. She continues to have pain in the R groin area, but notes that she is better able to move to E. She continues to have difficulty moving RLE and pain with movement. She has not been up yet, has not worked with PT yet today. She states pain is 6/10 now, last pain rx was overnight appx 0230. She c/o muscle spasms in RLE. She has ok PO intake. No BM in approximately 2 days. Objective Active Medications: Acetaminophen (Tylenol Tab*) 650 mg PO Q4H PRN Al Hydrox/Mg Hydrox/Simethicone (Maalox Plus*) 30 ml PO Q6H PRN Aspirin (Aspirin 81 Mg Chew Tab*) 81 mg PO DAILY [facility] Atorvastatin Calcium (Lipitor*) 80 mg PO 1700 [facility] Carvedilol (Coreg Tab*) 12.5 mg PO BID [facility] Citalopram Hydrobromide (Celexa Tab*) 10 mg PO DAILY [facility] Heparin Sodium (Porcine) (Heparin Vial(*)) 5,000 units SUBCUT Q8HR [facility] Sodium Chloride (Ns 0.9% 1000 Ml) 1,000 mls @ 100 mls/hr IV PER RATE [facility] Lorazepam (Ativan Tab(*)) 0.5 mg PO BEDTIME PRN Morphine Sulfate (Morphine 10 Mg/Ml Vial (1 Ml)) 4 mg IV Q1H PRN Morphine Sulfate (Morphine Inj (Syringe))*) 2 mg IV Q4H PRN Multivitamins/Minerals (Theragran/Minerals Tab*) 1 tab PO DAILY [facility] Ondansetron HCl (Zofran Inj*) 4 mg IV Q4H PRN Oxycodone/Acetaminophen (Percocet 5/325 Tab*) 1 tab PO Q4H PRN Ticagrelor (Brilinta*) 90 mg PO BID [facility] Vital Signs: Temp Pulse Resp BP Pulse Ox 97.9 F 79 18 92/40 94 02/27/19 04:00 02/27/19 04:00 02/27/19 04:40 02/27/19 04:00 02/27/19 04:00 Oxygen Devices in Use Now: None Appearance: Pt is sitting in bed with RLE elevated on pillow. She moves infrequently. She appears to be in no acute distress, but has discomfort with movement. Eyes: No Scleral Icterus, PERRLA Ears/Nose/Mouth/Throat: Clear Oropharnyx, Mucous Membranes Moist Neck: NL Appearance and Movements; NL JVP, Trachea Midline Respiratory: Symmetrical Chest Expansion and Respiratory Effort, Clear to Auscultation Cardiovascular: NL Sounds; No Murmurs; No JVD, RRR, No Edema Abdominal: NL Sounds; No Tenderness; No Distention, No Hepatosplenomegaly Extremities: No Edema, No Clubbing, Cyanosis Neurological: Alert and Oriented x 3, - - B/L UE with full ROM. LLE with good ROM; RLE ROM decreased due to pain. Able to move distal extremities, cap refill intact, sensation intact. Result Diagrams: 02/27/19 07:19 02/27/19 07:19 Assess/Plan/Problems-Billing Assessment: 83 yof PHx CAD, AF with PPM, HTN, HLD, anemia, BPPV, pulmonary HTN, BERNABE presents after fall with pelvic fracture and MICHAEL. - Patient Problems (1) Pelvic fracture Comment: -Ortho consulted; thank you for the recommendations -X-rays negative for hip, knee, ankle fracture -WBAT RLE -Continue pain management with tylenol, percocet, morphine prn -Flexeril added prn for spasms -PT/OT ordered -PIYUSH placement -F/U with Dr. Trujillo in 4 wks (2) UTI (urinary tract infection) Comment: -UA with 3+ LE, cx grown E. coli -Ceftriaxone 1g IV daily ordered (3) Acute kidney injury Comment: -Cr improving with IVF -Continue to hold avapro, lasix, spironolactone -Will continue with NS at 100cc/h -Repeat labs in a.m. (4) Hypertension Comment: -BP low to normal -Continue carvedilol -Holding diuretics, avapro; monitor need to restart another agent (5) Anemia Comment: -Pt states she has h/o iron deficiency anemia, but is unable to tolerate PO iron d/t GI upset -H/H low and decreased overnight -Iron studies WNL -Stool for occult blood ordered -Continue to monitor H/H (6) Afib Comment: -Does not appear to be on anticoagulation -Continue carvedilol (7) HLD (hyperlipidemia) Comment: -Continue atorvastatin (8) DVT prophylaxis Comment: -Heprin SQ (9) DNR (do not resuscitate) Comment: Status and Disposition: Inpatient. Awaiting placement in [facility].
[2019-02-27 11:52] LABS: % Iron Saturation 22 % (15-55); Iron 68 ug/dL (50-212); Total Iron Binding Capacity 316 mcg/dL (250-450); Transferrin 226 mg/dL (203-362)
[2019-02-27 12:14] LABS: Ferritin 162.1 ng/mL (11-307)
--- NOTE | 2019-02-27 16:02 | PN ---
Progress Note - Progress Note Date of Service: 02/27/19 SOAP: Subjective: [Pt was seen this afternoon sitting in bed. She states that the pain is improving since yesterday. She denies any numbness, tingling, sob or chest pain ] Objective: [General: Pt is alert and oriented x 3. NAD, appropriate mood, affect, dress and hygiene. MSK, RLE: No TTP along the knee, or the length of the femur. She does have bruising at various stages of healing throughout the leg. ROM is limited but she is non painful with logroll. ] Vital Signs Temp 97.9 F 02/27/19 04:00 Pulse 79 02/27/19 04:00 Resp 14 02/27/19 14:55 BP 92/40 02/27/19 04:00 Pulse Ox 94 02/27/19 04:00 Intake & Output 02/26/19 02/27/19 02/27/19 18:59 06:59 18:59 Intake Total 480 1240 Output Total 600 Balance -120 1240 Weight 154 lb 8 oz Intake: IV Fluids 1000 Oral 480 240 Output: Urine 0 Blabuena 600 Other: # Bowel Movements 0 Assessment: Right inferior pubic ramus fracture Plan: [- Continue with pain control - Continue with WBAT - Knee and femur xrays were reviewed. No fracture seen - Follow up with Dr. Trujillo in 4 weeks in clinic ]
[2019-02-27] MEDS: Atorvastatin* 80 MG TAB PO SCH (16:26)
[2019-02-27] MEDS: cefTRIAXone(*) 1 GM in NS 0.9% 50 ML* 50 ML IVPB SCH (16:26)
[2019-02-27] MEDS: LORazepam TAB(*) 0.5 MG PO PRN (22:17)
[2019-02-28] MEDS: NS 0.9% 1000 ML** 1,000 ML IV SCH ×2 (02:29→16:33)
[2019-02-28] MEDS: oxyCODONE/Acetamin 5/325 MG* TAB PO PRN ×4 (04:53→22:36)
[2019-02-28] MEDS: Heparin VIAL(*) 5000 UNITS/ML VIAL (FIVE THOUSAND) SUBCUT SCH (04:54)
[2019-02-28 06:27] LABS: Hematocrit 23 % (35-47); Hemoglobin 7.7 g/dL (12.0-16.0); Mean Corpuscular HGB Conc 34 g/dL (31-36); Mean Corpuscular Hemoglobin 28 pg (27-31); Mean Corpuscular Volume 84 fL (80-97); Mean Platelet Volume 8.4 fL (7.4-10.4); Platelet Count 101 10^3/uL (150-450); Red Blood Count 2.73 10^6 /uL (3.70-4.87); Red Cell Distribution Width 20 % (10-15); White Blood Count 8.7 10^3/uL (3.5-10.8)
[2019-02-28 06:46] LABS: BUN/Creatinine Ratio 30.1 (8-20); Calcium 8.5 mg/dL (8.6-10.3); EGFR African American 35.7 (>60); EGFR Non-African American 29.5 (>60); Potassium 4.9 mmol/L (3.5-5.0)
[2019-02-28] MEDS: Carvedilol TAB* 6.25 MG PO SCH ×2 (10:20→22:30)
[2019-02-28] MEDS: Multivitamins/Minerals TAB PO SCH (10:20)
[2019-02-28] MEDS: Aspirin 81 mg CHEW TAB* 81 MG TAB.CHEW PO SCH (10:20)
[2019-02-28] MEDS: Ticagrelor* 90 MG TAB PO SCH ×2 (10:21→22:30)
[2019-02-28] MEDS: Cyclobenzaprine TAB* 10 MG PO PRN (10:21)
[2019-02-28] MEDS: Citalopram TAB* 10 MG PO SCH (10:21)
[2019-02-28] MEDS: cefTRIAXone(*) 1 GM in NS 0.9% 50 ML* 50 ML IVPB SCH (15:42)
[2019-02-28] MEDS: Polyethylene Glycol 3350* 17 GM PACKET PO PRN (16:15)
[2019-02-28] MEDS: Atorvastatin* 80 MG TAB PO SCH (16:15)
--- NOTE | 2019-02-28 18:28 | PN ---
Subjective Date of Service: 02/28/19 Interval History: LATE ENTRY Pt notes she had burning during urination recently. She also c/o bladder pain/ pressure, which is resolving. She is being treated for UTI. Pt denies BM in last 3 days. She continues to have worsening anemia. She admits to "black" BM in the past, which she blamed on iron pills. She denies hematemesis, hematochezzia, BRBPR. Admits to dizziness, lightheadedness, shortness of breath. Pt takes no anticoagulants, but is on Brillinta, ASA. She continues to have difficulty with movement and R groin pain. Objective Active Medications: Acetaminophen (Tylenol Tab*) 650 mg PO Q4H PRN Al Hydrox/Mg Hydrox/Simethicone (Maalox Plus*) 30 ml PO Q6H PRN Aspirin (Aspirin 81 Mg Chew Tab*) 81 mg PO DAILY [facility] Atorvastatin Calcium (Lipitor*) 80 mg PO 1700 [facility] Carvedilol (Coreg Tab*) 12.5 mg PO BID [facility] Citalopram Hydrobromide (Celexa Tab*) 10 mg PO DAILY [facility] Cyclobenzaprine HCl (Flexeril Tab*) 10 mg PO BID PRN Docusate Sodium (Colace Cap*) 100 mg PO BID [facility] Sodium Chloride (Ns 0.9% 1000 Ml) 1,000 mls @ 100 mls/hr IV PER RATE [facility] Ceftriaxone Sodium 1 gm/ (Sodium Chloride) 50 mls @ 100 mls/hr IVPB Q24H [facility] Lorazepam (Ativan Tab(*)) 0.5 mg PO BEDTIME PRN Morphine Sulfate (Morphine Inj (Syringe))*) 2 mg IV Q4H PRN Multivitamins/Minerals (Theragran/Minerals Tab*) 1 tab PO DAILY [facility] Ondansetron HCl (Zofran Inj*) 4 mg IV Q4H PRN Oxycodone/Acetaminophen (Percocet 5/325 Tab*) 1 tab PO Q4H PRN Polyethylene Glycol/Electrolytes (Miralax*) 17 gm PO DAILY PRN Senna (Senokot Tab*) 1 tab PO BEDTIME PRN Ticagrelor (Brilinta*) 90 mg PO BID [facility] Vital Signs: Temp Pulse Resp BP Pulse Ox 97.4 F 79 18 111/61 89 02/28/19 11:15 07/19/19 11:15 02/28/19 16:21 02/28/19 11:15 02/28/19 11:15 Oxygen Devices in Use Now: None Appearance: Pt is sitting up in chair. She is pleasant, cooperative, appropriate. Pt transfers from chair to bed with difficulty; she is using walker and assist. Painful movements, but no acute distress. Eyes: No Scleral Icterus, PERRLA Ears/Nose/Mouth/Throat: NL Teeth, Lips, Gums, Clear Oropharnyx Neck: NL Appearance and Movements; NL JVP, Trachea Midline Respiratory: Symmetrical Chest Expansion and Respiratory Effort, Clear to Auscultation Cardiovascular: NL Sounds; No Murmurs; No JVD, RRR, No Edema Abdominal: NL Sounds; No Tenderness; No Distention, No Hepatosplenomegaly Extremities: No Edema, No Clubbing, Cyanosis, - - L groin ecchymosis Neurological: Alert and Oriented x 3, NL Sensation, - - Difficulty with ambulation, especially use of RLE Result Diagrams: 02/28/19 05:47 02/28/19 05:47 Microbiology and Other Data: Microbiology 02/28/19 10:30 Stool Occult Blood (DORIS) - Final Stool 02/26/19 15:20 Urine Culture - Final Urine Escherichia Coli 02/26/19 21:07 Aerobic Blood Culture - Preliminary Blood Venous No Growth Day 1 Anaerobic Blood Culture - Preliminary No Growth Day 1 02/26/19 21:10 Aerobic Blood Culture - Preliminary Blood Venous No Growth Day 1 Anaerobic Blood Culture - Preliminary No Growth Day 1 Assess/Plan/Problems-Billing Assessment: 83 yof PHx CAD, AF with PPM, HTN, HLD, anemia, BPPV, pulmonary HTN, BERNABE presents after fall with pelvic fracture and MICHAEL. - Patient Problems (1) Pelvic fracture Comment: -Ortho consulted; thank you for the recommendations -X-rays negative for hip, knee, ankle fracture -WBAT RLE -Continue pain management with tylenol, percocet, morphine prn -Flexeril added prn for spasms -PT/OT ordered -PIYUSH placement pending -F/U with Dr. Trujillo in 4 wks (2) Anemia Comment: -Pt states she has h/o iron deficiency anemia, but is unable to tolerate PO iron d/t GI upset -Iron studies WNL -H/H low and continues to decrease; 1U PRBC ordered -Stool for occult blood negative -CT for ? hematoma ordered, negative for retroperitoneal hematoma -May have a small component of dilution, but don't suspect that this is the culprit -Threshold for GI consult is very low -Continue to monitor H/H (3) UTI (urinary tract infection) Comment: -UA with 3+ LE, cx grown E. coli -Ceftriaxone 1g IV daily (day 2) (4) Acute kidney injury Comment: -Cr continues to improve -Continue to hold avapro, lasix, spironolactone -Will continue with NS at 100cc/h x1bag and then d/c -Repeat labs in a.m. (5) Hypertension Comment: -BP low to normal -Continue carvedilol -Holding diuretics, avapro; monitor need to restart another agent (6) Afib Comment: -Does not appear to be on anticoagulation -Continue carvedilol (7) HLD (hyperlipidemia) Comment: -Continue atorvastatin (8) DVT prophylaxis Comment: -Chemoprophylaxis d/c due to anemia with concern for bleed -SCD ordered (9) DNR (do not resuscitate) Comment: Status and Disposition: Inpatient. Awaiting placement in [facility].
[2019-02-28] MEDS: Docusate CAP* 100 MG PO SCH (22:30)
[2019-02-28] MEDS: Senna TAB PO PRN (22:30)
[2019-02-28] MEDS: LORazepam TAB(*) 0.5 MG PO PRN (22:36)
[2019-03-01 07:26] LABS: Hematocrit 24 % (35-47); Hemoglobin 8.5 g/dL (12.0-16.0); Mean Corpuscular HGB Conc 35 g/dL (31-36); Mean Corpuscular Hemoglobin 29 pg (27-31); Mean Corpuscular Volume 84 fL (80-97); Mean Platelet Volume 8.5 fL (7.4-10.4); Platelet Count 98 10^3/uL (150-450); Red Blood Count 2.93 10^6 /uL (3.70-4.87); Red Cell Distribution Width 19 % (10-15); White Blood Count 9.3 10^3/uL (3.5-10.8)
[2019-03-01 07:40] LABS: BUN/Creatinine Ratio 28.9 (8-20); Calcium 8.5 mg/dL (8.6-10.3); EGFR African American 42.7 (>60); EGFR Non-African American 35.3 (>60); Potassium 4.7 mmol/L (3.5-5.0)
--- NOTE | 2019-03-01 10:01 | PN ---
Subjective Date of Service: 03/01/19 Interval History: Ms. Fuentes reports feeling well today. She denies chest pain, SOB, nausea, or abdominal pain. She is concerned that she has not had a bowel movement for 4 days but she is currently drinking miralax. She has been up and transferred to the chair. Objective Active Medications: Acetaminophen (Tylenol Tab*) 650 mg PO Q4H PRN Al Hydrox/Mg Hydrox/Simethicone (Maalox Plus*) 30 ml PO Q6H PRN Aspirin (Aspirin 81 Mg Chew Tab*) 81 mg PO DAILY [facility] Atorvastatin Calcium (Lipitor*) 80 mg PO 1700 [facility]O Carvedilol (Coreg Tab*) 12.5 mg PO BID NETO Citalopram Hydrobromide (Celexa Tab*) 10 mg PO DAILY [facility] Cyclobenzaprine HCl (Flexeril Tab*) 10 mg PO BID PRN Docusate Sodium (Colace Cap*) 100 mg PO BID [facility] Ceftriaxone Sodium 1 gm/ (Sodium Chloride) 50 mls @ 100 mls/hr IVPB Q24H [facility] Lorazepam (Ativan Tab(*)) 0.5 mg PO BEDTIME PRN Morphine Sulfate (Morphine Inj (Syringe))*) 2 mg IV Q4H PRN Multivitamins/Minerals (Theragran/Minerals Tab*) 1 tab PO DAILY [facility] Ondansetron HCl (Zofran Inj*) 4 mg IV Q4H PRN Oxycodone/Acetaminophen (Percocet 5/325 Tab*) 1 tab PO Q4H PRN Polyethylene Glycol/Electrolytes (Miralax*) 17 gm PO DAILY PRN Senna (Senokot Tab*) 1 tab PO BEDTIME PRN Ticagrelor (Brilinta*) 90 mg PO BID [facility] Vital Signs: Temp Pulse Resp BP Pulse Ox 97.5 F 97 20 129/62 98 03/01/19 04:36 03/01/19 04:36 03/01/19 04:36 03/01/19 04:36 03/01/19 04:36 Oxygen Devices in Use Now: None Appearance: Female lying in bed in NAD Eyes: No Scleral Icterus Ears/Nose/Mouth/Throat: Mucous Membranes Moist Respiratory: Symmetrical Chest Expansion and Respiratory Effort, Clear to Auscultation Cardiovascular: NL Sounds; No Murmurs; No JVD, No Edema Abdominal: NL Sounds; No Tenderness; No Distention Extremities: No Edema Skin: No Rash or Ulcers Neurological: Alert and Oriented x 3, NL Muscle Strength and Tone Nutrition: Taking PO's Result Diagrams: 03/01/19 06:58 03/01/19 06:58 Assess/Plan/Problems-Billing Assessment: Ms. Fuentes is an 83 yo female with a PHx of CAD, AF with PPM, HTN, HLD, anemia, BPPV, pulmonary HTN, BERNABE who was admitted on 02/26/19 with after fall with pelvic fracture and MICHAEL. - Patient Problems (1) Pelvic fracture Comment: - Ortho consulted appreciated - X-rays negative for hip, knee, ankle fracture - WBAT RLE - Continue pain management with tylenol, percocet, morphine prn - Flexeril added prn for spasms - PT/OT ordered - [facility] placement pending - F/U with Dr. Trujillo in 4 wks (2) Acute kidney injury Comment: - Acute on chronic kidney disease, essentially back to baseline. - IV fluids discontinued. - Consider resuming irbesartan, lasix, and spironolactone in the coming days (3) Anemia Comment: - H/H improved after 1 unit PRBCs. - Pt states she has h/o iron deficiency anemia, but is unable to tolerate PO iron d/t GI upset - Iron studies WNL - Stool for occult blood negative, suspect dilutional anemia in setting of chronic iron deficient anemia. - CT for ? hematoma ordered, negative for retroperitoneal hematoma (4) UTI (urinary tract infection) Comment: - UA with 3+ LE, cx grown E. coli - Switch to bactrim x 2 more days (5) Afib Comment: - Rate controlled. - Not on anticoagulation - Continue carvedilol (6) Coronary artery disease Status: Chronic Comment: -Continue carvedilol (7) HLD (hyperlipidemia) Comment: -Continue atorvastatin (8) Hx of congestive heart failure Comment: - Asymptomatic - Has been given IVF for MICHAEL, irbesartan and spironolactone are on hold. (9) Hypertension Comment: - BP low to normal - Continue carvedilol - Holding diuretics, irbesartan (10) DVT prophylaxis Comment: - Chemoprophylaxis d/c due to anemia - SCD ordered (11) DNR (do not resuscitate) Comment: Status and Disposition: Inpatient. Awaiting placement in [facility].
[2019-03-01] MEDS: Polyethylene Glycol 3350* 17 GM PACKET PO PRN (10:05)
[2019-03-01] MEDS: Ticagrelor* 90 MG TAB PO SCH ×2 (10:06→20:21)
[2019-03-01] MEDS: Carvedilol TAB* 6.25 MG PO SCH ×2 (10:06→20:21)
[2019-03-01] MEDS: Aspirin 81 mg CHEW TAB* 81 MG TAB.CHEW PO SCH (10:06)
[2019-03-01] MEDS: Citalopram TAB* 10 MG PO SCH (10:06)
[2019-03-01] MEDS: Multivitamins/Minerals TAB PO SCH (10:06)
[2019-03-01] MEDS: Docusate CAP* 100 MG PO SCH ×2 (10:06→20:22)
[2019-03-01] MEDS: Atorvastatin* 80 MG TAB PO SCH (17:55)
[2019-03-01] MEDS: oxyCODONE/Acetamin 5/325 MG* TAB PO PRN (17:55)
[2019-03-01] MEDS: Cyclobenzaprine TAB* 10 MG PO PRN (20:22)
[2019-03-01] MEDS: Senna TAB PO PRN (20:23)
[2019-03-01] MEDS: Sulfamethox/Trimethoprim DS 800/160* TAB PO SCH (20:23)
[2019-03-02] MEDS: Sulfamethox/Trimethoprim DS 800/160* TAB PO SCH ×2 (08:37→21:33)
[2019-03-02] MEDS: Citalopram TAB* 10 MG PO SCH (08:37)
[2019-03-02] MEDS: Multivitamins/Minerals TAB PO SCH (08:37)
[2019-03-02] MEDS: Carvedilol TAB* 6.25 MG PO SCH ×2 (08:37→21:32)
[2019-03-02] MEDS: Aspirin 81 mg CHEW TAB* 81 MG TAB.CHEW PO SCH (08:37)
[2019-03-02] MEDS: Docusate CAP* 100 MG PO SCH ×2 (08:37→21:33)
[2019-03-02] MEDS: Ticagrelor* 90 MG TAB PO SCH ×2 (08:38→21:32)
--- NOTE | 2019-03-02 11:36 | PN ---
Subjective Date of Service: 03/02/19 Interval History: Ms. Fuentes reports that she is doing well today. She has had some back spasms but flexeril helped alot. She has been out of bed to the chair. She denies chest pain, SOB, nausea, or abdominal pain. Objective Active Medications: Acetaminophen (Tylenol Tab*) 650 mg PO Q4H PRN Al Hydrox/Mg Hydrox/Simethicone (Maalox Plus*) 30 ml PO Q6H PRN Aspirin (Aspirin 81 Mg Chew Tab*) 81 mg PO DAILY [facility] Atorvastatin Calcium (Lipitor*) 80 mg PO 1700 NETO Carvedilol (Coreg Tab*) 12.5 mg PO BID NETO Citalopram Hydrobromide (Celexa Tab*) 10 mg PO DAILY [facility] Cyclobenzaprine HCl (Flexeril Tab*) 10 mg PO BID PRN Docusate Sodium (Colace Cap*) 100 mg PO BID [facility] Lorazepam (Ativan Tab(*)) 0.5 mg PO BEDTIME PRN Morphine Sulfate (Morphine Inj (Syringe))*) 2 mg IV Q4H PRN Multivitamins/Minerals (Theragran/Minerals Tab*) 1 tab PO DAILY [facility] Ondansetron HCl (Zofran Inj*) 4 mg IV Q4H PRN Oxycodone/Acetaminophen (Percocet 5/325 Tab*) 1 tab PO Q4H PRN Polyethylene Glycol/Electrolytes (Miralax*) 17 gm PO DAILY PRN Senna (Senokot Tab*) 1 tab PO BEDTIME PRN Ticagrelor (Brilinta*) 90 mg PO BID [facility] Trimethoprim/Sulfamethoxazole (Bactrim Ds 800/160 Tab*) 1 tab PO BID [facility] Vital Signs: Temp Pulse Resp BP Pulse Ox 98.2 F 102 17 122/63 95 03/02/19 07:25 03/02/19 07:25 03/02/19 07:25 03/02/19 07:25 03/02/19 07:25 Oxygen Devices in Use Now: Nasal Cannula Appearance: Female lying in bed in NAD Eyes: No Scleral Icterus Ears/Nose/Mouth/Throat: Mucous Membranes Moist Neck: NL Appearance and Movements; NL JVP Respiratory: Symmetrical Chest Expansion and Respiratory Effort, Clear to Auscultation Cardiovascular: NL Sounds; No Murmurs; No JVD, No Edema Abdominal: NL Sounds; No Tenderness; No Distention Extremities: No Edema Skin: No Rash or Ulcers Neurological: Alert and Oriented x 3, NL Muscle Strength and Tone Nutrition: Taking PO's Result Diagrams: 03/02/19 15:29 03/01/19 06:58 Microbiology and Other Data: . Assess/Plan/Problems-Billing Assessment: Ms. Fuentes is an 83 yo female with a PHx of CAD, AF with PPM, HTN, HLD, anemia, BPPV, pulmonary HTN, BERNABE who was admitted on 02/26/19 with after fall with pelvic fracture and MICHAEL. - Patient Problems (1) Pelvic fracture Comment: - Ortho consulted appreciated - X-rays negative for hip, knee, ankle fracture - WBAT RLE - Continue pain management with tylenol, percocet prn - PT/OT following, able to take a few steps in room 03/01, needs rehab - [facility] placement pending - F/U with Dr. Trujillo in 4 wks (2) Acute kidney injury Comment: - Acute on chronic kidney disease, essentially back to baseline. - IV fluids discontinued. - Consider resuming irbesartan, lasix, and spironolactone in the coming days (3) Anemia Comment: - H/H improved after 1 unit PRBCs. - Pt states she has h/o iron deficiency anemia, but is unable to tolerate PO iron d/t GI upset - Iron studies WNL - Stool for occult blood negative, suspect dilutional anemia in setting of chronic iron deficient anemia. - CT for ? hematoma ordered, negative for retroperitoneal hematoma (4) UTI (urinary tract infection) Comment: - UA with 3+ LE, cx grown E. coli - Continue bactrim x 1 more day (5) Afib Comment: - Rate controlled. - Not on anticoagulation - Continue carvedilol (6) Coronary artery disease Status: Chronic Comment: - Continue carvedilol, asa and brilinta - Hx of stent to RCA in December 2018. (7) HLD (hyperlipidemia) Comment: -Continue atorvastatin (8) Hx of congestive heart failure Comment: - Asymptomatic - Has been given IVF for MICHAEL, irbesartan and spironolactone are on hold. (9) Hypertension Comment: - BP low to normal - Continue carvedilol - Holding diuretics, irbesartan (10) DVT prophylaxis Comment: - Chemoprophylaxis d/c due to anemia - SCD ordered (11) DNR (do not resuscitate) Comment: Status and Disposition: Inpatient. Awaiting placement in [facility].
[2019-03-02] MEDS: Cyclobenzaprine TAB* 10 MG PO PRN ×2 (14:11→21:33)
[2019-03-02 15:36] LABS: Hematocrit 24 % (35-47); Hemoglobin 8.3 g/dL (12.0-16.0)
[2019-03-02] MEDS: Furosemide TAB* 20 MG PO SCH (17:13)
[2019-03-02] MEDS: Atorvastatin* 80 MG TAB PO SCH (17:13)
[2019-03-02] MEDS: oxyCODONE/Acetamin 5/325 MG* TAB PO PRN (21:32)
[2019-03-03 06:33] LABS: ABS Eosinophils 0.4 10^3/ul (0-0.6); ABS Lymphocytes 0.9 10^3/ul (1.0-4.8); ABS Monocytes 0.9 10^3/ul (0-0.8); ABS Neutrophils 5.1 10^3/ul (1.5-7.7); Eosinophil % 5.6 %; Hematocrit 23 % (35-47); Hemoglobin 7.9 g/dL (12.0-16.0); Lymphocyte % 12.6 %; Mean Corpuscular HGB Conc 34 g/dL (31-36); Mean Corpuscular Hemoglobin 29 pg (27-31); Mean Corpuscular Volume 85 fL (80-97); Mean Platelet Volume 8.3 fL (7.4-10.4); Platelet Count 116 10^3/uL (150-450); Red Cell Distribution Width 19 % (10-15); White Blood Count 7.3 10^3/uL (3.5-10.8)
[2019-03-03 06:50] LABS: BUN/Creatinine Ratio 21.4 (8-20); Calcium 8.8 mg/dL (8.6-10.3); EGFR African American 37.5 (>60)
[2019-03-03] MEDS: Aspirin 81 mg CHEW TAB* 81 MG TAB.CHEW PO SCH (09:42)
[2019-03-03] MEDS: Docusate CAP* 100 MG PO SCH (09:42)
[2019-03-03] MEDS: Citalopram TAB* 10 MG PO SCH (09:42)
[2019-03-03] MEDS: Furosemide TAB* 20 MG PO SCH (09:42)
[2019-03-03] MEDS: Carvedilol TAB* 6.25 MG PO SCH (09:42)
[2019-03-03] MEDS: Ticagrelor* 90 MG TAB PO SCH (09:42)
[2019-03-03] MEDS: Multivitamins/Minerals TAB PO SCH (09:42)
[2019-03-03] MEDS: Sulfamethox/Trimethoprim DS 800/160* TAB PO SCH (09:43)
[2019-03-03] MEDS: oxyCODONE/Acetamin 5/325 MG* TAB PO PRN (09:43)
[2019-03-03] MEDS: Cyclobenzaprine TAB* 10 MG PO PRN (09:43)
[2019-03-03 11:20] VITALS: BP 133/53
--- NOTE | 2019-03-03 13:43 | DS ---
CC: Dr. Amilcar Mendoza; Dr. Hima Trujillo * DATE OF ADMISSION: 02/26/2019. DATE OF DISCHARGE: 03/03/2019. PRIMARY CARE PHYSICIAN: Dr. Amilcar Mendoza. ATTENDING PHYSICIAN: Dr. Angela Tinsley * (dictated by Kathe Koenig NP). PRIMARY DIAGNOSES: 1. Right pelvic fracture. 2. Urinary tract infection. 3. Acute kidney injury superimposed on chronic kidney disease, stage 3. 4. Anemia. SECONDARY DIAGNOSES: 1. Atrial fibrillation. 2. Chronic congestive heart failure. 3. Coronary artery disease. 4. Hyperlipidemia. 5. Hypertension. STUDIES WHILE IN THE HOSPITAL: 1. Right hip/pelvis x-ray on 02/26/2019, reads as: Right os peroneum and inferior pubic ramus fractures. 2. Pelvis CT on 02/26/2019, reads as: Fracture of the inferior pubic ramus. There is also a nondisplaced fracture of the right lateral sacral ala. 3. Chest x-ray on 02/26/2019, reads as: Stigmata of chronic obstructive pulmonary disease. Asymmetric mild opacification at the right lung likely reflecting a small dependent pleural effusion based on comparison with the prior exam. Cardiomegaly without compelling evidence for pulmonary edema at this time. 4. Right ankle x-ray on 02/26/2019, reads as: No fracture is noted. 5. Brain CT on 02/26/2019, reads as: Chronic ischemic white matter change. 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 6. Right femur x-ray on 02/27/2019, reads as: Right hip replacement in satisfactory position. No fracture is identified. 7. Right knee x-ray on 02/27/2019, reads as: No fracture is identified. No joint effusion is noted. 8. Abdomen/pelvis CT on 02/28/2019, reads as: Bilateral pleural effusion, worse on the right than on the left. Cholelithiasis is noted. No evidence of retroperitoneal hematoma is noted. Right inferior pubic ramus fracture, unchanged from previous exam. 9. Brain CT on 02/28/2019, reads as: No acute intracranial abnormality. No change from the comparison study. 10. Chest x-ray on 03/01/2019, reads as: No active cardiopulmonary disease is noted. HISTORY OF PRESENT ILLNESS AND HOSPITAL COURSE: Ms. 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 Please see the history and physical by SABA Ignacio for a complete summary of the events leading up to this hospitalization. In short, the patient had a mechanical fall the morning of admission when she tripped on her carpet when she was attempting to get out of bed. There was no loss of consciousness. She called EMS and was brought into the emergency room where she noted right hip pain. She also reported other recent falls without injury. She had imaging as noted above. She was noted to have mild leukocytosis with a white blood cell count of 12.9, and normocytic and normochromic anemia with an H and H of 10.3 and 32. There was some evidence of acute kidney injury with a bump in creatinine and some mild hyperkalemia. Due to the noted pelvic fracture, the patient was admitted by the Hospitalist Service. The patient was placed on Percocet for pain management. She was seen in consultation by Dr. Trujillo from Orthopedics on 02/26/2019. At that point, he noted the patient could be weightbearing as tolerated to the left lower extremity and pain should be adequately controlled. He did recommend follow-up in his clinic in four weeks. Physical Therapy did see the patient and noted that she would benefit from subacute rehab. Acute kidney injury resolved with IV fluids. Her Irbesartan, Furosemide, and Spironolactone were also held. At this point, on the day of discharge, the patient's creatinine is 1.59 and it appears as though her baseline is around 1.2 to 1.7; however, this is somewhat unclear. She is noted to have a UTI with a urine culture growing greater than 100,000 colonies of langley sensitive E. coli. She was placed on Bactrim. The patient was additionally noted to be anemic. H and H did drop to 7.7 and 23 on 02/28/2019. I believe some of this was dilutional; however, due to the patient' s history of coronary artery disease, she was transfused one unit of packed red blood cells. Post transfusion, the patient's H and H was 8.5 and 24, and today it is 7.9 and 23. She was noted to have a negative stool occult. Iron studies were completely normal, so the etiology of this anemia is unclear. The patient did have a hemoglobin of 211 in January of this year. I think that certainly some of this anemia is anemia of chronic disease secondary to chronic kidney disease. After her transfusion, it was felt as though the patient was mildly fluid overloaded and her home Furosemide was restarted. Today, there is no evidence of fluid overload. The patient's weight on admission was 154 and as of today it is 150, so I do not think that there is any additional overload. On exam today, she reports feeling well. She does note significant right hip pain with movement, though is able to get comfortable in bed. She has been managing her pain with Percocet and Tylenol with adequate relief. She otherwise denies complaints. On exam, she has no focal neurological deficits. Her heart has a regular rate and rhythm without murmurs, rubs, or gallops. Lungs are clear to auscultation without rhonchi, wheezes, or rubs. There is no edema or abdominal distention. Physical assessment is otherwise benign. Ms. Fuentes is stable for discharge today. Vital signs are as follows: Temperature 98.9, heart rate 102, respiratory rate 16, oxygen saturation 91 percent on room air, blood pressure 133/53. DISCHARGE MEDICATIONS: New medications: 1. Percocet 5/325 one tab p.o. q.4 hours prn pain. 2. Docusate 100 mg p.o. b.i.d. 3. MiraLax 17 gm p.o. daily prn constipation. 4. Bactrim DS 800/160 one tab p.o. b.i.d. times 1 day. Continued medications: 1. Aspirin 81 mg p.o. daily. 2. Atorvastatin 80 mg p.o. daily. 3. Carvedilol 12.5 mg p.o. b.i.d. 4. Citalopram 10 mg p.o. daily. 5. Furosemide 20 mg p.o. daily. 6. Lorazepam 0.5 mg p.o. at bedtime prn insomnia. 7. Brilinta 90 mg p.o. b.i.d. 8. Acetaminophen 650 mg p.o. q.4 hours prn pain. 9. Irbesartan 300 mg p.o. daily. 10. Multivitamin one tab p.o. daily. 11. Spironolactone 25 mg p.o. daily. Discontinued medications: Mupirocin. DISCHARGE PLAN: Ms. Fuentes will be discharged to subacute rehab. Medications are noted above. The patient has been placed on Percocet for pain and an appropriate bowel regimen. She can resume her usual cardiac medications. I will note that she is at high risk for fluid volume overload and so this should be monitored closely. The patient should additionally have a CBC in the next two to three days to monitor her H and H. She will complete one more day of Bactrim to complete a total of three days of antibiotic therapy for her uncomplicated urinary tract infection. ACTIVITY: As tolerated. Per Orthopedics, she is weightbearing as tolerated on the right lower extremity. DIET: Heart-healthy. FOLLOW-UP: The patient will need appropriate follow-up with the provider at [facility] and thereafter can follow-up with her usual primary care provider. She should return to the emergency room or nearest hospital for any worsening of symptoms, shortness of breath, lightheadedness, dizziness, chest discomfort, high fevers, chills, night sweats, loss of consciousness or any other worrisome signs or symptoms. CONDITION ON DISCHARGE: Stable. DISPOSITION: senior care facility, [facility]. This is a summarized report of a complex medical history and hospital stay. For further details, please see the entire medical record. TIME SPENT: Approximately 50 minutes were spent on this discharge. KATHE KOENIG NP [id number]/CPS #: [id number] KAREN
== END 2019-03-03 14:25 | DRG 536 ==
LOC: ED 09:24 → MED 14:02 → OBSVTOIN 14:03
PROVIDERS: ADMIT Hospitalist; ATTEND Internal Medicine
PROC: 30233N1 Transfusion of Nonautologous Red Blood Cells into Peripheral Vein, Percutaneous Approach (ICD-10-PCS; principal; 2019-02-28)
DX: S32.591A Other specified fracture of right pubis, initial encounter for closed fracture (principal); S32.10XA Unspecified fracture of sacrum, initial encounter for closed fracture; N17.9 Acute kidney failure, unspecified; N39.0 Urinary tract infection, site not specified; I13.0 Hypertensive heart and chronic kidney disease with heart failure and stage 1 through stage 4 chronic kidney disease, or unspecified chronic kidney disease; E87.5 Hyperkalemia; I50.9 Heart failure, unspecified; J44.9 Chronic obstructive pulmonary disease, unspecified; E87.70 Fluid overload, unspecified; I48.91 Unspecified atrial fibrillation; Z66 Do not resuscitate; I27.20 Pulmonary hypertension, unspecified; E86.0 Dehydration; N18.3 Chronic kidney disease, stage 3 (moderate); D63.1 Anemia in chronic kidney disease; K58.9 Irritable bowel syndrome, unspecified; G47.33 Obstructive sleep apnea (adult) (pediatric); H81.10 Benign paroxysmal vertigo, unspecified ear; E78.5 Hyperlipidemia, unspecified; B96.20 Unspecified Escherichia coli [E. coli] as the cause of diseases classified elsewhere; K80.20 Calculus of gallbladder without cholecystitis without obstruction; D50.9 Iron deficiency anemia, unspecified; I25.10 Atherosclerotic heart disease of native coronary artery without angina pectoris; W18.09XA Striking against other object with subsequent fall, initial encounter; Z96.641 Presence of right artificial hip joint; Y92.003 Bedroom of unspecified non-institutional (private) residence as the place of occurrence of the external cause; Z95.5 Presence of coronary angioplasty implant and graft; Z95.0 Presence of cardiac pacemaker; Z79.1 Long term (current) use of non-steroidal anti-inflammatories (NSAID); Z79.82 Long term (current) use of aspirin; Z79.899 Other long term (current) drug therapy; Z88.5 Allergy status to narcotic agent; Z88.8 Allergy status to other drugs, medicaments and biological substances; Z91.048 Other nonmedicinal substance allergy status; Z82.49 Family history of ischemic heart disease and other diseases of the circulatory system; Z91.81 History of falling
CPT/HCPCS: 36415; 70450; 71045; 72192; 74176; 80048; 81003; 81015; 82272; 82728; 83540; 83550; 85014; 85018; 85025; 85027; 86850; 86900; 86901; 86922; 87040; 87077; 87086; 87186; 99284; A9270-GY; G8978-GP-CL; G8979-GP-CJ; G8987-GO-CL; G8988-GO-CI; J0696; J1644; J2270; P9040

== ENCOUNTER 2020-10-26 01:49 | Observation (INO) ==
[2020-10-26] MEDS ORDERED: Tranexamic Acid 1,000 MG/10 ML SDV ONE (02:11)
[2020-10-26] MEDS ORDERED: Tranexamic Acid 1,000 MG/10 ML SDV TOPICAL ONE (02:18)
[2020-10-26] MEDS ORDERED: Lactated Ringers 1000 ml BAG 1,000 ML IV ONE (02:45)
[2020-10-26 02:48] LABS: ABS Eosinophils 0.3 10^3/ul (0-0.6); ABS Lymphocytes 1.7 10^3/ul (1.0-4.8); ABS Monocytes 0.8 10^3/ul (0-0.8); ABS Neutrophils 6.6 10^3/ul (1.5-7.7); Eosinophil % 2.7 %; Hematocrit 23 % (35-47); Hemoglobin 7.5 g/dL (12.0-16.0); Lymphocyte % 17.8 %; Mean Corpuscular HGB Conc 32 g/dL (31-36); Mean Corpuscular Hemoglobin 29 pg (27-31); Mean Corpuscular Volume 89 fL (80-97); Mean Platelet Volume 7.8 fL (7.4-10.4); Platelet Count 196 10^3/uL (150-450); Red Blood Count 2.63 10^6 /uL (3.70-4.87); Red Cell Distribution Width 17 % (10-15); White Blood Count 9.4 10^3/uL (3.5-10.8)
[2020-10-26 03:02] LABS: BUN/Creatinine Ratio 28.7 (8-20); Calcium 9.1 mg/dL (8.6-10.3); EGFR African American 37.9 (>60); EGFR Non-African American 31.3 (>60); Potassium 4.2 mmol/L (3.5-5.0)
[2020-10-26] MEDS ORDERED: Lidocaine 4% TOPICAL 50 ML TOP.SOLN ONE (03:11)
[2020-10-26] MEDS ORDERED: Silver Nitrate/Potassium Nitr 1 PAK (1 PAK PER PATIENT) ONE (04:14)
[2020-10-26] MEDS ORDERED: Oxymetazoline 0.05% NASAL SPR 15 ML BTL ONE (04:14)
[2020-10-26] MEDS ORDERED: Bacitracin OINTMENT TUBE ONE (04:15)
[2020-10-26] MEDS ORDERED: Succinylcholine 200 mg VIAL 20 mg/ml 10 ml VIAL (200 mg) ONE (04:17)
[2020-10-26] MEDS ORDERED: Dexamethasone IV 4 MG/ML VIAL 1 ml VIAL ONE (04:17)
[2020-10-26] MEDS ORDERED: Ketamine HCL 50 mg/ml 10 ml VIAL (500 MG) ONE (04:17)
[2020-10-26] MEDS ORDERED: Propofol 10 MG/ML 20 ML BTL ONE (04:17)
[2020-10-26] MEDS ORDERED: Lidocaine 2% PF 5 ML VIAL ONE (04:17)
[2020-10-26] MEDS ORDERED: Ondansetron 4 mg VIAL 2 MG/ML 2 ml VIAL ONE (04:17)
[2020-10-26] MEDS ORDERED: Midazolam 2 mg/2 ml VIAL 1 mg/ml 2 ml VIAL (2 mg) ONE (04:17)
[2020-10-26] MEDS ORDERED: fentaNYL 100 mcg/2 ml 50 MCG/ML VIAL ONE ×2 (04:17→05:59)
[2020-10-26] MEDS ORDERED: Phenylephrine 40 mcg/mL 10mL (400mcg) SYRINGE ONE (04:18)
[2020-10-26] MEDS ORDERED: Gelfoam 12-7 ADSORBABL SPONGE ONE (05:17)
[2020-10-26] MEDS ORDERED: ceFAZolin 1 GM ADVAN 1 GM ADDV.VIAL IVPB ONE (05:35)
[2020-10-26] MEDS ORDERED: DiMENhydriNATE IV 50 mg/ml 1 ml VIAL IV PUSH PRN (05:54)
[2020-10-26] MEDS ORDERED: Naloxone 0.4 mg VIAL 0.4 mg/ml 1 ml VIAL IV PRN (05:54)
[2020-10-26] MEDS: fentaNYL 100 mcg/2 ml 50 MCG/ML VIAL IV PRN ×2 (06:02→06:18)
[2020-10-26 06:04] LABS: INR 1.15 (0.82-1.09)
[2020-10-26 08:55] LABS: Hematocrit 19 % (35-47); Hemoglobin 6.1 g/dL (12.0-16.0)
[2020-10-26] MEDS ORDERED: Vitamin THERAPEUTIC TAB PO SCH (18:00)
[2020-10-26 21:12] LABS: Hematocrit 25 % (35-47); Hemoglobin 8.7 g/dL (12.0-16.0)
[2020-10-27 07:08] LABS: ABS Lymphocytes 1.8 10^3/ul (1.0-4.8); ABS Neutrophils 7.9 10^3/ul (1.5-7.7); Eosinophil % 0.2 %; Hematocrit 26 % (35-47); Hemoglobin 8.7 g/dL (12.0-16.0); Lymphocyte % 16.7 %; Mean Corpuscular HGB Conc 34 g/dL (31-36); Mean Corpuscular Hemoglobin 29 pg (27-31); Mean Corpuscular Volume 87 fL (80-97); Mean Platelet Volume 7.8 fL (7.4-10.4); Platelet Count 146 10^3/uL (150-450); Red Blood Count 2.97 10^6 /uL (3.70-4.87); Red Cell Distribution Width 16 % (10-15); White Blood Count 10.8 10^3/uL (3.5-10.8)
[2020-10-27 07:17] LABS: BUN/Creatinine Ratio 31.8 (8-20); Calcium 8.7 mg/dL (8.6-10.3); EGFR African American 46.3 (>60); EGFR Non-African American 38.2 (>60); Potassium 4.6 mmol/L (3.5-5.0)
[2020-10-27 07:28] VITALS: BP 172/58
== END 2020-10-27 11:40 | disposition home or self-care (01) ==
LOC: ED 01:49 → AA 01:49 → SSU 07:21
PROVIDERS: ADMIT Otolaryngology; ATTEND Internal Medicine

== ENCOUNTER 2021-03-28 16:41 | Inpatient (IN) ==
[2021-03-28] MEDS ORDERED: Furosemide 40 mg/4 ml IV VIAL IV SLOW PU ONE (20:25)
[2021-03-28 20:59] LABS: ABS Eosinophils 0.2 10^3/ul (0-0.6); ABS Lymphocytes 1.7 10^3/ul (1.0-4.8); ABS Monocytes 0.8 10^3/ul (0-0.8); ABS Neutrophils 5.2 10^3/ul (1.5-7.7); Eosinophil % 2.8 %; Hematocrit 35 % (35-47); Hemoglobin 11.4 g/dL (12.0-16.0); Lymphocyte % 21.7 %; Mean Corpuscular HGB Conc 33 g/dL (31-36); Mean Corpuscular Hemoglobin 29 pg (27-31); Mean Corpuscular Volume 87 fL (80-97); Mean Platelet Volume 8.1 fL (7.4-10.4); PCO2 Arterial 34 mmHg (35-45); PO2 Arterial 65 mmHg (80-100); Platelet Count 182 10^3/uL (150-450); Red Cell Distribution Width 18 % (10-15)
[2021-03-28 21:16] LABS: ALT 19 U/L (7-52); AST 20 U/L (13-39); Albumin 4.8 g/dL (3.2-5.2); Albumin/Globulin Ratio 1.5 (1-3); Alkaline Phosphatase 109 U/L (35-149); Anion Gap 6 mmol/L (2-11); Blood Urea Nitrogen 33 mg/dL (6-24); C Reactive Protein 7.35 mg/L (<8.01); CO2 Carbon Dioxide 27 mmol/L (22-32); Calcium 9.4 mg/dL (8.6-10.3); Chloride 106 mmol/L (101-111); EGFR African American 54.8 (>60); EGFR Non-African American 45.3 (>60); Globulin 3.3 g/dL (2-4); Glucose 118 mg/dL (70-100); Potassium 3.5 mmol/L (3.5-5.0); Sodium 139 mmol/L (135-145); Total Protein 8.1 g/dL (6.4-8.9)
[2021-03-28] MEDS ORDERED: Iodixanol (CONTRAST) 320 MG/ML 100 ML SDV IV ONE (21:21)
[2021-03-28 21:22] LABS: Troponin I 0.03 ng/mL (<0.03)
[2021-03-29 04:23] LABS: Rapid COVID-19 Molecular Undetected (Undetected)
[2021-03-29 06:38] LABS: Magnesium 2.2 mg/dL (1.9-2.7)
[2021-03-29 08:13] LABS: Hematocrit 33 % (35-47); Hemoglobin 10.8 g/dL (12.0-16.0); Mean Corpuscular HGB Conc 33 g/dL (31-36); Mean Corpuscular Hemoglobin 28 pg (27-31); Mean Corpuscular Volume 87 fL (80-97); Platelet Count 146 10^3/uL (150-450); Red Cell Distribution Width 18 % (10-15); White Blood Count 6.4 10^3/uL (3.5-10.8)
[2021-03-29 08:31] LABS: Anion Gap 6 mmol/L (2-11); Blood Urea Nitrogen 29 mg/dL (6-24); CO2 Carbon Dioxide 31 mmol/L (22-32); Calcium 9.1 mg/dL (8.6-10.3); Chloride 106 mmol/L (101-111); EGFR African American 57.7 (>60); EGFR Non-African American 47.7 (>60); Glucose 93 mg/dL (70-100); Magnesium 2.2 mg/dL (1.9-2.7); Potassium 3.9 mmol/L (3.5-5.0); Sodium 143 mmol/L (135-145)
[2021-03-29 12:11] LABS: Troponin I 0.03 ng/mL (<0.03)
[2021-03-30 07:37] LABS: Calcium 8.8 mg/dL (8.6-10.3); EGFR African American 55.4 (>60); EGFR Non-African American 45.8 (>60); Magnesium 2.2 mg/dL (1.9-2.7); Potassium 3.9 mmol/L (3.5-5.0)
[2021-03-30] MEDS ORDERED: NS 0.9% 1000 ml BAG 1,000 ML IV SCH (08:00)
[2021-03-30 13:34] LABS: ABS Basophils 0.1 10^3/ul (0-0.2); ABS Eosinophils 0.1 10^3/ul (0-0.6); ABS Monocytes 0.7 10^3/ul (0-0.8); ABS Neutrophils 5.4 10^3/ul (1.5-7.7); Hematocrit 31 % (35-47); Hemoglobin 10.4 g/dL (12.0-16.0); Lymphocyte % 14.2 %; Mean Corpuscular HGB Conc 33 g/dL (31-36); Mean Corpuscular Hemoglobin 29 pg (27-31); Mean Corpuscular Volume 86 fL (80-97); Mean Platelet Volume 7.7 fL (7.4-10.4); Nucleated Red Blood Cells % 0.1; Platelet Count 152 10^3/uL (150-450); Red Blood Count 3.62 10^6 /uL (3.70-4.87); Red Cell Distribution Width 17 % (10-15); White Blood Count 7.3 10^3/uL (3.5-10.8)
[2021-03-30 13:46] LABS: Activated Partial Thrombo Time 29.7 seconds (26.0-38.0); INR 1.17 (0.86-1.15)
[2021-03-31 06:29] LABS: ABS Eosinophils 0.2 10^3/ul (0-0.6); ABS Lymphocytes 1.4 10^3/ul (1.0-4.8); ABS Monocytes 0.8 10^3/ul (0-0.8); ABS Neutrophils 4.3 10^3/ul (1.5-7.7); Eosinophil % 2.9 %; Hematocrit 31 % (35-47); Hemoglobin 10.3 g/dL (12.0-16.0); Lymphocyte % 20.7 %; Mean Corpuscular HGB Conc 33 g/dL (31-36); Mean Corpuscular Hemoglobin 29 pg (27-31); Mean Corpuscular Volume 86 fL (80-97); Mean Platelet Volume 8.4 fL (7.4-10.4); Platelet Count 147 10^3/uL (150-450); Red Blood Count 3.62 10^6 /uL (3.70-4.87); Red Cell Distribution Width 17 % (10-15); White Blood Count 6.6 10^3/uL (3.5-10.8)
[2021-03-31 06:45] LABS: Calcium 8.9 mg/dL (8.6-10.3); EGFR African American 50.7 (>60); EGFR Non-African American 41.9 (>60); Magnesium 2.3 mg/dL (1.9-2.7); Potassium 3.8 mmol/L (3.5-5.0)
[2021-03-31] MEDS ORDERED: diPHENhydraMINE IV 50 MG/ML 1 ml VIAL (BENADRYL) SLOW PUSH PRN (08:00)
[2021-03-31] MEDS ORDERED: NS 0.9% 1000 ml BAG 1,000 ML IV SCH (08:00)
[2021-03-31] MEDS ORDERED: Midazolam 5 mg/5 ml VIAL 1 mg/ml 5 ml VIAL (5 mg) ONE (08:03)
[2021-03-31] MEDS ORDERED: fentaNYL 100 mcg/2 ml 50 MCG/ML VIAL ONE (08:03)
[2021-03-31] MEDS ORDERED: Lidocaine 1% VIAL 10 MG/ML VIAL ONE (08:04)
[2021-03-31] MEDS ORDERED: nitroGLYCERIN DRIP 25,000 MCG/250 ML BTL ONE (08:04)
[2021-03-31] MEDS ORDERED: Heparin 1,000 UNIT/ML 10 ml (10,000 UNITS) CATHLAB/DIALYSIS ONE (08:04)
[2021-03-31] MEDS ORDERED: Heparin 2 UNITS/ML 1000 mls 2,000 ML IV ONE (08:04)
[2021-03-31] MEDS ORDERED: niCARdipine 0.1MG/ML IVPREMIX 20 MG/200 ML BAG IV ONE (08:06)
[2021-03-31] MEDS ORDERED: Iohexol 350 (CONTRAST) 200 ML MDV IV ONE (08:14)
[2021-04-01 05:48] LABS: ABS Eosinophils 0.2 10^3/ul (0-0.6); ABS Lymphocytes 1.2 10^3/ul (1.0-4.8); ABS Monocytes 0.7 10^3/ul (0-0.8); ABS Neutrophils 3.9 10^3/ul (1.5-7.7); Hematocrit 31 % (35-47); Hemoglobin 10.6 g/dL (12.0-16.0); Lymphocyte % 19.8 %; Mean Corpuscular HGB Conc 34 g/dL (31-36); Mean Corpuscular Hemoglobin 29 pg (27-31); Mean Corpuscular Volume 86 fL (80-97); Mean Platelet Volume 8.4 fL (7.4-10.4); Platelet Count 142 10^3/uL (150-450); Red Blood Count 3.62 10^6 /uL (3.70-4.87); Red Cell Distribution Width 17 % (10-15); White Blood Count 6.1 10^3/uL (3.5-10.8)
[2021-04-01 06:03] LABS: Calcium 8.9 mg/dL (8.6-10.3); EGFR African American 49.3 (>60); EGFR Non-African American 40.7 (>60); Potassium 3.8 mmol/L (3.5-5.0)
[2021-04-01 12:32] VITALS: BP 123/65
== END 2021-04-01 14:48 | disposition home or self-care (01) | DRG 287 ==
LOC: ED 16:41 → SUATTDRO 03-29 01:40 → MED 03-29 01:40 → MEDTELE 03-31 11:15
PROVIDERS: ADMIT Internal Medicine; ATTEND Internal Medicine

== ENCOUNTER 2023-07-08 08:10 | Observation (INO) ==
[2023-07-08] MEDS ORDERED: Albuterol HFA INHALER 8 gm MDI INH ONE (08:47)
[2023-07-08 09:14] LABS: ABS Eosinophils 0.2 10^3/uL (0.0-0.5); ABS Lymphocytes 1.2 10^3/uL (1.0-4.8); ABS Monocytes 0.8 10^3/uL (0.0-0.9); ABS Neutrophils 6.6 10^3/uL (1.5-7.6); ABS Nucleated RBC 0.01 10^3/ul; Eosinophil % 1.9 %; Hematocrit 29.9 % (35-45); Lymphocyte % 13.4 %; Mean Corpuscular Hemoglobin 27.8 pg (27-33); Mean Corpuscular Hgb Conc 33.5 g/dL (31-36); Mean Platelet Volume 8.2 fL (7.5-11.2); Nucleated Red Blood Cells % 0.1 %/100WBC (0.0-0.8); Platelet Count 159 10^3/uL (150-450); Red Cell Distribution Width 18.4 % (12-17); White Blood Count 8.8 10^3/uL (3.8-11.8)
[2023-07-08 09:34] LABS: Albumin 4.2 g/dL (3.2-5.2); Albumin/Globulin Ratio 1.3 (1-3); C Reactive Protein 7.1 mg/L (<8.01); Creatinine, Serum 1.06 mg/dL (0.51-0.95); Globulin 3.3 g/dL (2-4); Potassium 3.6 mmol/L (3.5-5.0); Total Bilirubin 1.1 mg/dL (0.2-1.0); Total Protein 7.5 g/dL (6.4-8.9); eGFR CKD-EPI 50.8 (>60)
[2023-07-08] MEDS ORDERED: Furosemide 20 mg/2 ml IV VIAL IV SLOW PU ONE (11:47)
[2023-07-08] MEDS ORDERED: Ondansetron 4 mg VIAL 2 MG/ML 2 ml VIAL IV PRN (12:06)
[2023-07-09 07:36] LABS: ABS Eosinophils 0.2 10^3/uL (0.0-0.5); ABS Lymphocytes 1.3 10^3/uL (1.0-4.8); ABS Monocytes 1.1 10^3/uL (0.0-0.9); ABS Neutrophils 6.5 10^3/uL (1.5-7.6); Eosinophil % 1.7 %; Hemoglobin 9.8 g/dL (11.5-14.3); Lymphocyte % 13.8 %; Mean Corpuscular Hemoglobin 27.3 pg (27-33); Mean Corpuscular Hgb Conc 32.8 g/dL (31-36); Mean Corpuscular Volume 83.1 fL (80-97); Mean Platelet Volume 7.7 fL (7.5-11.2); Platelet Count 143 10^3/uL (150-450); Red Blood Count 3.61 10^6/uL (3.63-4.92); Red Cell Distribution Width 18.3 % (12-17)
[2023-07-09 08:52] LABS: Calcium 8.8 mg/dL (8.6-10.3); Creatinine, Serum 1.15 mg/dL (0.51-0.95); Magnesium 2.1 mg/dL (1.9-2.7); Potassium 3.6 mmol/L (3.5-5.0); eGFR CKD-EPI 46.1 (>60)
[2023-07-09] MEDS ORDERED: Azithromycin 500 mg/250 ml NS 500 MG/250 ML BAG IVPB SCH (10:00)
[2023-07-10 05:59] LABS: ABS Eosinophils 0.2 10^3/uL (0.0-0.5); ABS Lymphocytes 1.4 10^3/uL (1.0-4.8); ABS Monocytes 0.7 10^3/uL (0.0-0.9); ABS Neutrophils 4.5 10^3/uL (1.5-7.6); ABS Nucleated RBC 0.01 10^3/ul; Eosinophil % 3.1 %; Hematocrit 28.5 % (35-45); Hemoglobin 9.4 g/dL (11.5-14.3); Lymphocyte % 19.8 %; Mean Corpuscular Hemoglobin 27.6 pg (27-33); Mean Corpuscular Hgb Conc 33.2 g/dL (31-36); Mean Corpuscular Volume 83.2 fL (80-97); Mean Platelet Volume 7.8 fL (7.5-11.2); Nucleated Red Blood Cells % 0.1 %/100WBC (0.0-0.8); Platelet Count 144 10^3/uL (150-450); Red Blood Count 3.42 10^6/uL (3.63-4.92); Red Cell Distribution Width 18.1 % (12-17); White Blood Count 6.9 10^3/uL (3.8-11.8)
[2023-07-10 06:22] LABS: Calcium 8.8 mg/dL (8.6-10.3); Creatinine, Serum 0.95 mg/dL (0.51-0.95); Magnesium 2.1 mg/dL (1.9-2.7); Potassium 3.6 mmol/L (3.5-5.0)
[2023-07-10] MEDS ORDERED: Potassium Chlor 20 meq TAB.ER PO ONE (07:28)
[2023-07-10] MEDS ORDERED: Azithromycin 500 mg/250 ml NS 500 MG/250 ML BAG IVPB SCH (10:00)
[2023-07-10 11:47] VITALS: BP 136/64
== END 2023-07-10 12:15 | disposition home or self-care (01) ==
LOC: ED 08:10 → EDHOLD 08:10 → SUATTDRO 12:06 → MED 07-09 13:26
PROVIDERS: ADMIT Student in an Organized Health Care Education/Training Program; ATTEND Hospitalist